=== PATIENT | female | born 1960 | race Hispanic/Latino ===

== ENCOUNTER 2017-12-19 13:52 | Inpatient (IN) | payer OTHER ==
[2017-12-19] MEDS ORDERED: NORCO 10/325 PO ONE (15:31)
[2017-12-19 16:09] LABS: Basophils # (Auto) 0.1 K/mm3 (0.0-0.1); Basophils % (Auto) 1.1 % (0.0-1.8); Eosinophils # (Auto) 0.2 K/mm3 (0.0-0.4); Eosinophils % (Auto) 2.7 % (0.0-4.3); Hemoglobin 17.6 gm/dl (10.1-14.3); Lymphocytes # (Auto) 2.2 K/mm3 (1.2-5.4); Mean Corpuscular HGB Conc 33 % (30-34); Mean Corpuscular Hemoglobin 30 pg (28-32); Mean Corpuscular Volume 91 fl (79-97); Monocytes # (Auto) 0.9 K/mm3 (0.0-0.8); Monocytes % (Auto) 11.3 % (0.0-7.3); Platelet Count 182 K/mm3 (140-440); Red Blood Count 5.92 M/mm3 (3.65-5.03); Red Cell Distribution Width 17.6 % (13.2-15.2)
[2017-12-19 16:19] LABS: INR 0.88 (0.87-1.13)
[2017-12-19 16:31] LABS: Alanine Aminotransferase 70 units/L (7-56); Albumin 3.2 g/dL (3.9-5); BUN/Creatinine Ratio 10; Blood Urea Nitrogen 5 mg/dL (7-17); Calcium 8.7 mg/dL (8.4-10.2); Hemolysis Index 9
[2017-12-19] MEDS ORDERED: MORPHINE IV ONE (23:09)
--- NOTE | 2017-12-19 23:12 | Emergency Department Report ---
HPI - General Chief Complaint: Extremity Problem,Nontraumatic Time Seen by Provider: 12/19/17 23:02 - HPI HPI: This is a 57-year-old female presents to the emergency department from the vascular physician's office where she saw a nurse practitioner and was sent in to [facility] for probable admission and angiogram tomorrow. The patient has been having pain to the toes of her left foot along with some color change that has been going on for the past few weeks. She was given a pain pill and given in by her . She is a current tobacco smoker and has a history of COPD. She did not take anything for her symptoms prior to going into the vascular physician's office. No recent travel or sick contacts at home. ED Past Medical Hx - Past Medical History Previous Medical History?: No - Surgical History Past Surgical History?: No - Social History Smoking Status: Current Every Day Smoker Substance Use Type: None ED Review of Systems ROS: Stated complaint: LEFT FOOT PAIN, GANGRENE Other details as noted in HPI Comment: All other systems reviewed and negative Constitutional: denies: chills, fever Eyes: denies: eye pain, eye discharge, vision change ENT: denies: ear pain, throat pain Respiratory: denies: cough, shortness of breath, wheezing Cardiovascular: denies: chest pain, palpitations Gastrointestinal: denies: abdominal pain, nausea, diarrhea Genitourinary: denies: urgency, dysuria, discharge Musculoskeletal: arthralgia (toes of the left foot) Skin: change in color (purplish color to the toes of the left foot). denies: pruritus Neurological: denies: headache, weakness, paresthesias Physical Exam - Physical Exam Vital Signs: Vital Signs 12/19/17 15:05 Temperature 97.8 F Pulse Rate 104 H Respiratory 16 Rate Blood Pressure 165/84 O2 Sat by Pulse 96 Oximetry Physical Exam: GENERAL: The patient is well-developed well-nourished. HENT: Normocephalic. Atraumatic. Patient has moist mucous membranes. EYES: Extraocular motions are intact. Pupils equal reactive to light bilaterally. NECK: Supple. Trachea is midline. CHEST/LUNGS: Clear to auscultation. There is no respiratory distress noted. HEART/CARDIOVASCULAR: Regular. There is no tachycardia. There is no murmur. ABDOMEN: Abdomen is soft, nontender. Patient has normal bowel sounds. There is no abdominal distention. SKIN: Skin is warm and dry. The left foot is slightly cool. There is a purplish dusky color change to the great toe and the fifth/pinky toe of the left foot as well as, to a lesser extent, the dorsum of the second and third toe of that same foot. There is no palpable dorsalis pedis pulse but it is audible yet decreased with pencil Doppler NEURO: The patient is awake, alert, and oriented. The patient is cooperative. The patient has no focal neurologic deficits. The patient has normal speech. MUSCULOSKELETAL: There is some tenderness to palpation to the toes of the left foot and the distal left foot but no obvious deformity other than the color change. Cap refill of the toes of the left foot is between 4 and 5 seconds. ED Course Vital Signs 12/19/17 15:05 Temperature 97.8 F Pulse Rate 104 H Respiratory 16 Rate Blood Pressure 165/84 O2 Sat by Pulse 96 Oximetry - Consultations Consultation #1: I spoke with the vascular surgeon electrician second, Dr. Irvin Chavarria, who will put in some orders for the patient to get evaluated tomorrow for possible arterial insufficiency and he will see the patient has a consult. He has asked for the patient to get a baby aspirin and started on a heparin drip. 12/20/17 00:17 ED Medical Decision Making - Lab Data Result diagrams: 12/19/17 15:51 12/19/17 15:51 - Medical Decision Making Patient presents from vascular physician office with purplish color change to some of the toes of the left foot. She does not have a palpable dorsalis pedis but there is an audible one yet it is decreased with pencil Doppler. She has tenderness to palpation and tenderness without palpation to the toes and distal portion of the left foot. All this is concerning for some arterial insufficiency. The patient was given some pain medication and started on heparin drip. She'll be admitted to the hospitalist service and will have a vascular consult. - Differential Diagnosis arterial insufficiency/PAD, dermatitis, venous stasis, emboli Critical Care Time: No Critical care attestation.: If time is entered above; I have spent that time in minutes in the direct care of this critically ill patient, excluding procedure time. ED Disposition Clinical Impression: Peripheral arterial disease, Arterial insufficiency of lower extremity, Tobacco use disorder Disposition: OP ADMIT IP TO THIS HOSP Is pt being admited?: Yes Condition: Stable Referrals: PRIMARY CARE, [Primary Care Provider] - 3-5 Days Time of Disposition: 00:19
[2017-12-19] MEDS ORDERED: BABY ASPIRIN PO ONE (23:19)
--- NOTE | 2017-12-19 23:21 | Event Note ---
Date: 12/19/17 57 year old female with COPD who is an active smoker who presents after being seen by a PLATE DRILLER at [facility] with recommendations to go to the ER. Patient has right cyanotic discoloration of the toes with intact motor, and sensation with some pain. This has been occuring for a few weeks. No history of melena, hematochezia, or hematemesis. No history of bleeding issues. Recommend ASA 81 mg PO qdaily - first dose now. Recommend initiation of a heparin drip. Recommend NPO after MN. Recommend arterial duplex in AM. Recommend admission by hospitalist service. Probable angiography tomorrow.
--- NOTE | 2017-12-19 23:31 | History and Physical Report ---
History of Present Illness Date of examination: 12/19/17 History of present illness: 57-year-old with a history of COPD comes to the emergency room because of the eyes 3 weeks she has noticed that her right first and middle toe turned blue, followed by the bottom of the foot. She stated that when she walks up an incline, she developed pain in her calves Review Of Systems: Constitutional: no weight loss Ears, eyes, nose, mouth and throat: no nasal congestion, no nasal discharge, no sinus pressure, blurry vision, diplopia Neck: No neck pain or rigidity. Cardiovascular: No chest pain, palpitations Respiratory: No shortness of breath, cough Gastrointestinal: No abdominal pain, hematochezia Genitourinary : no dysuria, frequency , hematuria Musculoskeletal: no muscle ache Integumentary: no rash, no pruritis Neurological: no parathesias, focal weakness Endocrine: no cold or heat intolerance, no polyuria or polydipsia Hematologic/Lymphatic: no easy bruising, no easy bleeding, no gland swelling Allergic/Immunologic: no urticaria, no angioedema. PAST MEDICAL HISTORY: COPD PAST SURGICAL HISTORY: None FAMILY HISTORY: Hypertension SOCIAL HISTORY: Smokes a pack a day, drink a few glasses of wine a day, no drugs Medications and Allergies Allergies Allergy/AdvReac Type Severity Reaction Status Date / Time lisinopril Allergy Unknown Verified 12/23/17 01:05 prochlorperazine AdvReac Unknown Verified 12/19/17 15:27 [From Compazine] Home Medications Medication Instructions Recorded Confirmed Last Taken Type No Known Home Medications [No 12/20/17 12/20/17 Unknown History Reported Home Medications] Active Meds: Active Medications Heparin Sodium/Sodium Chloride (Heparin/ 0.45% Nacl-25,000 Unit/500 Ml) 25,000 unit in 500 mls @ 15.241 mls/hr IV TITR DINESH; 15 UNITS/KG/HR PRN Reason: Protocol Exam - Physical Exam Narrative exam: Gen. appearance: Patient lying in bed in no acute distress HEENT: Normocephalic/atraumatic, pupils equal round reactive to light, extra occular movement intact, no scleral icterus, no JVD or thyromegaly or nodule, neck is supple, mucous membrane moist, no erythema or exudate Heart: S1-S2, regular rate and rhythm Lungs: Clear to auscultation bilateral breathing comfortable Abdomen: Positive bowel sounds, nontender, nondistended, no organomegaly Extremities: cyanosis of the first, third and fifth toes, bottom of foot, No edema, clubbing Neuro:: Oriented 3 , cranial nerves II-12 intact, speech, motor intact Skin: No rash, nodules, warm dry - Constitutional Vitals: Temp Pulse Resp BP Pulse Ox 97.8 F 104 H 16 165/84 96 12/19/17 15:05 12/19/17 15:05 12/19/17 15:05 12/19/17 15:05 12/19/17 15:05 Results - Labs CBC & Chem 7: 12/25/17 Unknown 12/25/17 Unknown Labs: Abnormal lab results 12/19/17 12/19/17 12/19/17 Range/Units 15:51 15:51 15:51 RBC 5.92 H (3.65-5.03) M/mm3 Hgb 17.6 H (10.1-14.3) gm/dl Hct 54.0 H (30.3-42.9) % RDW 17.6 H (13.2-15.2) % [place] % (Auto) 11.3 H (0.0-7.3) % [place] # 0.9 H (0.0-0.8) K/mm3 VBG pH 7.309 L (7.320-7.420) BUN 5 L (7-17) mg/dL Creatinine 0.5 L (0.7-1.2) mg/dL AST 113 H (5-40) units/L ALT 70 H (7-56) units/L Alkaline Phosphatase 155 H (35-129) units/L Total Protein 6.2 L (6.3-8.2) g/dL Albumin 3.2 L (3.9-5) g/dL - Imaging and Cardiology EKG: image reviewed Assessment and Plan Assessment Vascular insufficiency of the left leg COPD Plan Admit to medicine Nothing by mouth, heparin drip, Joel consulted to see the patient Continue outpatient medications Dvt prophylaxis
[2017-12-20] MEDS ORDERED: TYLENOL PO PRN (00:31)
[2017-12-20] MEDS ORDERED: DULCOLAX PR PRN (00:31)
[2017-12-20] MEDS ORDERED: MILK OF MAGNESIA PO PRN (00:31)
[2017-12-20 00:37] LABS: INR 0.97 (0.87-1.13)
[2017-12-20 00:38] LABS: Partial Thromboplastin Time 25.3 Sec. (24.2-36.6)
[2017-12-20] MEDS: HEPARIN/ 0.45% NACL-25,000 UNIT/500 ML 25,000 UNIT/500 ML BAG IV SCH (00:56)
[2017-12-20] MEDS: MORPHINE IV PRN ×4 (02:52→21:41)
--- NOTE | 2017-12-20 08:56 | Consultation ---
History of Present Illness - Reason for Consult Consult date: 12/20/17 Ischemic LLE - History of Present Illness 57-year-old with a history of smoking, and COPD comes to the emergency room because of 3 weeks of left foot discoloration. The patient reports that she has had right hip pain and left calf pain for approximately 1 year with new onset of left foot discoloration for 3 weeks. Her left first digit and fifth digit are slightly mottled and cyanotic. She has some mottling overlying her left knee. Physical exam demonstrates nonpalpable pedal pulses are nonpalpable femoral pulses. Patient is on a heparin drip. Aspirin was initiated at time of presentation. Past History Past Medical History: COPD Past Surgical History: cholecystectomy Social history: , smoking Family history: hypertension Medications and Allergies Allergies Allergy/AdvReac Type Severity Reaction Status Date / Time prochlorperazine AdvReac Unknown Verified 12/19/17 15:27 [From Compazine] Home Medications Medication Instructions Recorded Confirmed Last Taken Type No Known Home Medications [No 12/20/17 12/20/17 Unknown History Reported Home Medications] Active Meds: Active Medications Acetaminophen (Tylenol) 650 mg PO Q4H PRN PRN Reason: Pain MILD(1-3)/Fever >100.5/BARAJAS Aspirin (Baby Aspirin) 81 mg PO QDAY DINESH Bisacodyl (Dulcolax) 10 mg AL QDAY PRN PRN Reason: Constipation unrelieved by MOM Heparin Sodium/Sodium Chloride (Heparin/ 0.45% Nacl-25,000 Unit/500 Ml) 25,000 unit in 500 mls @ 15 mls/hr IV TITR DINESH; 750 UNITS/HR PRN Reason: Protocol Last Admin: 12/20/17 00:56 Dose: 750 units/hr, 15 mls/hr Magnesium Hydroxide (Milk Of Magnesia) 30 ml PO Q4H PRN PRN Reason: Constipation Morphine Sulfate (Morphine) 2 mg IV Q4H PRN PRN Reason: Pain, Moderate (4-6) Last Admin: 12/20/17 06:43 Dose: 2 mg Ondansetron HCl (Zofran) 4 mg IV Q8H PRN PRN Reason: N/V unrelieved by Reglan Review of Systems All systems: negative (see HPI) Exam - Constitutional Vitals: Temp Pulse Resp BP Pulse Ox 97.8 F 76 16 160/88 93 12/20/17 07:17 12/20/17 07:17 12/20/17 07:17 12/20/17 07:17 12/20/17 07:17 General appearance: Present: no acute distress - EENT Eyes: Present: EOM intact ENT: hearing intact - Respiratory Respiratory effort: normal - Extremities Extremity abnormal: cyanosis (left 1st and 5th digit), pulses diminished, other (some mottling overlying the left knee and left plantar surface of the foot) Peripheral Pulses: abnormal (see HPI) - Psychiatric Psychiatric: appropriate mood/affect, cooperative Results - Labs CBC & Chem 7: 12/19/17 15:51 12/19/17 15:51 Labs: Abnormal lab results 12/19/17 12/19/17 12/19/17 Range/Units 15:51 15:51 15:51 RBC 5.92 H (3.65-5.03) M/mm3 Hgb 17.6 H (10.1-14.3) gm/dl Hct 54.0 H (30.3-42.9) % RDW 17.6 H (13.2-15.2) % [place] % (Auto) 11.3 H (0.0-7.3) % [place] # 0.9 H (0.0-0.8) K/mm3 Heparin Anti-Xa Level (0.3-0.7) U.I./ml VBG pH 7.309 L (7.320-7.420) BUN 5 L (7-17) mg/dL Creatinine 0.5 L (0.7-1.2) mg/dL AST 113 H (5-40) units/L ALT 70 H (7-56) units/L Alkaline Phosphatase 155 H (35-129) units/L Total Protein 6.2 L (6.3-8.2) g/dL Albumin 3.2 L (3.9-5) g/dL 12/20/17 Range/Units 07:09 RBC (3.65-5.03) M/mm3 Hgb (10.1-14.3) gm/dl Hct (30.3-42.9) % RDW (13.2-15.2) % [place] % (Auto) (0.0-7.3) % [place] # (0.0-0.8) K/mm3 Heparin Anti-Xa Level 0.17 L (0.3-0.7) U.I./ml VBG pH (7.320-7.420) BUN (7-17) mg/dL Creatinine (0.7-1.2) mg/dL AST (5-40) units/L ALT (7-56) units/L Alkaline Phosphatase (35-129) units/L Total Protein (6.3-8.2) g/dL Albumin (3.9-5) g/dL - Imaging and Cardiology CT scan - abdomen: report reviewed, image reviewed CT scan - pelvis: report reviewed, image reviewed Venous US: image reviewed (arterial) Assessment and Plan 57-year-old female with history of smoking and COPD who presents with mottling of the left lower extremity/ischemic changes of the left lower extremity with bilateral large extremity claudication. The patient has extensive arterial disease arterial duplex of monophasic flow to the bilateral lower extremities and extensive calcific disease in the bilateral common femoral arteries. CT angiogram demonstrates dural thrombus in the infrarenal aorta with occlusion of the right common iliac artery, near occlusion/short segment occlusion of the left external iliac artery, with severe narrowing of the right common femoral artery and partial occlusion of the left common femoral artery. Given the patient's findings, she would likely benefit from operative management of bilateral femoral endarterectomies with aortobifemoral bypass. If patient is an extremely high cardiac or pulmonary risk, then left common femoral artery endarterectomy with retrograde stenting of the iliac system can be considered. Recommend cardiology and pulmonology consults for preoperative evaluation.
[2017-12-20] MEDS ORDERED: LOVENOX SUB-Q SCH (10:00)
--- NOTE | 2017-12-20 12:15 | Cat Scan Report ---
The CTA abdomen, pelvis, lower extremities: Left lower extremity ischemia; PVD. Following intravenous contrast administration images are obtained from lower chest to the feet with coronal and sagittal 2-D reformatted images. The visualized lungs are unremarkable. In the right upper quadrant there appears to be edema in the mesentery extending between the lower liver and the descending duodenum as well as in the perinephric space and around the subhepatic colon. No free fluid and no mass identified. There is a mural thrombus at the level of the thoracolumbar aorta narrowing the lumen approximately 20%. The mesenteric and renal arteries are patent as is the aorta at that level. Just below the renal arteries there is a large mural thrombus narrowing the opacified lumen approximately 50-60%. This extends to the bifurcation where the opacified lumen is approximately 30-40%. The left common iliac artery is heavily calcified but patent to the bifurcation beyond which there is a focal high-grade stenosis. There appears to be occluding thrombus extending into the right common iliac artery with reconstitution of flow at the bifurcation. The external iliac artery is patent but moderately stenotic. Right lower extremity: The common femoral artery is heavily calcified but patent. The superficial femoral artery is patent but there is a high-grade stenosis of the popliteal artery. The trifurcation is patent but flow through the distal vessels appears to be diminished with small vessels. The posterior tibial artery is patent to the foot as is the anterior tibial artery. The peroneal artery occludes in the midportion. Left lower extremity: The bifurcation is patent but also heavily calcified and compromised in lumen size. The SFA is patent as is the popliteal artery although the popliteal is moderately compromised in size. The trifurcation is also patent with anterior and posterior tibial flow to the ankle. The peroneal artery is occluded just distal to its origin. Impression: 1. Suspect possible right upper quadrant inflammation related to the colon. 2. Significantly compromised abdominal aorta lumen below the renal arteries. 3. Bilaterally compromised iliac and common femoral vessel flow as described. 4. Bilateral compromised lower extremity flow predominantly at the level of the popliteal arteries.
[2017-12-20] MEDS: BABY ASPIRIN PO SCH (12:17)
--- NOTE | 2017-12-20 16:45 | Progress Note ---
History Interval history: 57-year-old female with medical history significant for COPD, hypertension, active tobacco use is limited to the emergency department with complaints of cyanosis of the right foot Peripheral vascular disease - VASCULAR LAB.PRELIMINARY REPORT.BLE ARTERIAL DUPLEX DONE.EXTENSIVE ,SCATTERED FIBROCALCIFIED PLAQUES THROUGHOUT VESSELS VISUALIZED LICO. LT.GROIN VESSELS .MONOPHASIC WAVEFORMS OBTAINED THROUGHOUT VESSELS INTERROGATED. - Vascular surgery consulted - And is on IV heparin drip - We will do preoperative evaluation of his echo, EKG, ABG - Check lipid panel COPD - When necessary nebulizers Hypertension - We'll start on amlodipine Disposition - Continue inpatient care Hospitalist Physical - Constitutional Vitals: Temp Pulse Resp BP Pulse Ox 97.8 F 88 16 152/88 96 12/20/17 15:57 12/20/17 15:57 12/20/17 15:57 12/20/17 15:57 12/20/17 15:57 Results - Labs CBC & Chem 7: 12/19/17 15:51 12/19/17 15:51 Labs: Laboratory Last Values WBC 8.1 K/mm3 (4.5-11.0) 12/19/17 15:51 RBC 5.92 M/mm3 (3.65-5.03) H 12/19/17 15:51 Hgb 17.6 gm/dl (10.1-14.3) H 12/19/17 15:51 Hct 54.0 % (30.3-42.9) H 12/19/17 15:51 MCV 91 fl (79-97) 12/19/17 15:51 MCH 30 pg (28-32) 12/19/17 15:51 MCHC 33 % (30-34) 12/19/17 15:51 RDW 17.6 % (13.2-15.2) H 12/19/17 15:51 Plt Count 182 K/mm3 (140-440) 12/19/17 15:51 Lymph % (Auto) 27.0 % (13.4-35.0) 12/19/17 15:51 [place] % (Auto) 11.3 % (0.0-7.3) H 12/19/17 15:51 Eos % (Auto) 2.7 % (0.0-4.3) 12/19/17 15:51 Baso % (Auto) 1.1 % (0.0-1.8) 12/19/17 15:51 Lymph # 2.2 K/mm3 (1.2-5.4) 12/19/17 15:51 [place] # 0.9 K/mm3 (0.0-0.8) H 12/19/17 15:51 Eos # 0.2 K/mm3 (0.0-0.4) 12/19/17 15:51 Baso # 0.1 K/mm3 (0.0-0.1) 12/19/17 15:51 Seg Neutrophils % 57.9 % (40.0-70.0) 12/19/17 15:51 Seg Neutrophils # 4.7 K/mm3 (1.8-7.7) 12/19/17 15:51 PT 13.4 Sec. (12.2-14.9) 12/20/17 00:11 INR 0.97 (0.87-1.13) 12/20/17 00:11 APTT 25.3 Sec. (24.2-36.6) 12/20/17 00:11 Heparin Anti-Xa Level 0.17 U.I./ml (0.3-0.7) L 12/20/17 07:09 VBG pH 7.309 (7.320-7.420) L 12/19/17 15:51 Sodium 142 mmol/L (137-145) 12/19/17 15:51 Potassium 4.9 mmol/L (3.6-5.0) 12/19/17 15:51 Chloride 104.8 mmol/L (98-107) 12/19/17 15:51 Carbon Dioxide 26 mmol/L (22-30) 12/19/17 15:51 Anion Gap 16 mmol/L 12/19/17 15:51 BUN 5 mg/dL (7-17) L 12/19/17 15:51 Creatinine 0.5 mg/dL (0.7-1.2) L 12/19/17 15:51 Estimated GFR > 60 ml/min 12/19/17 15:51 BUN/Creatinine Ratio 10 % 12/19/17 15:51 Glucose 97 mg/dL (65-100) 12/19/17 15:51 Lactic Acid 1.60 mmol/L (0.7-2.0) 12/19/17 18:42 Calcium 8.7 mg/dL (8.4-10.2) 12/19/17 15:51 Total Bilirubin 0.20 mg/dL (0.1-1.2) 12/19/17 15:51 AST 113 units/L (5-40) H 12/19/17 15:51 ALT 70 units/L (7-56) H 12/19/17 15:51 Alkaline Phosphatase 155 units/L (35-129) H 12/19/17 15:51 Total Protein 6.2 g/dL (6.3-8.2) L 12/19/17 15:51 Albumin 3.2 g/dL (3.9-5) L 12/19/17 15:51 Albumin/Globulin Ratio 1.1 % 12/19/17 15:51
[2017-12-20 20:28] LABS: Chol/HDL Ratio 2.64 %
[2017-12-20] MEDS: HABITROL TD SCH (22:13)
[2017-12-20] MEDS: NORVASC PO SCH (23:30)
[2017-12-21] MEDS: MORPHINE IV PRN ×2 (01:47→09:31)
[2017-12-21 06:33] LABS: Basophils # (Auto) 0.1 K/mm3 (0.0-0.1); Eosinophils # (Auto) 0.5 K/mm3 (0.0-0.4); Eosinophils % (Auto) 4.1 % (0.0-4.3); Hematocrit 48.4 % (30.3-42.9); Hemoglobin 15.5 gm/dl (10.1-14.3); Lymphocytes # (Auto) 2.2 K/mm3 (1.2-5.4); Lymphocytes % (Auto) 19.5 % (13.4-35.0); Mean Corpuscular HGB Conc 32 % (30-34); Mean Corpuscular Hemoglobin 30 pg (28-32); Mean Corpuscular Volume 92 fl (79-97); Monocytes # (Auto) 1.3 K/mm3 (0.0-0.8); Platelet Count 145 K/mm3 (140-440); Red Blood Count 5.27 M/mm3 (3.65-5.03); Red Cell Distribution Width 16.9 % (13.2-15.2)
[2017-12-21 06:41] LABS: BUN/Creatinine Ratio 10; Blood Urea Nitrogen 5 mg/dL (7-17); Calcium 8.2 mg/dL (8.4-10.2); Hemolysis Index 23
[2017-12-21] MEDS ORDERED: PROAIR IH PRN (08:49)
[2017-12-21] MEDS ORDERED: K-DUR PO NR (09:00)
[2017-12-21] MEDS: BABY ASPIRIN PO SCH (09:32)
[2017-12-21] MEDS: NORVASC PO SCH ×2 (09:33→12:58)
--- NOTE | 2017-12-21 09:39 | Vascular Lab Report ---
LOWER EXTREMITY ARTERIAL DUPLEX: REASON FOR EXAM: Peripheral arterial disease. COMMENTS ON THE RIGHT: Monophasic waveforms are seen proximally. Monophasic waveforms are seen distally. These findings are consistent with aortoiliac inflow disease. Significant scattered plaque is seen throughout. Findings are consistent with abnormal perfusion. Findings are not consistent with the ability to heal distal wounds. COMMENTS ON THE LEFT: Monophasic waveforms are seen proximally. Monophasic waveforms are seen distally. Findings are consistent with aortoiliac inflow disease. Significant scattered plaque is seen throughout. Findings are consistent with abnormal perfusion. Findings are not consistent with the ability to heal distal wounds. IMPRESSION: RIGHT: Findings are consistent with aortoiliac inflow disease. Flow velocities in the distal lower extremity are inadequate for healing wounds. LEFT:As on the right, findings are consistent with aortoiliac inflow disease. Flow velocities noted in the distal lower extremity are inconsistent with the ability to heal wounds. Recommendation: Consider further evaluation including CT angiography if clinically appropriate.
--- NOTE | 2017-12-21 11:36 | Consultation ---
History of Present Illness Consult date: 12/21/17 Requesting physician: KAVIN IZAGUIRRE Consult reason: pre op evaluation History of present illness: The pt is a 57 YO female with a past medical history significant for HTN, COPD, tobacco use (smokes 1PPD), daily ETOH use (drinks 2 glasses wine per day). She is previously unknown to our practice. She presented with c/o BLE claudication for the past 1 year and progressively worsening LLE pain with cyanotic discoloration of the left toes for the past 3 weeks. Following admission, pt was found to have extensive PAD and extensive calcific disease in the bilateral common femoral arteries. CT angiogram demonstrates dural thrombus in the infrarenal aorta with occlusion of the right common iliac artery, near occlusion /short segment occlusion of the left external iliac artery, with severe narrowing of the right common femoral artery and partial occlusion of the left common femoral artery. Per vascular surgery, pt would likely benefit from operative management and thus cardiology has been consulted for pre-operative cardiac clearance. Pt reports no SOB above baseline, palpitations, n/v, diaphoresis, dizziness or syncope. She reports one episode of chest tightness last night which was associated with nausea secondary to IV morphine but no other episodes of chest pain. She reports undergoing treadmill stress test in our office approx 5 years ago and believes this test was normal. Past History Past Medical History: COPD Past Surgical History: cholecystectomy Social history: , smoking Family history: cancer (mother of colon CA), hypertension Medications and Allergies Allergies Allergy/AdvReac Type Severity Reaction Status Date / Time prochlorperazine AdvReac Unknown Verified 12/19/17 15:27 [From Compazine] Home Medications Medication Instructions Recorded Confirmed Last Taken Type No Known Home Medications [No 12/20/17 12/20/17 Unknown History Reported Home Medications] Active Meds: Active Medications Acetaminophen (Tylenol) 650 mg PO Q4H PRN PRN Reason: Pain MILD(1-3)/Fever >100.5/BARAJAS Albuterol (Proventil) 2.5 mg IH Q4HRT PRN PRN Reason: Shortness Of Breath Amlodipine Besylate (Norvasc) 5 mg PO QDAY [facility] Last Admin: 12/21/17 09:33 Dose: 5 mg Aspirin (Baby Aspirin) 81 mg PO QDAY [facility] Last Admin: 12/21/17 09:32 Dose: 81 mg Bisacodyl (Dulcolax) 10 mg [place] QDAY PRN PRN Reason: Constipation unrelieved by MOM Heparin Sodium/Sodium Chloride (Heparin/ 0.45% Nacl-25,000 Unit/500 Ml) 25,000 unit in 500 mls @ 15 mls/hr IV TITR DINESH; 750 UNITS/HR PRN Reason: Protocol Last Titration: 12/21/17 06:55 Dose: 850 units/hr, 17 mls/hr Magnesium Hydroxide (Milk Of Magnesia) 30 ml PO Q4H PRN PRN Reason: Constipation Nicotine (Habitrol) 14 mg TD Q24H DINESH Last Admin: 12/20/17 22:13 Dose: 14 mg Ondansetron HCl (Zofran) 4 mg IV Q8H PRN PRN Reason: N/V unrelieved by Reglan Oxycodone/Acetaminophen (Percocet 5/325) 2 tab PO Q6H PRN PRN Reason: Pain, Moderate (4-6) Review of Systems Constitutional: no weight loss, no weight gain, no fever, no chills, no sweats Ears, nose, mouth and throat: no ear pain, no nose pain, no sinus pressure, no sinus pain Cardiovascular: chest pain, shortness of breath (chronic), claudication (BLE), no orthopnea, no palpitations, no rapid/irregular heart beat, no edema, no syncope, no lightheadedness, no paroxysmal nocturnal dyspnea, no high blood pressure, no leg edema Respiratory: shortness of breath (chronic), no cough, no dyspnea on exertion, no congestion, no wheezing, no pain on inspiration Gastrointestinal: no abdominal pain, no nausea, no vomiting, no diarrhea, no constipation, no change in bowel habits Genitourinary Female: no pelvic pain, no flank pain, no dysuria, no urinary frequency, no urgency Musculoskeletal: no neck stiffness, no neck pain, no shooting arm pain, no arm numbness/tingling, no low back pain Integumentary: other (LLE toe mottling and cyanotic discoloration), no rash, no pruritis, no sores, no wounds Neurological: no head injury, no paralysis, no weakness, no seizures, no syncope Psychiatric: no anxiety Endocrine: no cold intolerance, no heat intolerance Hematologic/Lymphatic: no easy bruising, no easy bleeding, no lymphadenopathy Allergic/Immunologic: no urticaria, no wheezing, no persistent infections Physical Examination Vital Signs Temp Pulse Resp BP Pulse Ox 97.8 F 104 H 16 165/84 96 12/19/17 15:05 12/19/17 15:05 12/19/17 15:05 12/19/17 15:05 12/19/17 15:05 General appearance: no acute distress HEENT: Positive: PERRL, Normocephaly, Mucus Membranes Moist Neck: Positive: neck supple, trachea midline Cardiac: Positive: Reg Rate and Rhythm, S1/S2 Lungs: Positive: clear to auscultation Neuro: Positive: Grossly Intact, Cranial Nerve 2-12 Intact Abdomen: Positive: Soft. Negative: Tender Skin: Positive: Mottled (LLE toes) Musculoskeletal: No Fluid Collection Extremities: Present: upper extr. pulses, Other (nonpalpable pedal pulses are nonpalpable femoral pulses) Results 12/21/17 05:37 12/21/17 05:37 Lipids 12/20/17 Range/Units 19:47 Triglycerides 160 H (2-149) mg/dL Cholesterol 140 (50-199) mg/dL HDL Cholesterol 53 (40-59) mg/dL Cholesterol/HDL Ratio 2.64 % CBC 12/21/17 Range/Units 05:37 WBC 11.1 H (4.5-11.0) K/mm3 RBC 5.27 H (3.65-5.03) M/mm3 Hgb 15.5 H (10.1-14.3) gm/dl Hct 48.4 H (30.3-42.9) % Plt Count 145 (140-440) K/mm3 Lymph # 2.2 (1.2-5.4) K/mm3 [place] # 1.3 H (0.0-0.8) K/mm3 Eos # 0.5 H (0.0-0.4) K/mm3 Baso # 0.1 (0.0-0.1) K/mm3 Comprehensive Metabolic Panel 12/21/17 Range/Units 05:37 Sodium 138 (137-145) mmol/L Potassium 3.4 L D (3.6-5.0) mmol/L Chloride 101.2 (98-107) mmol/L Carbon Dioxide 26 (22-30) mmol/L BUN 5 L (7-17) mg/dL Creatinine 0.5 L (0.7-1.2) mg/dL Glucose 87 (65-100) mg/dL Calcium 8.2 L (8.4-10.2) mg/dL - Imaging and Cardiology Echo: pending EKG: report reviewed, image reviewed EKG interpretations - Telemetry EKG Rhythm: Sinus Rhythm - EKG Sinus rhythms and dysrhythmias: sinus rhythm Assessment and Plan Assessment: PVD HTN COPD Hypokalemia Tobacco use / ETOH use - cessation encouraged Plan: Optimize anti-hypertensive regimen - increase amlodipine to 10mg daily and initiate lopressor. Replete K+. Obtain echo. Plan for lexiscan MPI stress test in AM. NPO after MN. Assessment and plan reviewed with pt at bedside. The patient has been seen in conjunction with Dr. Carmona who agrees with the assessment and plan of care.
[2017-12-21] MEDS ORDERED: PROVENTIL IH PRN (12:00)
[2017-12-21] MEDS: PERCOCET 5/325 PO PRN ×2 (12:59→19:20)
--- NOTE | 2017-12-21 16:25 | Progress Note ---
Assessment and Plan 57-year-old female with history of smoking and COPD who presents with mottling of the left lower extremity/ischemic changes of the left lower extremity with bilateral large extremity claudication. The patient has extensive arterial disease arterial duplex of monophasic flow to the bilateral lower extremities and extensive calcific disease in the bilateral common femoral arteries. CT angiogram demonstrates mural thrombus in the infrarenal aorta with occlusion of the right common iliac artery, near occlusion/short segment occlusion of the left external iliac artery, with severe narrowing of the right common femoral artery and partial occlusion of the left common femoral artery. Given the patient's findings, she would likely benefit from operative management of bilateral femoral endarterectomies with aortobifemoral bypass. If patient is an extremely high cardiac or pulmonary risk, then left common femoral artery endarterectomy with retrograde stenting of the iliac system can be considered. Recommend cardiology and pulmonology consults for preoperative evaluation. There is a tentative plan for aortobifemoral bypass on Sunday however, this may change based on preoperative evaluation recommendations. Continue heparin drip. Continue aspirin. Subjective Date of service: 12/21/17 Interval history: Discussed plan with patient. Her left foot feels better. Left 1st and 5th digit of the foot still mottled. Sensory and motor function intact. Objective - Constitutional Vitals: Vital Signs - 12hr 12/21/17 12/21/17 12/21/17 05:29 07:17 08:00 Temperature 97.7 F 98.5 F Pulse Rate 98 H 111 H 76 Respiratory 18 16 Rate Respiratory Rate [Left Toe] Blood Pressure 153/101 Blood Pressure 148/90 [Left] O2 Sat by Pulse 98 96 Oximetry 12/21/17 12/21/17 12/21/17 09:31 09:33 10:00 Temperature Pulse Rate 94 H 80 Respiratory 20 20 Rate Respiratory 20 Rate [Left Toe] Blood Pressure 150/90 Blood Pressure [Left] O2 Sat by Pulse Oximetry 12/21/17 12/21/17 12/21/17 10:01 11:20 12:58 Temperature 98.2 F Pulse Rate 89 88 Respiratory 20 16 Rate Respiratory Rate [Left Toe] Blood Pressure 131/82 136/84 Blood Pressure [Left] O2 Sat by Pulse 95 Oximetry 12/21/17 12:59 Temperature Pulse Rate Respiratory 20 Rate Respiratory Rate [Left Toe] Blood Pressure Blood Pressure [Left] O2 Sat by Pulse Oximetry General appearance: Present: no acute distress - EENT Eyes: EOM intact ENT: hearing intact - Respiratory Respiratory effort: normal Extremity abnormal: pulses diminished, other (see subjective) - Psychiatric Psychiatric: appropriate mood/affect, cooperative - Labs CBC & Chem 7: 12/21/17 05:37 12/21/17 05:37 Labs: Abnormal lab results 12/20/17 12/20/17 12/20/17 Range/Units 18:00 19:47 19:47 WBC (4.5-11.0) K/mm3 RBC (3.65-5.03) M/mm3 Hgb (10.1-14.3) gm/dl Hct (30.3-42.9) % RDW (13.2-15.2) % [place] % (Auto) (0.0-7.3) % [place] # (0.0-0.8) K/mm3 Eos # (0.0-0.4) K/mm3 Heparin Anti-Xa Level 0.25 L (0.3-0.7) U.I./ml POC ABG pO2 77 L (80-105) Potassium (3.6-5.0) mmol/L BUN (7-17) mg/dL Creatinine (0.7-1.2) mg/dL Calcium (8.4-10.2) mg/dL Triglycerides 160 H (2-149) mg/dL 12/21/17 12/21/17 Range/Units 05:37 05:37 WBC 11.1 H (4.5-11.0) K/mm3 RBC 5.27 H (3.65-5.03) M/mm3 Hgb 15.5 H (10.1-14.3) gm/dl Hct 48.4 H (30.3-42.9) % RDW 16.9 H (13.2-15.2) % [place] % (Auto) 12.0 H (0.0-7.3) % [place] # 1.3 H (0.0-0.8) K/mm3 Eos # 0.5 H (0.0-0.4) K/mm3 Heparin Anti-Xa Level (0.3-0.7) U.I./ml POC ABG pO2 (80-105) Potassium 3.4 L D (3.6-5.0) mmol/L BUN 5 L (7-17) mg/dL Creatinine 0.5 L (0.7-1.2) mg/dL Calcium 8.2 L (8.4-10.2) mg/dL Triglycerides (2-149) mg/dL
--- NOTE | 2017-12-21 16:52 | Progress Note ---
Assessment and Plan Assessment and plan: 57-year-old female with medical history significant for COPD, hypertension, active tobacco use is limited to the emergency department with complaints of cyanosis of the right foot Peripheral vascular disease - VASCULAR LAB.PRELIMINARY REPORT.BLE ARTERIAL DUPLEX DONE.EXTENSIVE ,SCATTERED FIBROCALCIFIED PLAQUES THROUGHOUT VESSELS VISUALIZED LICO. LT.GROIN VESSELS .MONOPHASIC WAVEFORMS OBTAINED THROUGHOUT VESSELS INTERROGATED. - Vascular surgery consulted and will do out to femoral bypass, need clearance by cardiology and pulmonary -Cardiology consulted and recommended echo, stress test tomorrow morning - And is on IV heparin drip -Lipid panel is within normal limit COPD - When necessary nebulizers Hypertension -Controlled with amlodipine Disposition - Continue inpatient care and will have vascular surgery on Sunday or Sunday History Interval history: Indocin and divided this morning, pain and discoloration of the toe is getting better. Hospitalist Physical - Physical exam Narrative exam: Not in cardiopulmonary distress. The patient appeared well nourished and normally developed. Vital signs as documented. Head exam is unremarkable. No scleral icterus . Neck is without jugular venous distension, thyromegaly, or carotid bruits. Lungs are clear to auscultation. Cardiac exam reveals regular rate and Rhythm. First and second heart sounds normal. No murmurs, rubs or gallops. Abdominal exam reveals normal bowel sounds, no masses, no organomegaly and no aortic enlargement. Extremities discoloration of the right great toe, but getting better today. 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 No focal weakness. - Constitutional Vitals: Temp Pulse Resp BP Pulse Ox 98.2 F 88 20 136/84 95 12/21/17 11:20 12/21/17 12:58 12/21/17 12:59 12/21/17 12:58 12/21/17 11:20 General appearance: Present: no acute distress Results - Labs CBC & Chem 7: 12/21/17 05:37 12/21/17 05:37 Labs: Laboratory Last Values WBC 11.1 K/mm3 (4.5-11.0) H 12/21/17 05:37 RBC 5.27 M/mm3 (3.65-5.03) H 12/21/17 05:37 Hgb 15.5 gm/dl (10.1-14.3) H 12/21/17 05:37 Hct 48.4 % (30.3-42.9) H 12/21/17 05:37 MCV 92 fl (79-97) 12/21/17 05:37 MCH 30 pg (28-32) 12/21/17 05:37 MCHC 32 % (30-34) 12/21/17 05:37 RDW 16.9 % (13.2-15.2) H 12/21/17 05:37 Plt Count 145 K/mm3 (140-440) 12/21/17 05:37 Lymph % (Auto) 19.5 % (13.4-35.0) 12/21/17 05:37 [place] % (Auto) 12.0 % (0.0-7.3) H 12/21/17 05:37 Eos % (Auto) 4.1 % (0.0-4.3) 12/21/17 05:37 Baso % (Auto) 1.0 % (0.0-1.8) 12/21/17 05:37 Lymph # 2.2 K/mm3 (1.2-5.4) 12/21/17 05:37 [place] # 1.3 K/mm3 (0.0-0.8) H 12/21/17 05:37 Eos # 0.5 K/mm3 (0.0-0.4) H 12/21/17 05:37 Baso # 0.1 K/mm3 (0.0-0.1) 12/21/17 05:37 Seg Neutrophils % 63.4 % (40.0-70.0) 12/21/17 05:37 Seg Neutrophils # 7.0 K/mm3 (1.8-7.7) 12/21/17 05:37 PT 13.4 Sec. (12.2-14.9) 12/20/17 00:11 INR 0.97 (0.87-1.13) 12/20/17 00:11 APTT 25.3 Sec. (24.2-36.6) 12/20/17 00:11 Heparin Anti-Xa Level 0.32 U.I./ml (0.3-0.7) 12/21/17 05:37 POC ABG pH 7.389 (7.35-7.45) 12/20/17 18:00 POC ABG pCO2 36.9 (35-45) 12/20/17 18:00 POC ABG pO2 77 (80-105) L 12/20/17 18:00 POC ABG HCO3 22.3 12/20/17 18:00 POC ABG Total CO2 23 12/20/17 18:00 POC ABG O2 Sat 95 12/20/17 18:00 POC ABG Base Excess -3 12/20/17 18:00 VBG pH 7.309 (7.320-7.420) L 12/19/17 15:51 FiO2 21 % 12/20/17 18:00 Sodium 138 mmol/L (137-145) 12/21/17 05:37 Potassium 3.4 mmol/L (3.6-5.0) L D 12/21/17 05:37 Chloride 101.2 mmol/L (98-107) 12/21/17 05:37 Carbon Dioxide 26 mmol/L (22-30) 12/21/17 05:37 Anion Gap 14 mmol/L 12/21/17 05:37 BUN 5 mg/dL (7-17) L 12/21/17 05:37 Creatinine 0.5 mg/dL (0.7-1.2) L 12/21/17 05:37 Estimated GFR > 60 ml/min 12/21/17 05:37 BUN/Creatinine Ratio 10 % 12/21/17 05:37 Glucose 87 mg/dL (65-100) 12/21/17 05:37 Lactic Acid 1.60 mmol/L (0.7-2.0) 12/19/17 18:42 Calcium 8.2 mg/dL (8.4-10.2) L 12/21/17 05:37 Total Bilirubin 0.20 mg/dL (0.1-1.2) 12/19/17 15:51 AST 113 units/L (5-40) H 12/19/17 15:51 ALT 70 units/L (7-56) H 12/19/17 15:51 Alkaline Phosphatase 155 units/L (35-129) H 12/19/17 15:51 Total Protein 6.2 g/dL (6.3-8.2) L 12/19/17 15:51 Albumin 3.2 g/dL (3.9-5) L 12/19/17 15:51 Albumin/Globulin Ratio 1.1 % 12/19/17 15:51 Triglycerides 160 mg/dL (2-149) H 12/20/17 19:47 Cholesterol 140 mg/dL (50-199) 12/20/17 19:47 LDL Cholesterol Direct 55 mg/dL (50-130) 12/20/17 19:47 HDL Cholesterol 53 mg/dL (40-59) 12/20/17 19:47 Cholesterol/HDL Ratio 2.64 % 12/20/17 19:47
[2017-12-21] MEDS: HABITROL TD SCH (18:24)
[2017-12-21] MEDS: LOPRESSOR PO SCH (22:04)
[2017-12-22] MEDS: PERCOCET 5/325 PO PRN ×3 (04:03→21:44)
[2017-12-22] MEDS ORDERED: LEXISCAN IV ONE ×2 (07:57→08:16)
--- NOTE | 2017-12-22 10:17 | Progress Note ---
Assessment and Plan 57yo wf: PVD HTN COPD Hypokalemia Tobacco use / ETOH use - cessation encouraged stress mpi this am: 1. No evidence of ischemia or prior infarct 2. Nl lv fxn TTE reviewed No cardiac sxs At this point, given dearth of cardiac symptoms and tte/stress mpi results as aforementioned, pt is at low risk from a cardiac perspective for contemplated vascular procedure. Thanks. Subjective Date of service: 12/22/17 Interval history: no complaints no cp or sob Objective Vital Signs Temp Pulse Pulse Resp BP BP Pulse Ox 12/22/17 05:09 98.3 F 82 19 116/70 96 12/22/17 00:28 98.3 F 74 17 117/75 97 12/21/17 22:26 96 12/21/17 22:04 91 H 115/77 12/21/17 22:00 91 H 12/21/17 19:29 98.0 F 91 H 20 115/77 93 12/21/17 19:26 81 12/21/17 19:20 20 12/21/17 18:05 98.4 F 82 18 117/80 92 12/21/17 13:59 20 12/21/17 12:59 20 12/21/17 12:58 88 136/84 12/21/17 11:20 98.2 F 89 16 131/82 95 - Physical Examination HEENT: Positive: PERRL, Normocephaly, Mucus Membranes Moist Neck: Positive: neck supple, trachea midline Neuro: Positive: Grossly Intact, Cranial Nerve 2-12 Intact Abdomen: Positive: Soft. Negative: Tender Skin: Positive: Mottled (LLE toes) Musculoskeletal: No Fluid Collection Extremities: Present: upper extr. pulses, Other (nonpalpable pedal pulses are nonpalpable femoral pulses) - Imaging and Cardiology EKG: report reviewed, image reviewed Echo: pending - EKG Sinus rhythms and dysrhythmias: sinus rhythm
[2017-12-22] MEDS: BABY ASPIRIN PO SCH (10:31)
[2017-12-22] MEDS: LOPRESSOR PO SCH ×2 (10:33→21:45)
[2017-12-22] MEDS: ZOFRAN IV PRN (10:35)
[2017-12-22] MEDS: HEPARIN/ 0.45% NACL-25,000 UNIT/500 ML 25,000 UNIT/500 ML BAG IV SCH (10:35)
[2017-12-22] MEDS: NORVASC PO SCH (10:35)
[2017-12-22 11:46] LABS: BUN/Creatinine Ratio 12; Blood Urea Nitrogen 6 mg/dL (7-17); Calcium 8.6 mg/dL (8.4-10.2); Hemolysis Index 5
--- NOTE | 2017-12-22 14:42 | Consultation ---
History of Present Illness Consult date: 12/22/17 Requesting physician: MIGUEL GOODWIN Reason for consult: COPD History of present illness: 57 y/o female smoker for the last 40 years, 1 pack per day, admitted with PVD and claudication. Patient, as stated is currently smoking 1 packs per day. She has never been hospitalized for breathing and has never been treated. She has had "blood test" from [facility] screenings that have diagnosed her with COPD. I am not sure what these tests are. She states that she does cough, but mainly at night (Reflux) and that she wheezes occasionaly. She is not on any chronic treatment for COPD. Past History Past Medical History: COPD Past Surgical History: cholecystectomy Social history: , smoking Family history: cancer (mother of colon CA), hypertension Medications and Allergies Allergies Allergy/AdvReac Type Severity Reaction Status Date / Time prochlorperazine AdvReac Unknown Verified 12/19/17 15:27 [From Compazine] Home Medications Medication Instructions Recorded Confirmed Last Taken Type No Known Home Medications [No 12/20/17 12/20/17 Unknown History Reported Home Medications] Active Meds: Active Medications Acetaminophen (Tylenol) 650 mg PO Q4H PRN PRN Reason: Pain MILD(1-3)/Fever >100.5/BARAJAS Albuterol (Proventil) 2.5 mg IH Q4HRT PRN PRN Reason: Shortness Of Breath Amlodipine Besylate (Norvasc) 10 mg PO QDAY [facility] Last Admin: 12/22/17 10:35 Dose: 10 mg Aspirin (Baby Aspirin) 81 mg PO QDAY [facility] Last Admin: 12/22/17 10:31 Dose: 81 mg Bisacodyl (Dulcolax) 10 mg [place] QDAY PRN PRN Reason: Constipation unrelieved by MOM Heparin Sodium/Sodium Chloride (Heparin/ 0.45% Nacl-25,000 Unit/500 Ml) 25,000 unit in 500 mls @ 15 mls/hr IV TITR DINESH; 750 UNITS/HR PRN Reason: Protocol Last Titration: 12/22/17 12:35 Dose: 900 units/hr, 18 mls/hr Magnesium Hydroxide (Milk Of Magnesia) 30 ml PO Q4H PRN PRN Reason: Constipation Metoprolol Tartrate (Lopressor) 12.5 mg PO BID [facility] Last Admin: 12/22/17 10:33 Dose: 12.5 mg Nicotine (Habitrol) 14 mg TD Q24H DINESH Last Admin: 12/21/17 18:24 Dose: 14 mg Ondansetron HCl (Zofran) 4 mg IV Q8H PRN PRN Reason: N/V unrelieved by Reglan Last Admin: 12/22/17 10:35 Dose: 4 mg Oxycodone/Acetaminophen (Percocet 5/325) 2 tab PO Q6H PRN PRN Reason: Pain, Moderate (4-6) Last Admin: 12/22/17 10:31 Dose: 2 tab Review of Systems All systems: negative Physical Examination Vital signs: Vital Signs Temp Pulse Resp BP Pulse Ox 97.8 F 104 H 16 165/84 96 12/19/17 15:05 12/19/17 15:05 12/19/17 15:05 12/19/17 15:05 12/19/17 15:05 General appearance: no acute distress, alert Eyes: non-icteric ENT: oropharynx moist Neck: supple, no lymphadenopathy Effort: normal Ascultation: Bilateral: clear Percussion: Bilateral: not dull Tactile fremitus: Bilateral: normal Cardiovascular: regular rate and rhythm Gastrointestinal: soft, non-tender Extremities: no edema, cyanosis (of toes) normal mental status, non-focal exam Results - Laboratory Findings CBC and BMP: 12/21/17 05:37 12/22/17 09:04 ABG POC ABG pH 7.389 (7.35-7.45) 12/20/17 18:00 POC ABG pCO2 36.9 (35-45) 12/20/17 18:00 POC ABG pO2 77 (80-105) L 12/20/17 18:00 POC ABG HCO3 22.3 12/20/17 18:00 POC ABG Total CO2 23 12/20/17 18:00 POC ABG O2 Sat 95 12/20/17 18:00 PT/INR, D-dimer PT 13.4 Sec. (12.2-14.9) 12/20/17 00:11 INR 0.97 (0.87-1.13) 12/20/17 00:11 Abnormal lab findings: Abnormal Labs 12/19/17 12/19/17 12/19/17 15:51 15:51 15:51 WBC RBC 5.92 H Hgb 17.6 H Hct 54.0 H RDW 17.6 H [place] % (Auto) 11.3 H [place] # 0.9 H Eos # Heparin Anti-Xa Level POC ABG pO2 VBG pH 7.309 L Potassium BUN 5 L Creatinine 0.5 L Glucose Calcium AST 113 H ALT 70 H Alkaline Phosphatase 155 H Total Protein 6.2 L Albumin 3.2 L Triglycerides 12/20/17 12/20/17 12/20/17 07:09 18:00 19:47 WBC RBC Hgb Hct RDW [place] % (Auto) [place] # Eos # Heparin Anti-Xa Level 0.17 L 0.25 L POC ABG pO2 77 L VBG pH Potassium BUN Creatinine Glucose Calcium AST ALT Alkaline Phosphatase Total Protein Albumin Triglycerides 12/20/17 12/21/17 12/21/17 19:47 05:37 05:37 WBC 11.1 H RBC 5.27 H Hgb 15.5 H Hct 48.4 H RDW 16.9 H [place] % (Auto) 12.0 H [place] # 1.3 H Eos # 0.5 H Heparin Anti-Xa Level POC ABG pO2 VBG pH Potassium 3.4 L D BUN 5 L Creatinine 0.5 L Glucose Calcium 8.2 L AST ALT Alkaline Phosphatase Total Protein Albumin Triglycerides 160 H 12/22/17 12/22/17 09:04 09:04 WBC RBC Hgb Hct RDW [place] % (Auto) [place] # Eos # Heparin Anti-Xa Level 0.28 L POC ABG pO2 VBG pH Potassium 3.5 L BUN 6 L Creatinine 0.5 L Glucose 107 H Calcium AST ALT Alkaline Phosphatase Total Protein Albumin Triglycerides Assessment and Plan 57 y/o female with presumptive COPD based on smoking history, here with foot pain and PVD. 1. Will obtain 2 view CXR 2. Will see if we can obtain in house spirometry 3. Continue nicotine patch 4. Ok with PRN albuterol Currently patient is asymptomatic from a pulmonary standpoint.
--- NOTE | 2017-12-22 16:01 | Progress Note ---
Assessment and Plan Assessment and plan: 57-year-old female with medical history significant for COPD, hypertension, active tobacco use is limited to the emergency department with complaints of cyanosis of the right foot Peripheral vascular disease - VASCULAR LAB.PRELIMINARY REPORT.BLE ARTERIAL DUPLEX DONE.EXTENSIVE ,SCATTERED FIBROCALCIFIED PLAQUES THROUGHOUT VESSELS VISUALIZED LICO. LT.GROIN VESSELS .MONOPHASIC WAVEFORMS OBTAINED THROUGHOUT VESSELS INTERROGATED. - CTA was done - Vascular surgery consulted and will do out to femoral bypass, need clearance by cardiology and pulmonary - Cardiology consulted and recommended echo, stress test, stress test is negative and echo show mild diastolic dysfunction - And is on IV heparin drip - Lipid panel is within normal limit COPD - Pulmonary consulted for surgical reisk assessment Hypertension -Controlled with amlodipine Disposition - Continue inpatient care and will have vascular surgery on Sunday or Sunday History Interval history: Indocin and divided this morning, pain and discoloration of the toe is getting better. Hospitalist Physical - Physical exam Narrative exam: Not in cardiopulmonary distress. The patient appeared well nourished and normally developed. Vital signs as documented. Head exam is unremarkable. No scleral icterus . Neck is without jugular venous distension, thyromegaly, or carotid bruits. Lungs are clear to auscultation. Cardiac exam reveals regular rate and Rhythm. First and second heart sounds normal. No murmurs, rubs or gallops. Abdominal exam reveals normal bowel sounds, no masses, no organomegaly and no aortic enlargement. Extremities discoloration of the right great toe, but getting better today. 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 No focal weakness. - Constitutional Vitals: Temp Pulse Resp BP Pulse Ox 98.3 F 84 19 116/80 96 12/22/17 05:09 12/22/17 10:35 12/22/17 05:09 12/22/17 10:35 12/22/17 05:09 General appearance: Present: no acute distress Results - Labs CBC & Chem 7: 12/21/17 05:37 12/22/17 09:04 Labs: Laboratory Last Values WBC 11.1 K/mm3 (4.5-11.0) H 12/21/17 05:37 RBC 5.27 M/mm3 (3.65-5.03) H 12/21/17 05:37 Hgb 15.5 gm/dl (10.1-14.3) H 12/21/17 05:37 Hct 48.4 % (30.3-42.9) H 12/21/17 05:37 MCV 92 fl (79-97) 12/21/17 05:37 MCH 30 pg (28-32) 12/21/17 05:37 MCHC 32 % (30-34) 12/21/17 05:37 RDW 16.9 % (13.2-15.2) H 12/21/17 05:37 Plt Count 145 K/mm3 (140-440) 12/21/17 05:37 Lymph % (Auto) 19.5 % (13.4-35.0) 12/21/17 05:37 [place] % (Auto) 12.0 % (0.0-7.3) H 12/21/17 05:37 Eos % (Auto) 4.1 % (0.0-4.3) 12/21/17 05:37 Baso % (Auto) 1.0 % (0.0-1.8) 12/21/17 05:37 Lymph # 2.2 K/mm3 (1.2-5.4) 12/21/17 05:37 [place] # 1.3 K/mm3 (0.0-0.8) H 12/21/17 05:37 Eos # 0.5 K/mm3 (0.0-0.4) H 12/21/17 05:37 Baso # 0.1 K/mm3 (0.0-0.1) 12/21/17 05:37 Seg Neutrophils % 63.4 % (40.0-70.0) 12/21/17 05:37 Seg Neutrophils # 7.0 K/mm3 (1.8-7.7) 12/21/17 05:37 PT 13.4 Sec. (12.2-14.9) 12/20/17 00:11 INR 0.97 (0.87-1.13) 12/20/17 00:11 APTT 25.3 Sec. (24.2-36.6) 12/20/17 00:11 Heparin Anti-Xa Level 0.28 U.I./ml (0.3-0.7) L 12/22/17 09:04 POC ABG pH 7.389 (7.35-7.45) 12/20/17 18:00 POC ABG pCO2 36.9 (35-45) 12/20/17 18:00 POC ABG pO2 77 (80-105) L 12/20/17 18:00 POC ABG HCO3 22.3 12/20/17 18:00 POC ABG Total CO2 23 12/20/17 18:00 POC ABG O2 Sat 95 12/20/17 18:00 POC ABG Base Excess -3 12/20/17 18:00 VBG pH 7.309 (7.320-7.420) L 12/19/17 15:51 FiO2 21 % 12/20/17 18:00 Sodium 141 mmol/L (137-145) 12/22/17 09:04 Potassium 3.5 mmol/L (3.6-5.0) L 12/22/17 09:04 Chloride 100.6 mmol/L (98-107) 12/22/17 09:04 Carbon Dioxide 25 mmol/L (22-30) 12/22/17 09:04 Anion Gap 19 mmol/L 12/22/17 09:04 BUN 6 mg/dL (7-17) L 12/22/17 09:04 Creatinine 0.5 mg/dL (0.7-1.2) L 12/22/17 09:04 Estimated GFR > 60 ml/min 12/22/17 09:04 BUN/Creatinine Ratio 12 % 12/22/17 09:04 Glucose 107 mg/dL (65-100) H 12/22/17 09:04 Lactic Acid 1.60 mmol/L (0.7-2.0) 12/19/17 18:42 Calcium 8.6 mg/dL (8.4-10.2) 12/22/17 09:04 Total Bilirubin 0.20 mg/dL (0.1-1.2) 12/19/17 15:51 AST 113 units/L (5-40) H 12/19/17 15:51 ALT 70 units/L (7-56) H 12/19/17 15:51 Alkaline Phosphatase 155 units/L (35-129) H 12/19/17 15:51 Total Protein 6.2 g/dL (6.3-8.2) L 12/19/17 15:51 Albumin 3.2 g/dL (3.9-5) L 12/19/17 15:51 Albumin/Globulin Ratio 1.1 % 12/19/17 15:51 Triglycerides 160 mg/dL (2-149) H 12/20/17 19:47 Cholesterol 140 mg/dL (50-199) 12/20/17 19:47 LDL Cholesterol Direct 55 mg/dL (50-130) 12/20/17 19:47 HDL Cholesterol 53 mg/dL (40-59) 12/20/17 19:47 Cholesterol/HDL Ratio 2.64 % 12/20/17 19:47
--- NOTE | 2017-12-22 17:25 | XRay Report ---
FINAL REPORT EXAM: XR CHEST ROUTINE 2V HISTORY: Concern for COPD TECHNIQUE: PA and lateral views of the chest PRIORS: None. FINDINGS: Lines, tubes, and devices: N/A Lungs and pleura: Trachea is normal in position. Minimal linear atelectasis or scarring is seen in the lung bases. Lungs are clear of infiltrate, pleural effusion, vascular congestion, or pneumothorax. Cardiomediastinal silhouette: Cardiac and mediastinal silhouettes are unremarkable. Other: Bony structures are intact. IMPRESSION: No acute cardiopulmonary process seen. Middle linear atelectasis or scarring in each lung base.
[2017-12-22] MEDS: HABITROL TD SCH (18:52)
[2017-12-23 04:05] LABS: Hematocrit 46.1 % (30.3-42.9); Hemoglobin 15.2 gm/dl (10.1-14.3)
[2017-12-23] MEDS: PERCOCET 5/325 PO PRN ×2 (08:35→18:47)
[2017-12-23] MEDS: NORVASC PO SCH (10:20)
[2017-12-23] MEDS: BABY ASPIRIN PO SCH (10:20)
[2017-12-23] MEDS: LOPRESSOR PO SCH ×2 (10:21→21:46)
--- NOTE | 2017-12-23 11:00 | Progress Note ---
Assessment and Plan 57yo wf: PVD HTN COPD Hypokalemia Tobacco use / ETOH use - cessation encouraged stress mpi this am: 1. No evidence of ischemia or prior infarct 2. Nl lv fxn TTE reviewed No cardiac sxs At this point, given dearth of cardiac symptoms and tte/stress mpi results as aforementioned, pt is at low risk from a cardiac perspective for contemplated vascular procedure. Thanks. Subjective Interval history: no complaints no cp or sob Objective Vital Signs Temp Pulse Pulse Resp BP BP Pulse Ox 12/23/17 10:21 76 114/72 12/23/17 10:20 76 114/72 12/23/17 10:04 97.9 F 76 18 114/42 92 12/23/17 10:00 76 18 12/23/17 08:35 16 12/23/17 04:48 98.0 F 75 20 102/64 95 12/22/17 23:42 98.0 F 71 20 101/64 93 12/22/17 21:45 87 117/71 12/22/17 20:04 98.3 F 78 20 117/71 96 12/22/17 17:24 98.6 F 73 16 117/80 92 - Physical Examination HEENT: Positive: PERRL, Normocephaly, Mucus Membranes Moist Neck: Positive: neck supple, trachea midline Neuro: Positive: Grossly Intact, Cranial Nerve 2-12 Intact Abdomen: Positive: Soft. Negative: Tender Skin: Positive: Mottled (LLE toes) Musculoskeletal: No Fluid Collection Extremities: Present: upper extr. pulses, Other (nonpalpable pedal pulses are nonpalpable femoral pulses) - Labs and Meds CBC 12/23/17 Range/Units 03:40 Hgb 15.2 H (10.1-14.3) gm/dl Hct 46.1 H (30.3-42.9) % Plt Count 171 (140-440) K/mm3 Comprehensive Metabolic Panel 12/22/17 Range/Units 09:04 Sodium 141 (137-145) mmol/L Potassium 3.5 L (3.6-5.0) mmol/L Chloride 100.6 (98-107) mmol/L Carbon Dioxide 25 (22-30) mmol/L BUN 6 L (7-17) mg/dL Creatinine 0.5 L (0.7-1.2) mg/dL Glucose 107 H (65-100) mg/dL Calcium 8.6 (8.4-10.2) mg/dL - Imaging and Cardiology EKG: report reviewed, image reviewed Echo: pending - EKG Sinus rhythms and dysrhythmias: sinus rhythm
--- NOTE | 2017-12-23 13:23 | Progress Note ---
Assessment and Plan 57 y/o female with presumptive COPD based on smoking history, here with foot pain and PVD. 1. CXR is stable, consistent with hyperinflation and most likely COPD. No evidence of any acute process 2. Await bedside luis so we can interpret level of COPD Currently patient is asymptomatic from a pulmonary standpoint. Subjective Date of service: 12/23/17 Interval history: No acute events. Had CXR done yesterday. I have ordered luis for today. Objective Vital Signs - 12hr 12/23/17 12/23/17 12/23/17 04:48 08:35 10:00 Temperature 98.0 F Pulse Rate 75 75 Pulse Rate [ 76 Apical] Respiratory 20 16 18 Rate Blood Pressure 102/64 Blood Pressure [Left] O2 Sat by Pulse 95 Oximetry 12/23/17 12/23/17 12/23/17 10:04 10:20 10:21 Temperature 97.9 F Pulse Rate 76 76 76 Pulse Rate [ Apical] Respiratory 18 Rate Blood Pressure 114/72 114/72 Blood Pressure 114/42 [Left] O2 Sat by Pulse 92 Oximetry 12/23/17 12:07 Temperature 98.3 F Pulse Rate 64 Pulse Rate [ Apical] Respiratory 16 Rate Blood Pressure Blood Pressure 102/57 [Left] O2 Sat by Pulse Oximetry Constitutional: no acute distress, alert Eyes: non-icteric ENT: oropharynx moist Neck: supple, no lymphadenopathy Effort: normal Ascultation: Bilateral: clear Percussion: Bilateral: not dull Tactile fremitus: Bilateral: normal Cardiovascular: regular rate and rhythm Gastrointestinal: soft, non-tender Extremities: no edema, cyanosis (of toes) Neurologic: normal mental status, non-focal exam CBC and BMP: 12/23/17 03:40 12/22/17 09:04 ABG, PT/INR, D-dimer: ABG POC ABG pH 7.389 (7.35-7.45) 12/20/17 18:00 POC ABG pCO2 36.9 (35-45) 12/20/17 18:00 POC ABG pO2 77 (80-105) L 12/20/17 18:00 POC ABG HCO3 22.3 12/20/17 18:00 POC ABG Total CO2 23 12/20/17 18:00 POC ABG O2 Sat 95 12/20/17 18:00 PT/INR, D-dimer PT 13.4 Sec. (12.2-14.9) 12/20/17 00:11 INR 0.97 (0.87-1.13) 12/20/17 00:11 Abnormal lab findings: Abnormal Labs 12/19/17 12/19/17 12/19/17 15:51 15:51 15:51 WBC RBC 5.92 H Hgb 17.6 H Hct 54.0 H RDW 17.6 H [place] % (Auto) 11.3 H [place] # 0.9 H Eos # Heparin Anti-Xa Level POC ABG pO2 VBG pH 7.309 L Potassium BUN 5 L Creatinine 0.5 L Glucose Calcium AST 113 H ALT 70 H Alkaline Phosphatase 155 H Total Protein 6.2 L Albumin 3.2 L Triglycerides 12/20/17 12/20/17 12/20/17 07:09 18:00 19:47 WBC RBC Hgb Hct RDW [place] % (Auto) [place] # Eos # Heparin Anti-Xa Level 0.17 L 0.25 L POC ABG pO2 77 L VBG pH Potassium BUN Creatinine Glucose Calcium AST ALT Alkaline Phosphatase Total Protein Albumin Triglycerides 12/20/17 12/21/17 12/21/17 19:47 05:37 05:37 WBC 11.1 H RBC 5.27 H Hgb 15.5 H Hct 48.4 H RDW 16.9 H [place] % (Auto) 12.0 H [place] # 1.3 H Eos # 0.5 H Heparin Anti-Xa Level POC ABG pO2 VBG pH Potassium 3.4 L D BUN 5 L Creatinine 0.5 L Glucose Calcium 8.2 L AST ALT Alkaline Phosphatase Total Protein Albumin Triglycerides 160 H 12/22/17 12/22/17 12/22/17 09:04 09:04 18:21 WBC RBC Hgb Hct RDW [place] % (Auto) [place] # Eos # Heparin Anti-Xa Level 0.28 L 0.19 L POC ABG pO2 VBG pH Potassium 3.5 L BUN 6 L Creatinine 0.5 L Glucose 107 H Calcium AST ALT Alkaline Phosphatase Total Protein Albumin Triglycerides 12/23/17 12/23/17 03:40 03:40 WBC RBC Hgb 15.2 H Hct 46.1 H RDW [place] % (Auto) [place] # Eos # Heparin Anti-Xa Level 0.23 L POC ABG pO2 VBG pH Potassium BUN Creatinine Glucose Calcium AST ALT Alkaline Phosphatase Total Protein Albumin Triglycerides
[2017-12-23] MEDS: HEPARIN/ 0.45% NACL-25,000 UNIT/500 ML 25,000 UNIT/500 ML BAG IV SCH (14:40)
--- NOTE | 2017-12-23 15:05 | Progress Note ---
Assessment and Plan Assessment and plan: 57-year-old female with medical history significant for COPD, hypertension, active tobacco use is limited to the emergency department with complaints of cyanosis of the right foot Peripheral vascular disease - VASCULAR LAB.PRELIMINARY REPORT.BLE ARTERIAL DUPLEX DONE.EXTENSIVE ,SCATTERED FIBROCALCIFIED PLAQUES THROUGHOUT VESSELS VISUALIZED LICO. LT.GROIN VESSELS .MONOPHASIC WAVEFORMS OBTAINED THROUGHOUT VESSELS INTERROGATED. - CTA was done - Vascular surgery consulted and will do out to femoral bypass, need clearance by cardiology and pulmonary - Cardiology consulted and recommended echo, stress test, stress test is negative and echo show mild diastolic dysfunction - And is on IV heparin drip - Lipid panel is within normal limit COPD - Pulmonary consulted for surgical reisk assessment Hypertension -Controlled with amlodipine Disposition - Continue inpatient care and will have vascular surgery on Sunday or Sunday History Interval history: Indocin and divided this morning, pain and discoloration of the toe is getting better. Hospitalist Physical - Physical exam Narrative exam: Not in cardiopulmonary distress. The patient appeared well nourished and normally developed. Vital signs as documented. Head exam is unremarkable. No scleral icterus . Neck is without jugular venous distension, thyromegaly, or carotid bruits. Lungs are clear to auscultation. Cardiac exam reveals regular rate and Rhythm. First and second heart sounds normal. No murmurs, rubs or gallops. Abdominal exam reveals normal bowel sounds, no masses, no organomegaly and no aortic enlargement. Extremities discoloration of the right great toe, but getting better today. 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 No focal weakness. - Constitutional Vitals: Temp Pulse Resp BP Pulse Ox 98.3 F 64 16 102/57 92 12/23/17 12:07 12/23/17 12:07 12/23/17 12:12/23/17 12:12/23/17 10:04 General appearance: Present: no acute distress Results - Labs CBC & Chem 7: 12/23/17 03:40 12/22/17 09:04 Labs: Laboratory Last Values WBC 11.1 K/mm3 (4.5-11.0) H 12/21/17 05:37 RBC 5.27 M/mm3 (3.65-5.03) H 12/21/17 05:37 Hgb 15.2 gm/dl (10.1-14.3) H 12/23/17 03:40 Hct 46.1 % (30.3-42.9) H 12/23/17 03:40 MCV 92 fl (79-97) 12/21/17 05:37 MCH 30 pg (28-32) 12/21/17 05:37 MCHC 32 % (30-34) 12/21/17 05:37 RDW 16.9 % (13.2-15.2) H 12/21/17 05:37 Plt Count 171 K/mm3 (140-440) 12/23/17 03:40 Lymph % (Auto) 19.5 % (13.4-35.0) 12/21/17 05:37 [place] % (Auto) 12.0 % (0.0-7.3) H 12/21/17 05:37 Eos % (Auto) 4.1 % (0.0-4.3) 12/21/17 05:37 Baso % (Auto) 1.0 % (0.0-1.8) 12/21/17 05:37 Lymph # 2.2 K/mm3 (1.2-5.4) 12/21/17 05:37 [place] # 1.3 K/mm3 (0.0-0.8) H 12/21/17 05:37 Eos # 0.5 K/mm3 (0.0-0.4) H 12/21/17 05:37 Baso # 0.1 K/mm3 (0.0-0.1) 12/21/17 05:37 Seg Neutrophils % 63.4 % (40.0-70.0) 12/21/17 05:37 Seg Neutrophils # 7.0 K/mm3 (1.8-7.7) 12/21/17 05:37 PT 13.4 Sec. (12.2-14.9) 12/20/17 00:11 INR 0.97 (0.87-1.13) 12/20/17 00:11 APTT 25.3 Sec. (24.2-36.6) 12/20/17 00:11 Heparin Anti-Xa Level 0.30 U.I./ml (0.3-0.7) 12/23/17 13:06 POC ABG pH 7.389 (7.35-7.45) 12/20/17 18:00 POC ABG pCO2 36.9 (35-45) 12/20/17 18:00 POC ABG pO2 77 (80-105) L 12/20/17 18:00 POC ABG HCO3 22.3 12/20/17 18:00 POC ABG Total CO2 23 12/20/17 18:00 POC ABG O2 Sat 95 12/20/17 18:00 POC ABG Base Excess -3 12/20/17 18:00 VBG pH 7.309 (7.320-7.420) L 12/19/17 15:51 FiO2 21 % 12/20/17 18:00 Sodium 141 mmol/L (137-145) 12/22/17 09:04 Potassium 3.5 mmol/L (3.6-5.0) L 12/22/17 09:04 Chloride 100.6 mmol/L (98-107) 12/22/17 09:04 Carbon Dioxide 25 mmol/L (22-30) 12/22/17 09:04 Anion Gap 19 mmol/L 12/22/17 09:04 BUN 6 mg/dL (7-17) L 12/22/17 09:04 Creatinine 0.5 mg/dL (0.7-1.2) L 12/22/17 09:04 Estimated GFR > 60 ml/min 12/22/17 09:04 BUN/Creatinine Ratio 12 % 12/22/17 09:04 Glucose 107 mg/dL (65-100) H 12/22/17 09:04 Lactic Acid 1.60 mmol/L (0.7-2.0) 12/19/17 18:42 Calcium 8.6 mg/dL (8.4-10.2) 12/22/17 09:04 Total Bilirubin 0.20 mg/dL (0.1-1.2) 12/19/17 15:51 AST 113 units/L (5-40) H 12/19/17 15:51 ALT 70 units/L (7-56) H 12/19/17 15:51 Alkaline Phosphatase 155 units/L (35-129) H 12/19/17 15:51 Total Protein 6.2 g/dL (6.3-8.2) L 12/19/17 15:51 Albumin 3.2 g/dL (3.9-5) L 12/19/17 15:51 Albumin/Globulin Ratio 1.1 % 12/19/17 15:51 Triglycerides 160 mg/dL (2-149) H 12/20/17 19:47 Cholesterol 140 mg/dL (50-199) 12/20/17 19:47 LDL Cholesterol Direct 55 mg/dL (50-130) 12/20/17 19:47 HDL Cholesterol 53 mg/dL (40-59) 12/20/17 19:47 Cholesterol/HDL Ratio 2.64 % 12/20/17 19:47
[2017-12-23] MEDS ORDERED: PNEUMOVAX 23 IM ONE (17:00)
[2017-12-23] MEDS: HABITROL TD SCH (17:07)
--- NOTE | 2017-12-23 20:11 | Treadmill Report ---
NUCLEAR PERFUSION SCAN REFERRING PHYSICIAN: Dr. Emely Joiner. PROCEDURE: Nuclear perfusion stress test. PROTOCOL: The patient was brought to the stress lab in a postobsorptive state, given 10 mCi technetium 99m rest imaging. The patient underwent Lexiscan stress test per standard protocol. At the patient's peak stress, the patient was given 28 mCi of technetium 99m showed that the patient underwent stress imaging. Raw imaging reveals mild GI artifact, no significant motion artifact. SPECT images examined. Given the horizontal long axis, vertical long axis, short axis views. There is normal homogenous uptake ____ of all reported segments. No evidence of a significant fixed or reversible perfusion defects suggestive of prior infarction or ischemia. Gated wall motion reveals normal ____ calculated ejection fraction is 70%. No TID. CONCLUSIONS: 1. Normal myocardial perfusion scan without evidence of active ischemia or prior infarction. 2. Normal left ventricular systolic performance without evidence of transient ischemic dilatation or stress-induced segmental wall motion abnormalities. 3. Normal Lexiscan stress test without evidence of diagnostic ST changes, arrhythmias or chest pain during stress or recovery. JOB# [id number] SBM/NTS
[2017-12-24] MEDS: PERCOCET 5/325 PO PRN ×3 (03:19→23:37)
[2017-12-24] MEDS: NORVASC PO SCH (09:42)
[2017-12-24] MEDS: LOPRESSOR PO SCH ×2 (09:45→22:10)
[2017-12-24] MEDS: BABY ASPIRIN PO SCH (09:46)
--- NOTE | 2017-12-24 10:03 | Progress Note ---
Assessment and Plan Patient will be scheduled for an aortobifem tomorrow pending clearance from pulmonology. Subjective Date of service: 12/24/17 Principal diagnosis: peripheral vascular disease with claudication Interval history: Patient with a history of peripheral vascular disease with claudication with significant occlusive disease involving her bilateral common and external iliac arteries. Additionally, the patient has extensive thrombus involving her distal abdominal aorta. The patient is undergone evaluation with cardiac clearance for an aortobifem. Awaiting pulmonary clearance at this time. No specific complaints. Lengthy discussion was held with the patient regarding the operation and questions were appropriately asked and answered. Objective - Constitutional Vitals: Vital Signs - 12hr 12/24/17 12/24/17 12/24/17 00:27 03:19 03:50 Temperature 97.4 F L Pulse Rate 66 69 Pulse Rate [ Apical] Respiratory 18 18 Rate Blood Pressure 105/66 Blood Pressure 110/70 [Left] O2 Sat by Pulse 96 95 Oximetry 12/24/17 12/24/17 12/24/17 04:19 04:25 07:29 Temperature 98.9 F 97.8 F Pulse Rate 69 62 Pulse Rate [ Apical] Respiratory 18 20 18 Rate Blood Pressure 109/76 Blood Pressure 105/68 [Left] O2 Sat by Pulse 95 97 Oximetry 12/24/17 12/24/17 12/24/17 09:16 09:42 09:45 Temperature Pulse Rate 62 62 Pulse Rate [ 62 Apical] Respiratory 17 Rate Blood Pressure 109/76 109/76 Blood Pressure [Left] O2 Sat by Pulse Oximetry General appearance: Present: no acute distress - EENT Eyes: PERRL ENT: hearing intact - Neck Neck: supple, normal ROM - Respiratory Respiratory effort: normal Extremities: abnormal Extremity abnormal: pulses diminished - Gastrointestinal General gastrointestinal: Present: deferred Rectal Exam: deferred - Genitourinary Female genitourinary: deferred - Integumentary Integumentary: clear, warm - Psychiatric Psychiatric: appropriate mood/affect, cooperative - Labs CBC & Chem 7: 12/23/17 03:40 12/22/17 09:04
--- NOTE | 2017-12-24 10:26 | Progress Note ---
<LILIANE GERARD - Last Filed: 12/24/17 10:28> Assessment and Plan Assessment: PVD HTN COPD Hypokalemia Tobacco use / ETOH use - cessation encouraged Plan: Pt for tentative aortobifem bypass in AM per vascular team. Lexiscan MPI stress test with no evidence of significant ischemia, echo with normal LVEF and no significant valvular disease. At this point pt is at low risk from a cardiac perspective for contemplated vascular procedure. Assessment and plan reviewed with pt at bedside. The patient has been seen in conjunction with Dr. Sin who agrees with the assessment and plan of care. Subjective Date of service: 12/24/17 Principal diagnosis: peripheral vascular disease with claudication Interval history: Pt resting comfortably in bed, no current cardiac complaints. VSS. Awaiting vascular procedure in AM. Objective Last Vital Signs Temp 97.8 F 12/24/17 07:29 Pulse 61 12/24/17 10:00 Resp 17 12/24/17 09:16 BP 109/76 12/24/17 09:45 Pulse Ox 97 12/24/17 07:29 - Physical Examination HEENT: Positive: PERRL, Normocephaly, Mucus Membranes Moist Neck: Positive: neck supple, trachea midline Cardiac: Positive: Reg Rate and Rhythm, S1/S2 Lungs: Positive: clear to auscultation Neuro: Positive: Grossly Intact, Cranial Nerve 2-12 Intact Abdomen: Positive: Soft. Negative: Tender Skin: Positive: Mottled (LLE toes) Musculoskeletal: No Fluid Collection Extremities: Present: upper extr. pulses, Other (nonpalpable pedal pulses are nonpalpable femoral pulses) - Imaging and Cardiology EKG: report reviewed, image reviewed Pharmacologic stress test: report reviewed (12/22/2017: no evidence of ischemia, normal LV systolic performance) Echo: report reviewed (12/20/2017: EF 50-55%, impaired relaxation, trace MR) - Telemetry EKG Rhythm: Sinus Rhythm - EKG Sinus rhythms and dysrhythmias: sinus rhythm <ALEXIS SIN - Last Filed: 12/24/17 10:53> Assessment and Plan 57 F Severe PAD bilateral lower extremities awaiting bilateral femoral endarterectomies with aortobifemoral bypass continue heparin gtt/ASA Discuss with vascular initiating high dose statin Hypertension COPD/Tobacco abuse Etoh use Pt is low risk for cardiovascular complications for high risk procedure Objective Vital Signs Temp Pulse Pulse Pulse Resp Resp BP 12/24/17 10:00 61 12/24/17 09:45 62 109/76 12/24/17 09:42 62 109/76 12/24/17 09:16 62 17 12/24/17 07:29 97.8 F 62 18 109/76 12/24/17 04:25 98.9 F 69 20 12/24/17 04:19 18 12/24/17 03:50 69 105/66 12/24/17 03:19 18 12/24/17 00:27 97.4 F L 66 18 12/23/17 22:00 80 18 12/23/17 21:46 79 120/74 12/23/17 20:32 18 12/23/17 19:45 98.4 F 79 18 12/23/17 19:24 80 120/74 12/23/17 18:51 69 12/23/17 17:13 72 104/71 12/23/17 12:07 98.3 F 64 16 BP Pulse Ox 12/24/17 10:00 12/24/17 09:45 12/24/17 09:42 12/24/17 09:16 12/24/17 07:29 97 12/24/17 04:25 105/68 95 12/24/17 04:19 12/24/17 03:50 95 12/24/17 03:19 12/24/17 00:27 110/70 96 12/23/17 22:00 12/23/17 21:46 12/23/17 20:32 12/23/17 19:45 120/74 94 12/23/17 19:24 98 12/23/17 18:51 12/23/17 17:13 97 12/23/17 12:07 102/57 - Physical Examination Extremities: Present: Other - Imaging and Cardiology Pharmacologic stress test: report reviewed Echo: report reviewed
--- NOTE | 2017-12-24 12:45 | Progress Note ---
Assessment and Plan Peripheral vascular disease with claudication. Patient scheduled for surgery tomorrow. COPD. Appear to be clinically stable. No spirometry on record, ABG showed no evidence of hypercapnic failure CAD. See cardiology, History of tobacco abuse. Recommendations Will review spirometry if available Incentive spirometry Continue nebulizer therapy x pre op prep. Can go to surgery as scheduled Patient will likely need at least 24-hour observation ICU after surgery. We'll review,monitor at that time. Discussed with patient in detail. All questions answered. Subjective Date of service: 12/24/17 Principal diagnosis: COPD, CAD, peripheral vascular disease with claudication Interval history: Temperature reports no respiratory complaints. She denies shortness of breath, wheezing, cough or expectoration Objective Vital Signs - 12hr 12/24/17 12/24/17 12/24/17 03:19 03:50 04:19 Temperature Pulse Rate 69 Pulse Rate [ Apical] Respiratory 18 18 Rate Blood Pressure 105/66 Blood Pressure [Left] O2 Sat by Pulse 95 Oximetry 12/24/17 12/24/17 12/24/17 04:25 07:29 09:16 Temperature 98.9 F 97.8 F Pulse Rate 69 62 Pulse Rate [ 62 Apical] Respiratory 20 18 17 Rate Blood Pressure 109/76 Blood Pressure 105/68 [Left] O2 Sat by Pulse 95 97 Oximetry 12/24/17 12/24/17 12/24/17 09:42 09:45 10:00 Temperature Pulse Rate 62 62 61 Pulse Rate [ Apical] Respiratory Rate Blood Pressure 109/76 109/76 Blood Pressure [Left] O2 Sat by Pulse Oximetry Constitutional: no acute distress, alert Eyes: non-icteric ENT: oropharynx moist Neck: supple, no lymphadenopathy, no JVD Effort: normal Ascultation: Bilateral: clear Percussion: Bilateral: not dull Tactile fremitus: Bilateral: normal Cardiovascular: regular rate and rhythm Gastrointestinal: soft, non-tender Extremities: no edema, other (no edema, poor peripheral pulses) Neurologic: normal mental status, non-focal exam Psychiatric: mood appropriate, affect normal CBC and BMP: 12/23/17 03:40 12/22/17 09:04 ABG, PT/INR, D-dimer: ABG POC ABG pH 7.389 (7.35-7.45) 12/20/17 18:00 POC ABG pCO2 36.9 (35-45) 12/20/17 18:00 POC ABG pO2 77 (80-105) L 12/20/17 18:00 POC ABG HCO3 22.3 12/20/17 18:00 POC ABG Total CO2 23 12/20/17 18:00 POC ABG O2 Sat 95 12/20/17 18:00 PT/INR, D-dimer PT 13.4 Sec. (12.2-14.9) 12/20/17 00:11 INR 0.97 (0.87-1.13) 12/20/17 00:11 Abnormal lab findings: Abnormal Labs 12/19/17 12/19/17 12/19/17 15:51 15:51 15:51 WBC RBC 5.92 H Hgb 17.6 H Hct 54.0 H RDW 17.6 H [place] % (Auto) 11.3 H [place] # 0.9 H Eos # Heparin Anti-Xa Level POC ABG pO2 VBG pH 7.309 L Potassium BUN 5 L Creatinine 0.5 L Glucose Calcium AST 113 H ALT 70 H Alkaline Phosphatase 155 H Total Protein 6.2 L Albumin 3.2 L Triglycerides Crossmatch 12/20/17 12/20/17 12/20/17 07:09 18:00 19:47 WBC RBC Hgb Hct RDW [place] % (Auto) [place] # Eos # Heparin Anti-Xa Level 0.17 L 0.25 L POC ABG pO2 77 L VBG pH Potassium BUN Creatinine Glucose Calcium AST ALT Alkaline Phosphatase Total Protein Albumin Triglycerides Crossmatch 12/20/17 12/21/17 12/21/17 19:47 05:37 05:37 WBC 11.1 H RBC 5.27 H Hgb 15.5 H Hct 48.4 H RDW 16.9 H [place] % (Auto) 12.0 H [place] # 1.3 H Eos # 0.5 H Heparin Anti-Xa Level POC ABG pO2 VBG pH Potassium 3.4 L D BUN 5 L Creatinine 0.5 L Glucose Calcium 8.2 L AST ALT Alkaline Phosphatase Total Protein Albumin Triglycerides 160 H Crossmatch 12/22/17 12/22/17 12/22/17 09:04 09:04 18:21 WBC RBC Hgb Hct RDW [place] % (Auto) [place] # Eos # Heparin Anti-Xa Level 0.28 L 0.19 L POC ABG pO2 VBG pH Potassium 3.5 L BUN 6 L Creatinine 0.5 L Glucose 107 H Calcium AST ALT Alkaline Phosphatase Total Protein Albumin Triglycerides Crossmatch 12/23/17 12/23/17 12/24/17 03:40 03:40 10:40 WBC RBC Hgb 15.2 H Hct 46.1 H RDW [place] % (Auto) [place] # Eos # Heparin Anti-Xa Level 0.23 L POC ABG pO2 VBG pH Potassium BUN Creatinine Glucose Calcium AST ALT Alkaline Phosphatase Total Protein Albumin Triglycerides Crossmatch See Detail Chest x-ray: report reviewed, image reviewed
[2017-12-24] MEDS: HEPARIN/ 0.45% NACL-25,000 UNIT/500 ML 25,000 UNIT/500 ML BAG IV SCH (14:53)
[2017-12-24 15:45] LABS: Basophils # (Auto) 0.2 K/mm3 (0.0-0.1); Basophils % (Auto) 1.3 % (0.0-1.8); Eosinophils # (Auto) 1.2 K/mm3 (0.0-0.4); Eosinophils % (Auto) 10.1 % (0.0-4.3); Hematocrit 48.3 % (30.3-42.9); Hemoglobin 15.3 gm/dl (10.1-14.3); Lymphocytes # (Auto) 2.3 K/mm3 (1.2-5.4); Lymphocytes % (Auto) 19.3 % (13.4-35.0); Mean Corpuscular HGB Conc 32 % (30-34); Mean Corpuscular Hemoglobin 29 pg (28-32); Mean Corpuscular Volume 93 fl (79-97); Monocytes # (Auto) 1.3 K/mm3 (0.0-0.8); Monocytes % (Auto) 11.3 % (0.0-7.3); Platelet Count 202 K/mm3 (140-440); Red Blood Count 5.22 M/mm3 (3.65-5.03)
--- NOTE | 2017-12-24 16:41 | Progress Note ---
Assessment and Plan Assessment and plan: 57-year-old female with medical history significant for COPD, hypertension, active tobacco use is limited to the emergency department with complaints of cyanosis of the right foot Peripheral vascular disease - VASCULAR LAB.PRELIMINARY REPORT.BLE ARTERIAL DUPLEX DONE.EXTENSIVE ,SCATTERED FIBROCALCIFIED PLAQUES THROUGHOUT VESSELS VISUALIZED LICO. LT.GROIN VESSELS .MONOPHASIC WAVEFORMS OBTAINED THROUGHOUT VESSELS INTERROGATED. - CTA abdomen Significantly compromised abdominal aorta lumen below the renal arteries. Bilaterally compromised iliac and common femoral vessel flow. Bilateral compromised lower extremity flow predominantly at the level of the popliteal arteries. - Vascular surgery consulted and will do out to femoral bypass - Cardial and pulmonary consulted for risk assessment and recommendations appreciated - And is on IV heparin drip - Lipid panel is within normal limit COPD - Pulmonary consulted for surgical reisk assessment Hypertension -Controlled with amlodipine Hypokelemia - Repleted Disposition - Continue inpatient care and will have vascular surgery tomorrow History Interval history: patient was seen and evaluated this morning, pain and discoloration of the toe is getting better. Hospitalist Physical - Physical exam Narrative exam: Not in cardiopulmonary distress. The patient appeared well nourished and normally developed. Vital signs as documented. Head exam is unremarkable. No scleral icterus . Neck is without jugular venous distension, thyromegaly, or carotid bruits. Lungs are clear to auscultation. Cardiac exam reveals regular rate and Rhythm. First and second heart sounds normal. No murmurs, rubs or gallops. Abdominal exam reveals normal bowel sounds, no masses, no organomegaly and no aortic enlargement. Extremities discoloration of the right great toe, but getting better today. 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 No focal weakness. - Constitutional Vitals: Temp Pulse Resp BP Pulse Ox 98.3 F 65 18 126/67 97 12/24/17 15:26 12/24/17 15:26 12/24/17 15:26 12/24/17 15:26 12/24/17 15:26 General appearance: Present: no acute distress Results - Labs CBC & Chem 7: 12/24/17 14:42 12/22/17 09:04 Labs: Laboratory Last Values WBC 11.8 K/mm3 (4.5-11.0) H 12/24/17 14:42 RBC 5.22 M/mm3 (3.65-5.03) H 12/24/17 14:42 Hgb 15.3 gm/dl (10.1-14.3) H 12/24/17 14:42 Hct 48.3 % (30.3-42.9) H 12/24/17 14:42 MCV 93 fl (79-97) 12/24/17 14:42 MCH 29 pg (28-32) 12/24/17 14:42 MCHC 32 % (30-34) 12/24/17 14:42 RDW 17.0 % (13.2-15.2) H 12/24/17 14:42 Plt Count 202 K/mm3 (140-440) 12/24/17 14:42 Lymph % (Auto) 19.3 % (13.4-35.0) 12/24/17 14:42 [place] % (Auto) 11.3 % (0.0-7.3) H 12/24/17 14:42 Eos % (Auto) 10.1 % (0.0-4.3) H 12/24/17 14:42 Baso % (Auto) 1.3 % (0.0-1.8) 12/24/17 14:42 Lymph # 2.3 K/mm3 (1.2-5.4) 12/24/17 14:42 [place] # 1.3 K/mm3 (0.0-0.8) H 12/24/17 14:42 Eos # 1.2 K/mm3 (0.0-0.4) H 12/24/17 14:42 Baso # 0.2 K/mm3 (0.0-0.1) H 12/24/17 14:42 Seg Neutrophils % 58.0 % (40.0-70.0) 12/24/17 14:42 Seg Neutrophils # 6.8 K/mm3 (1.8-7.7) 12/24/17 14:42 PT 13.4 Sec. (12.2-14.9) 12/20/17 00:11 INR 0.97 (0.87-1.13) 12/20/17 00:11 APTT 25.3 Sec. (24.2-36.6) 12/20/17 00:11 Heparin Anti-Xa Level 0.40 U.I./ml (0.3-0.7) 12/23/17 20:37 POC ABG pH 7.389 (7.35-7.45) 12/20/17 18:00 POC ABG pCO2 36.9 (35-45) 12/20/17 18:00 POC ABG pO2 77 (80-105) L 12/20/17 18:00 POC ABG HCO3 22.3 12/20/17 18:00 POC ABG Total CO2 23 12/20/17 18:00 POC ABG O2 Sat 95 12/20/17 18:00 POC ABG Base Excess -3 12/20/17 18:00 VBG pH 7.309 (7.320-7.420) L 12/19/17 15:51 FiO2 21 % 12/20/17 18:00 Sodium 141 mmol/L (137-145) 12/22/17 09:04 Potassium 3.5 mmol/L (3.6-5.0) L 12/22/17 09:04 Chloride 100.6 mmol/L (98-107) 12/22/17 09:04 Carbon Dioxide 25 mmol/L (22-30) 12/22/17 09:04 Anion Gap 19 mmol/L 12/22/17 09:04 BUN 6 mg/dL (7-17) L 12/22/17 09:04 Creatinine 0.5 mg/dL (0.7-1.2) L 12/22/17 09:04 Estimated GFR > 60 ml/min 12/22/17 09:04 BUN/Creatinine Ratio 12 % 12/22/17 09:04 Glucose 107 mg/dL (65-100) H 12/22/17 09:04 Lactic Acid 1.60 mmol/L (0.7-2.0) 12/19/17 18:42 Calcium 8.6 mg/dL (8.4-10.2) 12/22/17 09:04 Total Bilirubin 0.20 mg/dL (0.1-1.2) 12/19/17 15:51 AST 113 units/L (5-40) H 12/19/17 15:51 ALT 70 units/L (7-56) H 12/19/17 15:51 Alkaline Phosphatase 155 units/L (35-129) H 12/19/17 15:51 Total Protein 6.2 g/dL (6.3-8.2) L 12/19/17 15:51 Albumin 3.2 g/dL (3.9-5) L 12/19/17 15:51 Albumin/Globulin Ratio 1.1 % 12/19/17 15:51 Triglycerides 160 mg/dL (2-149) H 12/20/17 19:47 Cholesterol 140 mg/dL (50-199) 12/20/17 19:47 LDL Cholesterol Direct 55 mg/dL (50-130) 12/20/17 19:47 HDL Cholesterol 53 mg/dL (40-59) 12/20/17 19:47 Cholesterol/HDL Ratio 2.64 % 12/20/17 19:47 Blood Type A POSITIVE 12/24/17 10:40 Antibody Screen Negative 12/24/17 10:40 Crossmatch See Detail 12/24/17 10:40
[2017-12-24] MEDS: HABITROL TD SCH (17:03)
--- NOTE | 2017-12-24 22:29 | Ultrasound Report ---
FINAL REPORT PROCEDURE: US ABDOMEN COMPLETE TECHNIQUE: Real-time sonography in multiple planes of the abdomen was performed with image documentation. CPT 83288 HISTORY: right upper quadrant pain and CT scan changes COMPARISON: No prior studies are available for comparison. FINDINGS: Liver: Normal size and echotexture with no evidence of cystic or solid mass lesions. Gallbladder: There are no gallstones. The gallbladder wall is borderline thickened at 3.1 millimeters. There is no pericholecystic fluid.. Intrahepatic bile ducts: Normal caliber . Extrahepatic bile ducts: Common bile duct is dilated at 8 millimeters. There is no choledocholithiasis.. Pancreas: Normal as visualized with suboptimal depiction of the pancreatic tail. Aorta: Visualized portions appear normal. IVC: Visualized portions appear normal. RIGHT kidney: There is no hydronephrosis, mass, cyst or stone.. Length: 9.2cm. Right ureter is slightly dilated at 6 millimeters. LEFT kidney: There is a 4 millimeter nonobstructing stone. There is no hydronephrosis.. Length: 9.3cm. Spleen: Normal size and echotexture. No focal lesions. Intraperitoneal fluid: None . Other: Abdominal aorta measures 2.03 centimeters in diameter.. IMPRESSION: There is no cholelithiasis. There is borderline thickening of the gallbladder wall. Common bile duct is dilated. There is a nonobstructing stone in the left kidney.
[2017-12-25 05:36] LABS: Basophils # (Auto) 0.1 K/mm3 (0.0-0.1); Basophils % (Auto) 0.9 % (0.0-1.8); Eosinophils # (Auto) 1.1 K/mm3 (0.0-0.4); Eosinophils % (Auto) 10.4 % (0.0-4.3); Hematocrit 46.7 % (30.3-42.9); Hemoglobin 15.1 gm/dl (10.1-14.3); Lymphocytes # (Auto) 2.7 K/mm3 (1.2-5.4); Lymphocytes % (Auto) 25.5 % (13.4-35.0); Mean Corpuscular HGB Conc 32 % (30-34); Mean Corpuscular Hemoglobin 30 pg (28-32); Mean Corpuscular Volume 93 fl (79-97); Monocytes # (Auto) 1.4 K/mm3 (0.0-0.8); Monocytes % (Auto) 12.7 % (0.0-7.3); Platelet Count 176 K/mm3 (140-440); Red Blood Count 5.03 M/mm3 (3.65-5.03); Red Cell Distribution Width 16.4 % (13.2-15.2)
[2017-12-25 05:59] LABS: Alanine Aminotransferase 21 units/L (7-56); Albumin 2.3 g/dL (3.9-5); Lipase 17 units/L (13-60)
[2017-12-25 06:02] LABS: Bilirubin,Direct < 0.2 mg/dL (0-0.2)
[2017-12-25] MEDS ORDERED: VERSED IV NR (08:00)
[2017-12-25] MEDS ORDERED: ANCEF/STERILE WATER 2 GM/20 ML 2 GM/20 ML SYRINGE IV NR (08:00)
[2017-12-25] MEDS ORDERED: SUBLIMAZE IV NR (08:00)
[2017-12-25] MEDS ORDERED: TRANSDERM-SCOP TD NR (08:00)
[2017-12-25] MEDS ORDERED: PEPCID PO NR (08:00)
[2017-12-25] MEDS ORDERED: ACD-A 500 ML IV ONE ×2 (09:25→14:04)
[2017-12-25] MEDS ORDERED: MARCAINE 0.25% INFILTRATI ONE (09:28)
[2017-12-25] MEDS ORDERED: DECADRON ONE ×2 (09:28→11:54)
[2017-12-25] MEDS ORDERED: CLONIDINE 1,000 MCG/10 ML VIAL EP ONE (09:29)
[2017-12-25] MEDS ORDERED: HEPARIN 10,000 UNITS/10 ML ONE ×2 (09:32→15:05)
[2017-12-25] MEDS ORDERED: THROMBIN (BOVINE) TP ONE (09:33)
[2017-12-25] MEDS ORDERED: GELFOAM TP ONE (09:33)
[2017-12-25] MEDS ORDERED: RIFADIN ONE (09:33)
[2017-12-25] MEDS: NACL 0.9% 1000 ML 1,000 ML IV SCH (09:45)
--- NOTE | 2017-12-25 09:46 | Anesthesia Day of Surgery ---
Anesthesia Day of Surgery - Day of Surgery Patient Examined: Yes Patient H&P Reviewed: Yes Patient is NPO: Yes Cardiac Clearance: Yes Pulmonary Clearance: Yes Edi's Test: Negative
--- NOTE | 2017-12-25 09:48 | Anesthesia Consultation ---
Anesthesia Consult and Med Hx Date of service: 12/25/17 - Airway Anesthetic Teeth Evaluation: Good ROM Head & Neck: Adequate Mental/Hyoid Distance: Adequate Mallampati Class: Class II Intubation Access Assessment: Probably Good - Pulmonary Exam CTA: Yes - Cardiac Exam Cardiac Exam: RRR - Pre-Operative Health Status ASA Pre-Surgery Classification: ASA3 Proposed Anesthetic Plan: General Nerve Block: TAP - Pulmonary Hx Smoking: Yes (1PPD X 40 YRS, NO CIG SINCE LAST WEEK.) Hx Asthma: No COPD: Yes (DOES NOT USE INHALERS AT HOME) Home Oxygen Therapy: No Hx Pneumonia: No - Cardiovascular System Hx Hypertension: No (HAS HAD A FEW ELEVATED PRESSURES THIS ADMISSION) Hx Heart Attack/AMI: No - Central Nervous System Hx Seizures: No CVA: No - Endocrine Hx Renal Disease: No Hx End Stage Renal Disease: No Hx Insulin Dependent Diabetes: No Hx Thyroid Disease: No - Other Systems Hx Cancer: No Hx Obesity: No
[2017-12-25] MEDS ORDERED: DILAUDID ONE ×2 (09:59→14:03)
[2017-12-25] MEDS ORDERED: XYLOCAINE MPF 2% ONE (09:59)
[2017-12-25] MEDS ORDERED: DIPRIVAN 10 MG/ML IV ONE (09:59)
[2017-12-25] MEDS ORDERED: NACL 0.9% 500 ML 500 ML IV SCH (10:00)
[2017-12-25] MEDS ORDERED: ZEMURON IV ONE ×2 (10:01→13:35)
[2017-12-25] MEDS: NORVASC PO SCH (10:41)
[2017-12-25] MEDS: LOPRESSOR PO SCH ×2 (10:41→22:00)
[2017-12-25] MEDS: BABY ASPIRIN PO SCH (10:41)
--- NOTE | 2017-12-25 11:19 | Event Note ---
Date: 12/25/17 Patient Elmer surgery. We'll reevaluate back when available.
[2017-12-25] MEDS ORDERED: ePHEDrine SULFATE ONE (11:44)
[2017-12-25] MEDS ORDERED: ZOFRAN ONE (11:54)
[2017-12-25] MEDS ORDERED: ACD-A IV ONE (12:40)
[2017-12-25] MEDS ORDERED: MARCAINE 0.5% INFILTRATI ONE (12:40)
[2017-12-25] MEDS ORDERED: NACL 0.9% IR ONE (12:40)
[2017-12-25] MEDS ORDERED: RIFADIN 600 MG in NACL 0.9% 50 ML IR ONE (12:41)
[2017-12-25] MEDS ORDERED: HEPARIN 10,000 UNITS/10 ML 4,000 UNIT in NACL 0.9% 1000 ML 1,000 ML IR ONE (12:41)
[2017-12-25 14:42] LABS: Hematocrit 39.3 % (30.3-42.9); Hemoglobin 12.7 gm/dl (10.1-14.3); Mean Corpuscular HGB Conc 32 % (30-34); Mean Corpuscular Hemoglobin 30 pg (28-32); Mean Corpuscular Volume 92 fl (79-97); Platelet Count 162 K/mm3 (140-440); Red Blood Count 4.28 M/mm3 (3.65-5.03); Red Cell Distribution Width 16.5 % (13.2-15.2)
[2017-12-25 15:02] LABS: BUN/Creatinine Ratio 20; Blood Urea Nitrogen 6 mg/dL (7-17); Calcium 6.7 mg/dL (8.4-10.2); Hemolysis Index 22
[2017-12-25] MEDS ORDERED: CALCIUM CHLORIDE IV ONE (15:16)
[2017-12-25] MEDS ORDERED: CALCIUM GLUCONATE IV ONE (15:16)
[2017-12-25] MEDS ORDERED: ANCEF ONE (15:18)
[2017-12-25] MEDS ORDERED: NEOSTIGMINE ONE (15:28)
[2017-12-25] MEDS ORDERED: ROBINUL ONE (15:28)
[2017-12-25] MEDS ORDERED: NACL 0.9% 1000 ML 2,000 ML ONE (15:29)
[2017-12-25] MEDS ORDERED: LACTATED RINGERS 2,000 ML ONE (15:29)
[2017-12-25] MEDS ORDERED: ALBURX 25% (ALBUMIN) IV ONE (15:45)
--- NOTE | 2017-12-25 15:49 | Progress Note ---
Assessment and Plan 57-year-old female with medical history significant for COPD, hypertension, active tobacco use is limited to the emergency department with complaints of cyanosis of the right foot /Peripheral vascular disease - VASCULAR LAB.PRELIMINARY REPORT.BLE ARTERIAL DUPLEX DONE.EXTENSIVE ,SCATTERED FIBROCALCIFIED PLAQUES THROUGHOUT VESSELS VISUALIZED LICO. LT.GROIN VESSELS .MONOPHASIC WAVEFORMS OBTAINED THROUGHOUT VESSELS INTERROGATED. - CTA abdomen showed Significantly compromised abdominal aorta lumen below the renal arteries. Bilaterally compromised iliac and common femoral vessel flow. Bilateral compromised lower extremity flow predominantly at the level of the popliteal arteries. - Vascular surgery consulted and plan for aortofemoral bypass today - Cardial and pulmonary consulted for risk assessment and recommendations appreciated - placed on IV heparin drip - Lipid panel is within normal limit /COPD - Pulmonary consulted for surgical reisk assessment /Hypertension -Controlled with amlodipine /Hypokelemia - Repleted /Disposition - Continue inpatient care and will have vascular surgery tomorrow Hospitalist Physical Not in cardiopulmonary distress. The patient appeared well nourished and normally developed. Vital signs as documented. Head exam is unremarkable. No scleral icterus . Neck is without jugular venous distension, thyromegaly, or carotid bruits. Lungs are clear to auscultation. Cardiac exam reveals regular rate and Rhythm. First and second heart sounds normal. No murmurs, rubs or gallops. Abdominal exam reveals normal bowel sounds, no masses, no organomegaly and no aortic enlargement. 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 No focal weakness. Subjective Date of service: 12/25/17 Principal diagnosis: COPD, CAD, peripheral vascular disease with claudication Interval history: pt seen and examined plan for vascular surgery today denies any acute issue or new complaint Objective - Constitutional Vitals: Vital Signs - 12hr 12/25/17 12/25/17 12/25/17 04:59 07:45 07:46 Temperature 98.4 F 97.7 F Pulse Rate 70 58 L 59 L Pulse Rate [ Apical] Respiratory 18 19 Rate Blood Pressure 117/70 112/63 112/63 O2 Sat by Pulse 98 99 98 Oximetry 12/25/17 12/25/17 12/25/17 07:58 08:50 09:55 Temperature 98.3 F Pulse Rate 60 71 Pulse Rate [ 70 Apical] Respiratory 15 18 Rate Blood Pressure 102/66 127/77 O2 Sat by Pulse 97 98 Oximetry 12/25/17 12/25/17 12/25/17 10:00 10:05 10:10 Temperature Pulse Rate 88 72 69 Pulse Rate [ Apical] Respiratory 19 12 10 L Rate Blood Pressure 135/75 114/70 112/72 O2 Sat by Pulse 99 98 99 Oximetry 12/25/17 12/25/17 10:15 10:40 Temperature 98.3 F Pulse Rate 71 60 Pulse Rate [ Apical] Respiratory 11 L 15 Rate Blood Pressure 116/70 102/66 O2 Sat by Pulse 99 97 Oximetry - Labs CBC & Chem 7: 12/26/17 05:00 12/26/17 05:00 Labs: Abnormal lab results 12/24/17 12/25/17 12/25/17 Range/Units 10:40 04:31 04:31 WBC (4.5-11.0) K/mm3 Hgb 15.1 H (10.1-14.3) gm/dl Hct 46.7 H (30.3-42.9) % RDW 16.4 H (13.2-15.2) % [place] % (Auto) 12.7 H (0.0-7.3) % Eos % (Auto) 10.4 H (0.0-4.3) % [place] # 1.4 H (0.0-0.8) K/mm3 Eos # 1.1 H (0.0-0.4) K/mm3 Chloride (98-107) mmol/L Carbon Dioxide (22-30) mmol/L BUN (7-17) mg/dL Creatinine (0.7-1.2) mg/dL Glucose (65-100) mg/dL Calcium (8.4-10.2) mg/dL Total Protein 5.4 L (6.3-8.2) g/dL Albumin 2.3 L (3.9-5) g/dL Crossmatch See Detail 12/25/17 12/25/17 Range/Units 14:28 14:28 WBC 11.3 H (4.5-11.0) K/mm3 Hgb (10.1-14.3) gm/dl Hct (30.3-42.9) % RDW 16.5 H (13.2-15.2) % [place] % (Auto) (0.0-7.3) % Eos % (Auto) (0.0-4.3) % [place] # (0.0-0.8) K/mm3 Eos # (0.0-0.4) K/mm3 Chloride 110.0 H (98-107) mmol/L Carbon Dioxide 18 L D (22-30) mmol/L BUN 6 L (7-17) mg/dL Creatinine 0.3 L (0.7-1.2) mg/dL Glucose 152 H (65-100) mg/dL Calcium 6.7 L D (8.4-10.2) mg/dL Total Protein (6.3-8.2) g/dL Albumin (3.9-5) g/dL Crossmatch
--- NOTE | 2017-12-25 17:14 | XRay Report ---
FINAL REPORT EXAM: XR ABDOMEN 1V AP HISTORY: INSTRUMENT COUNT DISCREPENCY TECHNIQUE: Supine abdomen PRIORS: None. FINDINGS: there is an NG tube present distal end overlying the body of the stomach. Surgical calin are seen along the midline incision. Surgical clips are seen in the mid abdomen. And evidence for radiopaque retained foreign body on the views obtained IMPRESSION: Postoperative changes with surgical clips and calin present NG tube distal end overlying the stomach. No retained radiopaque foreign body seen
--- NOTE | 2017-12-25 17:45 | Post Anesthesia Evaluation ---
- Post Anesthesia Evaluation Patient Participated: Yes Airway Patent: Yes Stable Respiratory Function: Yes Nausea/Vomiting: No Temp > 96.8F: Yes Pain Manageable: Yes Adequeate Hydration: Yes Anesthesia Complications: No Block Receding Appropriately: Not Applicable Patient on Ventilator: No
[2017-12-25 17:50] LABS: Mean Corpuscular HGB Conc 31 % (30-34); Mean Corpuscular Hemoglobin 29 pg (28-32); Mean Corpuscular Volume 93 fl (79-97); Red Blood Count 5.32 M/mm3 (3.65-5.03); Red Cell Distribution Width 16.9 % (13.2-15.2)
[2017-12-25] MEDS: MORPHINE IV PRN ×3 (17:56→22:29)
[2017-12-25 17:57] LABS: Hematocrit 49.3 % (30.3-42.9); Hemoglobin 15.2 gm/dl (10.1-14.3)
--- NOTE | 2017-12-25 17:59 | Operative Report ---
Operative Report Operative Report: Operative Report: Operative note: Date: 12/25/2017 Preoperative diagnosis: Bilateral lower extremity ischemia with blue toes and bilateral calf pain. Postoperative diagnosis: Same. Operation: Aortobifemoral bypass with 16 x 8 Dacron graft Surgeon: Karen Lauren. Asst.: Travis Vasquez Anesthesia: Gen. EBL: 700 mL Replacements: Cell Saver 225 mL, crystalloids 4500 mL Urine output: 1200 cc Findings: Thrombus in the aorta. Atherosclerosis of aorta with posterior wall plaque. Occluded bilateral common femoral arteries. occluded FAVIAN Indications: 57-year-old lady came in complaining of blue toes bilaterally with calf pain for a few weeks. On a CTA or aorta she was found to have mural thrombus, diffuse disease with right common iliac occlusion, short segment of left external iliac occlusion and bilateral common femoral occlusions. She was offered aortobifemoral bypass. The risks, benefits and alternatives of procedure were discussed with patient at length. He elected to proceed with surgical intervention, signed informed consent. Operative details: Patient was brought to the operating room and placed in supine position with arms stopped. Normal bony prominences were padded. central line was previously placed in preop area by anesthesia provider. A line was placed and patient was intubated without complications. Gomez catheter was placed under sterile technique. Nasogastric tube was inserted in the stomach and placed on the aspiration. Patient's anterior abdomen and both lower images to the knee level were prepped and draped in sterile fashion. Preoperative antibiotics were administered prior to skin incision. Timeout was performed. A vertical incision was started in the groins bilaterally. Right groin incision was created in the vertical fashion midway between the pubic tubercle and anterior superior iliac spine and extended for approximately 10 cm. Incision was deepened through subcutaneous tissues with electrocautery. The encountered lymphatics were ligated and divided. The common femoral artery was then exposed and dissected circumferentially. The dissection was extended proximally to the inguinal ligament and distally to include superficial femoral and profunda femoral arteries. The common femoral, superficial femoral and profunda femoris arteries were encircled with Silastic vessel loops. Minor branches were identified and spared. The groin wounds were then packed bilaterally with sponges. Attention then was focused on the abdominal part of the operation. A skin incision was made from the subxiphoid to the suprapubic region. The subcutaneous tissue was then divided with electrocautery. The linea alba was exposed and incised. The peritoneum was elevated and sharply opened. The abdominal wall incision was then extended the full length of the skin incision. There was minor adhesions requiring lysis. Abdominal exploration revealed no incidental findings. The transverse colon was then elevated superiorly out of the wound, wrapped in the moist towel remainder of small bowel was then reflected to the right exposing the infrarenal aorta. Sharp dissection of the ligament of Treitz and the distal fourth portion of the duodenum allowed further exposure of the aorta and retraction of small bowel to the right. The small bowel was then wrapped in a moistened towel and held in place using Bookwalter retractor. The retroperitoneum overlying the aorta was incised. The incision continued proximally to the level of left renal vein. Adrenal and gonadal venous tributaries were ligated and divided. Left renal vein was dissected and taken on silastic vessel loop. The inferior mesenteric vein was encountered and pushed superiorly. The infrarenal aorta was then dissected for a 6 cm segment and appeared adequate for clamping. Retroperitoneal was dissected distally to the level of bifurcation over right anterior lateral site. Inferior mesenteric artery was not seen as on preoperative imaging proven to be chronicly occluded. A tunnel from each common femoral artery to the aortic bifurcation was then created bluntly with index fingers staying posterior to the ureters. Using long clamp umbilical tapes were positioned in the tunnel and taken on hemostats. Patient was heparinized with 5000 units of heparin. After 3 minutes from the heparin administration, the proximal clamp was applied on the aorta just below the renal arteries and distal aorta was stapled using TA stapler above bifurcation. A transverse arteriotomy in the anterior wall of the aorta was created using 11 blade and transected with scissors. Aortic lumen was cleaned from the debris and irrigated with heparinized saline. A 16 x 8 graft was then taken, body was cut at angle for beveled end to end anastomosis. the anastomosis was created with running 3-0 Prolene sutures. At the completion of suture line sutures were tied and anastomosis was checked for hemostasis. It required some repair sutures. Hemostasis was adequate. Attention was then focused on the femoral anastomosis. The right limb of the graft was then passed and the performed tunnel posterior to the ureter, maintaining alignment in the waiting kinks the common femoral, superficial femoral and profunda femoris arteries were crossclamped. A longitudinal arteriotomy in the anterior wall of the common femoral artery extending into bifurcation was created. The right limb of the graft was then sized and cut. The anastomosis was then performed with 5- 0 Prolene running sutures. Prior to completing the anastomosis the distal clamps were released allowing for backbleeding of the profunda femoris femoral arteries. Bilateral endarterectomies were performed. Additionally thrombectomy was performed of the left external iliac arteries. The graft clamp was used for forward flushing of the graft. The anastomosis was copiously irrigated with heparinized solution. The clamps were then released allowing flow into the profunda femoral there were strong Doppler signals in the right profunda femoral arteries. Attention then focused on the left femoral anastomosis. The left limb was passed in the performed tunnel posterior to the ureter. Left common femoral, superficial femoral and profunda arteries were crossclamped. An longitudinal arteriotomy on the posterior wall of the left common femoral artery extending to bifurcation was created. The left graft limb was then sized and caught. Left femoral rest was was then constructed using 5-0 Prolene stitches. Prior to completing anastomosis the graft limb was forward flushed. The femoral bifurcation back bled and the anastomosis was copiously irrigated with heparinized saline solution. The anastomosis was then completed and blood flow resumed into the profunda femoral arteries. Left profunda had a good Doppler signal. Reinspection of the suture lines were as performed and revealed adequate hemostasis. Tisseel was sprayed around anastomosis and dissected areas. The periaortic soft tissues then were sutured over the aortic graft using 2-0 Vicryl sutures. The periaortic tissue was adequate to cover aortic graft. The bowel was then placed back into the anatomic position. Abdominal wall closure was then performed with running looped PDS. Skin was stapled. The groin wounds were then reevaluated. The soft tissues were closed over the graft limbs in 2 layers with 3-0 Vicryl. Subcuticular layer using 4-0 Monocryl was created and Dermabond was applied. At the completion,distal pulses DP and PTwere palpable. Patient tolerates procedure well and was taken to the PACU in stable condition.
[2017-12-25] MEDS ORDERED: ANCEF/NS 1 GM/50 ML 1 GM/50 ML BAG IV SCH (18:00)
[2017-12-25 18:20] LABS: Blood Urea Nitrogen TNR mg/dL (7-17)
[2017-12-25 18:20] LABS: Mean Corpuscular HGB Conc 31 % (30-34); Mean Corpuscular Hemoglobin 29 pg (28-32); Mean Corpuscular Volume 94 fl (79-97); Platelet Count 161 K/mm3 (140-440); Red Blood Count 4.58 M/mm3 (3.65-5.03); Red Cell Distribution Width 17.2 % (13.2-15.2)
[2017-12-25 18:22] LABS: Hematocrit 42.9 % (30.3-42.9); Hemoglobin 13.2 gm/dl (10.1-14.3)
[2017-12-25 18:24] LABS: BUN/Creatinine Ratio TNR; Calcium TNR mg/dL (8.4-10.2); Hemolysis Index TNR
[2017-12-25] MEDS: SUBLIMAZE IV PRN ×2 (18:24→18:32)
--- NOTE | 2017-12-25 18:39 | XRay Report ---
FINAL REPORT EXAM: XR CHEST 1V AP HISTORY: central line placement TECHNIQUE: AP chest PRIORS: None. FINDINGS: There is an NG tube present. Distal end overlying the body of the stomach. There is been placement of a right IJ central venous catheter. Catheter tip overlies is cavoatrial junction. No evidence for pneumothorax post catheter placement. No focal pulmonary infiltrate identified no pleural fluid collection seen. IMPRESSION: And right IJ catheter with tip slightly low at the cavoatrial junction consider repositioning No evidence for pneumothorax post catheter placement NG tube in satisfactory position
[2017-12-25 18:48] LABS: BUN/Creatinine Ratio 13; Blood Urea Nitrogen 5 mg/dL (7-17); Calcium 8.5 mg/dL (8.4-10.2); Hemolysis Index 8
[2017-12-25 19:20] LABS: Basophils % (Manual) 0 % (0.0-1.8); Eosinophils % (Manual) 0 % (0.0-4.3); Myelocytes # (Manual) 0.1 K/mm3; Total Cells Counted 100
[2017-12-25 19:21] LABS: Anisocytosis Few; Platelet Estimate Appears Decreased
[2017-12-25] MEDS: HABITROL TD SCH (20:20)
[2017-12-25] MEDS: PEPCID IV SCH (21:45)
[2017-12-25] MEDS: ZOFRAN IV PRN (21:45)
[2017-12-25] MEDS: ceFAZolin 1 GM in NACL 0.9% 20 ML IV SCH (23:30)
[2017-12-26] MEDS: MORPHINE IV PRN ×6 (01:05→21:16)
[2017-12-26] MEDS: ZOFRAN IV PRN ×3 (04:11→21:15)
[2017-12-26] MEDS: NACL 0.9% 1000 ML 1,000 ML IV SCH ×3 (04:13→22:12)
[2017-12-26] MEDS: ceFAZolin 1 GM in NACL 0.9% 20 ML IV SCH (06:02)
[2017-12-26 06:30] LABS: Hematocrit 36.3 % (30.3-42.9); Hemoglobin 11.4 gm/dl (10.1-14.3)
[2017-12-26 07:40] LABS: BUN/Creatinine Ratio 18; Blood Urea Nitrogen 7 mg/dL (7-17); Calcium 8.3 mg/dL (8.4-10.2); Hemolysis Index 5
[2017-12-26] MEDS ORDERED: PROTONIX IV SCH (10:00)
--- NOTE | 2017-12-26 10:13 | Progress Note ---
Assessment and Plan Peripheral vascular disease with clarification. POD # 1 COPD. Appear to be clinically stable. Chest congestion post op at this time CAD. See cardiology, History of tobacco abuse. Recommendations Incentive spirometry ABRAM nebs q 4-6 hr Monitor for fever and bleeding DVT prophylaxis Discussed with patient in detail. All questions answered. CCT time was 31 min of face to face evaluation and coordination of care Subjective Date of service: 12/26/17 Principal diagnosis: COPD, CAD, peripheral vascular disease with claudication Interval history: c/o some pain, discomfort in wounds area post surgery. No SOB or cough. Objective Vital Signs - 12hr 12/25/17 12/25/17 12/25/17 22:20 22:21 22:29 Temperature Pulse Rate 91 H Respiratory 19 9 L 11 L Rate Respiratory Rate [Left Toe] Blood Pressure 153/76 O2 Sat by Pulse 98 Oximetry 12/25/17 12/25/17 12/25/17 22:31 22:41 22:51 Temperature Pulse Rate 112 H 96 H 96 H Respiratory 16 9 L 9 L Rate Respiratory Rate [Left Toe] Blood Pressure 137/82 137/82 137/82 O2 Sat by Pulse 98 99 99 Oximetry 12/25/17 12/25/17 12/25/17 22:59 23:00 23:11 Temperature Pulse Rate 98 H 102 H Respiratory 17 9 L 9 L Rate Respiratory Rate [Left Toe] Blood Pressure 146/82 146/82 O2 Sat by Pulse 99 Oximetry 12/25/17 12/25/17 12/25/17 23:21 23:27 23:30 Temperature Pulse Rate 97 H 106 H 97 H Respiratory 9 L 10 L 10 L Rate Respiratory Rate [Left Toe] Blood Pressure 137/82 137/82 152/84 O2 Sat by Pulse 99 99 Oximetry 12/25/17 12/25/17 12/25/17 23:34 23:41 23:51 Temperature 97.8 F Pulse Rate 101 H 94 H Respiratory 10 L 12 Rate Respiratory Rate [Left Toe] Blood Pressure 152/84 152/84 O2 Sat by Pulse 99 98 Oximetry 12/26/17 12/26/17 12/26/17 00:00 00:04 00:10 Temperature Pulse Rate 103 H 102 H Respiratory 10 L 10 L Rate Respiratory 17 Rate [Left Toe] Blood Pressure 144/88 137/82 O2 Sat by Pulse 99 Oximetry 12/26/17 12/26/1718 00:21 00:30 00:41 Temperature Pulse Rate 106 H 104 H 103 H Respiratory 11 L 11 L 10 L Rate Respiratory Rate [Left Toe] Blood Pressure 144/88 150/88 150/88 O2 Sat by Pulse 99 99 Oximetry 12/26/17 12/26/17 12/26/17 00:51 01:00 01:05 Temperature Pulse Rate 112 H 97 H Respiratory 9 L 12 17 Rate Respiratory Rate [Left Toe] Blood Pressure 150/88 146/83 O2 Sat by Pulse 98 97 Oximetry 12/26/17 12/26/17 12/26/17 01:11 01:21 01:30 Temperature Pulse Rate 104 H 106 H 97 H Respiratory 11 L 17 9 L Rate Respiratory Rate [Left Toe] Blood Pressure 146/83 143/86 150/87 O2 Sat by Pulse 98 99 100 Oximetry 12/26/17 12/26/17 12/26/17 01:35 01:41 01:51 Temperature Pulse Rate 105 H 95 H Respiratory 15 10 L 10 L Rate Respiratory Rate [Left Toe] Blood Pressure 150/87 150/87 O2 Sat by Pulse 100 100 Oximetry 12/26/17 12/26/17 12/26/17 02:00 02:11 02:21 Temperature Pulse Rate 98 H 95 H 104 H Respiratory 11 L 11 L 12 Rate Respiratory 15 Rate [Left Toe] Blood Pressure 140/84 140/84 140/84 O2 Sat by Pulse 100 100 100 Oximetry 12/26/17 12/26/17 12/26/17 02:30 02:41 02:51 Temperature Pulse Rate 104 H 107 H 101 H Respiratory 13 11 L 12 Rate Respiratory Rate [Left Toe] Blood Pressure 145/91 145/91 145/91 O2 Sat by Pulse 99 100 99 Oximetry 12/26/17 12/26/17 12/26/17 03:00 03:11 03:21 Temperature Pulse Rate 99 H 101 H 99 H Respiratory 13 12 11 L Rate Respiratory Rate [Left Toe] Blood Pressure 151/88 151/88 151/88 O2 Sat by Pulse 100 100 100 Oximetry 12/26/17 12/26/17 12/26/17 03:25 03:30 03:37 Temperature 97.7 F Pulse Rate 103 H Respiratory 14 11 L Rate Respiratory Rate [Left Toe] Blood Pressure 147/87 O2 Sat by Pulse 98 99 Oximetry 12/26/17 12/26/17 12/26/17 03:41 03:51 04:00 Temperature Pulse Rate 114 H 102 H 101 H Respiratory 12 16 12 Rate Respiratory 17 Rate [Left Toe] Blood Pressure 147/87 147/87 138/82 O2 Sat by Pulse 100 99 Oximetry 12/26/17 12/26/17 12/26/17 04:11 04:21 04:30 Temperature Pulse Rate 97 H 96 H 99 H Respiratory 11 L 10 L 12 Rate Respiratory Rate [Left Toe] Blood Pressure 138/82 138/82 146/84 O2 Sat by Pulse 100 100 100 Oximetry 12/26/17 12/26/17 12/26/17 04:41 04:51 05:00 Temperature Pulse Rate 103 H 97 H 101 H Respiratory 11 L 11 L 12 Rate Respiratory Rate [Left Toe] Blood Pressure 146/84 146/84 150/85 O2 Sat by Pulse 100 100 100 Oximetry 12/26/17 12/26/17 12/26/17 05:11 05:21 05:30 Temperature Pulse Rate 94 H 104 H 102 H Respiratory 11 L 11 L 11 L Rate Respiratory Rate [Left Toe] Blood Pressure 150/85 150/85 153/89 O2 Sat by Pulse 100 100 100 Oximetry 12/26/17 12/26/17 12/26/17 05:41 05:51 06:00 Temperature Pulse Rate 103 H 102 H 105 H Respiratory 15 11 L 13 Rate Respiratory Rate [Left Toe] Blood Pressure 153/89 153/89 155/94 O2 Sat by Pulse 100 100 100 Oximetry 12/26/17 12/26/17 12/26/17 06:11 06:21 06:30 Temperature Pulse Rate 107 H 106 H 103 H Respiratory 14 14 13 Rate Respiratory Rate [Left Toe] Blood Pressure 155/94 155/94 154/90 O2 Sat by Pulse 100 100 100 Oximetry 12/26/17 12/26/17 06:41 08:00 Temperature 97.9 F Pulse Rate 106 H Respiratory 14 Rate Respiratory Rate [Left Toe] Blood Pressure 154/90 O2 Sat by Pulse 100 Oximetry Constitutional: no acute distress, alert Eyes: non-icteric ENT: other (NGT in position) Neck: supple, no lymphadenopathy, no JVD, other (RT IJ) Effort: normal Ascultation: Bilateral: clear, diminished breath sounds Percussion: Bilateral: not dull Tactile fremitus: Bilateral: normal Cardiovascular: regular rate and rhythm Gastrointestinal: soft, tender, other (midline lap,covered, no bleeding. Inguinal wounds clean) Extremities: no edema, other (no edema, poor peripheral pulses) Neurologic: normal mental status, non-focal exam Psychiatric: mood appropriate, affect normal CBC and BMP: 12/26/17 05:00 12/26/17 05:00 ABG, PT/INR, D-dimer: ABG POC ABG pH 7.389 (7.35-7.45) 12/20/17 18:00 POC ABG pCO2 36.9 (35-45) 12/20/17 18:00 POC ABG pO2 77 (80-105) L 12/20/17 18:00 POC ABG HCO3 22.3 12/20/17 18:00 POC ABG Total CO2 23 12/20/17 18:00 POC ABG O2 Sat 95 12/20/17 18:00 PT/INR, D-dimer PT 13.4 Sec. (12.2-14.9) 12/20/17 00:11 INR 0.97 (0.87-1.13) 12/20/17 00:11 Abnormal lab findings: Abnormal Labs 12/19/17 12/19/17 12/19/17 15:51 15:51 15:51 WBC RBC 5.92 H Hgb 17.6 H Hct 54.0 H RDW 17.6 H [place] % (Auto) 11.3 H Eos % (Auto) [place] # 0.9 H Eos # Baso # Seg Neuts % (Manual) Lymphocytes % (Manual) Seg Neutrophils # Man Lymphocytes # (Manual) Heparin Anti-Xa Level POC ABG pO2 VBG pH 7.309 L Potassium Chloride Carbon Dioxide BUN 5 L Creatinine 0.5 L Glucose Calcium AST 113 H ALT 70 H Alkaline Phosphatase 155 H Total Protein 6.2 L Albumin 3.2 L Triglycerides Crossmatch 12/20/17 12/20/17 12/20/17 07:09 18:00 19:47 WBC RBC Hgb Hct RDW [place] % (Auto) Eos % (Auto) [place] # Eos # Baso # Seg Neuts % (Manual) Lymphocytes % (Manual) Seg Neutrophils # Man Lymphocytes # (Manual) Heparin Anti-Xa Level 0.17 L 0.25 L POC ABG pO2 77 L VBG pH Potassium Chloride Carbon Dioxide BUN Creatinine Glucose Calcium AST ALT Alkaline Phosphatase Total Protein Albumin Triglycerides Crossmatch 12/20/17 12/21/17 12/21/17 19:47 05:37 05:37 WBC 11.1 H RBC 5.27 H Hgb 15.5 H Hct 48.4 H RDW 16.9 H [place] % (Auto) 12.0 H Eos % (Auto) [place] # 1.3 H Eos # 0.5 H Baso # Seg Neuts % (Manual) Lymphocytes % (Manual) Seg Neutrophils # Man Lymphocytes # (Manual) Heparin Anti-Xa Level POC ABG pO2 VBG pH Potassium 3.4 L D Chloride Carbon Dioxide BUN 5 L Creatinine 0.5 L Glucose Calcium 8.2 L AST ALT Alkaline Phosphatase Total Protein Albumin Triglycerides 160 H Crossmatch 12/22/17 12/22/17 12/22/17 09:04 09:04 18:21 WBC RBC Hgb Hct RDW [place] % (Auto) Eos % (Auto) [place] # Eos # Baso # Seg Neuts % (Manual) Lymphocytes % (Manual) Seg Neutrophils # Man Lymphocytes # (Manual) Heparin Anti-Xa Level 0.28 L 0.19 L POC ABG pO2 VBG pH Potassium 3.5 L Chloride Carbon Dioxide BUN 6 L Creatinine 0.5 L Glucose 107 H Calcium AST ALT Alkaline Phosphatase Total Protein Albumin Triglycerides Crossmatch 12/23/17 12/23/17 12/24/17 03:40 03:40 10:40 WBC RBC Hgb 15.2 H Hct 46.1 H RDW [place] % (Auto) Eos % (Auto) [place] # Eos # Baso # Seg Neuts % (Manual) Lymphocytes % (Manual) Seg Neutrophils # Man Lymphocytes # (Manual) Heparin Anti-Xa Level 0.23 L POC ABG pO2 VBG pH Potassium Chloride Carbon Dioxide BUN Creatinine Glucose Calcium AST ALT Alkaline Phosphatase Total Protein Albumin Triglycerides Crossmatch See Detail 12/24/17 12/25/17 12/25/17 14:42 04:31 04:31 WBC 11.8 H RBC 5.22 H Hgb 15.3 H 15.1 H Hct 48.3 H 46.7 H RDW 17.0 H 16.4 H [place] % (Auto) 11.3 H 12.7 H Eos % (Auto) 10.1 H 10.4 H [place] # 1.3 H 1.4 H Eos # 1.2 H 1.1 H Baso # 0.2 H Seg Neuts % (Manual) Lymphocytes % (Manual) Seg Neutrophils # Man Lymphocytes # (Manual) Heparin Anti-Xa Level POC ABG pO2 VBG pH Potassium Chloride Carbon Dioxide BUN Creatinine Glucose Calcium AST ALT Alkaline Phosphatase Total Protein 5.4 L Albumin 2.3 L Triglycerides Crossmatch 12/25/17 12/25/17 12/25/17 14:28 14:28 18:16 WBC 11.3 H 18.8 H RBC Hgb Hct RDW 16.5 H 17.2 H [place] % (Auto) Eos % (Auto) [place] # Eos # Baso # Seg Neuts % (Manual) Lymphocytes % (Manual) Seg Neutrophils # Man Lymphocytes # (Manual) Heparin Anti-Xa Level POC ABG pO2 VBG pH Potassium Chloride 110.0 H Carbon Dioxide 18 L D BUN 6 L Creatinine 0.3 L Glucose 152 H Calcium 6.7 L D AST ALT Alkaline Phosphatase Total Protein Albumin Triglycerides Crossmatch 12/25/17 12/25/17 12/25/17 18:16 21:05 Unknown WBC 12.4 H RBC 5.32 H Hgb 15.2 H Hct 49.3 H D RDW 16.9 H [place] % (Auto) Eos % (Auto) [place] # Eos # Baso # Seg Neuts % (Manual) 90.0 H Lymphocytes % (Manual) 7.0 L Seg Neutrophils # Man 11.2 H Lymphocytes # (Manual) 0.9 L Heparin Anti-Xa Level < 0.10 L POC ABG pO2 VBG pH Potassium Chloride Carbon Dioxide 18 L BUN 5 L Creatinine 0.4 L Glucose 169 H Calcium AST ALT Alkaline Phosphatase Total Protein Albumin Triglycerides Crossmatch 12/26/17 05:00 WBC RBC Hgb Hct RDW [place] % (Auto) Eos % (Auto) [place] # Eos # Baso # Seg Neuts % (Manual) Lymphocytes % (Manual) Seg Neutrophils # Man Lymphocytes # (Manual) Heparin Anti-Xa Level POC ABG pO2 VBG pH Potassium Chloride Carbon Dioxide 21 L BUN Creatinine 0.4 L Glucose 140 H Calcium 8.3 L AST ALT Alkaline Phosphatase Total Protein Albumin Triglycerides Crossmatch
--- NOTE | 2017-12-26 10:24 | Progress Note ---
<MOUSTAPHALILIANE ESCOBAR - Last Filed: 12/26/17 10:25> Assessment and Plan Assessment: PVD - s/p aortobifemoral bypass 12/25/2017 Mild sinus tachycardia - suspect physiologic secondary to pain HTN COPD Tobacco use / ETOH use - cessation encouraged Plan: Pt s/p vascular surgery. BLE pedal pulses palpable. Initiate lipitor. Cont ASA 81. Currently stable cardiac status. Nothing further to add from cardiac perspective at this time. Will follow on as needed basis. Recommend follow up in our office with Nadege Tabares NP, within 1-2 weeks of hospital discharge ([phone]). Assessment and plan reviewed with pt at bedside. The patient has been seen in conjunction with Dr. Sni who agrees with the assessment and plan of care. Subjective Date of service: 12/26/17 Principal diagnosis: COPD, CAD, peripheral vascular disease with claudication Interval history: Pt resting in bed, no current cardiac complaints. s/p aortobifemoral bypass yesterday. c/o abdominal pain r/t surgical incisions. in ST on tele, BPs stable. Objective Last Vital Signs Temp 97.9 F 12/26/17 08:00 Pulse 106 H 12/26/17 06:41 Resp 14 12/26/17 06:41 BP 154/90 12/26/17 06:41 Pulse Ox 100 12/26/17 06:41 - Physical Examination General: No Apparent Distress HEENT: Positive: PERRL, Normocephaly, Mucus Membranes Moist Neck: Positive: neck supple, trachea midline Cardiac: Positive: Reg Rate and Rhythm, S1/S2 Lungs: Positive: clear to auscultation Neuro: Positive: Grossly Intact, Cranial Nerve 2-12 Intact Abdomen: Positive: Soft. Negative: Tender Skin: Positive: Mottled (LLE toes) Incision: Incision Site (bilateral groin and abdominal vascular surgery incision sites) Musculoskeletal: No Fluid Collection Extremities: Present: upper extr. pulses, lower extr. pulses. Absent: edema - Labs and Meds CBC 12/25/17 12/25/17 12/25/17 Range/Units 14:28 18:16 Unknown WBC 11.3 H 18.8 H 12.4 H (4.5-11.0) K/mm3 RBC 4.28 4.58 5.32 H (3.65-5.03) M/mm3 Hgb 12.7 13.2 15.2 H (10.1-14.3) gm/dl Hct 39.3 D 42.9 D 49.3 H D (30.3-42.9) % Plt Count 162 161 (140-440) K/mm3 12/26/17 Range/Units 05:00 WBC (4.5-11.0) K/mm3 RBC (3.65-5.03) M/mm3 Hgb 11.4 (10.1-14.3) gm/dl Hct 36.3 D (30.3-42.9) % Plt Count (140-440) K/mm3 Comprehensive Metabolic Panel 12/25/17 12/25/17 12/25/17 Range/Units 14:28 18:16 Unknown Sodium 139 141 TNR (137-145) mmol/L Potassium 3.6 3.6 TNR (3.6-5.0) mmol/L Chloride 110.0 H 106.7 TNR (98-107) mmol/L Carbon Dioxide 18 L D 18 L TNR (22-30) mmol/L BUN 6 L 5 L TNR (7-17) mg/dL Creatinine 0.3 L 0.4 L TNR (0.7-1.2) mg/dL Glucose 152 H 169 H TNR (65-100) mg/dL Calcium 6.7 L D 8.5 D TNR (8.4-10.2) mg/dL 12/26/17 Range/Units 05:00 Sodium 142 (137-145) mmol/L Potassium 3.9 (3.6-5.0) mmol/L Chloride 105.2 (98-107) mmol/L Carbon Dioxide 21 L (22-30) mmol/L BUN 7 (7-17) mg/dL Creatinine 0.4 L (0.7-1.2) mg/dL Glucose 140 H (65-100) mg/dL Calcium 8.3 L (8.4-10.2) mg/dL - Imaging and Cardiology EKG: image reviewed Echo: report reviewed - Telemetry EKG Rhythm: Sinus Tachycardia - EKG Sinus rhythms and dysrhythmias: sinus tachycardia <ALEXIS SIN - Last Filed: 12/26/17 12:35> Objective Vital Signs Temp Pulse Pulse Pulse Resp Resp BP 12/26/17 11:01 116 H 16 143/90 12/26/17 10:00 99 H 15 156/83 12/26/17 09:00 98 H 14 142/82 12/26/17 08:00 97.9 F 100 H 15 156/88 12/26/17 07:45 107 H 107 H 12/26/17 07:00 104 H 15 153/89 12/26/17 06:41 106 H 14 154/90 12/26/17 06:30 103 H 13 154/90 12/26/17 06:21 106 H 14 155/94 12/26/17 06:11 107 H 14 155/94 12/26/17 06:00 105 H 13 155/94 12/26/17 05:51 102 H 11 L 153/89 12/26/17 05:41 103 H 15 153/89 12/26/17 05:30 102 H 11 L 153/89 12/26/17 05:21 104 H 11 L 150/85 12/26/17 05:11 94 H 11 L 150/85 12/26/17 05:00 101 H 12 150/85 12/26/17 04:51 97 H 11 L 146/84 12/26/17 04:41 103 H 11 L 146/84 12/26/17 04:30 99 H 12 146/84 12/26/17 04:21 96 H 10 L 138/82 12/26/17 04:11 97 H 11 L 138/82 12/26/17 04:00 101 H 12 17 138/82 12/26/17 03:51 102 H 16 147/87 12/26/17 03:41 114 H 12 147/87 12/26/17 03:37 97.7 F 12/26/17 03:30 103 H 11 L 147/87 12/26/17 03:25 14 12/26/17 03:21 99 H 11 L 151/88 07 03:11 101 H 12 151/88 12/26/17 03:00 99 H 13 151/88 12/26/17 02:51 101 H 12 145/91 12/26/17 02:41 107 H 11 L 145/91 12/26/17 02:30 104 H 13 145/91 12/26/17 02:21 104 H 12 140/84 12/26/17 02:11 95 H 11 L 140/84 12/26/17 02:00 98 H 11 L 15 140/84 12/26/17 01:51 95 H 10 L 150/87 12/26/17 01:41 105 H 10 L 150/87 12/26/17 01:35 15 12/26/17 01:30 97 H 9 L 150/87 12/26/17 01:21 106 H 17 143/86 12/26/17 01:11 104 H 11 L 146/83 12/26/17 01:05 17 12/26/17 01:00 97 H 12 146/83 12/26/17 00:51 112 H 9 L 150/88 12/26/17 00:41 103 H 10 L 150/88 12/26/17 00:30 104 H 11 L 150/88 12/26/17 00:21 106 H 11 L 144/88 12/26/17 00:10 102 H 10 L 137/82 12/26/17 00:04 17 12/26/17 00:00 103 H 10 L 144/88 12/25/17 23:51 94 H 12 152/84 12/25/17 23:41 101 H 10 L 152/84 12/25/17 23:34 97.8 F 12/25/17 23:30 97 H 10 L 152/84 12/25/17 23:27 106 H 10 L 137/82 12/25/17 23:21 97 H 9 L 137/82 12/25/17 23:11 102 H 9 L 146/82 12/25/17 23:00 98 H 9 L 146/82 12/25/17 22:59 17 12/25/17 22:51 96 H 9 L 137/82 12/25/17 22:41 96 H 9 L 137/82 12/25/17 22:31 112 H 16 137/82 12/25/17 22:29 11 L 12/25/17 22:21 91 H 9 L 153/76 12/25/17 22:20 19 12/25/17 22:11 107 H 10 L 153/76 12/25/17 22:00 96 H 8 L 153/76 12/25/17 21:51 84 9 L 143/71 12/25/17 21:50 27 H 12/25/17 21:45 19 12/25/17 21:41 90 10 L 143/71 12/25/17 21:30 92 H 10 L 143/71 12/25/17 21:21 86 12 149/81 12/25/17 21:11 101 H 10 L 141/85 12/25/17 21:00 112 H 11 L 142/92 12/25/17 20:55 97.5 F L 93 H 12 141/85 12/25/17 20:50 91 H 10 L 141/85 12/25/17 20:40 90 13 12/25/17 20:15 89 12 137/83 12/25/17 20:00 79 16 125/75 12/25/17 19:45 93 H 23 129/83 12/25/17 19:30 101 H 21 132/91 12/25/17 19:15 90 14 122/77 12/25/17 19:00 98 H 19 131/82 12/25/17 18:45 90 16 133/78 12/25/17 18:32 20 12/25/17 18:30 84 22 139/78 12/25/17 18:24 19 12/25/17 18:15 83 13 129/79 12/25/17 18:00 81 12 135/80 12/25/17 17:56 13 12/25/17 17:45 79 13 155/92 12/25/17 17:30 86 15 141/89 12/25/17 17:25 85 12 134/88 12/25/17 17:20 96.1 F L 102 H 13 150/86 Pulse Ox 12/26/17 11:01 95 12/26/17 10:00 100 12/26/17 09:00 98 12/26/17 08:00 12/26/17 07:45 12/26/17 07:00 100 12/26/17 06:41 100 12/26/17 06:30 100 12/26/17 06:21 100 12/26/17 06:11 100 12/26/17 06:00 100 12/26/17 05:51 100 12/26/17 05:41 100 12/26/17 05:30 100 12/26/17 05:21 100 12/26/17 05:11 100 12/26/17 05:00 100 12/26/17 04:51 100 12/26/17 04:41 100 12/26/17 04:30 100 12/26/17 04:21 100 12/26/17 04:11 100 12/26/17 04:00 12/26/17 03:51 99 12/26/17 03:41 100 12/26/17 03:37 12/26/17 03:30 99 12/26/17 03:25 98 12/26/17 03:21 100 12/26/17 03:11 100 12/26/17 03:00 100 12/26/17 02:51 99 12/26/17 02:41 100 12/26/17 02:30 99 12/26/17 02:21 100 12/26/17 02:11 100 12/26/17 02:00 100 12/26/17 01:51 100 12/26/17 01:41 100 12/26/17 01:35 12/26/17 01:30 100 12/26/17 01:21 99 12/26/17 01:11 98 12/26/17 01:05 12/26/17 01:00 97 12/26/17 00:51 98 12/26/17 00:41 99 12/26/17 00:30 12/26/17 00:21 99 12/26/17 00:10 99 12/26/17 00:04 12/26/17 00:00 12/25/17 23:51 98 12/25/17 23:41 99 12/25/17 23:34 12/25/17 23:30 12/25/17 23:27 99 12/25/17 23:21 99 12/25/17 23:11 99 12/25/17 23:00 12/25/17 22:59 12/25/17 22:51 99 12/25/17 22:41 99 12/25/17 22:31 98 12/25/17 22:29 12/25/17 22:21 98 12/25/17 22:20 12/25/17 22:11 97 12/25/17 22:00 98 12/25/17 21:51 99 12/25/17 21:50 12/25/17 21:45 96 12/25/17 21:41 99 12/25/17 21:30 99 12/25/17 21:21 98 12/25/17 21:11 98 12/25/17 21:00 97 12/25/17 20:55 97 12/25/17 20:50 96 12/25/17 20:40 96 12/25/17 20:15 99 12/25/17 20:00 98 12/25/17 19:45 99 12/25/17 19:30 98 12/25/17 19:15 98 12/25/17 19:00 99 12/25/17 18:45 97 12/25/17 18:32 12/25/17 18:30 98 12/25/17 18:24 12/25/17 18:15 97 12/25/17 18:00 99 12/25/17 17:56 12/25/17 17:45 98 12/25/17 17:30 98 12/25/17 17:25 96 12/25/17 17:20 98 - Labs and Meds CBC 12/25/17 12/25/17 12/25/17 Range/Units 14:28 18:16 Unknown WBC 11.3 H 18.8 H 12.4 H (4.5-11.0) K/mm3 RBC 4.28 4.58 5.32 H (3.65-5.03) M/mm3 Hgb 12.7 13.2 15.2 H (10.1-14.3) gm/dl Hct 39.3 D 42.9 D 49.3 H D (30.3-42.9) % Plt Count 162 161 (140-440) K/mm3 12/26/17 Range/Units 05:00 WBC (4.5-11.0) K/mm3 RBC (3.65-5.03) M/mm3 Hgb 11.4 (10.1-14.3) gm/dl Hct 36.3 D (30.3-42.9) % Plt Count (140-440) K/mm3 Comprehensive Metabolic Panel 12/25/17 12/25/17 12/25/17 Range/Units 14:28 18:16 Unknown Sodium 139 141 TNR (137-145) mmol/L Potassium 3.6 3.6 TNR (3.6-5.0) mmol/L Chloride 110.0 H 106.7 TNR (98-107) mmol/L Carbon Dioxide 18 L D 18 L TNR (22-30) mmol/L BUN 6 L 5 L TNR (7-17) mg/dL Creatinine 0.3 L 0.4 L TNR (0.7-1.2) mg/dL Glucose 152 H 169 H TNR (65-100) mg/dL Calcium 6.7 L D 8.5 D TNR (8.4-10.2) mg/dL 12/26/17 Range/Units 05:00 Sodium 142 (137-145) mmol/L Potassium 3.9 (3.6-5.0) mmol/L Chloride 105.2 (98-107) mmol/L Carbon Dioxide 21 L (22-30) mmol/L BUN 7 (7-17) mg/dL Creatinine 0.4 L (0.7-1.2) mg/dL Glucose 140 H (65-100) mg/dL Calcium 8.3 L (8.4-10.2) mg/dL
[2017-12-26] MEDS ORDERED: HYDROCORTISONE CR TP PRN (11:27)
[2017-12-26] MEDS: BABY ASPIRIN PO SCH (12:00)
[2017-12-26] MEDS: NORVASC PO SCH (12:00)
[2017-12-26] MEDS: LOPRESSOR PO SCH ×2 (12:00→21:16)
[2017-12-26] MEDS ORDERED: NACL 0.9% 1000 ML 1,000 ML IV ONE (12:23)
--- NOTE | 2017-12-26 12:33 | Progress Note ---
Assessment and Plan She will remain in the ICU overnight for monitoring. Likely discharge to the floor tomorrow. will consult PT as well Subjective Date of service: 12/26/17 Principal diagnosis: COPD, CAD, peripheral vascular disease with claudication Interval history: Patient postop day 1 aortobifem. She has palpable bilateral pedal pulses. No significant reperfusion edema. She does have at baseline, bluish discoloration to the first and second digits of her left foot. Her groin incisions are soft and intact. Abdominal incision will be evaluated tomorrow. Complains of abdominal pain. Continues to be nothing by mouth secondary to ileus. Has an nasogastric and Gomez in place. Her art line appears to be malfunctioning and will be removed by nursing. Objective - Constitutional Vitals: Vital Signs - 12hr 12/26/17 12/26/17 12/26/17 00:30 00:41 00:51 Temperature Pulse Rate 104 H 103 H 112 H Pulse Rate [ Apical] Pulse Rate [ Left Radial] Respiratory 11 L 10 L 9 L Rate Respiratory Rate [Left Toe] Blood Pressure 150/88 150/88 150/88 O2 Sat by Pulse 99 98 Oximetry 12/26/17 12/26/17 12/26/17 01:00 01:05 01:11 Temperature Pulse Rate 97 H 104 H Pulse Rate [ Apical] Pulse Rate [ Left Radial] Respiratory 12 17 11 L Rate Respiratory Rate [Left Toe] Blood Pressure 146/83 146/83 O2 Sat by Pulse 97 98 Oximetry 12/26/17 12/26/17 12/26/17 01:21 01:30 01:35 Temperature Pulse Rate 106 H 97 H Pulse Rate [ Apical] Pulse Rate [ Left Radial] Respiratory 17 9 L 15 Rate Respiratory Rate [Left Toe] Blood Pressure 143/86 150/87 O2 Sat by Pulse 99 100 Oximetry 12/26/17 12/26/17 12/26/17 01:41 01:51 02:00 Temperature Pulse Rate 105 H 95 H 98 H Pulse Rate [ Apical] Pulse Rate [ Left Radial] Respiratory 10 L 10 L 11 L Rate Respiratory 15 Rate [Left Toe] Blood Pressure 150/87 150/87 140/84 O2 Sat by Pulse 100 100 100 Oximetry 12/26/17 12/26/17 12/26/17 02:11 02:21 02:30 Temperature Pulse Rate 95 H 104 H 104 H Pulse Rate [ Apical] Pulse Rate [ Left Radial] Respiratory 11 L 12 13 Rate Respiratory Rate [Left Toe] Blood Pressure 140/84 140/84 145/91 O2 Sat by Pulse 100 100 99 Oximetry 12/26/17 12/26/17 12/26/17 02:41 02:51 03:00 Temperature Pulse Rate 107 H 101 H 99 H Pulse Rate [ Apical] Pulse Rate [ Left Radial] Respiratory 11 L 12 13 Rate Respiratory Rate [Left Toe] Blood Pressure 145/91 145/91 151/88 O2 Sat by Pulse 100 99 100 Oximetry 12/26/17 12/26/17 12/26/17 03:11 03:21 03:25 Temperature Pulse Rate 101 H 99 H Pulse Rate [ Apical] Pulse Rate [ Left Radial] Respiratory 12 11 L 14 Rate Respiratory Rate [Left Toe] Blood Pressure 151/88 151/88 O2 Sat by Pulse 100 100 98 Oximetry 12/26/17 12/26/17 12/26/17 03:30 03:37 03:41 Temperature 97.7 F Pulse Rate 103 H 114 H Pulse Rate [ Apical] Pulse Rate [ Left Radial] Respiratory 11 L 12 Rate Respiratory Rate [Left Toe] Blood Pressure 147/87 147/87 O2 Sat by Pulse 99 100 Oximetry 12/26/17 12/26/17 12/26/17 03:51 04:00 04:11 Temperature Pulse Rate 102 H 101 H 97 H Pulse Rate [ Apical] Pulse Rate [ Left Radial] Respiratory 16 12 11 L Rate Respiratory 17 Rate [Left Toe] Blood Pressure 147/87 138/82 138/82 O2 Sat by Pulse 99 100 Oximetry 12/26/17 12/26/17 12/26/17 04:21 04:30 04:41 Temperature Pulse Rate 96 H 99 H 103 H Pulse Rate [ Apical] Pulse Rate [ Left Radial] Respiratory 10 L 12 11 L Rate Respiratory Rate [Left Toe] Blood Pressure 138/82 146/84 146/84 O2 Sat by Pulse 100 100 100 Oximetry 12/26/17 12/26/17 12/26/17 04:51 05:00 05:11 Temperature Pulse Rate 97 H 101 H 94 H Pulse Rate [ Apical] Pulse Rate [ Left Radial] Respiratory 11 L 12 11 L Rate Respiratory Rate [Left Toe] Blood Pressure 146/84 150/85 150/85 O2 Sat by Pulse 100 100 100 Oximetry 12/26/17 12/26/17 12/26/17 05:21 05:30 05:41 Temperature Pulse Rate 104 H 102 H 103 H Pulse Rate [ Apical] Pulse Rate [ Left Radial] Respiratory 11 L 11 L 15 Rate Respiratory Rate [Left Toe] Blood Pressure 150/85 153/89 153/89 O2 Sat by Pulse 100 100 100 Oximetry 12/26/17 12/26/17 12/26/17 05:51 06:00 06:11 Temperature Pulse Rate 102 H 105 H 107 H Pulse Rate [ Apical] Pulse Rate [ Left Radial] Respiratory 11 L 13 14 Rate Respiratory Rate [Left Toe] Blood Pressure 153/89 155/94 155/94 O2 Sat by Pulse 100 100 100 Oximetry 12/26/17 12/26/17 12/26/17 06:21 06:30 06:41 Temperature Pulse Rate 106 H 103 H 106 H Pulse Rate [ Apical] Pulse Rate [ Left Radial] Respiratory 14 13 14 Rate Respiratory Rate [Left Toe] Blood Pressure 155/94 154/90 154/90 O2 Sat by Pulse 100 100 100 Oximetry 12/26/17 12/26/17 12/26/17 07:00 07:45 08:00 Temperature 97.9 F Pulse Rate 104 H 100 H Pulse Rate [ 107 H Apical] Pulse Rate [ 107 H Left Radial] Respiratory 15 15 Rate Respiratory Rate [Left Toe] Blood Pressure 153/89 156/88 O2 Sat by Pulse 100 Oximetry 12/26/17 12/26/17 12/26/17 09:00 10:00 11:01 Temperature Pulse Rate 98 H 99 H 116 H Pulse Rate [ Apical] Pulse Rate [ Left Radial] Respiratory 14 15 16 Rate Respiratory Rate [Left Toe] Blood Pressure 142/82 156/83 143/90 O2 Sat by Pulse 98 100 95 Oximetry General appearance: Present: no acute distress - EENT Eyes: PERRL, EOM intact ENT: hearing intact - Neck Neck: supple, normal ROM - Respiratory Respiratory effort: normal - Breasts Breasts: deferred Extremities: no ischemia, abnormal (per HPI) - Gastrointestinal General gastrointestinal: Present: soft Rectal Exam: deferred - Genitourinary Female genitourinary: deferred - Neurologic Neurologic: no focal deficits - Psychiatric Psychiatric: appropriate mood/affect, cooperative - Labs CBC & Chem 7: 12/26/17 05:00 12/26/17 05:00 Labs: Abnormal lab results 02/0512/25/17 12/25/17 Range/Units 10:40 14:28 14:28 WBC 11.3 H (4.5-11.0) K/mm3 RBC (3.65-5.03) M/mm3 Hgb (10.1-14.3) gm/dl Hct (30.3-42.9) % RDW 16.5 H (13.2-15.2) % Seg Neuts % (Manual) (40.0-70.0) % Lymphocytes % (Manual) (13.4-35.0) % Seg Neutrophils # Man (1.8-7.7) K/mm3 Lymphocytes # (Manual) (1.2-5.4) K/mm3 Heparin Anti-Xa Level (0.3-0.7) U.I./ml Chloride 110.0 H (98-107) mmol/L Carbon Dioxide 18 L D (22-30) mmol/L BUN 6 L (7-17) mg/dL Creatinine 0.3 L (0.7-1.2) mg/dL Glucose 152 H (65-100) mg/dL Calcium 6.7 L D (8.4-10.2) mg/dL Crossmatch See Detail 12/25/17 12/25/17 12/25/17 Range/Units 18:16 18:16 21:05 WBC 18.8 H (4.5-11.0) K/mm3 RBC (3.65-5.03) M/mm3 Hgb (10.1-14.3) gm/dl Hct (30.3-42.9) % RDW 17.2 H (13.2-15.2) % Seg Neuts % (Manual) (40.0-70.0) % Lymphocytes % (Manual) (13.4-35.0) % Seg Neutrophils # Man (1.8-7.7) K/mm3 Lymphocytes # (Manual) (1.2-5.4) K/mm3 Heparin Anti-Xa Level < 0.10 L (0.3-0.7) U.I./ml Chloride (98-107) mmol/L Carbon Dioxide 18 L (22-30) mmol/L BUN 5 L (7-17) mg/dL Creatinine 0.4 L (0.7-1.2) mg/dL Glucose 169 H (65-100) mg/dL Calcium (8.4-10.2) mg/dL Crossmatch 12/25/17 12/26/17 Range/Units Unknown 05:00 WBC 12.4 H (4.5-11.0) K/mm3 RBC 5.32 H (3.65-5.03) M/mm3 Hgb 15.2 H (10.1-14.3) gm/dl Hct 49.3 H D (30.3-42.9) % RDW 16.9 H (13.2-15.2) % Seg Neuts % (Manual) 90.0 H (40.0-70.0) % Lymphocytes % (Manual) 7.0 L (13.4-35.0) % Seg Neutrophils # Man 11.2 H (1.8-7.7) K/mm3 Lymphocytes # (Manual) 0.9 L (1.2-5.4) K/mm3 Heparin Anti-Xa Level (0.3-0.7) U.I./ml Chloride (98-107) mmol/L Carbon Dioxide 21 L (22-30) mmol/L BUN (7-17) mg/dL Creatinine 0.4 L (0.7-1.2) mg/dL Glucose 140 H (65-100) mg/dL Calcium 8.3 L (8.4-10.2) mg/dL Crossmatch
[2017-12-26] MEDS: PEPCID IV SCH ×2 (12:38→21:15)
--- NOTE | 2017-12-26 14:35 | Progress Note ---
Assessment and Plan 57-year-old female with medical history significant for COPD, hypertension, active tobacco use is limited to the emergency department with complaints of cyanosis of the right foot. /Peripheral vascular disease - BLE ARTERIAL DUPLEX DONE. EXTENSIVE, SCATTERED FIBROCALCIFIED PLAQUES THROUGHOUT VESSELS VISUALIZED LICO. LT.GROIN VESSELS. MONOPHASIC WAVEFORMS OBTAINED THROUGHOUT VESSELS INTERROGATED. - CTA abdomen showed Significantly compromised abdominal aorta lumen below the renal arteries. Bilaterally compromised iliac and common femoral vessel flow. Bilateral compromised lower extremity flow predominantly at the level of the popliteal arteries. - Vascular surgery consulted and s/p aortofemoral bypass 12/25/17 - Cardial and pulmonary consulted for risk assessment and recommendations appreciated - placed on IV heparin drip - Lipid panel is within normal limit /COPD - not on exacerbation - Pulmonary consulted for surgical reisk assessment /Hypertension -was Controlled with amlodipine and BB - Now NPO, will place on metoprolol IV /Hypokelemia - Repleted /Disposition - Continue inpatient care and will have vascular surgery tomorrow Hospitalist Physical Not in cardiopulmonary distress. The patient appeared well nourished and normally developed. Vital signs as documented. Head exam is unremarkable. No scleral icterus . Neck is without jugular venous distension, thyromegaly, or carotid bruits. Lungs are clear to auscultation. Cardiac exam reveals regular rate and Rhythm. First and second heart sounds normal. No murmurs, rubs or gallops. Abdominal exam reveals normal bowel sounds, no masses, no organomegaly and no aortic enlargement. Extremities discoloration of the great toe left more than right, patent dorsalis pedis b/l RUG WEAVER: Alert and oriented 3. No focal weakness. Subjective Date of service: 12/26/17 Principal diagnosis: COPD, CAD, peripheral vascular disease with claudication Interval history: pt seen and examined POD #1, NPO denies any acute issue or new complaint states her feet feels better Objective - Constitutional Vitals: Vital Signs - 12hr 12/26/17 12/26/17 12/26/17 02:41 02:51 03:00 Temperature Pulse Rate 107 H 101 H 99 H Pulse Rate [ Apical] Pulse Rate [ Left Radial] Respiratory 11 L 12 13 Rate Respiratory Rate [Left Toe] Blood Pressure 145/91 145/91 151/88 O2 Sat by Pulse 100 99 100 Oximetry 12/26/17 12/26/17 12/26/17 03:11 03:21 03:25 Temperature Pulse Rate 101 H 99 H Pulse Rate [ Apical] Pulse Rate [ Left Radial] Respiratory 12 11 L 14 Rate Respiratory Rate [Left Toe] Blood Pressure 151/88 151/88 O2 Sat by Pulse 100 100 98 Oximetry 12/26/17 12/26/17 12/26/17 03:30 03:37 03:41 Temperature 97.7 F Pulse Rate 103 H 114 H Pulse Rate [ Apical] Pulse Rate [ Left Radial] Respiratory 11 L 12 Rate Respiratory Rate [Left Toe] Blood Pressure 147/87 147/87 O2 Sat by Pulse 99 100 Oximetry 12/26/17 12/26/17 12/26/17 03:51 04:00 04:11 Temperature Pulse Rate 102 H 101 H 97 H Pulse Rate [ Apical] Pulse Rate [ Left Radial] Respiratory 16 12 11 L Rate Respiratory 17 Rate [Left Toe] Blood Pressure 147/87 138/82 138/82 O2 Sat by Pulse 99 100 Oximetry 12/26/17 12/26/17 12/26/17 04:21 04:30 04:41 Temperature Pulse Rate 96 H 99 H 103 H Pulse Rate [ Apical] Pulse Rate [ Left Radial] Respiratory 10 L 12 11 L Rate Respiratory Rate [Left Toe] Blood Pressure 138/82 146/84 146/84 O2 Sat by Pulse 100 100 100 Oximetry 12/26/17 12/26/17 12/26/17 04:51 05:00 05:11 Temperature Pulse Rate 97 H 101 H 94 H Pulse Rate [ Apical] Pulse Rate [ Left Radial] Respiratory 11 L 12 11 L Rate Respiratory Rate [Left Toe] Blood Pressure 146/84 150/85 150/85 O2 Sat by Pulse 100 100 100 Oximetry 12/26/17 12/26/17 12/26/17 05:21 05:30 05:41 Temperature Pulse Rate 104 H 102 H 103 H Pulse Rate [ Apical] Pulse Rate [ Left Radial] Respiratory 11 L 11 L 15 Rate Respiratory Rate [Left Toe] Blood Pressure 150/85 153/89 153/89 O2 Sat by Pulse 100 100 100 Oximetry 12/26/17 12/26/17 12/26/17 05:51 06:00 06:11 Temperature Pulse Rate 102 H 105 H 107 H Pulse Rate [ Apical] Pulse Rate [ Left Radial] Respiratory 11 L 13 14 Rate Respiratory Rate [Left Toe] Blood Pressure 153/89 155/94 155/94 O2 Sat by Pulse 100 100 100 Oximetry 12/26/17 12/26/17 12/26/17 06:21 06:30 06:41 Temperature Pulse Rate 106 H 103 H 106 H Pulse Rate [ Apical] Pulse Rate [ Left Radial] Respiratory 14 13 14 Rate Respiratory Rate [Left Toe] Blood Pressure 155/94 154/90 154/90 O2 Sat by Pulse 100 100 100 Oximetry 12/26/17 12/26/17 12/26/17 07:00 07:45 08:00 Temperature 97.9 F Pulse Rate 104 H 100 H Pulse Rate [ 107 H Apical] Pulse Rate [ 107 H Left Radial] Respiratory 15 15 Rate Respiratory Rate [Left Toe] Blood Pressure 153/89 156/88 O2 Sat by Pulse 100 Oximetry 12/26/17 12/26/17 12/26/17 09:00 10:00 11:01 Temperature Pulse Rate 98 H 99 H 116 H Pulse Rate [ Apical] Pulse Rate [ Left Radial] Respiratory 14 15 16 Rate Respiratory Rate [Left Toe] Blood Pressure 142/82 156/83 143/90 O2 Sat by Pulse 98 100 95 Oximetry 12/26/17 12:00 Temperature 98.8 F Pulse Rate Pulse Rate [ Apical] Pulse Rate [ Left Radial] Respiratory Rate Respiratory Rate [Left Toe] Blood Pressure O2 Sat by Pulse Oximetry - Labs CBC & Chem 7: 12/26/17 05:00 12/26/17 05:00 Labs: Abnormal lab results 12/25/17 12/25/17 12/25/17 Range/Units 14:28 14:28 18:16 WBC 11.3 H 18.8 H (4.5-11.0) K/mm3 RBC (3.65-5.03) M/mm3 Hgb (10.1-14.3) gm/dl Hct (30.3-42.9) % RDW 16.5 H 17.2 H (13.2-15.2) % Seg Neuts % (Manual) (40.0-70.0) % Lymphocytes % (Manual) (13.4-35.0) % Seg Neutrophils # Man (1.8-7.7) K/mm3 Lymphocytes # (Manual) (1.2-5.4) K/mm3 Heparin Anti-Xa Level (0.3-0.7) U.I./ml Chloride 110.0 H (98-107) mmol/L Carbon Dioxide 18 L D (22-30) mmol/L BUN 6 L (7-17) mg/dL Creatinine 0.3 L (0.7-1.2) mg/dL Glucose 152 H (65-100) mg/dL Calcium 6.7 L D (8.4-10.2) mg/dL 12/25/17 12/25/17 12/25/17 Range/Units 18:16 21:05 Unknown WBC 12.4 H (4.5-11.0) K/mm3 RBC 5.32 H (3.65-5.03) M/mm3 Hgb 15.2 H (10.1-14.3) gm/dl Hct 49.3 H D (30.3-42.9) % RDW 16.9 H (13.2-15.2) % Seg Neuts % (Manual) 90.0 H (40.0-70.0) % Lymphocytes % (Manual) 7.0 L (13.4-35.0) % Seg Neutrophils # Man 11.2 H (1.8-7.7) K/mm3 Lymphocytes # (Manual) 0.9 L (1.2-5.4) K/mm3 Heparin Anti-Xa Level < 0.10 L (0.3-0.7) U.I./ml Chloride (98-107) mmol/L Carbon Dioxide 18 L (22-30) mmol/L BUN 5 L (7-17) mg/dL Creatinine 0.4 L (0.7-1.2) mg/dL Glucose 169 H (65-100) mg/dL Calcium (8.4-10.2) mg/dL 12/26/17 Range/Units 05:00 WBC (4.5-11.0) K/mm3 RBC (3.65-5.03) M/mm3 Hgb (10.1-14.3) gm/dl Hct (30.3-42.9) % RDW (13.2-15.2) % Seg Neuts % (Manual) (40.0-70.0) % Lymphocytes % (Manual) (13.4-35.0) % Seg Neutrophils # Man (1.8-7.7) K/mm3 Lymphocytes # (Manual) (1.2-5.4) K/mm3 Heparin Anti-Xa Level (0.3-0.7) U.I./ml Chloride (98-107) mmol/L Carbon Dioxide 21 L (22-30) mmol/L BUN (7-17) mg/dL Creatinine 0.4 L (0.7-1.2) mg/dL Glucose 140 H (65-100) mg/dL Calcium 8.3 L (8.4-10.2) mg/dL
[2017-12-26] MEDS: LOPRESSOR IV SCH ×3 (16:09→17:17)
[2017-12-26] MEDS: HABITROL TD SCH (17:51)
[2017-12-26] MEDS: PERCOCET 5/325 PO PRN (22:09)
[2017-12-27] MEDS: LOPRESSOR IV SCH ×2 (00:51→07:19)
[2017-12-27] MEDS: PERCOCET 5/325 PO PRN ×4 (03:54→21:44)
[2017-12-27 07:53] LABS: Hematocrit 35.5 % (30.3-42.9); Hemoglobin 11.2 gm/dl (10.1-14.3)
[2017-12-27] MEDS: NACL 0.9% 1000 ML 1,000 ML IV SCH ×2 (08:12→18:06)
[2017-12-27] MEDS: PEPCID IV SCH ×2 (09:18→21:42)
[2017-12-27] MEDS: NORVASC PO SCH (09:18)
[2017-12-27] MEDS: BABY ASPIRIN PO SCH (09:19)
[2017-12-27] MEDS: LOPRESSOR PO SCH ×2 (09:19→21:42)
[2017-12-27] MEDS ORDERED: LOPRESSOR IV PRN (10:00)
--- NOTE | 2017-12-27 10:12 | Progress Note ---
Assessment and Plan Aorto-bifem due to Peripheral vascular disease POD # 2 Fever.Low grade.Chest fine COPD. Appear to be clinically stable. Chest congestion post op at this time CAD. See cardiology, History of tobacco abuse. Recommendations Incentive spirometry ABRAM nebs q 4-6 hr Monitor for fever and bleeding DVT prophylaxis Discussed with patient in detail. All questions answered. CCT time was 31 min of face to face evaluation and coordination of care Subjective Date of service: 12/27/17 Principal diagnosis: COPD, CAD, peripheral vascular disease with claudication Interval history: c/o some pain, but better today.Walking the ICU now,no SOB or chest pain. Objective Vital Signs - 12hr 12/26/17 12/26/17 12/26/17 22:21 22:30 22:41 Temperature Pulse Rate 115 H 116 H 114 H Pulse Rate [ Left Radial] Respiratory 16 16 16 Rate Respiratory Rate [Left Toe] Blood Pressure 151/112 166/76 166/76 O2 Sat by Pulse 100 100 100 Oximetry 12/26/17 12/26/17 12/26/17 22:51 23:00 23:11 Temperature Pulse Rate 113 H 105 H 102 H Pulse Rate [ Left Radial] Respiratory 16 16 13 Rate Respiratory Rate [Left Toe] Blood Pressure 166/76 151/88 151/88 O2 Sat by Pulse 100 100 100 Oximetry 12/26/17 12/26/17 12/26/17 23:21 23:30 23:41 Temperature Pulse Rate 101 H 102 H 108 H Pulse Rate [ Left Radial] Respiratory 15 14 15 Rate Respiratory Rate [Left Toe] Blood Pressure 151/88 141/87 141/87 O2 Sat by Pulse 100 100 100 Oximetry 12/26/17 12/26/17 12/27/17 23:50 23:51 00:00 Temperature 99.5 F Pulse Rate 102 H 99 H Pulse Rate [ Left Radial] Respiratory 12 13 Rate Respiratory 18 Rate [Left Toe] Blood Pressure 141/87 139/84 O2 Sat by Pulse 100 Oximetry 12/27/17 12/27/17 12/27/17 00:11 00:21 00:30 Temperature Pulse Rate 101 H 100 H 94 H Pulse Rate [ Left Radial] Respiratory 16 14 13 Rate Respiratory Rate [Left Toe] Blood Pressure 139/84 139/84 138/76 O2 Sat by Pulse 99 100 100 Oximetry 12/27/17 12/27/17 12/27/17 00:41 00:51 01:00 Temperature Pulse Rate 94 H 95 H 89 Pulse Rate [ Left Radial] Respiratory 14 12 15 Rate Respiratory Rate [Left Toe] Blood Pressure 138/76 138/76 133/80 O2 Sat by Pulse 100 100 100 Oximetry 12/27/17 12/27/17 12/27/17 01:11 01:21 01:30 Temperature Pulse Rate 88 90 92 H Pulse Rate [ Left Radial] Respiratory 13 12 12 Rate Respiratory Rate [Left Toe] Blood Pressure 133/80 133/80 132/83 O2 Sat by Pulse 100 100 100 Oximetry 12/27/17 12/27/17 12/27/17 01:41 01:51 01:55 Temperature Pulse Rate 104 H 98 H Pulse Rate [ 104 H Left Radial] Respiratory 17 12 18 Rate Respiratory Rate [Left Toe] Blood Pressure 132/83 132/83 O2 Sat by Pulse 100 100 99 Oximetry 12/27/17 12/27/17 12/27/17 02:00 02:11 02:21 Temperature Pulse Rate 101 H 91 H 89 Pulse Rate [ Left Radial] Respiratory 12 14 13 Rate Respiratory Rate [Left Toe] Blood Pressure 139/81 139/81 139/81 O2 Sat by Pulse 98 99 99 Oximetry 12/27/17 12/27/17 12/27/17 02:30 02:41 02:51 Temperature Pulse Rate 88 80 83 Pulse Rate [ Left Radial] Respiratory 15 12 13 Rate Respiratory Rate [Left Toe] Blood Pressure 135/78 135/78 135/78 O2 Sat by Pulse 98 99 99 Oximetry 12/27/17 12/27/17 12/27/17 03:00 03:11 03:21 Temperature Pulse Rate 82 80 82 Pulse Rate [ Left Radial] Respiratory 12 12 14 Rate Respiratory Rate [Left Toe] Blood Pressure 127/75 127/75 127/75 O2 Sat by Pulse 98 100 100 Oximetry 12/27/17 12/27/17 12/27/17 03:30 03:41 03:51 Temperature Pulse Rate 82 104 H 94 H Pulse Rate [ Left Radial] Respiratory 13 26 H 21 Rate Respiratory Rate [Left Toe] Blood Pressure 131/80 131/80 131/80 O2 Sat by Pulse 100 98 99 Oximetry 12/27/17 12/27/17 12/27/17 03:54 04:00 04:01 Temperature 98.5 F Pulse Rate 87 Pulse Rate [ Left Radial] Respiratory 18 15 Rate Respiratory 18 Rate [Left Toe] Blood Pressure 131/80 O2 Sat by Pulse 100 Oximetry 12/27/17 12/27/17 12/27/17 04:11 04:21 04:30 Temperature Pulse Rate 90 102 H 86 Pulse Rate [ Left Radial] Respiratory 17 22 14 Rate Respiratory Rate [Left Toe] Blood Pressure 131/80 131/80 123/73 O2 Sat by Pulse 100 99 Oximetry 12/27/17 12/27/17 12/27/17 04:40 04:50 05:00 Temperature Pulse Rate 80 80 106 H Pulse Rate [ Left Radial] Respiratory 10 L 13 16 Rate Respiratory Rate [Left Toe] Blood Pressure 123/73 123/73 121/81 O2 Sat by Pulse 99 99 96 Oximetry 12/27/17 12/27/17 12/27/17 05:11 05:21 05:30 Temperature Pulse Rate 80 81 77 Pulse Rate [ Left Radial] Respiratory 16 12 16 Rate Respiratory Rate [Left Toe] Blood Pressure 123/73 123/73 115/66 O2 Sat by Pulse 99 99 97 Oximetry 12/27/17 12/27/17 12/27/17 05:41 05:51 06:00 Temperature Pulse Rate 78 80 78 Pulse Rate [ 81 Left Radial] Respiratory 17 10 L 13 Rate Respiratory 18 Rate [Left Toe] Blood Pressure 121/81 121/81 116/70 O2 Sat by Pulse 100 99 99 Oximetry 12/27/17 12/27/17 12/27/17 06:11 06:21 06:30 Temperature Pulse Rate 73 77 67 Pulse Rate [ Left Radial] Respiratory 9 L 9 L 10 L Rate Respiratory Rate [Left Toe] Blood Pressure 115/66 115/66 105/62 O2 Sat by Pulse 99 100 99 Oximetry 12/27/17 12/27/17 12/27/17 06:41 06:50 07:00 Temperature Pulse Rate 81 84 77 Pulse Rate [ Left Radial] Respiratory 12 18 11 L Rate Respiratory Rate [Left Toe] Blood Pressure 116/70 105/62 109/70 O2 Sat by Pulse 100 100 99 Oximetry 12/27/17 12/27/17 12/27/17 07:10 07:19 07:20 Temperature Pulse Rate 73 79 77 Pulse Rate [ Left Radial] Respiratory 10 L 10 L Rate Respiratory Rate [Left Toe] Blood Pressure 105/62 110/70 105/62 O2 Sat by Pulse 100 100 Oximetry 12/27/17 12/27/17 12/27/17 07:30 07:40 07:50 Temperature Pulse Rate 66 65 66 Pulse Rate [ Left Radial] Respiratory 8 L 12 9 L Rate Respiratory Rate [Left Toe] Blood Pressure 106/66 106/66 109/70 O2 Sat by Pulse 99 100 96 Oximetry 12/27/17 12/27/17 12/27/17 08:00 08:10 08:20 Temperature Pulse Rate 72 77 73 Pulse Rate [ Left Radial] Respiratory 9 L 14 10 L Rate Respiratory Rate [Left Toe] Blood Pressure 124/66 124/66 124/66 O2 Sat by Pulse 100 99 99 Oximetry 12/27/17 12/27/17 12/27/17 08:30 08:40 08:50 Temperature Pulse Rate 69 73 97 H Pulse Rate [ Left Radial] Respiratory 10 L 10 L 12 Rate Respiratory Rate [Left Toe] Blood Pressure 114/64 114/64 114/64 O2 Sat by Pulse 99 100 99 Oximetry 12/27/17 12/27/17 12/27/17 09:00 09:10 09:18 Temperature Pulse Rate 71 77 92 H Pulse Rate [ Left Radial] Respiratory 12 10 L Rate Respiratory Rate [Left Toe] Blood Pressure 125/64 125/64 125/64 O2 Sat by Pulse 100 Oximetry 12/27/17 12/27/17 12/27/17 09:19 09:20 09:30 Temperature Pulse Rate 82 86 76 Pulse Rate [ Left Radial] Respiratory 13 10 L Rate Respiratory Rate [Left Toe] Blood Pressure 125/64 125/64 125/70 O2 Sat by Pulse 98 98 Oximetry 12/27/17 12/27/17 09:40 09:50 Temperature Pulse Rate 76 80 Pulse Rate [ Left Radial] Respiratory 10 L 14 Rate Respiratory Rate [Left Toe] Blood Pressure 125/70 125/70 O2 Sat by Pulse 99 97 Oximetry Constitutional: no acute distress, alert Eyes: non-icteric Neck: supple, no lymphadenopathy, no JVD, other (RT IJ) Effort: normal Ascultation: Bilateral: clear, diminished breath sounds Percussion: Bilateral: not dull Tactile fremitus: Bilateral: normal Cardiovascular: regular rate and rhythm Gastrointestinal: soft, tender, other (midline lap,covered, no bleeding. Inguinal wounds clean) Extremities: no edema, other (no edema, poor peripheral pulses) Neurologic: normal mental status, non-focal exam Psychiatric: mood appropriate, affect normal CBC and BMP: 12/27/17 06:00 12/26/17 05:00 ABG, PT/INR, D-dimer: ABG POC ABG pH 7.389 (7.35-7.45) 12/20/17 18:00 POC ABG pCO2 36.9 (35-45) 12/20/17 18:00 POC ABG pO2 77 (80-105) L 12/20/17 18:00 POC ABG HCO3 22.3 12/20/17 18:00 POC ABG Total CO2 23 12/20/17 18:00 POC ABG O2 Sat 95 12/20/17 18:00 PT/INR, D-dimer PT 13.4 Sec. (12.2-14.9) 12/20/17 00:11 INR 0.97 (0.87-1.13) 12/20/17 00:11 Abnormal lab findings: Abnormal Labs 12/19/17 12/19/17 12/19/17 15:51 15:51 15:51 WBC RBC 5.92 H Hgb 17.6 H Hct 54.0 H RDW 17.6 H Tift % (Auto) 11.3 H Eos % (Auto) Tift # 0.9 H Eos # Baso # Seg Neuts % (Manual) Lymphocytes % (Manual) Seg Neutrophils # Man Lymphocytes # (Manual) Heparin Anti-Xa Level POC ABG pO2 VBG pH 7.309 L Potassium Chloride Carbon Dioxide BUN 5 L Creatinine 0.5 L Glucose Calcium AST 113 H ALT 70 H Alkaline Phosphatase 155 H Total Protein 6.2 L Albumin 3.2 L Triglycerides Crossmatch 12/20/17 12/20/17 12/20/17 07:09 18:00 19:47 WBC RBC Hgb Hct RDW Tift % (Auto) Eos % (Auto) Tift # Eos # Baso # Seg Neuts % (Manual) Lymphocytes % (Manual) Seg Neutrophils # Man Lymphocytes # (Manual) Heparin Anti-Xa Level 0.17 L 0.25 L POC ABG pO2 77 L VBG pH Potassium Chloride Carbon Dioxide BUN Creatinine Glucose Calcium AST ALT Alkaline Phosphatase Total Protein Albumin Triglycerides Crossmatch 12/20/17 12/21/17 12/21/17 19:47 05:37 05:37 WBC 11.1 H RBC 5.27 H Hgb 15.5 H Hct 48.4 H RDW 16.9 H Tift % (Auto) 12.0 H Eos % (Auto) Tift # 1.3 H Eos # 0.5 H Baso # Seg Neuts % (Manual) Lymphocytes % (Manual) Seg Neutrophils # Man Lymphocytes # (Manual) Heparin Anti-Xa Level POC ABG pO2 VBG pH Potassium 3.4 L D Chloride Carbon Dioxide BUN 5 L Creatinine 0.5 L Glucose Calcium 8.2 L AST ALT Alkaline Phosphatase Total Protein Albumin Triglycerides 160 H Crossmatch 12/22/17 12/22/17 12/22/17 09:04 09:04 18:21 WBC RBC Hgb Hct RDW Tift % (Auto) Eos % (Auto) Tift # Eos # Baso # Seg Neuts % (Manual) Lymphocytes % (Manual) Seg Neutrophils # Man Lymphocytes # (Manual) Heparin Anti-Xa Level 0.28 L 0.19 L POC ABG pO2 VBG pH Potassium 3.5 L Chloride Carbon Dioxide BUN 6 L Creatinine 0.5 L Glucose 107 H Calcium AST ALT Alkaline Phosphatase Total Protein Albumin Triglycerides Crossmatch 12/23/17 12/23/17 12/24/17 03:40 03:40 10:40 WBC RBC Hgb 15.2 H Hct 46.1 H RDW Tift % (Auto) Eos % (Auto) Tift # Eos # Baso # Seg Neuts % (Manual) Lymphocytes % (Manual) Seg Neutrophils # Man Lymphocytes # (Manual) Heparin Anti-Xa Level 0.23 L POC ABG pO2 VBG pH Potassium Chloride Carbon Dioxide BUN Creatinine Glucose Calcium AST ALT Alkaline Phosphatase Total Protein Albumin Triglycerides Crossmatch See Detail 12/24/17 12/25/17 12/25/17 14:42 04:31 04:31 WBC 11.8 H RBC 5.22 H Hgb 15.3 H 15.1 H Hct 48.3 H 46.7 H RDW 17.0 H 16.4 H Tift % (Auto) 11.3 H 12.7 H Eos % (Auto) 10.1 H 10.4 H Tift # 1.3 H 1.4 H Eos # 1.2 H 1.1 H Baso # 0.2 H Seg Neuts % (Manual) Lymphocytes % (Manual) Seg Neutrophils # Man Lymphocytes # (Manual) Heparin Anti-Xa Level POC ABG pO2 VBG pH Potassium Chloride Carbon Dioxide BUN Creatinine Glucose Calcium AST ALT Alkaline Phosphatase Total Protein 5.4 L Albumin 2.3 L Triglycerides Crossmatch 12/25/17 12/25/17 12/25/17 14:28 14:28 18:16 WBC 11.3 H 18.8 H RBC Hgb Hct RDW 16.5 H 17.2 H Tift % (Auto) Eos % (Auto) Tift # Eos # Baso # Seg Neuts % (Manual) Lymphocytes % (Manual) Seg Neutrophils # Man Lymphocytes # (Manual) Heparin Anti-Xa Level POC ABG pO2 VBG pH Potassium Chloride 110.0 H Carbon Dioxide 18 L D BUN 6 L Creatinine 0.3 L Glucose 152 H Calcium 6.7 L D AST ALT Alkaline Phosphatase Total Protein Albumin Triglycerides Crossmatch 12/25/17 12/25/17 12/25/17 18:16 21:05 Unknown WBC 12.4 H RBC 5.32 H Hgb 15.2 H Hct 49.3 H D RDW 16.9 H Tift % (Auto) Eos % (Auto) Tift # Eos # Baso # Seg Neuts % (Manual) 90.0 H Lymphocytes % (Manual) 7.0 L Seg Neutrophils # Man 11.2 H Lymphocytes # (Manual) 0.9 L Heparin Anti-Xa Level < 0.10 L POC ABG pO2 VBG pH Potassium Chloride Carbon Dioxide 18 L BUN 5 L Creatinine 0.4 L Glucose 169 H Calcium AST ALT Alkaline Phosphatase Total Protein Albumin Triglycerides Crossmatch 12/26/17 05:00 WBC RBC Hgb Hct RDW Tift % (Auto) Eos % (Auto) Tift # Eos # Baso # Seg Neuts % (Manual) Lymphocytes % (Manual) Seg Neutrophils # Man Lymphocytes # (Manual) Heparin Anti-Xa Level POC ABG pO2 VBG pH Potassium Chloride Carbon Dioxide 21 L BUN Creatinine 0.4 L Glucose 140 H Calcium 8.3 L AST ALT Alkaline Phosphatase Total Protein Albumin Triglycerides Crossmatch
--- NOTE | 2017-12-27 15:24 | Progress Note ---
Assessment and Plan Pt s/p Aorta Bi-Fem bypass. Continue to increase act as tolerated. Scheduled ducolax supp to stimulate return of GI fxn. Start clear liquid diet. Remove TLC. Pt's esparza in place. [place] tinged urine in bag. ?Etiology? ?traumatic placement? Will check a BMP. Okay to transfer to the floor when okay medically. 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 C/o mild to moderate incisional discomfort. OOB ambulating with assistance without difficulty. Pt denies N/V. She reports abd sounds, but denies flatus or BM. Objective - Constitutional Vitals: Vital Signs - 12hr 12/27/17 12/27/17 12/27/17 03:21 03:30 03:41 Temperature Pulse Rate 82 82 104 H Pulse Rate [ Left Radial] Respiratory 14 13 26 H Rate Respiratory Rate [Left Toe] Blood Pressure 127/75 131/80 131/80 O2 Sat by Pulse 100 100 98 Oximetry 12/27/17 12/27/17 12/27/17 03:51 03:54 04:00 Temperature 98.5 F Pulse Rate 94 H Pulse Rate [ Left Radial] Respiratory 21 18 Rate Respiratory 18 Rate [Left Toe] Blood Pressure 131/80 O2 Sat by Pulse 99 Oximetry 12/27/17 12/27/17 12/27/17 04:01 04:11 04:21 Temperature Pulse Rate 87 90 102 H Pulse Rate [ Left Radial] Respiratory 15 17 22 Rate Respiratory Rate [Left Toe] Blood Pressure 131/80 131/80 131/80 O2 Sat by Pulse 100 100 99 Oximetry 12/27/17 12/27/17 12/27/17 04:30 04:40 04:50 Temperature Pulse Rate 86 80 80 Pulse Rate [ Left Radial] Respiratory 14 10 L 13 Rate Respiratory Rate [Left Toe] Blood Pressure 123/73 123/73 123/73 O2 Sat by Pulse 99 99 Oximetry 12/27/17 12/27/17 12/27/17 05:00 05:11 05:21 Temperature Pulse Rate 106 H 80 81 Pulse Rate [ Left Radial] Respiratory 16 16 12 Rate Respiratory Rate [Left Toe] Blood Pressure 121/81 123/73 123/73 O2 Sat by Pulse 96 99 99 Oximetry 12/27/17 12/27/17 12/27/17 05:30 05:41 05:51 Temperature Pulse Rate 77 78 80 Pulse Rate [ Left Radial] Respiratory 16 17 10 L Rate Respiratory Rate [Left Toe] Blood Pressure 115/66 121/81 121/81 O2 Sat by Pulse 97 100 99 Oximetry 12/27/17 12/27/17 12/27/17 06:00 06:11 06:21 Temperature Pulse Rate 78 73 77 Pulse Rate [ 81 Left Radial] Respiratory 13 9 L 9 L Rate Respiratory 18 Rate [Left Toe] Blood Pressure 116/70 115/66 115/66 O2 Sat by Pulse 99 99 100 Oximetry 12/27/17 12/27/17 12/27/17 06:30 06:41 06:50 Temperature Pulse Rate 67 81 84 Pulse Rate [ Left Radial] Respiratory 10 L 12 18 Rate Respiratory Rate [Left Toe] Blood Pressure 105/62 116/70 105/62 O2 Sat by Pulse 99 100 100 Oximetry 12/27/17 12/27/17 12/27/17 07:00 07:10 07:19 Temperature Pulse Rate 77 73 79 Pulse Rate [ Left Radial] Respiratory 11 L 10 L Rate Respiratory Rate [Left Toe] Blood Pressure 109/70 105/62 110/70 O2 Sat by Pulse 99 100 Oximetry 12/27/17 12/27/17 12/27/17 07:20 07:30 07:40 Temperature Pulse Rate 77 66 65 Pulse Rate [ Left Radial] Respiratory 10 L 8 L 12 Rate Respiratory Rate [Left Toe] Blood Pressure 105/62 106/66 106/66 O2 Sat by Pulse 100 99 100 Oximetry 12/27/17 12/27/17 12/27/17 07:50 08:00 08:10 Temperature Pulse Rate 66 72 77 Pulse Rate [ Left Radial] Respiratory 9 L 9 L 14 Rate Respiratory Rate [Left Toe] Blood Pressure 109/70 124/66 124/66 O2 Sat by Pulse 96 100 99 Oximetry 12/27/17 12/27/17 12/27/17 08:20 08:30 08:40 Temperature Pulse Rate 73 69 73 Pulse Rate [ Left Radial] Respiratory 10 L 10 L 10 L Rate Respiratory Rate [Left Toe] Blood Pressure 124/66 114/64 114/64 O2 Sat by Pulse 99 99 100 Oximetry 12/27/17 12/27/17 12/27/17 08:50 09:00 09:10 Temperature Pulse Rate 97 H 71 77 Pulse Rate [ Left Radial] Respiratory 12 12 10 L Rate Respiratory Rate [Left Toe] Blood Pressure 114/64 125/64 125/64 O2 Sat by Pulse 99 100 Oximetry 12/27/17 12/27/17 12/27/17 09:18 09:19 09:20 Temperature Pulse Rate 92 H 82 86 Pulse Rate [ Left Radial] Respiratory 13 Rate Respiratory Rate [Left Toe] Blood Pressure 125/64 125/64 125/64 O2 Sat by Pulse 98 Oximetry 12/27/17 12/27/17 12/27/17 09:30 09:40 09:50 Temperature Pulse Rate 76 76 80 Pulse Rate [ Left Radial] Respiratory 10 L 10 L 14 Rate Respiratory Rate [Left Toe] Blood Pressure 125/70 125/70 125/70 O2 Sat by Pulse 98 99 97 Oximetry 12/27/17 12/27/17 12/27/17 10:00 10:10 10:20 Temperature Pulse Rate 77 80 78 Pulse Rate [ Left Radial] Respiratory 9 L 12 16 Rate Respiratory Rate [Left Toe] Blood Pressure 111/66 111/66 111/66 O2 Sat by Pulse 96 97 98 Oximetry 12/27/17 12/27/17 12/27/17 10:30 10:40 10:50 Temperature Pulse Rate 78 77 69 Pulse Rate [ Left Radial] Respiratory 18 10 L Rate Respiratory Rate [Left Toe] Blood Pressure 122/75 122/75 98/56 O2 Sat by Pulse 97 95 Oximetry 12/27/17 12/27/17 12/27/17 11:00 11:10 11:20 Temperature Pulse Rate 70 70 68 Pulse Rate [ Left Radial] Respiratory 12 12 9 L Rate Respiratory Rate [Left Toe] Blood Pressure 94/62 94/62 122/75 O2 Sat by Pulse 95 93 98 Oximetry 12/27/17 12/27/17 12/27/17 11:30 11:40 11:50 Temperature Pulse Rate 70 70 71 Pulse Rate [ Left Radial] Respiratory 9 L 9 L 14 Rate Respiratory Rate [Left Toe] Blood Pressure 92/58 92/58 92/58 O2 Sat by Pulse 99 98 96 Oximetry 12/27/17 12/27/17 12/27/17 12:00 12:10 12:20 Temperature Pulse Rate 74 70 79 Pulse Rate [ Left Radial] Respiratory 13 9 L 12 Rate Respiratory Rate [Left Toe] Blood Pressure 106/58 106/58 106/58 O2 Sat by Pulse 94 100 95 Oximetry 12/27/17 12/27/17 12/27/17 12:30 12:40 12:50 Temperature Pulse Rate 73 76 77 Pulse Rate [ Left Radial] Respiratory 12 14 14 Rate Respiratory Rate [Left Toe] Blood Pressure 104/64 104/64 104/64 O2 Sat by Pulse 92 93 92 Oximetry 12/27/17 12/27/17 12/27/17 13:00 13:10 13:20 Temperature Pulse Rate 76 76 82 Pulse Rate [ Left Radial] Respiratory 13 12 13 Rate Respiratory Rate [Left Toe] Blood Pressure 108/64 108/64 108/64 O2 Sat by Pulse 94 91 91 Oximetry 12/27/17 12/27/17 12/27/17 13:30 13:40 13:50 Temperature Pulse Rate 77 71 76 Pulse Rate [ Left Radial] Respiratory 11 L 17 11 L Rate Respiratory Rate [Left Toe] Blood Pressure 104/64 104/64 104/64 O2 Sat by Pulse 92 90 99 Oximetry 12/27/17 12/27/17 12/27/17 14:00 14:10 14:20 Temperature Pulse Rate 74 74 70 Pulse Rate [ Left Radial] Respiratory 12 10 L 11 L Rate Respiratory Rate [Left Toe] Blood Pressure 107/63 107/63 107/63 O2 Sat by Pulse 99 99 99 Oximetry 12/27/17 12/27/17 14:30 14:40 Temperature Pulse Rate 72 82 Pulse Rate [ Left Radial] Respiratory 10 L 12 Rate Respiratory Rate [Left Toe] Blood Pressure 110/61 110/61 O2 Sat by Pulse 100 100 Oximetry General appearance: Present: no acute distress - EENT Eyes: EOM intact ENT: hearing intact - Neck Neck: supple - Respiratory Respiratory effort: normal (pulse ox in low to mid 90's on room air. Improves with deep breathing.) Extremities: no ischemia, pulses intact - Gastrointestinal General gastrointestinal: Present: soft, non-tender, other (Abd incision intact and calin in place. Bilat groin incisions intact. No erythema or drainage from her incisions.) - Labs CBC & Chem 7: 12/27/17 06:00 12/26/17 05:00 Labs: Abnormal lab results 12/24/17 Range/Units 10:40 Crossmatch See Detail
[2017-12-27] MEDS: DULCOLAX PR SCH (16:19)
--- NOTE | 2017-12-27 16:21 | Progress Note ---
Assessment and Plan 57-year-old female with medical history significant for COPD, hypertension, active tobacco use is limited to the emergency department with complaints of cyanosis of the right foot. /Peripheral vascular disease - BLE ARTERIAL DUPLEX DONE. EXTENSIVE, SCATTERED FIBROCALCIFIED PLAQUES THROUGHOUT VESSELS VISUALIZED LICO. LT.GROIN VESSELS. MONOPHASIC WAVEFORMS OBTAINED THROUGHOUT VESSELS INTERROGATED. - CTA abdomen showed Significantly compromised abdominal aorta lumen below the renal arteries. Bilaterally compromised iliac and common femoral vessel flow. Bilateral compromised lower extremity flow predominantly at the level of the popliteal arteries. - placed on heparin drip, Vascular surgery consulted and s/p aortofemoral bypass 12/25/17, off heparin drip now - Cardial and pulmonary consulted for risk assessment and recommendations appreciated - Lipid panel is within normal limit /COPD - not on exacerbation - Pulmonary consulted for surgical reisk assessment /Hypertension -resume amlodipine and BB when start po diet /Hypokelemia - Repleted /Disposition - transfer to tele, PT consult Hospitalist Physical Not in cardiopulmonary distress. The patient appeared well nourished and normally developed. Vital signs as documented. Head exam is unremarkable. No scleral icterus . Neck is without jugular venous distension, thyromegaly, or carotid bruits. Lungs are clear to auscultation. Cardiac exam reveals regular rate and Rhythm. First and second heart sounds normal. No murmurs, rubs or gallops. Abdominal exam reveals normal bowel sounds, no masses, no organomegaly and no aortic enlargement. 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 No focal weakness. Subjective Date of service: 12/27/17 Principal diagnosis: COPD, CAD, peripheral vascular disease with claudication Interval history: pt seen and examined denies any acute issue or new complaint states her feet feels much better transfer out to tele today, clear liquid from tonight Objective - Constitutional Vitals: Vital Signs - 12hr 12/27/17 12/27/17 12/27/17 04:21 04:30 04:40 Pulse Rate 102 H 86 80 Pulse Rate [ Left Radial] Respiratory 22 14 10 L Rate Respiratory Rate [Left Toe] Blood Pressure 131/80 123/73 123/73 O2 Sat by Pulse 99 99 Oximetry 12/27/17 12/27/17 12/27/17 04:50 05:00 05:11 Pulse Rate 80 106 H 80 Pulse Rate [ Left Radial] Respiratory 13 16 16 Rate Respiratory Rate [Left Toe] Blood Pressure 123/73 121/81 123/73 O2 Sat by Pulse 99 96 99 Oximetry 12/27/17 12/27/17 12/27/17 05:21 05:30 05:41 Pulse Rate 81 77 78 Pulse Rate [ Left Radial] Respiratory 12 16 17 Rate Respiratory Rate [Left Toe] Blood Pressure 123/73 115/66 121/81 O2 Sat by Pulse 99 97 100 Oximetry 12/27/17 12/27/17 12/27/17 05:51 06:00 06:11 Pulse Rate 80 78 73 Pulse Rate [ 81 Left Radial] Respiratory 10 L 13 9 L Rate Respiratory 18 Rate [Left Toe] Blood Pressure 121/81 116/70 115/66 O2 Sat by Pulse 99 99 99 Oximetry 12/27/17 12/27/17 12/27/17 06:21 06:30 06:41 Pulse Rate 77 67 81 Pulse Rate [ Left Radial] Respiratory 9 L 10 L 12 Rate Respiratory Rate [Left Toe] Blood Pressure 115/66 105/62 116/70 O2 Sat by Pulse 100 99 100 Oximetry 12/27/17 12/27/17 12/27/17 06:50 07:00 07:10 Pulse Rate 84 77 73 Pulse Rate [ Left Radial] Respiratory 18 11 L 10 L Rate Respiratory Rate [Left Toe] Blood Pressure 105/62 109/70 105/62 O2 Sat by Pulse 100 99 100 Oximetry 12/27/17 12/27/17 12/27/17 07:19 07:20 07:30 Pulse Rate 79 77 66 Pulse Rate [ Left Radial] Respiratory 10 L 8 L Rate Respiratory Rate [Left Toe] Blood Pressure 110/70 105/62 106/66 O2 Sat by Pulse 100 99 Oximetry 12/27/17 12/27/17 12/27/17 07:40 07:50 08:00 Pulse Rate 65 66 72 Pulse Rate [ Left Radial] Respiratory 12 9 L 9 L Rate Respiratory Rate [Left Toe] Blood Pressure 106/66 109/70 124/66 O2 Sat by Pulse 100 96 100 Oximetry 12/27/17 12/27/17 12/27/17 08:10 08:20 08:30 Pulse Rate 77 73 69 Pulse Rate [ Left Radial] Respiratory 14 10 L 10 L Rate Respiratory Rate [Left Toe] Blood Pressure 124/66 124/66 114/64 O2 Sat by Pulse 99 99 99 Oximetry 12/27/17 12/27/17 12/27/17 08:40 08:50 09:00 Pulse Rate 73 97 H 71 Pulse Rate [ Left Radial] Respiratory 10 L 12 12 Rate Respiratory Rate [Left Toe] Blood Pressure 114/64 114/64 125/64 O2 Sat by Pulse 100 99 Oximetry 12/27/17 12/27/17 12/27/17 09:10 09:18 09:19 Pulse Rate 77 92 H 82 Pulse Rate [ Left Radial] Respiratory 10 L Rate Respiratory Rate [Left Toe] Blood Pressure 125/64 125/64 125/64 O2 Sat by Pulse 100 Oximetry 12/27/17 12/27/17 12/27/17 09:20 09:30 09:40 Pulse Rate 86 76 76 Pulse Rate [ Left Radial] Respiratory 13 10 L 10 L Rate Respiratory Rate [Left Toe] Blood Pressure 125/64 125/70 125/70 O2 Sat by Pulse 98 98 99 Oximetry 12/27/17 12/27/17 12/27/17 09:50 10:00 10:10 Pulse Rate 80 77 80 Pulse Rate [ Left Radial] Respiratory 14 9 L 12 Rate Respiratory Rate [Left Toe] Blood Pressure 125/70 111/66 111/66 O2 Sat by Pulse 97 96 97 Oximetry 12/27/17 12/27/17 12/27/17 10:20 10:30 10:40 Pulse Rate 78 78 77 Pulse Rate [ Left Radial] Respiratory 16 18 Rate Respiratory Rate [Left Toe] Blood Pressure 111/66 122/75 122/75 O2 Sat by Pulse 98 97 Oximetry 12/27/17 12/27/17 12/27/17 10:50 11:00 11:10 Pulse Rate 69 70 70 Pulse Rate [ Left Radial] Respiratory 10 L 12 12 Rate Respiratory Rate [Left Toe] Blood Pressure 98/56 94/62 94/62 O2 Sat by Pulse 95 95 93 Oximetry 12/27/17 12/27/17 12/27/17 11:20 11:30 11:40 Pulse Rate 68 70 70 Pulse Rate [ Left Radial] Respiratory 9 L 9 L 9 L Rate Respiratory Rate [Left Toe] Blood Pressure 122/75 92/58 92/58 O2 Sat by Pulse 98 99 98 Oximetry 12/27/17 12/27/17 12/27/17 11:50 12:00 12:10 Pulse Rate 71 74 70 Pulse Rate [ Left Radial] Respiratory 14 13 9 L Rate Respiratory Rate [Left Toe] Blood Pressure 92/58 106/58 106/58 O2 Sat by Pulse 96 94 100 Oximetry 12/27/17 12/27/17 12/27/17 12:20 12:30 12:40 Pulse Rate 79 73 76 Pulse Rate [ Left Radial] Respiratory 12 12 14 Rate Respiratory Rate [Left Toe] Blood Pressure 106/58 104/64 104/64 O2 Sat by Pulse 95 92 93 Oximetry 12/27/17 12/27/17 12/27/17 12:50 13:00 13:10 Pulse Rate 77 76 76 Pulse Rate [ Left Radial] Respiratory 14 13 12 Rate Respiratory Rate [Left Toe] Blood Pressure 104/64 108/64 108/64 O2 Sat by Pulse 92 94 91 Oximetry 12/27/17 12/27/17 12/27/17 13:20 13:30 13:40 Pulse Rate 82 77 71 Pulse Rate [ Left Radial] Respiratory 13 11 L 17 Rate Respiratory Rate [Left Toe] Blood Pressure 108/64 104/64 104/64 O2 Sat by Pulse 91 92 90 Oximetry 12/27/17 12/27/17 12/27/17 13:50 14:00 14:10 Pulse Rate 76 74 74 Pulse Rate [ Left Radial] Respiratory 11 L 12 10 L Rate Respiratory Rate [Left Toe] Blood Pressure 104/64 107/63 107/63 O2 Sat by Pulse 99 99 99 Oximetry 12/27/17 12/27/17 12/27/17 14:20 14:30 14:40 Pulse Rate 70 72 82 Pulse Rate [ Left Radial] Respiratory 11 L 10 L 12 Rate Respiratory Rate [Left Toe] Blood Pressure 107/63 110/61 110/61 O2 Sat by Pulse 99 100 100 Oximetry - Labs CBC & Chem 7: 12/27/17 06:00 12/27/17 20:01 Labs: Abnormal lab results 12/24/17 Range/Units 10:40 Crossmatch See Detail
[2017-12-27] MEDS: HABITROL TD SCH (18:06)
[2017-12-27 20:47] LABS: BUN/Creatinine Ratio 22; Blood Urea Nitrogen 13 mg/dL (7-17); Calcium 8.2 mg/dL (8.4-10.2); Hemolysis Index 15
[2017-12-28] MEDS: PERCOCET 5/325 PO PRN ×3 (04:12→18:10)
[2017-12-28] MEDS: NACL 0.9% 1000 ML 1,000 ML IV SCH (07:54)
[2017-12-28] MEDS: NORVASC PO SCH (09:39)
[2017-12-28] MEDS: MORPHINE IV PRN ×2 (09:40→22:29)
[2017-12-28] MEDS: PEPCID IV SCH (09:40)
[2017-12-28] MEDS: LOPRESSOR PO SCH ×2 (09:40→22:16)
[2017-12-28] MEDS: BABY ASPIRIN PO SCH (09:40)
[2017-12-28] MEDS: DULCOLAX PR SCH (10:00)
--- NOTE | 2017-12-28 11:18 | Progress Note ---
Assessment and Plan - Patient Problems (1) History of aorto-femoral bypass Current Visit: Yes Status: Acute (2) Peripheral arterial disease Current Visit: Yes Status: Acute (3) Tobacco use disorder Current Visit: Yes Status: Acute Subjective Principal diagnosis: COPD, CAD, peripheral vascular disease with claudication Interval history: feels better Objective Vital Signs - 12hr 12/28/17 12/28/17 12/28/17 00:00 00:54 04:12 Temperature Pulse Rate Respiratory 20 20 Rate Respiratory 18 Rate [Abdomen] Respiratory 20 Rate [Left Toe] Blood Pressure O2 Sat by Pulse 96 Oximetry 12/28/17 12/28/17 12/28/17 05:12 07:41 08:56 Temperature 98.2 F Pulse Rate 88 Respiratory 20 19 Rate Respiratory Rate [Abdomen] Respiratory Rate [Left Toe] Blood Pressure 101/56 O2 Sat by Pulse 94 95 Oximetry Constitutional: no acute distress, alert Eyes: non-icteric ENT: other (NGT in position) Neck: supple, no lymphadenopathy, no JVD, other (RT IJ) Effort: normal Ascultation: Bilateral: clear Percussion: Bilateral: not dull Tactile fremitus: Bilateral: normal Cardiovascular: regular rate and rhythm Gastrointestinal: soft, tender, other (midline lap,covered, no bleeding. Inguinal wounds clean) Extremities: no edema, other (no edema, poor peripheral pulses) Neurologic: normal mental status, non-focal exam Psychiatric: mood appropriate, affect normal CBC and BMP: 12/27/17 06:00 12/27/17 20:01 ABG, PT/INR, D-dimer: ABG POC ABG pH 7.389 (7.35-7.45) 12/20/17 18:00 POC ABG pCO2 36.9 (35-45) 12/20/17 18:00 POC ABG pO2 77 (80-105) L 12/20/17 18:00 POC ABG HCO3 22.3 12/20/17 18:00 POC ABG Total CO2 23 12/20/17 18:00 POC ABG O2 Sat 95 12/20/17 18:00 PT/INR, D-dimer PT 13.4 Sec. (12.2-14.9) 12/20/17 00:11 INR 0.97 (0.87-1.13) 12/20/17 00:11 Abnormal lab findings: Abnormal Labs 12/19/17 12/19/17 12/19/17 15:51 15:51 15:51 WBC RBC 5.92 H Hgb 17.6 H Hct 54.0 H RDW 17.6 H [place] % (Auto) 11.3 H Eos % (Auto) [place] # 0.9 H Eos # Baso # Seg Neuts % (Manual) Lymphocytes % (Manual) Seg Neutrophils # Man Lymphocytes # (Manual) Heparin Anti-Xa Level POC ABG pO2 VBG pH 7.309 L Potassium Chloride Carbon Dioxide BUN 5 L Creatinine 0.5 L Glucose Calcium AST 113 H ALT 70 H Alkaline Phosphatase 155 H Total Protein 6.2 L Albumin 3.2 L Triglycerides Crossmatch 12/20/17 12/20/17 12/20/17 07:09 18:00 19:47 WBC RBC Hgb Hct RDW [place] % (Auto) Eos % (Auto) [place] # Eos # Baso # Seg Neuts % (Manual) Lymphocytes % (Manual) Seg Neutrophils # Man Lymphocytes # (Manual) Heparin Anti-Xa Level 0.17 L 0.25 L POC ABG pO2 77 L VBG pH Potassium Chloride Carbon Dioxide BUN Creatinine Glucose Calcium AST ALT Alkaline Phosphatase Total Protein Albumin Triglycerides Crossmatch 12/20/17 12/21/17 12/21/17 19:47 05:37 05:37 WBC 11.1 H RBC 5.27 H Hgb 15.5 H Hct 48.4 H RDW 16.9 H [place] % (Auto) 12.0 H Eos % (Auto) [place] # 1.3 H Eos # 0.5 H Baso # Seg Neuts % (Manual) Lymphocytes % (Manual) Seg Neutrophils # Man Lymphocytes # (Manual) Heparin Anti-Xa Level POC ABG pO2 VBG pH Potassium 3.4 L D Chloride Carbon Dioxide BUN 5 L Creatinine 0.5 L Glucose Calcium 8.2 L AST ALT Alkaline Phosphatase Total Protein Albumin Triglycerides 160 H Crossmatch 12/22/17 12/22/17 12/22/17 09:04 09:04 18:21 WBC RBC Hgb Hct RDW [place] % (Auto) Eos % (Auto) [place] # Eos # Baso # Seg Neuts % (Manual) Lymphocytes % (Manual) Seg Neutrophils # Man Lymphocytes # (Manual) Heparin Anti-Xa Level 0.28 L 0.19 L POC ABG pO2 VBG pH Potassium 3.5 L Chloride Carbon Dioxide BUN 6 L Creatinine 0.5 L Glucose 107 H Calcium AST ALT Alkaline Phosphatase Total Protein Albumin Triglycerides Crossmatch 12/23/17 12/23/17 12/24/17 03:40 03:40 10:40 WBC RBC Hgb 15.2 H Hct 46.1 H RDW [place] % (Auto) Eos % (Auto) [place] # Eos # Baso # Seg Neuts % (Manual) Lymphocytes % (Manual) Seg Neutrophils # Man Lymphocytes # (Manual) Heparin Anti-Xa Level 0.23 L POC ABG pO2 VBG pH Potassium Chloride Carbon Dioxide BUN Creatinine Glucose Calcium AST ALT Alkaline Phosphatase Total Protein Albumin Triglycerides Crossmatch See Detail 12/24/17 12/25/17 12/25/17 14:42 04:31 04:31 WBC 11.8 H RBC 5.22 H Hgb 15.3 H 15.1 H Hct 48.3 H 46.7 H RDW 17.0 H 16.4 H [place] % (Auto) 11.3 H 12.7 H Eos % (Auto) 10.1 H 10.4 H [place] # 1.3 H 1.4 H Eos # 1.2 H 1.1 H Baso # 0.2 H Seg Neuts % (Manual) Lymphocytes % (Manual) Seg Neutrophils # Man Lymphocytes # (Manual) Heparin Anti-Xa Level POC ABG pO2 VBG pH Potassium Chloride Carbon Dioxide BUN Creatinine Glucose Calcium AST ALT Alkaline Phosphatase Total Protein 5.4 L Albumin 2.3 L Triglycerides Crossmatch 12/25/17 12/25/17 12/25/17 14:28 14:28 18:16 WBC 11.3 H 18.8 H RBC Hgb Hct RDW 16.5 H 17.2 H [place] % (Auto) Eos % (Auto) [place] # Eos # Baso # Seg Neuts % (Manual) Lymphocytes % (Manual) Seg Neutrophils # Man Lymphocytes # (Manual) Heparin Anti-Xa Level POC ABG pO2 VBG pH Potassium Chloride 110.0 H Carbon Dioxide 18 L D BUN 6 L Creatinine 0.3 L Glucose 152 H Calcium 6.7 L D AST ALT Alkaline Phosphatase Total Protein Albumin Triglycerides Crossmatch 12/25/17 12/25/17 12/25/17 18:16 21:05 Unknown WBC 12.4 H RBC 5.32 H Hgb 15.2 H Hct 49.3 H D RDW 16.9 H [place] % (Auto) Eos % (Auto) [place] # Eos # Baso # Seg Neuts % (Manual) 90.0 H Lymphocytes % (Manual) 7.0 L Seg Neutrophils # Man 11.2 H Lymphocytes # (Manual) 0.9 L Heparin Anti-Xa Level < 0.10 L POC ABG pO2 VBG pH Potassium Chloride Carbon Dioxide 18 L BUN 5 L Creatinine 0.4 L Glucose 169 H Calcium AST ALT Alkaline Phosphatase Total Protein Albumin Triglycerides Crossmatch 12/26/17 12/27/17 05:00 20:01 WBC RBC Hgb Hct RDW [place] % (Auto) Eos % (Auto) [place] # Eos # Baso # Seg Neuts % (Manual) Lymphocytes % (Manual) Seg Neutrophils # Man Lymphocytes # (Manual) Heparin Anti-Xa Level POC ABG pO2 VBG pH Potassium Chloride 107.7 H Carbon Dioxide 21 L 21 L BUN Creatinine 0.4 L 0.6 L Glucose 140 H 152 H Calcium 8.3 L 8.2 L AST ALT Alkaline Phosphatase Total Protein Albumin Triglycerides Crossmatch
--- NOTE | 2017-12-28 14:40 | Progress Note ---
Assessment and Plan Tolerating liquids. Adv to Reg. diet. D/c IVF. Continue to increase act. as tolerated D/c esparza. Encouraged early voiding. - Patient Problems (1) Atherosclerosis of [place] arteries of extremity with rest pain Current Visit: Yes Status: Acute Subjective Date of service: 12/28/17 Principal diagnosis: COPD, CAD, peripheral vascular disease with claudication Interval history: Pt awake and alert. C/o mild-mod abd discomfort, but improved with oral analgesics. She has had bowel movement, denies n/v. Tolerating clear liquids. Objective - Constitutional Vitals: Vital Signs - 12hr 12/28/17 12/28/17 12/28/17 04:12 05:12 07:41 Temperature 98.2 F Pulse Rate 88 Respiratory 20 20 19 Rate Blood Pressure 101/56 O2 Sat by Pulse 94 Oximetry 12/28/17 08:56 Temperature Pulse Rate Respiratory Rate Blood Pressure O2 Sat by Pulse 95 Oximetry General appearance: Present: no acute distress - EENT Eyes: EOM intact ENT: hearing intact - Neck Neck: supple - Respiratory Respiratory effort: normal (unlabored at rest on RA) Extremities: no ischemia, normal temperature - Gastrointestinal General gastrointestinal: Present: soft - Neurologic Neurologic: no focal deficits - Psychiatric Psychiatric: appropriate mood/affect, intact judgment & insight, cooperative - Labs CBC & Chem 7: 12/27/17 06:00 12/27/17 20:01 Labs: Abnormal lab results 12/27/17 Range/Units 20:01 Chloride 107.7 H (98-107) mmol/L Carbon Dioxide 21 L (22-30) mmol/L Creatinine 0.6 L (0.7-1.2) mg/dL Glucose 152 H (65-100) mg/dL Calcium 8.2 L (8.4-10.2) mg/dL
--- NOTE | 2017-12-28 14:57 | Progress Note ---
Assessment and Plan 57-year-old female with medical history significant for COPD, hypertension, active tobacco use is limited to the emergency department with complaints of cyanosis of the right foot. /Peripheral vascular disease - BLE ARTERIAL DUPLEX DONE. EXTENSIVE, SCATTERED FIBROCALCIFIED PLAQUES THROUGHOUT VESSELS VISUALIZED LICO. LT.GROIN VESSELS. MONOPHASIC WAVEFORMS OBTAINED THROUGHOUT VESSELS INTERROGATED. - CTA abdomen showed Significantly compromised abdominal aorta lumen below the renal arteries. Bilaterally compromised iliac and common femoral vessel flow. Bilateral compromised lower extremity flow predominantly at the level of the popliteal arteries. - placed on heparin drip, Vascular surgery consulted and s/p aortofemoral bypass 12/25/17, off heparin drip now - Cardial and pulmonary consulted for risk assessment and recommendations appreciated - Lipid panel is within normal limit /COPD - not on exacerbation - Pulmonary was consulted for surgical reisk assessment /Hypertension -resumed amlodipine and BB /Hypokelemia - Repleted /Disposition - monitor at tele, PT eval Hospitalist Physical Not in cardiopulmonary distress. The patient appeared well nourished and normally developed. Vital signs as documented. Head exam is unremarkable. No scleral icterus . Neck is without jugular venous distension, thyromegaly, or carotid bruits. Lungs are clear to auscultation. Cardiac exam reveals regular rate and Rhythm. First and second heart sounds normal. No murmurs, rubs or gallops. Abdominal exam reveals normal bowel sounds, no masses, no organomegaly and no aortic enlargement. 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 No focal weakness. Subjective Date of service: 12/28/17 Principal diagnosis: COPD, CAD, peripheral vascular disease with claudication Interval history: pt seen and examined denies any acute issue or new complaint advanced diet today, ambulating Objective - Constitutional Vitals: Vital Signs - 12hr 12/28/17 12/28/17 12/28/17 04:12 05:12 07:41 Temperature 98.2 F Pulse Rate 88 Respiratory 20 20 19 Rate Blood Pressure 101/56 O2 Sat by Pulse 94 Oximetry 12/28/17 08:56 Temperature Pulse Rate Respiratory Rate Blood Pressure O2 Sat by Pulse 95 Oximetry - Labs CBC & Chem 7: 12/29/17 06:02 12/29/17 06:02 Labs: Abnormal lab results 12/27/17 Range/Units 20:01 Chloride 107.7 H (98-107) mmol/L Carbon Dioxide 21 L (22-30) mmol/L Creatinine 0.6 L (0.7-1.2) mg/dL Glucose 152 H (65-100) mg/dL Calcium 8.2 L (8.4-10.2) mg/dL
[2017-12-28] MEDS: HABITROL TD SCH (18:09)
[2017-12-28] MEDS: PEPCID PO SCH (22:15)
[2017-12-29] MEDS: PERCOCET 5/325 PO PRN ×3 (01:33→16:03)
[2017-12-29 06:26] LABS: Hemoglobin 11.3 gm/dl (10.1-14.3)
[2017-12-29] MEDS: MORPHINE IV PRN (06:27)
[2017-12-29 06:59] LABS: BUN/Creatinine Ratio 10; Blood Urea Nitrogen 5 mg/dL (7-17); Calcium 7.7 mg/dL (8.4-10.2); Hemolysis Index 12
[2017-12-29] MEDS: BABY ASPIRIN PO SCH (09:29)
[2017-12-29] MEDS: PEPCID PO SCH (09:29)
[2017-12-29] MEDS: NORVASC PO SCH (09:29)
[2017-12-29] MEDS: LOPRESSOR PO SCH (09:33)
--- NOTE | 2017-12-29 11:36 | Progress Note ---
Assessment and Plan Status post Aorto-bifem due to Peripheral vascular disease. COPD. controlled CAD. See cardiology, History of tobacco abuse. Recommendations Incentive spirometry ABRAM nebs q 4-6 hr. She can be discharged from either Proventil or Combivent inhalations 4 times a day as needed Already received influenza and pneumococcal vaccination Monitor for fever and bleeding DVT prophylaxis Permit discharge from pulmonary standpoint. I discussed outpatient follow-up from pulmonary standpoint regarding her COPD also, business card given for follow-up appointment Will sign off , follow-up as needed Subjective Date of service: 12/29/17 Principal diagnosis: COPD, CAD, peripheral vascular disease with claudication Interval history: No respiratory complaints. She is walking out of bed without respiratory limitations. Still some wound pain or discomfort but improving rapidly Objective Vital Signs - 12hr 12/29/17 12/29/17 12/29/17 01:33 02:33 06:27 Temperature Pulse Rate Respiratory 20 18 20 Rate Blood Pressure O2 Sat by Pulse Oximetry 12/29/17 12/29/17 12/29/17 08:10 09:29 09:33 Temperature 98.8 F Pulse Rate 94 H 94 H Respiratory 20 Rate Blood Pressure 121/73 121/73 121/73 O2 Sat by Pulse 86 Oximetry 12/29/17 09:34 Temperature Pulse Rate Respiratory 16 Rate Blood Pressure O2 Sat by Pulse Oximetry Constitutional: no acute distress, alert Eyes: non-icteric ENT: other Neck: supple, no lymphadenopathy, no JVD Effort: normal Ascultation: Bilateral: clear, diminished breath sounds Percussion: Bilateral: not dull Tactile fremitus: Bilateral: normal Cardiovascular: regular rate and rhythm Gastrointestinal: soft, tender, other (midline lap,covered, no bleeding. Inguinal wounds clean) Extremities: no edema, other (no edema, positive peripheral pulses) Neurologic: normal mental status, non-focal exam Psychiatric: mood appropriate, affect normal CBC and BMP: 12/29/17 06:02 12/29/17 06:02 ABG, PT/INR, D-dimer: ABG POC ABG pH 7.389 (7.35-7.45) 12/20/17 18:00 POC ABG pCO2 36.9 (35-45) 12/20/17 18:00 POC ABG pO2 77 (80-105) L 12/20/17 18:00 POC ABG HCO3 22.3 12/20/17 18:00 POC ABG Total CO2 23 12/20/17 18:00 POC ABG O2 Sat 95 12/20/17 18:00 PT/INR, D-dimer PT 13.4 Sec. (12.2-14.9) 12/20/17 00:11 INR 0.97 (0.87-1.13) 12/20/17 00:11 Abnormal lab findings: Abnormal Labs 12/19/17 12/19/17 12/19/17 15:51 15:51 15:51 WBC RBC 5.92 H Hgb 17.6 H Hct 54.0 H RDW 17.6 H [place] % (Auto) 11.3 H Eos % (Auto) [place] # 0.9 H Eos # Baso # Seg Neuts % (Manual) Lymphocytes % (Manual) Seg Neutrophils # Man Lymphocytes # (Manual) Heparin Anti-Xa Level POC ABG pO2 VBG pH 7.309 L Potassium Chloride Carbon Dioxide BUN 5 L Creatinine 0.5 L Glucose Calcium AST 113 H ALT 70 H Alkaline Phosphatase 155 H Total Protein 6.2 L Albumin 3.2 L Triglycerides Crossmatch 12/20/17 12/20/17 12/20/17 07:09 18:00 19:47 WBC RBC Hgb Hct RDW [place] % (Auto) Eos % (Auto) [place] # Eos # Baso # Seg Neuts % (Manual) Lymphocytes % (Manual) Seg Neutrophils # Man Lymphocytes # (Manual) Heparin Anti-Xa Level 0.17 L 0.25 L POC ABG pO2 77 L VBG pH Potassium Chloride Carbon Dioxide BUN Creatinine Glucose Calcium AST ALT Alkaline Phosphatase Total Protein Albumin Triglycerides Crossmatch 12/20/17 12/21/17 12/21/17 19:47 05:37 05:37 WBC 11.1 H RBC 5.27 H Hgb 15.5 H Hct 48.4 H RDW 16.9 H [place] % (Auto) 12.0 H Eos % (Auto) [place] # 1.3 H Eos # 0.5 H Baso # Seg Neuts % (Manual) Lymphocytes % (Manual) Seg Neutrophils # Man Lymphocytes # (Manual) Heparin Anti-Xa Level POC ABG pO2 VBG pH Potassium 3.4 L D Chloride Carbon Dioxide BUN 5 L Creatinine 0.5 L Glucose Calcium 8.2 L AST ALT Alkaline Phosphatase Total Protein Albumin Triglycerides 160 H Crossmatch 12/22/17 12/22/17 12/22/17 09:04 09:04 18:21 WBC RBC Hgb Hct RDW [place] % (Auto) Eos % (Auto) [place] # Eos # Baso # Seg Neuts % (Manual) Lymphocytes % (Manual) Seg Neutrophils # Man Lymphocytes # (Manual) Heparin Anti-Xa Level 0.28 L 0.19 L POC ABG pO2 VBG pH Potassium 3.5 L Chloride Carbon Dioxide BUN 6 L Creatinine 0.5 L Glucose 107 H Calcium AST ALT Alkaline Phosphatase Total Protein Albumin Triglycerides Crossmatch 12/23/17 12/23/17 12/24/17 03:40 03:40 10:40 WBC RBC Hgb 15.2 H Hct 46.1 H RDW [place] % (Auto) Eos % (Auto) [place] # Eos # Baso # Seg Neuts % (Manual) Lymphocytes % (Manual) Seg Neutrophils # Man Lymphocytes # (Manual) Heparin Anti-Xa Level 0.23 L POC ABG pO2 VBG pH Potassium Chloride Carbon Dioxide BUN Creatinine Glucose Calcium AST ALT Alkaline Phosphatase Total Protein Albumin Triglycerides Crossmatch See Detail 12/24/17 12/25/17 12/25/17 14:42 04:31 04:31 WBC 11.8 H RBC 5.22 H Hgb 15.3 H 15.1 H Hct 48.3 H 46.7 H RDW 17.0 H 16.4 H [place] % (Auto) 11.3 H 12.7 H Eos % (Auto) 10.1 H 10.4 H [place] # 1.3 H 1.4 H Eos # 1.2 H 1.1 H Baso # 0.2 H Seg Neuts % (Manual) Lymphocytes % (Manual) Seg Neutrophils # Man Lymphocytes # (Manual) Heparin Anti-Xa Level POC ABG pO2 VBG pH Potassium Chloride Carbon Dioxide BUN Creatinine Glucose Calcium AST ALT Alkaline Phosphatase Total Protein 5.4 L Albumin 2.3 L Triglycerides Crossmatch 12/25/17 12/25/17 12/25/17 14:28 14:28 18:16 WBC 11.3 H 18.8 H RBC Hgb Hct RDW 16.5 H 17.2 H [place] % (Auto) Eos % (Auto) [place] # Eos # Baso # Seg Neuts % (Manual) Lymphocytes % (Manual) Seg Neutrophils # Man Lymphocytes # (Manual) Heparin Anti-Xa Level POC ABG pO2 VBG pH Potassium Chloride 110.0 H Carbon Dioxide 18 L D BUN 6 L Creatinine 0.3 L Glucose 152 H Calcium 6.7 L D AST ALT Alkaline Phosphatase Total Protein Albumin Triglycerides Crossmatch 12/25/17 12/25/17 12/25/17 18:16 21:05 Unknown WBC 12.4 H RBC 5.32 H Hgb 15.2 H Hct 49.3 H D RDW 16.9 H [place] % (Auto) Eos % (Auto) [place] # Eos # Baso # Seg Neuts % (Manual) 90.0 H Lymphocytes % (Manual) 7.0 L Seg Neutrophils # Man 11.2 H Lymphocytes # (Manual) 0.9 L Heparin Anti-Xa Level < 0.10 L POC ABG pO2 VBG pH Potassium Chloride Carbon Dioxide 18 L BUN 5 L Creatinine 0.4 L Glucose 169 H Calcium AST ALT Alkaline Phosphatase Total Protein Albumin Triglycerides Crossmatch 12/26/17 12/27/17 12/29/17 05:00 20:01 06:02 WBC RBC Hgb Hct RDW [place] % (Auto) Eos % (Auto) [place] # Eos # Baso # Seg Neuts % (Manual) Lymphocytes % (Manual) Seg Neutrophils # Man Lymphocytes # (Manual) Heparin Anti-Xa Level POC ABG pO2 VBG pH Potassium Chloride 107.7 H Carbon Dioxide 21 L 21 L BUN 5 L Creatinine 0.4 L 0.6 L 0.5 L Glucose 140 H 152 H Calcium 8.3 L 8.2 L 7.7 L AST ALT Alkaline Phosphatase Total Protein Albumin Triglycerides Crossmatch
--- NOTE | 2017-12-29 14:47 | Discharge Summary ---
Providers - Providers Date of Admission: 12/19/17 23:30 Date of discharge: 12/29/17 Attending physician: KRYS MOTT 12/19/17 23:19 Consult to Physician [CONS] Routine Consulting Provider: MIGUEL GOODWIN Reason For Exam: LLE arterial insufficiency Place consult to:: Dr. Goodwin Notified:: Answering Service Phone number called:: [phone] Was contact made?: Yes If yes, spoke with:: Dr. Goodwin Time called:: 23:15 Comment:: Dr. Harvey ( dr) spoke with Dr. Goodwin 12/20/17 17:42 Consult to Physician [CONS] Routine Consulting Provider: MIRIAN BIRCH Reason For Exam: PAD, pulmonary [place] Place consult to:: Pulmonary Notified:: OFFICE Phone number called:: [phone] Was contact made?: Yes Time called:: 09:43 12/26/17 07:34 Consult to Wound/ET Nurse [CONS] Urgent Reason For Exam: wound eval itchy red rash on buttocks, scabies? 12/26/17 12:35 Physical Therapy Evaluation and Treat [CONS] Routine Comment: Reason For Exam: s/p Aorto Bifem Primary care physician: MINE CAPTAIN Hospitalization Condition: Stable Hospital course: 57-year-old female with medical history significant for COPD, hypertension, active tobacco use is limited to the emergency department with complaints of cyanosis of the right foot. Discharge diagnosis and management: /Peripheral vascular disease - BLE ARTERIAL DUPLEX DONE. EXTENSIVE, SCATTERED FIBROCALCIFIED PLAQUES THROUGHOUT VESSELS VISUALIZED LICO. LT.GROIN VESSELS. MONOPHASIC WAVEFORMS OBTAINED THROUGHOUT VESSELS INTERROGATED. - CTA abdomen showed Significantly compromised abdominal aorta lumen below the renal arteries. Bilaterally compromised iliac and common femoral vessel flow. Bilateral compromised lower extremity flow predominantly at the level of the popliteal arteries. - placed on heparin drip, Vascular surgery consulted and s/p aortofemoral bypass 12/25/17, off heparin drip now - Cardial and pulmonary consulted for risk assessment and recommendations appreciated - Lipid panel is within normal limit /COPD - not on exacerbation - Pulmonary was consulted for surgical reisk assessment /Hypertension -resumed amlodipine and BB /Hypokelemia - Repleted /Disposition - monitored at tele, s/p PT eval Hospitalist Physical Not in cardiopulmonary distress. The patient appeared well nourished and normally developed. Vital signs as documented. Head exam is unremarkable. No scleral icterus . Neck is without jugular venous distension, thyromegaly, or carotid bruits. Lungs are clear to auscultation. Cardiac exam reveals regular rate and Rhythm. First and second heart sounds normal. No murmurs, rubs or gallops. Abdominal exam reveals normal bowel sounds, no masses, no organomegaly and no aortic enlargement. Extremities discoloration of the great toe left more than right, patent dorsalis pedis b/l HISTORY DEPARTMENT CHAIR: Alert and oriented 3. No focal weakness. Disposition: [id number] [facility] Time spent for discharge: 32 minutes Core Measure Documentation - Palliative Care Palliative Care/ Comfort Measures: Not Applicable - Core Measures Any of the following diagnoses?: none Exam - Constitutional Vitals: Temp Pulse Resp BP Pulse Ox 98.8 F 94 H 16 121/73 86 12/29/17 08:10 12/29/17 09:33 12/29/17 09:34 12/29/17 09:33 12/29/17 08:10 Plan Activity: advance as tolerated Weight Bearing Status: Non-Weight Bearing Diet: low fat, low salt Follow up with: PRIMARY CARE, [Primary Care Provider] - 3-5 Days Prescriptions: AtorvaSTATin [Lipitor] 40 mg PO QHS #30 tablet amLODIPine [Norvasc] 10 mg PO QDAY #30 tablet Aspirin [Aspirin BABY CHEW TAB] 81 mg PO QDAY #30 tab.chew Docusate Sodium [Colace] 100 mg PO BID PRN #30 capsule PRN Reason: Constipation Metoprolol [Lopressor TAB] 12.5 mg PO BID #60 tablet oxyCODONE /ACETAMINOPHEN [Percocet 5/325 mg] 2 tab PO Q6H PRN #30 tablet PRN Reason: Pain, Moderate (4-6)
[2017-12-29 15:34] VITALS: BP 122/75
--- NOTE | 2017-12-29 15:56 | Progress Note ---
Assessment and Plan Status post aortobifemoral bypass with good technical result. Bilateral palpable pedal pulses. Left lower extremity pain improving. Mottling is slowly improving. Patient tolerating regular diet without issue. Bowel movements without issue. No nausea or vomiting. Doing well. Told patient to follow up in 2 weeks. Discharge instructions provided with specific instructions to avoid soaking wounds, and to not lift more than 10 pounds for 3 months. Subjective Date of service: 12/29/17 Principal diagnosis: COPD, CAD, peripheral vascular disease with claudication Interval history: Discussed plan with patient. Bilateral palpable pedal pulses. Her left foot continues to feel better. I expect the changes of the right first and fifth digit to slowly improve over the next few months, but they're still slightly mottled. Sensory and motor function intact. Objective - Constitutional Vitals: Vital Signs - 12hr 12/29/17 12/29/17 12/29/17 06:27 08:10 09:29 Temperature 98.8 F Pulse Rate 94 H Respiratory 20 20 Rate Blood Pressure 121/73 121/73 O2 Sat by Pulse 86 Oximetry 12/29/17 12/29/17 12/29/17 09:33 09:34 15:11 Temperature 97.8 F Pulse Rate 94 H 84 Respiratory 16 18 Rate Blood Pressure 121/73 122/75 O2 Sat by Pulse 94 Oximetry General appearance: Present: no acute distress - EENT Eyes: EOM intact ENT: hearing intact - Respiratory Respiratory effort: normal Extremities: pulses intact, normal temperature, normal color, abnormal ( abdominal staple line, clean, dry, and intact; both groins are clean, dry, and intact) - Psychiatric Psychiatric: appropriate mood/affect, cooperative - Labs CBC & Chem 7: 12/29/17 06:02 12/29/17 06:02 Labs: Abnormal lab results 12/29/17 Range/Units 06:02 BUN 5 L (7-17) mg/dL Creatinine 0.5 L (0.7-1.2) mg/dL Calcium 7.7 L (8.4-10.2) mg/dL
[2017-12-29] MEDS: DULCOLAX PR SCH (15:58)
== END 2017-12-29 16:30 | disposition home health service (06) | DRG 272 ==
LOC: ED 13:52 → 4A 23:30 → CC1 12-25 18:14 → 3A 12-27 18:39
PROVIDERS: ADMIT Internal Medicine; ATTEND Internal Medicine
PROC: 30233N1 Transfusion of Nonautologous Red Blood Cells into Peripheral Vein, Percutaneous Approach (ICD-10-PCS; 2017-12-20)
PROC: 4A033R1 Measurement of Arterial Saturation, Peripheral, Percutaneous Approach (ICD-10-PCS; 2017-12-20)
PROC: 3E0234Z Introduction of Serum, Toxoid and Vaccine into Muscle, Percutaneous Approach (ICD-10-PCS; 2017-12-23)
PROC: 04100JJ Bypass Abdominal Aorta to Left Femoral Artery with Synthetic Substitute, Open Approach (ICD-10-PCS; principal; 2017-12-25)
PROC: 04100JH Bypass Abdominal Aorta to Right Femoral Artery with Synthetic Substitute, Open Approach (ICD-10-PCS; 2017-12-25)
PROC: 04CL0ZZ Extirpation of Matter from Left Femoral Artery, Open Approach (ICD-10-PCS; 2017-12-25)
PROC: 04CJ0ZZ Extirpation of Matter from Left External Iliac Artery, Open Approach (ICD-10-PCS; 2017-12-25)
PROC: 04CK0ZZ Extirpation of Matter from Right Femoral Artery, Open Approach (ICD-10-PCS; 2017-12-25)
PROC: 02HV33Z Insertion of Infusion Device into Superior Vena Cava, Percutaneous Approach (ICD-10-PCS; 2017-12-25)
DX: I73.9 Peripheral vascular disease, unspecified (principal); F17.210 Nicotine dependence, cigarettes, uncomplicated; I25.10 Atherosclerotic heart disease of native coronary artery without angina pectoris; J44.9 Chronic obstructive pulmonary disease, unspecified; E87.6 Hypokalemia; Z82.49 Family history of ischemic heart disease and other diseases of the circulatory system; Z88.8 Allergy status to other drugs, medicaments and biological substances; Z79.82 Long term (current) use of aspirin; Z90.49 Acquired absence of other specified parts of digestive tract; Z79.899 Other long term (current) drug therapy; Z71.6 Tobacco abuse counseling; Z23 Encounter for immunization
CPT/HCPCS: 36415; 36600; 36620; 64450; 71045; 71046; 74018; 75635; 76700; 78452; 80048; 80053; 80061; 80074; 82140; 82150; 82803; 82805; 83690; 85007; 85014; 85018; 85025; 85027; 85049; 85520; 85610; 85730; 86850; 86900; 86901; 86920; 87040; 88304; 88311; 90732; 93005; 93010; 93017; 93306; 93925; 94760; 96374; 99406; A4649; A6250; A9270-GY; A9502; C1757; C1768; C9250; J0610; J0690; J0735; J1100; J1170; J1644; J2250; J2270; J2405; J2704; J2710; J2785; J3010; J3490; J7030; J7120; P9047; Q9967

== ENCOUNTER 2018-02-16 22:02 | Inpatient (IN) | payer OTHER ==
[2018-02-16] MEDS ORDERED: ZOFRAN IV PRN (23:41)
[2018-02-16] MEDS ORDERED: SODIUM CHLORIDE FLUSH SYRINGE 10 ML IV PRN (23:41)
[2018-02-16] MEDS ORDERED: TYLENOL PO PRN (23:41)
[2018-02-17] MEDS ORDERED: ZOFRAN IV PRN ×3 (00:04→12:47)
[2018-02-17] MEDS ORDERED: REGLAN IV PRN (00:04)
[2018-02-17] MEDS ORDERED: NARCAN 0.4 MG/1 ML IV PRN (00:04)
[2018-02-17] MEDS ORDERED: BENADRYL IV PRN (00:04)
[2018-02-17] MEDS ORDERED: HEPARIN/ 0.45% NACL-25,000 UNIT/500 ML 25,000 UNIT/500 ML BAG IV SCH (01:00)
[2018-02-17] MEDS ORDERED: DILAUDID PCA 6MG/30ML IV SCH (01:00)
[2018-02-17] MEDS: NACL 0.9% 1000 ML 1,000 ML IV SCH (03:24)
[2018-02-17 03:50] LABS: Basophils % (Auto) 0.2 % (0.0-1.8); Eosinophils # (Auto) 0.3 K/mm3 (0.0-0.4); Eosinophils % (Auto) 2.4 % (0.0-4.3); Hematocrit 44.2 % (30.3-42.9); Hemoglobin 14.1 gm/dl (10.1-14.3); Lymphocytes # (Auto) 3.3 K/mm3 (1.2-5.4); Lymphocytes % (Auto) 27.9 % (13.4-35.0); Mean Corpuscular HGB Conc 32 % (30-34); Mean Corpuscular Hemoglobin 28 pg (28-32); Mean Corpuscular Volume 89 fl (79-97); Monocytes # (Auto) 1.4 K/mm3 (0.0-0.8); Platelet Count 130 K/mm3 (140-440); Red Blood Count 4.99 M/mm3 (3.65-5.03); Red Cell Distribution Width 18.4 % (13.2-15.2)
[2018-02-17 03:57] LABS: INR 1.07 (0.87-1.13)
[2018-02-17 04:14] LABS: BUN/Creatinine Ratio 7; Blood Urea Nitrogen 4 mg/dL (7-17); Calcium 8.2 mg/dL (8.4-10.2); Hemolysis Index 16
[2018-02-17] MEDS ORDERED: NACL ONE (04:44)
--- NOTE | 2018-02-17 06:00 | Cat Scan Report ---
FINAL REPORT EXAM: CT ANGIO ABD/FEMORAL ABD AORTA HISTORY: Occluded limb of aotobifemoral bypass graft TECHNIQUE: A CT angiogram was obtained of the abdominal aorta to include the lower extremities bilaterally following the intravenous injection of iodinated contrast. Sagittal and coronal MPR reconstructions were reviewed. FINDINGS: There is an abdominal by femoral bypass graft which is patent. There is mural thrombus in both the aortic and by femoral limbs bilaterally. The tus[place]ora abdominal aorta is occluded distally. On the right side the right common femoral artery opacifies normally with normal visualization of the right superficial femoral artery extending into the adductor canal. From the adductor canal there is three-vessel runoff in the right calf extending to the ankle. On the left side there is total occlusion of the left common femoral artery just distal to the end to side anastomosis. There is no blood flow in the left superficial femoral or popliteal arteries. No definite opacification of the left calf vessels are seen. The lung bases are clear. There minimal dependent atelectasis in both lower lobes. The liver is normal size reveals diminished attenuation suggesting fatty change. The gallbladder, spleen and adrenal glands appear normal. The pancreas is slightly atrophic. Bowel loops are normal in caliber and course. There is no evidence of free fluid or adenopathy. In the pelvis the uterus and bladder appear normal. The renal arteries opacify normally. There is symmetric nephrograms both kidneys. The celiac and SMA are also widely patent. IMPRESSION: Status post aortobifemoral bypass graft with mural thrombus in both the aortic and by femoral components of the graft. Total occlusion of the left common femoral artery just beyond the and decided mass most is of the graft with the artery. Nonvisualization of the left superficial femoral, popliteal and calf arteries. Normal opacification of the right common femoral, superficial femoral, and popliteal arteries with three-vessel runoff in the right calf. Hepatic steatosis. No acute process in the abdomen and pelvis otherwise.
--- NOTE | 2018-02-17 08:22 | History and Physical Report ---
History of Present Illness Date of examination: 02/17/18 Date of admission: 02/17/18 01:43 Chief complaint: Left Leg Pain History of present illness: The patient is a 57-year-old female who underwent an aortobifemoral bypass in December 2017. She had been doing well until approximately 3 weeks ago which began having cramping in her left leg the progress to pain in the left leg yesterday morning. She presented to [facility] emergency department yesterday afternoon with those complaints. Upon evaluation they performed an ultrasound that suggested occlusion of her left limb of the aortobifemoral bypass. Per their report she had motor and sensation intact with cyanosis of the toes. She was started on a heparin drip and transferred to the ICU here at [facility]. Upon arrival the patient underwent a CTA of her abdomen and pelvis with runoff that demonstrated the aortobifemoral bypass was patent however she had occlusion of her left common femoral artery with retrograde flow in the left profunda. Other than complaints of left leg pain she has no other complaints. She denies fever, chills, or pain in the right leg. Past History Past Medical History: COPD, hypertension, hyperlipidemia, PVD Past Surgical History: Other (aortobifemoral bypass,) Social history: , smoking Medications and Allergies Allergies Allergy/AdvReac Type Severity Reaction Status Date / Time lisinopril Allergy Unknown Verified 12/23/17 01:05 prochlorperazine AdvReac Unknown Verified 12/19/17 15:27 [From Compazine] Home Medications Medication Instructions Recorded Confirmed Last Taken Type Aspirin [Aspirin BABY CHEW TAB] 81 mg PO QDAY #30 tab.chew 12/29/17 Unknown Rx AtorvaSTATin [Lipitor] 40 mg PO QHS #30 tablet 12/29/17 Unknown Rx Docusate Sodium [Colace] 100 mg PO BID PRN #30 capsule 12/29/17 Unknown Rx Metoprolol [Lopressor TAB] 12.5 mg PO BID #60 tablet 12/29/17 Unknown Rx amLODIPine [Norvasc] 10 mg PO QDAY #30 tablet 12/29/17 Unknown Rx oxyCODONE /ACETAMINOPHEN [Percocet 2 tab PO Q6H PRN #30 tablet 12/29/17 Unknown Rx 5/325 mg] Active Meds: Active Medications Acetaminophen (Tylenol) 650 mg PO Q4H PRN PRN Reason: Pain MILD(1-3)/Fever >100.5/BARAJAS Diphenhydramine HCl (Benadryl) 25 mg IV Q4H PRN PRN Reason: Itching Hydromorphone/Sodium Chloride (Dilaudid Gas Fitter 6mg/30ml) 0 mg IV DIRECT DINESH; Protocol Last Admin: 02/17/18 04:39 Dose: 0.3 mg Sodium Chloride (Nacl 0.9% 1000 Ml) 1,000 mls @ 125 mls/hr IV DIRECT DINESH Last Admin: 02/17/18 03:24 Dose: 125 mls/hr Heparin Sodium/Sodium Chloride (Heparin/ 0.45% Nacl-25,000 Unit/500 Ml) 25,000 unit in 500 mls @ 14 mls/hr IV TITR DINESH; Protocol Last Admin: 02/17/18 03:37 Dose: 700 units/hr, 14 mls/hr Metoclopramide HCl (Reglan) 10 mg IV Q6H PRN PRN Reason: N/V if NPO. Naloxone HCl (Narcan 0.4 Mg/1 Ml) 0.1 mg IV Q2MIN PRN PRN Reason: Res Rate </= 8 or 02 SAT < 92% Ondansetron HCl (Zofran) 4 mg IV Q8H PRN PRN Reason: N/V unrelieved by Reglan Sodium Chloride (Sodium Chloride Flush Syringe 10 Ml) 10 ml IV BID DINESH Sodium Chloride (Sodium Chloride Flush Syringe 10 Ml) 10 ml IV PRN PRN PRN Reason: LINE FLUSH Review of Systems All systems: negative Exam - Constitutional Vitals: Temp Pulse Resp BP Pulse Ox 98.1 F 104 H 12 152/91 93 02/17/18 03:46 02/17/18 06:20 02/17/18 07:32 02/17/18 06:20 02/17/18 06:20 General appearance: Present: no acute distress - Cardiovascular Heart rate: 115 Rhythm: regular - Extremities Extremities: pulses intact (right lower extremity) Extremity abnormal: cyanosis (left foot) - Abdominal General gastrointestinal: Present: soft, non-tender, other (bilateral groin incisions are well-healed, abdominal incision is well-healed) - Neurologic Neurologic: focal deficits (left lower extremity sensation is intact), moves all extremities (left lower extremity motor is intact) Results - Labs CBC & Chem 7: 02/16/18 03:30 02/16/18 03:30 Labs: Abnormal lab results 02/16/18 02/16/18 Range/Units 03:30 03:30 WBC 11.8 H (4.5-11.0) K/mm3 Hct 44.2 H (30.3-42.9) % RDW 18.4 H (13.2-15.2) % Plt Count 130 L (140-440) K/mm3 [place] % (Auto) 12.0 H (0.0-7.3) % [place] # 1.4 H (0.0-0.8) K/mm3 BUN 4 L (7-17) mg/dL Creatinine 0.6 L (0.7-1.2) mg/dL Calcium 8.2 L (8.4-10.2) mg/dL - Imaging and Cardiology CT scan - abdomen: image reviewed (CT A of abdomen and pelvis with runoff with reviewed) Assessment and Plan The patient is a 57-year-old female with a history of aortobifemoral bypass with acute left lower extremity ischemia. She has occlusion of her left common femoral artery and a core open thrombectomy with open thrombectomy of her left SFA and popliteal artery. She may require 4 compartment fasciotomy although she has a history of ischemia with rest pain and may tolerate this without significant reperfusion edema. I have discussed the risks, benefits, and alternatives with the patient. She has expressed understanding and agrees with the plan.
[2018-02-17] MEDS ORDERED: DIPRIVAN 10 MG/ML IV ONE (08:42)
[2018-02-17] MEDS ORDERED: DILAUDID ONE (08:42)
[2018-02-17] MEDS ORDERED: XYLOCAINE MPF 2% ONE (08:43)
[2018-02-17] MEDS ORDERED: ZEMURON IV ONE (08:43)
[2018-02-17] MEDS ORDERED: NACL 0.9% 1000 ML 1,000 ML ONE ×3 (08:49→12:49)
[2018-02-17] MEDS ORDERED: NACL 0.9% 500 ML 500 ML IV ONE (08:56)
--- NOTE | 2018-02-17 09:01 | Anesthesia Consultation ---
Anesthesia Consult and Med Hx Date of service: 02/17/18 - Airway Anesthetic Teeth Evaluation: Good ROM Head & Neck: Adequate Mental/Hyoid Distance: Adequate Mallampati Class: Class II Intubation Access Assessment: Good - Pulmonary Exam CTA: Yes - Cardiac Exam Cardiac Exam: RRR - Pre-Operative Health Status ASA Pre-Surgery Classification: ASA3 Proposed Anesthetic Plan: General - Pulmonary Hx Smoking: Yes (1PPD X 40 YRS, NO CIG SINCE LAST WEEK.) Hx Asthma: No COPD: Yes (DOES NOT USE INHALERS AT HOME) Hx Pneumonia: No - Cardiovascular System Hx Hypertension: Yes Hx Heart Attack/AMI: No - Central Nervous System Hx Seizures: No CVA: No Hx Psychiatric Problems: Yes - Endocrine Hx Renal Disease: No Hx End Stage Renal Disease: No Hx Insulin Dependent Diabetes: No Hx Thyroid Disease: No - Other Systems Hx Cancer: No Hx Obesity: No
--- NOTE | 2018-02-17 09:01 | Anesthesia Day of Surgery ---
Anesthesia Day of Surgery - Day of Surgery Patient Examined: Yes Patient H&P Reviewed: Yes Patient is NPO: Yes
[2018-02-17] MEDS ORDERED: NACL 0.9% 500 ML 500 ML ONE (09:39)
[2018-02-17] MEDS ORDERED: HEPARIN 10,000 UNITS/10 ML ONE (09:39)
[2018-02-17] MEDS ORDERED: HEPARIN 10,000 UNITS/10 ML IV ONE (10:07)
[2018-02-17] MEDS ORDERED: CATHFLO IV ONE (10:07)
[2018-02-17] MEDS ORDERED: NEO SYNEPHRINE/NS Syringe(OR USE) IV ONE (10:21)
[2018-02-17] MEDS ORDERED: NACL P/F VIAL (10 ML) 10 ML ONE (10:34)
[2018-02-17] MEDS ORDERED: ANCEF ONE ×2 (10:34)
[2018-02-17] MEDS ORDERED: CATHFLO ONE (11:11)
[2018-02-17] MEDS ORDERED: MARCAINE 0.5% 30 ML INFILTRATI ONE (11:49)
[2018-02-17] MEDS ORDERED: GELFOAM TP ONE (12:22)
[2018-02-17] MEDS ORDERED: ZOFRAN ONE (12:43)
[2018-02-17] MEDS ORDERED: NEOSTIGMINE ONE (12:43)
[2018-02-17] MEDS ORDERED: ROBINUL ONE (12:43)
--- NOTE | 2018-02-17 13:15 | Operative Report ---
Operative Report Operative Report: Date of Procedure: 02/17/2018 Pre-operative Diagnosis: Acute Left Lower Extremity Ischemia Post-operative Diagnosis: Same Procedure(s): 1. Open Left External Iliac Artery Thrombectomy with 6 Billy 2. Open Left SFA and Popliteal Artery Thrombectomy with 4 Billy 3. Open Left Tibial Thrombectomy with 2 Billy 4. Extensive Left SFA and under Endarterectomy and Revision of Left Femoral Aortobifemoral Bypass Anastomosis with Bovine Pericardial Patch Angioplasty 5. Completion left lower extremity Arteriogram 6. Radiologic Supervision with Interpretation Surgeon: Alejo Flannery M.D. Business Excellence Leader: None Anesthesia: Gen. Endotracheal Anesthesia EBL: 200 mL Counts: Correct Complications: None Condition: Stable Findings: Occlusion of the left common femoral artery with thrombus and plaque. Significant amount of thrombus within the distal external iliac artery. The left SFA and profunda origins were near totally occluded with plaque. After intervention the completion arteriogram demonstrated in-line flow into the posterior tibial artery which was patent into the foot. Specimen: Thrombus from the left external iliac, common femoral, SFA, popliteal artery, and tibial vessels. Left SFA and profunda plaque. All specimen was sent to pathology. Indication: The patient is a 57-year-old female who underwent an aortobifemoral bypass in December 2017 and has been experiencing 3 weeks of progressively worsening pain in her left lower extremity. This progressed to rest pain in her left leg yesterday so she presented to an outside emergency department with these complaints. An ultrasound there suggested that she had occlusion of her left limb of her aortobifemoral bypass as she was transferred here for definitive care. Upon transfer here she had a CT of her abdomen and pelvis with runoff that demonstrated that the limb was patent however she had occlusion of the left common femoral artery as well as the SFA and popliteal arteries on the left. She was maintained on a heparin drip and offered an open operation for thrombectomy. She was given the risks, benefits, and alternative procedures and consented to the procedure. Description of Procedure: The patient was brought to the operating room and laid in supine position. After general endotracheal anesthesia was achieved she was prepped and draped in normal sterile fashion. A longitudinal incision was created in her left groin through her previous incision and extended by approximately 3 cm distally and carried down to her aortobifemoral graft using sharp dissection. The graft was dissected circumferentially and controlled using a vessel loop. Distally I dissected out the SFA circumferentially controlled this with a vessel loop and then was able to identify the profunda and was able to dissect this circumferentially controlled this with a vessel. There is systemically heparinized the patient and clamped all vessels and made an arteriotomy, using an 11 blade and Naqvi scissors, extending from the aortobifemoral graft parks onto the proximal SFA. Upon opening the artery I encountered a significant amount of thrombus overlying the bifurcation of the SFA and profunda. There was a significant amount of dense plaque at the origin of the SFA which are removed with a Borden knife and hemostat. Once I freed the plaque at the origin of the artery the remainder of the proximal SFA was free of plaque. I then removed the plaque from the profunda and passed a 2 Billy down the profunda and there was significant amount of retrograde bleeding. I flushed the profunda with heparinized saline and reclamped the artery. There was some antegrade bleeding from the external iliac and upon evaluating there was significant thrombus within the external iliac which I removed using a 6 Billy although some of the thrombus appeared to be laminated thrombus there was a significant amount of fresh thrombus within the external iliac. Once this thrombus was removed there was actually a significant amount of antegrade bleeding which was controlled using the 6 Billy and a three-way stopcock. I then made multiple passes using the 4 Billy down the SFA and popliteal artery and was able to extract a significant amount of fresh thrombus. Despite multiple passes without retrieving additional thrombus there was no evidence of retrograde bleeding. I then passed a 2 Billy which I was able to advance without resistance and easily passed blindly into the tibial vessels and extracted what appear to be thrombus from a tibial vessel there still was no evidence of backbleeding. I then injected 20 mg of TPA into the SFA and reclamped the vessel. I used a bovine pericardial patch and 2 6-0 Prolenes in running fashion to close the arteriotomy. Prior to closing the arteriotomy I flashed all vessels and flushed the arteriotomy with heparinized saline. After closing the arteriotomy I released all clamps allow flow into the lower extremity. Hemostasis within the wound was achieved with a combination of 6-0 Prolene in interrupted fashion, quick clot, and FloSeal. Once hemostasis was achieved I accessed the aortobifemoral graft limb and performed a left lower extremity arteriogram which demonstrated that the SFA and popliteal arteries were patent without significant residual thrombus. The anterior tibial artery and peroneal artery appeared to be occluded just after their origins however the posterior tibial artery appeared to be patent throughout its course and continued into the foot with adequate perfusion of the foot. Additionally the posterior tibial artery providing collateral flow of the distal anterior tibial artery which continued as a dorsalis pedis artery into the foot. After performing arteriogram I clamped the graft with a Satinsky clamp and removed the micropuncture sheath and using 6-0 Prolene in a [id number] fashion to close the puncture site. I then anesthetized the wound using 0.5% Marcaine. The wound was then closed in 3 layers using a 3-0 Vicryl in running fashion to reapproximate the deep layers, and 3-0 Vicryl in running fashion and the deep dermal layers, and a 4-0 Monocryl running fashion and the subcuticular layer. The skin was then dressed with Dermabond. The patient tolerated the procedure well. All sponge, needle, and instrument counts were correct. The patient was taken to the recovery area in stable condition.
[2018-02-17] MEDS: NITRO-BID 2% TP SCH ×2 (13:52→18:49)
[2018-02-17] MEDS: DILAUDID IV PRN ×2 (15:42→17:19)
[2018-02-17] MEDS: ceFAZolin 1 GM in NACL 0.9% 20 ML IV SCH (18:48)
[2018-02-17] MEDS ORDERED: ANCEF/NS 1 GM/50 ML 1 GM/50 ML BAG IV SCH (19:00)
[2018-02-17] MEDS: SODIUM CHLORIDE FLUSH SYRINGE 10 ML IV SCH (23:43)
[2018-02-17] MEDS: LOPRESSOR PO SCH (23:50)
[2018-02-18] MEDS: NACL 0.9% 1000 ML 1,000 ML IV SCH (01:15)
[2018-02-18 04:45] LABS: Hemoglobin 9.2 gm/dl (10.1-14.3)
[2018-02-18 05:03] LABS: BUN/Creatinine Ratio 10; Blood Urea Nitrogen 6 mg/dL (7-17); Calcium 6.4 mg/dL (8.4-10.2); Hemolysis Index 26
[2018-02-18] MEDS: NITRO-BID 2% TP SCH (05:55)
[2018-02-18] MEDS: ceFAZolin 1 GM in NACL 0.9% 20 ML IV SCH (05:58)
[2018-02-18] MEDS ORDERED: PERCOCET 5/325 PO PRN (08:22)
--- NOTE | 2018-02-18 08:39 | Progress Note ---
Assessment and Plan Patient s/p revascularization of LLE with open thrombectomy Start Eliquis and stop the Heparin gtt Start percocet and stop the MILL TENDER WASHING Consult Dr Lakisha wesley hypercoagulable workup Ambulate, possible discharge today however unlikely given patient's discomfort with movement Subjective Date of service: 02/18/18 Interval history: Patient doing well. Some left groin discomfort but left foot feel much better. Patient eager to got home. Objective - Constitutional Vitals: Vital Signs - 12hr 02/17/18 02/17/18 02/17/18 21:00 21:30 22:00 Temperature Pulse Rate 101 H 119 H 102 H Pulse Rate [ From Monitor] Respiratory 12 13 17 Rate Respiratory Rate [Left Leg] Blood Pressure 121/72 121/72 112/73 O2 Sat by Pulse 97 97 97 Oximetry 02/17/18 02/17/18 02/17/18 22:30 23:00 23:30 Temperature Pulse Rate 99 H 102 H 98 H Pulse Rate [ From Monitor] Respiratory 9 L 8 L 10 L Rate Respiratory 12 Rate [Left Leg] Blood Pressure 103/66 106/70 108/67 O2 Sat by Pulse 95 95 Oximetry 02/17/18 02/17/18 02/18/18 23:50 23:53 00:00 Temperature 98.2 F Pulse Rate 110 H 110 H Pulse Rate [ 110 H From Monitor] Respiratory 12 Rate Respiratory Rate [Left Leg] Blood Pressure 108/67 108/67 O2 Sat by Pulse 98 Oximetry 02/18/18 02/18/18 02/18/18 00:30 01:00 01:30 Temperature Pulse Rate 101 H 103 H 98 H Pulse Rate [ From Monitor] Respiratory 12 11 L 11 L Rate Respiratory Rate [Left Leg] Blood Pressure 100/69 107/66 105/67 O2 Sat by Pulse 96 Oximetry 02/18/18 02/18/18 02/18/18 02:00 02:30 02:58 Temperature Pulse Rate 98 H 95 H 95 H Pulse Rate [ From Monitor] Respiratory 10 L 10 L 12 Rate Respiratory Rate [Left Leg] Blood Pressure 105/68 107/67 107/67 O2 Sat by Pulse 95 97 97 Oximetry 02/18/18 02/18/18 02/18/18 03:00 03:30 04:00 Temperature 98.1 F Pulse Rate 96 H 99 H 100 H Pulse Rate [ 100 H From Monitor] Respiratory 13 11 L 10 L Rate Respiratory Rate [Left Leg] Blood Pressure 114/66 107/67 103/64 O2 Sat by Pulse 96 96 Oximetry 02/18/18 02/18/18 02/18/18 05:00 05:55 06:00 Temperature Pulse Rate 103 H 99 H 95 H Pulse Rate [ From Monitor] Respiratory 14 8 L Rate Respiratory Rate [Left Leg] Blood Pressure 107/68 94/57 103/59 O2 Sat by Pulse 98 94 Oximetry 02/18/18 02/18/18 07:00 08:00 Temperature 98.6 F Pulse Rate 95 H Pulse Rate [ From Monitor] Respiratory 10 L Rate Respiratory Rate [Left Leg] Blood Pressure 103/59 O2 Sat by Pulse 94 Oximetry General appearance: Present: no acute distress - Neck Neck: supple - Respiratory Respiratory effort: normal - Breasts Breasts: deferred - Cardiovascular Heart rate: 90 Rhythm: regular Extremities: normal temperature (left foot warm and well perfused with DP/PT signals ), abnormal (left groin incision C/D/I without evidence of hematoma) - Gastrointestinal General gastrointestinal: Present: soft, non-tender, non-distended - Musculoskeletal Musculoskeletal: strength equal bilaterally - Labs CBC & Chem 7: 02/18/18 03:59 02/18/18 04:00 Labs: Abnormal lab results 02/17/18 02/17/18 02/18/18 Range/Units 03:30 15:35 03:59 Hgb 9.2 L D (10.1-14.3) gm/dl Hct 30.0 L D (30.3-42.9) % Heparin Anti-Xa Level 0.96 H (0.3-0.7) U.I./ml Carbon Dioxide (22-30) mmol/L BUN (7-17) mg/dL Creatinine (0.7-1.2) mg/dL Calcium (8.4-10.2) mg/dL Crossmatch See Detail 02/18/18 Range/Units 04:00 Hgb (10.1-14.3) gm/dl Hct (30.3-42.9) % Heparin Anti-Xa Level (0.3-0.7) U.I./ml Carbon Dioxide 21 L (22-30) mmol/L BUN 6 L (7-17) mg/dL Creatinine 0.6 L (0.7-1.2) mg/dL Calcium 6.4 L D (8.4-10.2) mg/dL Crossmatch
[2018-02-18] MEDS: SODIUM CHLORIDE FLUSH SYRINGE 10 ML IV SCH (08:41)
--- NOTE | 2018-02-18 09:21 | Consultation ---
History of Present Illness Consult date: 02/18/18 Reason for consult: other (left iliofemoral occlusion status post revascularization, COPD) History of present illness: 57-year-old female admitted to the hospital on transfer from [facility] After she presented with acute left lower extremity pain. The patient reported history of vascular procedure with revascularized fixation of the iliofemoral area last December.. She presented with acute pain and numbness, consistent with occlusion. She was transferred here in the weekend and underwent revascularization by Dr. Flannery. Currently seeing due to ICU admission. On heparin drip plus [employer] for pain. No pain reported on all she still has some numbness in the foot area but overall feels better. No bleeding reported. Past History Past Medical History: COPD, hypertension, hyperlipidemia, PVD Past Surgical History: Other (aortobifemoral bypass,) Social history: , smoking Medications and Allergies Allergies Allergy/AdvReac Type Severity Reaction Status Date / Time lisinopril Allergy Unknown Verified 12/23/17 01:05 prochlorperazine AdvReac Unknown Verified 12/19/17 15:27 [From Compazine] Home Medications Medication Instructions Recorded Confirmed Last Taken Type Aspirin [Aspirin BABY CHEW TAB] 81 mg PO QDAY #30 tab.chew 12/29/17 Unknown Rx AtorvaSTATin [Lipitor] 40 mg PO QHS #30 tablet 12/29/17 Unknown Rx Docusate Sodium [Colace] 100 mg PO BID PRN #30 capsule 12/29/17 Unknown Rx Metoprolol [Lopressor TAB] 12.5 mg PO BID #60 tablet 12/29/17 Unknown Rx amLODIPine [Norvasc] 10 mg PO QDAY #30 tablet 12/29/17 Unknown Rx oxyCODONE /ACETAMINOPHEN [Percocet 2 tab PO Q6H PRN #30 tablet 12/29/17 Unknown Rx 5/325 mg] Active Meds: Active Medications Amlodipine Besylate (Norvasc) 10 mg PO DAILY [facility] Apixaban (Eliquis) 10 mg PO Q12HR [facility]; Protocol Stop: 02/24/18 22:01 Aspirin (Baby Aspirin) 81 mg PO QDAY [facility] Atorvastatin Calcium (Lipitor) 40 mg PO QHS [facility] Last Admin: 02/17/18 23:50 Dose: 40 mg Metoprolol Tartrate (Lopressor) 12.5 mg PO BID [facility] Last Admin: 02/17/18 23:50 Dose: 12.5 mg Ondansetron HCl (Zofran) 4 mg IV Q8H PRN PRN Reason: Nausea And Vomiting Oxycodone/Acetaminophen (Percocet 5/325) 1 tab PO Q4H PRN PRN Reason: Pain, Moderate (4-6) Physical Examination Vital signs: Vital Signs Temp 98.4 F 02/17/18 01:30 General appearance: no acute distress, alert Eyes: non-icteric ENT: oropharynx moist Neck: supple Ascultation: Bilateral: clear, diminished breath sounds Cardiovascular: regular rate and rhythm Gastrointestinal: normoactive bowel sounds, non-distended Integumentary: normal, other (surgical wound looks clean, no bleeding) Extremities: no cyanosis, other (still some moist tone in the distal plantar surface, comatose. Otherwise warm fair pulses) normal mental status, non-focal exam Results - Laboratory Findings CBC and BMP: 02/18/18 03:59 02/18/18 04:00 PT/INR, D-dimer PT 14.5 Sec. (12.2-14.9) 02/17/18 03:30 INR 1.07 (0.87-1.13) 02/17/18 03:30 Abnormal lab findings: Abnormal Labs 02/16/18 02/16/18 02/17/18 03:30 03:30 03:30 WBC 11.8 H Hgb Hct 44.2 H RDW 18.4 H Plt Count 130 L Trinity % (Auto) 12.0 H Trinity # 1.4 H Heparin Anti-Xa Level Carbon Dioxide BUN 4 L Creatinine 0.6 L Calcium 8.2 L Crossmatch See Detail 02/17/18 02/18/18 02/18/18 15:35 03:59 04:00 WBC Hgb 9.2 L D Hct 30.0 L D RDW Plt Count Trinity % (Auto) Trinity # Heparin Anti-Xa Level 0.96 H Carbon Dioxide 21 L BUN 6 L Creatinine 0.6 L Calcium 6.4 L D Crossmatch Assessment and Plan Left lower extremity thrombosis status post open revascularization COPD per history Recommendations Initiate Eliquis as per vascular surgery discontinue heparin drip If no additional need for close monitoring, transfer outside the ICU after the above We'll continue monitoring well patient to the ICU and sign off once transferred.
[2018-02-18] MEDS: LOPRESSOR PO SCH (09:46)
[2018-02-18] MEDS ORDERED: ELIQUIS PO SCH (10:00)
[2018-02-18] MEDS ORDERED: BABY ASPIRIN PO SCH (10:00)
[2018-02-18] MEDS ORDERED: NORVASC PO SCH ×2 (10:00)
[2018-02-18 11:17] VITALS: BP 119/74
--- NOTE | 2018-02-18 15:41 | Discharge Summary ---
Providers - Providers Date of Admission: 02/17/18 01:43 Date of discharge: 02/18/18 Attending physician: KIRSTIE SOUZA 02/17/18 00:07 Consult to Physician [CONS] Routine Comment: Consulting Provider: BRENT SERRANO Physician Instructions: Reason For Exam: Medical management 02/17/18 12:46 Consult to Physician [CONS] Routine Comment: Consulting Provider: ANKIT HAMMOND Physician Instructions: Reason For Exam: Critical Care Management 02/18/18 08:20 Consult to Physician [CONS] Routine Comment: Consulting Provider: REGLA GUTIERREZ Physician Instructions: office notified Reason For Exam: Hypercoagulable workup Primary care physician: [employer] Hospitalization Condition: Good Hospital course: The patient presented with worsening leg pain for which she underwent open and endovascular thrombectomy and revascularization. She is doing well following her procedure with no Disposition: DC-01 TO HOME OR SELFCARE Core Measure Documentation - Palliative Care Palliative Care/ Comfort Measures: Not Applicable - Core Measures Any of the following diagnoses?: none Exam - Constitutional Vitals: Temp Pulse Resp BP Pulse Ox 98.2 F 89 14 119/74 99 02/18/18 11:56 02/18/18 13:00 02/18/18 13:00 02/18/18 13:00 02/18/18 13:00 General appearance: Present: no acute distress - EENT Eyes: Present: PERRL ENT: hearing intact - Neck Neck: Present: supple, normal ROM - Respiratory Respiratory effort: normal - Cardiovascular Rhythm: regular - Extremities Extremities: abnormal (post surgical changes) - Abdominal General gastrointestinal: Present: deferred - Rectal Rectal Exam: deferred - Integumentary Integumentary: Present: clear - Psychiatric Psychiatric: appropriate mood/affect, cooperative Plan Activity: advance as tolerated Weight Bearing Status: Weight Bear as Tolerated Diet: low cholesterol Wound: keep clean and dry, per your surgeon's advice Follow up with: PRIMARY CAREMD [Primary Care Provider] - 7 Days
--- NOTE | 2018-02-19 01:31 | Consultation ---
REFERRING PHYSICIAN: Dr. Alejo Flannery. REASON FOR CONSULTATION: Hypercoagulable state. HISTORY OF PRESENT ILLNESS: The patient is a 57-year-old female who in 12/2017, underwent a aortobifemoral bypass. She was doing well, but started having left leg pain and she presented to the hospital. She did undergo ultrasound that suggested occlusion of the left limb of the aortofemoral bypass. She was started on heparin drip, transferred to ICU, and underwent CTA of the abdomen with runoff that demonstrated aortobifemoral bypass, was patent; however, there was occlusion of her left common femoral artery with retrograde flow in the left profunda. She underwent open left external iliac artery thrombectomy, open left SFA and popliteal artery thrombectomy, open left tibial thrombectomy with extensive left SFA and endarterectomy, and revision of the left femoral-aortobifemoral bypass anastomosis, and completion of the left lower extremity angiogram. She is currently on heparin drip and anticipated to start Eliquis. Denies that she feels better. This did have the left leg pain and left groin pain. Overall, feels fair. PAST MEDICAL HISTORY: Otherwise remarkable for COPD, hypertension, peripheral vascular disease, and hyperlipidemia. SOCIAL HISTORY: Does smoke cigarettes. She says in December, she has cut down, but still smokes here and there she states. FAMILY HISTORY: Unremarkable. She does not take any hormones. PHYSICAL EXAMINATION: GENERAL: The patient is awake and oriented. HEENT: Unremarkable. CHEST: Clear. ABDOMEN: Soft. There is left lower extremity area of tenderness where the surgery was. The patient's extremity shows a left foot to be warm. The left groin incision is unremarkable. LABORATORY DATA: The patient's hemoglobin was 9.2, hematocrit 30, her platelet count 2 days ago was 130,000. Hemoglobin then was 14.1. ASSESSMENT: 1. Peripheral vascular disease. 2. Tobacco abuse. 3. Anemia seems to be secondary to recent surgery. PLAN: At this time, we will follow her CBC again tomorrow. I will order hypercoagulable workup. The patient strongly instructed to quit smoking. I agree with Agnieszkaquis and we will see her as outpatient to discuss results of the hypercoagulable workup. JOB# [id number] YUNGS/NTS
[2018-02-20 05:02] LABS: dRVVT Confirm Negative (Negative)
[2018-02-20 12:31] LABS: Protein S, Free 64 % normal (50-147); Protein S, Total 71 % (70-140)
== END 2018-02-18 16:05 | disposition home or self-care (01) | DRG 272 ==
LOC: UNDOADMIN 22:02 → CC1 22:02
PROVIDERS: ADMIT Surgery Vascular Surgery; ATTEND Surgery Vascular Surgery
PROC: 04CJ0ZZ Extirpation of Matter from Left External Iliac Artery, Open Approach (ICD-10-PCS; principal; 2018-02-17)
PROC: 04CN0ZZ Extirpation of Matter from Left Popliteal Artery, Open Approach (ICD-10-PCS; 2018-02-17)
PROC: 04CQ0ZZ Extirpation of Matter from Left Anterior Tibial Artery, Open Approach (ICD-10-PCS; 2018-02-17)
PROC: 3E05017 Introduction of Other Thrombolytic into Peripheral Artery, Open Approach (ICD-10-PCS; 2018-02-17)
PROC: 04CL0ZZ Extirpation of Matter from Left Femoral Artery, Open Approach (ICD-10-PCS; 2018-02-17)
PROC: 04UL0KZ Supplement Left Femoral Artery with Nonautologous Tissue Substitute, Open Approach (ICD-10-PCS; 2018-02-17)
DX: I99.8 Other disorder of circulatory system (principal); J44.9 Chronic obstructive pulmonary disease, unspecified; I10 Essential (primary) hypertension; E78.5 Hyperlipidemia, unspecified; Z87.891 Personal history of nicotine dependence; I73.9 Peripheral vascular disease, unspecified; Z79.82 Long term (current) use of aspirin
CPT/HCPCS: 36415; 75635; 75710; 80048; 83516; 85014; 85018; 85025; 85210; 85220; 85305; 85520; 85610; 85613; 85730; 86850; 86900; 86901; 86920; 88304; 94760; A4649; A9270-GY; C1757; C1768; J0690; J1170; J1644; J2370; J2405; J2704; J2710; J2997; J7030; J7040; Q9966; Q9967

== ENCOUNTER 2018-04-17 12:26 | Inpatient (IN) | payer OTHER ==
--- NOTE | 2018-04-17 15:40 | Event Note ---
Date: 04/17/18 The patient is found to have an acute arterial thrombosis. Dr. Vazquez of vascular surgery will consult on the patient and provide catheter directed lysis therapy. He requests medical team to admit. Nursing team has been instructed to bring the patient back to the emergency room as soon as possible for definitive management. [facility] 1960 [id number] 04/17/18 15:11 - Radiology Dept. [facility]: [id number] : 1960 Patient Age: 57 LLE ARTERIAL DUPLEX COMPLETED. VAS LAB PRELIMINARY REPORT; LT. SFA, POP ART NOTED TO BE OCCLUDED (NO-FLOW NOTED). PHYSICIANS REPORT TO FOLLOW...(RSK) Initialized on 04/17/18 15:11 - END OF NOTE
[2018-04-17] MEDS ORDERED: ZOFRAN IV ONE (15:54)
[2018-04-17] MEDS ORDERED: DILAUDID IV ONE (15:54)
--- NOTE | 2018-04-17 15:59 | Emergency Department Report ---
ED Extremity Problem HPI - General Chief complaint: Extremity Problem,Nontraumatic Stated complaint: LEFT LEG/ FOOT PAIN Time Seen by Provider: 04/17/18 15:42 Source: patient, old records reviewed Mode of arrival: Ambulatory Limitations: No Limitations - History of Present Illness Initial comments: 57-year-old female with a past medical history of PAD status post left femoral popliteal thrombectomy 02/18/2018, COPD, and hypertension presents to the hospital complaining of progressively worsening left leg pain for the last several weeks. Patient is currently on Eliquis and aspirin 81 mg daily. She ran out of aspirin 3 days ago. Patient complains of pain to her foot and distal leg. Patient had a Doppler arterial ultrasound prior to my evaluation and I confirmed the occlusion to the left SFA and popliteal artery. Dr. Espinosa has seen the patient and arranged for [facility] this evening. He requests heparin without bolus. - Related Data Previous Rx's Medication Instructions Recorded Last Taken Type Aspirin [Aspirin BABY CHEW TAB] 81 mg PO QDAY #30 tab.chew 12/29/17 Unknown Rx AtorvaSTATin [Lipitor] 40 mg PO QHS #30 tablet 12/29/17 Unknown Rx Docusate Sodium [Colace] 100 mg PO BID PRN #30 capsule 12/29/17 Unknown Rx Metoprolol [Lopressor TAB] 12.5 mg PO BID #60 tablet 12/29/17 Unknown Rx amLODIPine [Norvasc] 10 mg PO QDAY #30 tablet 12/29/17 Unknown Rx oxyCODONE /ACETAMINOPHEN [Percocet 2 tab PO Q6H PRN #30 tablet 12/29/17 Unknown Rx 5/325 mg] oxyCODONE /ACETAMINOPHEN [Percocet 1 tab PO Q4HR PRN #40 tab 02/18/18 Unknown Rx 5/325] Allergies Allergy/AdvReac Type Severity Reaction Status Date / Time lisinopril Allergy Unknown Verified 12/23/17 01:05 prochlorperazine AdvReac Unknown Verified 12/19/17 15:27 [From Compazine] ED Review of Systems ROS: Stated complaint: LEFT LEG/ FOOT PAIN Other details as noted in HPI Comment: All other systems reviewed and negative ED Past Medical Hx - Past Medical History Hx Hypertension: Yes Hx Heart Attack/AMI: No Hx Congestive Heart Failure: No Hx Diabetes: No Hx Deep Vein Thrombosis: Yes Hx Renal Disease: No Hx Seizures: No Hx Asthma: No Hx COPD: Yes (DOES NOT USE INHALERS AT HOME) - Surgical History Past Surgical History?: Yes Additional Surgical History: Thrombectomy to left femoral and popliteal arteries 03/06 - Social History Smoking Status: Current Every Day Smoker Substance Use Type: None - Medications Home Medications: Home Medications Medication Instructions Recorded Confirmed Last Taken Type Aspirin [Aspirin BABY CHEW TAB] 81 mg PO QDAY #30 tab.chew 12/29/17 Unknown Rx AtorvaSTATin [Lipitor] 40 mg PO QHS #30 tablet 12/29/17 Unknown Rx Docusate Sodium [Colace] 100 mg PO BID PRN #30 capsule 12/29/17 Unknown Rx Metoprolol [Lopressor TAB] 12.5 mg PO BID #60 tablet 12/29/17 Unknown Rx amLODIPine [Norvasc] 10 mg PO QDAY #30 tablet 12/29/17 Unknown Rx oxyCODONE /ACETAMINOPHEN [Percocet 2 tab PO Q6H PRN #30 tablet 12/29/17 Unknown Rx 5/325 mg] oxyCODONE /ACETAMINOPHEN [Percocet 1 tab PO Q4HR PRN #40 tab 02/18/18 Unknown Rx 5/325] ED Physical Exam - General Limitations: No Limitations - Other Other exam information: General: No limitations, patient is alert in no acute distress Head exam: Atraumatic, normocephalic Eyes exam: Normal appearance ENT: Moist mucous membrane, normal oropharynx Neck exam: Normal inspection, full range of motion, no meningismus nontender Respiratory exam: Clear to auscultation bilateral, no wheezes, rales, crackles Cardiovascular: Normal rate and rhythm, normal heart sounds Abdomen: Soft, nondistended, and nontender, with normal bowel sounds, no rebound, or guarding Extremity: Bluish discoloration to the left total and distal foot. Mild coolness compared to the right. Pain with light palpation to the foot and distal leg. No edema or asymmetry Back: Normal Inspection, full range of motion, no tenderness Neurologic: Alert, oriented x3, cranial nerves intact, no motor or sensory deficit Psychiatric: normal affect, normal mood Skin: Warm, dry, intact ED Course Vital Signs 04/17/18 12:49 Temperature 98 F Pulse Rate 109 H Respiratory 16 Rate Blood Pressure 105/69 O2 Sat by Pulse 99 Oximetry ED Medical Decision Making - Differential Diagnosis arterial occlusion, rhabdo Critical Care Time: No Critical care attestation.: If time is entered above; I have spent that time in minutes in the direct care of this critically ill patient, excluding procedure time. ED Disposition Clinical Impression: Arterial occlusion, lower extremity, History of aorto-femoral bypass Disposition: OP ADMIT IP TO THIS HOSP Is pt being admited?: Yes Condition: Stable Time of Disposition: 16:05 (Dr Lagos/[facility] [place])
[2018-04-17] MEDS ORDERED: HEPARIN/ 0.45% NACL-25,000 UNIT/500 ML 25,000 UNIT/500 ML BAG IV SCH (16:00)
[2018-04-17 16:17] LABS: Basophils # (Auto) 0.1 K/mm3 (0.0-0.1); Basophils % (Auto) 1.2 % (0.0-1.8); Eosinophils # (Auto) 0.1 K/mm3 (0.0-0.4); Hematocrit 45.5 % (30.3-42.9); Hemoglobin 14.4 gm/dl (10.1-14.3); Lymphocytes # (Auto) 2.3 K/mm3 (1.2-5.4); Lymphocytes % (Auto) 17.5 % (13.4-35.0); Mean Corpuscular HGB Conc 32 % (30-34); Mean Corpuscular Hemoglobin 28 pg (28-32); Mean Corpuscular Volume 88 fl (79-97); Monocytes # (Auto) 1.2 K/mm3 (0.0-0.8); Monocytes % (Auto) 9.5 % (0.0-7.3); Platelet Count 317 K/mm3 (140-440); Red Blood Count 5.17 M/mm3 (3.65-5.03); Red Cell Distribution Width 15.9 % (13.2-15.2)
--- NOTE | 2018-04-17 16:23 | History and Physical Report ---
History of Present Illness Chief complaint: My left leg hurts History of present illness: 57 YO Female with COPD, HTN, DVT, Nicotine Dependence, PAD S/P Left Popliteal Thrombectomy on therapeutic anticoagulation presents to ED for evaluation. Pt states that she has experienced left leg pain over the past 3 weeks, with worsening symptoms over the past 2 days. Pt seen and evaluated in ED and found to have LLE ischemia. Patient had a Doppler arterial ultrasound to LLE and was found to have occluded SFA and popliteal artery. Vascular service consulted. Pt to be taken urgently to labor arbitrator for intervention. Pt denies fever, chills, CP, Palpitations, NVD, syncope, BRBPR, vertigo, unintentional weight loss, or night sweats. Pt admitted to ICU and placed on Heparin drip. Past History Past Medical History: COPD, DVT, hypertension Past Surgical History: Other (thrombectomy]) Social history: , lives with family, smoking Family history: hypertension Medications and Allergies Allergies Allergy/AdvReac Type Severity Reaction Status Date / Time lisinopril Allergy Unknown Verified 12/23/17 01:05 prochlorperazine AdvReac Unknown Verified 12/19/17 15:27 [From Compazine] Home Medications Medication Instructions Recorded Confirmed Last Taken Type Metoprolol [Lopressor TAB] 12.5 mg PO BID #60 tablet 12/29/17 04/17/18 04/17/18 09:30 Rx amLODIPine [Norvasc] 10 mg PO QDAY #30 tablet 12/29/17 04/17/18 04/17/18 09:30 Rx Apixaban [Eliquis] 5 mg PO BID 04/17/18 04/17/18 04/17/18 09:30 History 5mg Aspirin EC [Aspirin Enteric Coated 81 mg PO QDAY 04/17/18 04/17/18 04/14/18 History TAB] 81mg Active Meds: Active Medications Sodium Chloride (Nacl 0.9% 1000 Ml) 1,000 mls @ 30 mls/hr IV DIRECT DINESH Sodium Chloride (Nacl 0.9% 1000 Ml) 1,000 mls @ 30 mls/hr SHEATH DIRECT DINESH Sodium Chloride (Nacl 0.9% 1000 Ml) 1,000 mls @ 35 mls/hr EKOSCLUMEN DIRECT DINESH Heparin Sodium/Sodium Chloride (Heparin/ 0.45% Nacl-25,000 Unit/500 Ml) 25,000 unit in 500 mls @ 10 mls/hr SHEATH DIRECT DINESH; Protocol Alteplase, Recombinant 20 mg/ (Sodium Chloride) 500 mls @ 25 mls/hr EKOSDLUMEN DIRECT DINESH Review of Systems Constitutional: no weight loss, no weight gain, no fever, no chills Ears, nose, mouth and throat: no ear pain, no ear discharge, no tinnitis, no decreased hearing Breasts: no change in shape, no swelling, no mass Cardiovascular: no chest pain, no orthopnea, no palpitations, no edema, no syncope Respiratory: no cough, no cough with sputum, no excessive sputum, no hemoptysis , no shortness of breath Gastrointestinal: no nausea, no vomiting, no diarrhea, no constipation Genitourinary Female: no pelvic pain, no flank pain, no menorrhagia, no dysuria , no urinary frequency, no urgency Rectal: no pain, no incontinence, no bleeding Musculoskeletal: other (left leg pain), no neck stiffness, no neck pain, no shooting arm pain, no arm numbness/tingling, no low back pain, no shooting leg pain Integumentary: no pruritis, no redness, no sores, no wounds, no jaundice Neurological: no head injury, no transient paralysis, no paralysis, no weakness , no parathesias, no numbness, no tingling, no seizures Psychiatric: no anxiety, no memory loss, no change in sleep habits, no sleep disturbances, no insomnia Endocrine: no cold intolerance, no heat intolerance, no polyphagia, no excessive thirst, no polydipsia, no polyuria Hematologic/Lymphatic: no easy bruising, no easy bleeding, no lymphadenopathy, no lymphedema Allergic/Immunologic: no urticaria, no allergic rhinitis, no wheezing, no persistent infections, no anaphylaxis Exam - Constitutional Vitals: Temp Pulse Resp BP Pulse Ox 98 F 109 H 16 105/69 99 04/17/18 12:49 04/17/18 12:49 04/17/18 12:49 04/17/18 12:49 04/17/18 12:49 General appearance: Present: mild distress - EENT Eyes: Present: PERRL ENT: hearing intact, clear oral mucosa - Neck Neck: Present: supple, normal ROM - Respiratory Respiratory effort: normal Respiratory: bilateral: diminished - Cardiovascular Heart Sounds: Present: S1 & S2. Absent: rub, click - Extremities Extremity abnormal: cyanosis, cold, tenderness Peripheral Pulses: abnormal (fiminished to LLE) - Abdominal General gastrointestinal: Present: soft, non-tender, non-distended, normal bowel sounds Female genitourinary: Present: normal - Integumentary Integumentary: Present: clear, warm, dry - Musculoskeletal Musculoskeletal: gait normal, strength equal bilaterally - Psychiatric Psychiatric: appropriate mood/affect, intact judgment & insight - Neurologic Neurologic: CNII-XII intact, moves all extremities Results - Labs CBC & Chem 7: 04/17/18 18:56 04/17/18 15:53 Labs: Abnormal lab results 04/17/18 Range/Units 15:53 WBC 12.9 H (4.5-11.0) K/mm3 RBC 5.17 H (3.65-5.03) M/mm3 Hgb 14.4 H (10.1-14.3) gm/dl Hct 45.5 H (30.3-42.9) % RDW 15.9 H (13.2-15.2) % Wagoner % (Auto) 9.5 H (0.0-7.3) % Wagoner # 1.2 H (0.0-0.8) K/mm3 Seg Neutrophils % 70.8 H (40.0-70.0) % Seg Neutrophils # 9.2 H (1.8-7.7) K/mm3 Assessment and Plan - Patient Problems (1) Arterial insufficiency of lower extremity Current Visit: No Status: Acute Plan to address problem: Vascular surgery consulted, Heparin drip initiated, Pt admitted to ICU. Pt downgraded to telemetry postoperatively, The high probability of a clinically significant, sudden or life threatening deterioration of the [vascular, renal, neuro] system(s) required my full and direct attention, intervention and personal management. The aggregate critical care time was [65] minutes. This time is in addition to time spent performing reported procedures but includes the following: [x] Data Review and interpretation [x] Patient assessment and monitoring of vital signs [x] Documentation [x] Medication orders and management (2) Nicotine dependence unspecified, with withdrawal Current Visit: Yes Status: Acute Qualifiers: Nicotine product type: cigarettes Qualified Code(s): F17.213 - Nicotine dependence, cigarettes, with withdrawal Plan to address problem: Smoking cessation counseling, Pt declines quit date at this time (3) COPD (chronic obstructive pulmonary disease) Current Visit: Yes Status: Acute Qualifiers: Chronic bronchitis type: mixed simple and mucopurulent Plan to address problem: supplemental oxygen, nebulizer therapy, NIPPV as clinically indicated. (4) HTN (hypertension) Current Visit: Yes Status: Acute Qualifiers: Hypertension type: essential hypertension Qualified Code(s): I10 - Essential (primary) hypertension Plan to address problem: monitor bp q shift. (5) DVT prophylaxis Current Visit: Yes Status: Acute Plan to address problem: scd to ble while in bed.
[2018-04-17 16:28] LABS: INR 1.58 (0.87-1.13)
[2018-04-17 16:29] LABS: Partial Thromboplastin Time 36.7 Sec. (24.2-36.6)
[2018-04-17] MEDS ORDERED: COLACE PO PRN (16:37)
[2018-04-17] MEDS ORDERED: SODIUM CHLORIDE FLUSH SYRINGE 10 ML IV PRN (16:40)
--- NOTE | 2018-04-17 16:56 | Consultation ---
History of Present Illness - Reason for Consult Consult date: 04/17/18 Ischemic left leg - History of Present Illness Patient is well-known to our services status post aortobifem recently on 2017 underwent revision of her femoral anastomosis on the left. At that time, the patient had in-line flow to her SFA and popliteal artery into the foot. Subsequently, the patient developed worsening pain which is now developed into rest pain. An ultrasound performed on the patient's ER visit demonstrates occlusion of her SFA and popliteal artery. Past History Past Medical History: PVD Past Surgical History: Other (aortobifem) Social history: no significant social history Family history: no significant family history Medications and Allergies Allergies Allergy/AdvReac Type Severity Reaction Status Date / Time lisinopril Allergy Unknown Verified 12/23/17 01:05 prochlorperazine AdvReac Unknown Verified 12/19/17 15:27 [From Compazine] Home Medications Medication Instructions Recorded Confirmed Last Taken Type Aspirin [Aspirin BABY CHEW TAB] 81 mg PO QDAY #30 tab.chew 12/29/17 Unknown Rx AtorvaSTATin [Lipitor] 40 mg PO QHS #30 tablet 12/29/17 Unknown Rx Docusate Sodium [Colace] 100 mg PO BID PRN #30 capsule 12/29/17 Unknown Rx Metoprolol [Lopressor TAB] 12.5 mg PO BID #60 tablet 12/29/17 Unknown Rx amLODIPine [Norvasc] 10 mg PO QDAY #30 tablet 12/29/17 Unknown Rx oxyCODONE /ACETAMINOPHEN [Percocet 2 tab PO Q6H PRN #30 tablet 12/29/17 Unknown Rx 5/325 mg] oxyCODONE /ACETAMINOPHEN [Percocet 1 tab PO Q4HR PRN #40 tab 02/18/18 Unknown Rx 5/325] Active Meds: Active Medications Amlodipine Besylate (Norvasc) 10 mg PO QDAY DINESH Aspirin (Baby Aspirin) 81 mg PO QDAY DINESH Atorvastatin Calcium (Lipitor) 40 mg PO QHS DINESH Docusate Sodium (Colace) 100 mg PO BID PRN PRN Reason: Constipation Sodium Chloride (Nacl 0.9% 1000 Ml) 1,000 mls @ 30 mls/hr IV DIRECT DINESH Sodium Chloride (Nacl 0.9% 1000 Ml) 1,000 mls @ 30 mls/hr SHEATH DIRECT DINESH Sodium Chloride (Nacl 0.9% 1000 Ml) 1,000 mls @ 35 mls/hr EKOSCLUMEN DIRECT DINESH Heparin Sodium/Sodium Chloride (Heparin/ 0.45% Nacl-25,000 Unit/500 Ml) 25,000 unit in 500 mls @ 10 mls/hr SHEATH DIRECT DINESH; Protocol Last Admin: 04/17/18 16:24 Dose: 500 units/hr, 10 mls/hr Alteplase, Recombinant 20 mg/ (Sodium Chloride) 500 mls @ 25 mls/hr EKOSDLUMEN DIRECT DINESH Metoprolol Tartrate (Lopressor) 12.5 mg PO BID DINESH Oxycodone/Acetaminophen (Percocet 5/325) 1 tab PO Q4HR PRN PRN Reason: Pain Sodium Chloride (Sodium Chloride Flush Syringe 10 Ml) 10 ml IV BID DINESH Sodium Chloride (Sodium Chloride Flush Syringe 10 Ml) 10 ml IV PRN PRN PRN Reason: LINE FLUSH Review of Systems All systems: negative Exam - Constitutional Vitals: Temp Pulse Resp BP Pulse Ox 97.8 F 91 H 12 121/97 97 04/17/18 16:45 04/17/18 16:45 04/17/18 16:45 04/17/18 16:45 04/17/18 16:45 General appearance: Present: no acute distress - EENT Eyes: Present: PERRL ENT: hearing intact - Neck Neck: Present: supple, normal ROM - Respiratory Respiratory effort: normal - Extremities Extremities: abnormal - Abdominal General gastrointestinal: Present: deferred Female genitourinary: Present: deferred - Rectal Rectal Exam: deferred - Musculoskeletal Musculoskeletal: strength equal bilaterally - Psychiatric Psychiatric: appropriate mood/affect, cooperative - Neurologic Neurologic: no focal deficits Results - Labs CBC & Chem 7: 04/17/18 15:53 Labs: Abnormal lab results 04/17/18 04/17/18 Range/Units 15:53 15:53 WBC 12.9 H (4.5-11.0) K/mm3 RBC 5.17 H (3.65-5.03) M/mm3 Hgb 14.4 H (10.1-14.3) gm/dl Hct 45.5 H (30.3-42.9) % RDW 15.9 H (13.2-15.2) % [place] % (Auto) 9.5 H (0.0-7.3) % [place] # 1.2 H (0.0-0.8) K/mm3 Seg Neutrophils % 70.8 H (40.0-70.0) % Seg Neutrophils # 9.2 H (1.8-7.7) K/mm3 PT 19.8 H (12.2-14.9) Sec. INR 1.58 H (0.87-1.13) APTT 36.7 H (24.2-36.6) Sec. Fibrinogen 496 H (211-480) mg/dl - Imaging and Cardiology Venous US: image reviewed Assessment and Plan The patient will be brought to the cardiac [facility] for placement of a thrombolytics catheter today followed by angiography tomorrow.
[2018-04-17] MEDS ORDERED: NACL 0.9% 1000 ML 1,000 ML SHEATH SCH (17:00)
[2018-04-17] MEDS ORDERED: HEPARIN/ 0.45% NACL-25,000 UNIT/500 ML 25,000 UNIT/500 ML BAG SHEATH SCH (17:00)
[2018-04-17] MEDS ORDERED: NACL 0.9% 1000 ML 1,000 ML EKOSCLUMEN SCH (17:00)
[2018-04-17] MEDS ORDERED: NACL 0.9% 1000 ML 1,000 ML IV SCH (17:00)
[2018-04-17] MEDS ORDERED: CATHFLO 20 MG in NACL 0.9% 500 ML 500 ML EKOSDLUMEN SCH (17:00)
[2018-04-17] MEDS ORDERED: HEPARIN/NS 5000 UNIT/500ML(CATH LAB) 500 ML IR ONE ×2 (17:47→18:17)
[2018-04-17] MEDS ORDERED: HEPARIN 10,000 UNITS/10 ML ONE (17:47)
[2018-04-17] MEDS ORDERED: NACL 0.9% 500 ML 500 ML ONE (17:48)
[2018-04-17] MEDS ORDERED: XYLOCAINE 2% INFILTRATI ONE (17:48)
[2018-04-17] MEDS: VERSED ONE ×2 (17:54→18:15)
[2018-04-17] MEDS: SUBLIMAZE ONE ×2 (17:54→18:15)
--- NOTE | 2018-04-17 19:03 | Operative Report ---
Operative Report Operative Report: EXAM: LEFT LOWER EXTREMITY ANGIOGRAM WITH ANGIOPLASTY OF THE PROFUNDA CLINICAL INDICATION: PATIENT WITH ISCHEMIC REST PAIN DATE: 04/17/2018 PROCEDURE: Following an expiration of the risks, benefits and alternatives; written informed consent was obtained. Patient was brought to the angiographic suite and placed in supine position on the examination table. Initial evaluation of her left groin demonstrated a patent left common femoral artery at the patch site. The patient's left groin was prepped and draped in usual sterile fashion. 1% lidocaine was used for anesthesia. Under ultrasound guidance, the left common femoral artery patch was accessed proximally and an antegrade fashion with a 7 cm 21-gauge needle. A 0.018 guidewire was advanced down the profunda the needle was removed and a micro- sheath placed. The 0.018 guidewire was exchanged for a 0.035 guidewire and the micro-sheath exchanged for a 6 [place] vascular sheath. Contrast was injected through the sheath which demonstrates filling of the profunda. Images obtained were distally in the leg demonstrated no named vessels other than the profunda. A variety of catheters and guidewires were utilized in an attempt to cannulate these suspected opening of the SFA without success. Ultimately, an 80% stenosis within the profunda proximally was identified. This was crossed with a 0.018 guidewire and angioplasty performed with the 4 mm balloon. Post angioplasty imaging demonstrated reduction of the stenosis to less than 10%. The catheters, guidewires and sheaths were removed and hemostasis achieved using minks arterial closure device. Compression dressing was also placed. Patient tolerated the procedure well. There were no immediate post procedure complications. Conscious sedation was performed under the guidance of radiologic nursing. Continuous cardiopulmonary monitoring was utilized. IMPRESSION: 1) Left lower extremity angiography demonstrating flush occlusion of the SFA and no named blood vessels below the profunda. 2) Profunda angioplasty as described.
[2018-04-17 19:25] LABS: Hematocrit 40.5 % (30.3-42.9); Hemoglobin 12.9 gm/dl (10.1-14.3)
[2018-04-17 19:34] LABS: INR 1.87 (0.87-1.13)
[2018-04-17 19:35] LABS: Partial Thromboplastin Time 42.4 Sec. (24.2-36.6)
[2018-04-17] MEDS ORDERED: HEPARIN/ 0.45% NACL-25,000 UNIT/500 ML 25,000 UNIT/500 ML BAG ONE (19:39)
[2018-04-17] MEDS ORDERED: PERCOCET 5/325 ONE (19:40)
[2018-04-17] MEDS: PERCOCET 5/325 PO PRN (19:44)
[2018-04-17] MEDS: HEPARIN/ 0.45% NACL-25,000 UNIT/500 ML 25,000 UNIT/500 ML BAG IV SCH (19:48)
[2018-04-17] MEDS: LOPRESSOR PO SCH (22:48)
[2018-04-17] MEDS: SODIUM CHLORIDE FLUSH SYRINGE 10 ML IV SCH (22:48)
[2018-04-18] MEDS: PERCOCET 5/325 PO PRN ×3 (00:05→20:52)
[2018-04-18] MEDS: SODIUM CHLORIDE FLUSH SYRINGE 10 ML IV SCH ×2 (10:00→21:31)
[2018-04-18 10:58] LABS: Calcium 8.2 mg/dL (8.4-10.2)
[2018-04-18] MEDS ORDERED: NACL 0.9% 1000 ML 1,000 ML IV SCH (12:00)
[2018-04-18] MEDS: LOPRESSOR PO SCH ×2 (16:07→21:30)
[2018-04-18] MEDS: NORVASC PO SCH (16:08)
[2018-04-18] MEDS: BABY ASPIRIN PO SCH (16:09)
--- NOTE | 2018-04-18 16:41 | Progress Note ---
Assessment and Plan 57-year-old female with aortobifemoral bypass with complication 2 months ago of left lower extremity ischemia status post thrombectomy, endarterectomy, and TPA injection with taoism of flow. Patient has not followed up and her care has been hindered by lack of follow-up secondary to lack of insurance. 2 months ago, since her revision, she had short distance claudication, and 3 weeks ago this converted to rest pain with numbness of the forefoot. On physical exam she has nonpalpable bilateral pedal pulses. ABIs obtained demonstrating 0.5 TONY of the right lower extremity and no TONY of the left lower extremity. Dr. Vazquez attempted revascularization yesterday, but no suitable vessel was available for recanalization, and the thrombus was not acute making recanalization difficult. I discussed with her that the best course of action would be to obtain a CT angiogram to attempt to delineate her anatomy. Her creatinine is elevated today. IV fluids will be provided. Continue IV heparin. Plan for CT angiogram tomorrow if creatinine improves. Subjective Date of service: 04/18/18 Interval history: Rest pain and left lower extremity. This is been present for 3 weeks. 3 weeks of numbness of the left toes. Full motor function. Nonpalpable pedal pulses. Discussion with family about possible options. Objective - Constitutional Vitals: Vital Signs - 12hr 04/18/18 04/18/18 04/18/18 07:14 16:07 16:08 Temperature 97.9 F Pulse Rate 76 Respiratory 18 Rate Blood Pressure 92/61 96/63 96/63 O2 Sat by Pulse 98 Oximetry General appearance: Present: no acute distress - EENT Eyes: EOM intact ENT: hearing intact - Respiratory Respiratory effort: normal Extremity abnormal: pulses diminished (nonpalpable pedal pulses), other (cool left toes, warm right lower extremity, motor function intact bilaterally, numbness of left forefoot for 3 weeks) - Gastrointestinal General gastrointestinal: Present: soft, non-tender - Psychiatric Psychiatric: appropriate mood/affect, cooperative - Labs CBC & Chem 7: 04/17/18 18:56 04/18/18 10:22 Labs: Abnormal lab results 04/17/18 04/17/18 04/17/18 Range/Units 15:53 15:53 18:56 PT 22.7 H (12.2-14.9) Sec. INR 1.87 H (0.87-1.13) APTT 42.4 H (24.2-36.6) Sec. Heparin Anti-Xa Level (0.3-0.7) U.I./ml Sodium 136 L (137-145) mmol/L Chloride 97.0 L (98-107) mmol/L Carbon Dioxide 19 L (22-30) mmol/L BUN (7-17) mg/dL Creatinine 1.3 H (0.7-1.2) mg/dL Glucose 114 H (65-100) mg/dL Lactic Acid 3.40 H* (0.7-2.0) mmol/L Calcium (8.4-10.2) mg/dL Total Creatine Kinase 190 H (30-135) units/L 04/18/18 04/18/18 04/18/18 Range/Units 00:48 07:42 10:22 PT (12.2-14.9) Sec. INR (0.87-1.13) APTT (24.2-36.6) Sec. Heparin Anti-Xa Level 2.00 H > 2.00 H (0.3-0.7) U.I./ml Sodium 134 L (137-145) mmol/L Chloride (98-107) mmol/L Carbon Dioxide 21 L (22-30) mmol/L BUN 18 H (7-17) mg/dL Creatinine (0.7-1.2) mg/dL Glucose (65-100) mg/dL Lactic Acid (0.7-2.0) mmol/L Calcium 8.2 L D (8.4-10.2) mg/dL Total Creatine Kinase (30-135) units/L
[2018-04-19] MEDS: PERCOCET 5/325 PO PRN ×4 (03:22→20:20)
[2018-04-19 05:52] LABS: Hematocrit 36.7 % (30.3-42.9); Hemoglobin 11.8 gm/dl (10.1-14.3)
--- NOTE | 2018-04-19 09:16 | Progress Note ---
Assessment and Plan /Arterial insufficiency of lower extremity Vascular surgery consulted, Heparin drip initiated, Pt admitted to ICU. Pt downgraded to telemetry postoperatively following angiogram Plan for CTA tomorrow if renal function improves / Nicotine dependence unspecified, with withdrawal Smoking cessation counseling, Pt declines quit date at this time /COPD (chronic obstructive pulmonary disease) supplemental oxygen, nebulizer therapy, NIPPV as clinically indicated. / HTN (hypertension) monitor bp q shift. /Mils PRIYA, cont iv fluid /DVT prophylaxis On heparin drip brief history: 57 YO Female with COPD, HTN, DVT, Nicotine Dependence, PAD S/P Left Popliteal Thrombectomy on therapeutic anticoagulation presents to ED for left leg pain over the past 3 weeks. Recently on 02/17/2018 underwent revision of her femoral anastomosis on the left. An ultrasound performed on the patient's ER visit demonstrates occlusion of her SFA and popliteal artery. Physical exam: General appearance: Present: no acute distress - EENT Eyes: Present: PERRL ENT: hearing intact - Neck Neck: Present: supple, normal ROM - Respiratory Respiratory effort: normal - Extremities Extremities: abnormal - Abdominal General gastrointestinal: Present: deferred Female genitourinary: Present: deferred - Rectal Rectal Exam: deferred - Musculoskeletal Musculoskeletal: strength equal bilaterally - Psychiatric Psychiatric: appropriate mood/affect, cooperative - Neurologic Neurologic: no focal deficits Subjective Date of service: 04/18/18 Interval history: O/n note reviewed c/o LLE pain and numbness Objective - Constitutional Vitals: Vital Signs - 12hr 04/18/18 04/19/18 04/19/18 22:00 00:37 04:23 Temperature 98.1 F 98.3 F Pulse Rate 80 78 Respiratory 22 18 18 Rate Blood Pressure 96/70 119/75 O2 Sat by Pulse 97 97 Oximetry - Labs CBC & Chem 7: 04/19/18 04:48 04/18/18 10:22 Labs: Abnormal lab results 04/18/18 04/18/18 04/19/18 Range/Units 10:22 17:15 04:51 Heparin Anti-Xa Level > 2.00 H 1.87 H (0.3-0.7) U.I./ml Sodium 134 L (137-145) mmol/L Carbon Dioxide 21 L (22-30) mmol/L BUN 18 H (7-17) mg/dL Calcium 8.2 L D (8.4-10.2) mg/dL
[2018-04-19] MEDS: LOPRESSOR PO SCH ×2 (10:33→23:09)
[2018-04-19] MEDS: NORVASC PO SCH (10:33)
[2018-04-19] MEDS: SODIUM CHLORIDE FLUSH SYRINGE 10 ML IV SCH ×2 (10:47→23:08)
[2018-04-19] MEDS: BABY ASPIRIN PO SCH (10:47)
[2018-04-19 15:45] LABS: BUN/Creatinine Ratio 18; Blood Urea Nitrogen 14 mg/dL (7-17); Calcium 8.6 mg/dL (8.4-10.2); Hemolysis Index 4
[2018-04-19] MEDS: HEPARIN/ 0.45% NACL-25,000 UNIT/500 ML 25,000 UNIT/500 ML BAG IV SCH (16:19)
--- NOTE | 2018-04-19 17:40 | Progress Note ---
Assessment and Plan 57-year-old female with aortobifemoral bypass with complication 2 months ago of left lower extremity ischemia status post thrombectomy, endarterectomy, and TPA injection with yarsani of flow. Patient has not followed up and her care has been hindered by lack of follow-up secondary to lack of insurance. 2 months ago, since her revision, she had short distance claudication, and 3 weeks ago this converted to rest pain with numbness of the forefoot. On physical exam she has nonpalpable bilateral pedal pulses. ABIs obtained demonstrating 0.5 TONY of the right lower extremity and no TONY of the left lower extremity. Dr. Vazquez attempted revascularization yesterday, but no suitable vessel was available for recanalization, and the thrombus was not acute making recanalization difficult. The patient's creatinine normalized and CT angiogram was performed. The left lower extremity has a target vessel consisting of the posterior tibial artery. The right lower extremity has a short segment occlusion of the proximal superficial femoral artery which can be treated on a nonemergent basis. She has some atherosclerotic disease of the rest of her vessels. Vein mapping ordered for patient. Will need cardiac clearance. Will need left lower extremity femoral-tibial bypass, hopefully with vein, and if no vein available, then with cryovein. Subjective Date of service: 04/19/18 Interval history: Rest pain in left lower extremity. This is been present for 3 weeks. 3 weeks of numbness of the left toes. Full motor function. Nonpalpable pedal pulses. Discussion with family about possible options. Objective - Constitutional Vitals: Vital Signs - 12hr 04/19/18 04/19/18 04/19/18 06:57 10:33 11:15 Temperature 98.4 F 98.4 F Pulse Rate 78 77 Respiratory 18 18 Rate Blood Pressure 98/63 98/63 102/62 O2 Sat by Pulse 96 96 Oximetry General appearance: Present: mild distress (left rest pain) - EENT Eyes: EOM intact ENT: hearing intact - Respiratory Respiratory effort: normal Extremities: normal temperature, normal color Extremity abnormal: cold (minimal coolness of the left toes), other ( nonpalpable pedal pulses) - Psychiatric Psychiatric: appropriate mood/affect, cooperative - Labs CBC & Chem 7: 04/19/18 04:48 04/19/18 14:47 Labs: Abnormal lab results 04/18/18 04/19/18 04/19/18 Range/Units 17:15 04:51 14:47 Heparin Anti-Xa Level > 2.00 H 1.87 H 1.60 H (0.3-0.7) U.I./ml Sodium (137-145) mmol/L Carbon Dioxide (22-30) mmol/L Glucose (65-100) mg/dL 04/19/18 Range/Units 14:47 Heparin Anti-Xa Level (0.3-0.7) U.I./ml Sodium 133 L (137-145) mmol/L Carbon Dioxide 20 L (22-30) mmol/L Glucose 124 H (65-100) mg/dL - Imaging and cardiology CT scan - abdomen: report reviewed, image reviewed
--- NOTE | 2018-04-19 18:42 | Progress Note ---
Assessment and Plan /Arterial insufficiency of lower extremity Vascular surgery consulted, Heparin drip initiated, Pt admitted to ICU. Pt downgraded to telemetry postoperatively following angiogram s/p CTA today plan for left lower extremity femoral-tibial bypass, hopefully with vein, and if no vein available, then with cryovein. consult cardiology for cardiac clearance / Nicotine dependence unspecified, with withdrawal Smoking cessation counseling, Pt declines quit date at this time /COPD (chronic obstructive pulmonary disease) supplemental oxygen, nebulizer therapy, NIPPV as clinically indicated. / HTN (hypertension) monitor bp q shift. /Mils PRIYA, cont iv fluid /DVT prophylaxis On heparin drip brief history: 57 YO Female with COPD, HTN, DVT, Nicotine Dependence, PAD S/P Left Popliteal Thrombectomy on therapeutic anticoagulation presents to ED for left leg pain over the past 3 weeks. Recently on 02/17/2018 underwent revision of her femoral anastomosis on the left. An ultrasound performed on the patient's ER visit demonstrates occlusion of her SFA and popliteal artery. Physical exam: General appearance: Present: no acute distress - EENT Eyes: Present: PERRL ENT: hearing intact - Neck Neck: Present: supple, normal ROM - Respiratory Respiratory effort: normal - Extremities Extremities: abnormal - Abdominal General gastrointestinal: Present: deferred Female genitourinary: Present: deferred - Rectal Rectal Exam: deferred - Musculoskeletal Musculoskeletal: strength equal bilaterally - Psychiatric Psychiatric: appropriate mood/affect, cooperative - Neurologic Neurologic: no focal deficits Subjective Date of service: 04/19/18 Interval history: O/n note reviewed c/o LLE pain and numbness Objective - Constitutional Vitals: Vital Signs - 12hr 04/19/18 04/19/18 04/19/18 06:57 10:33 11:15 Temperature 98.4 F 98.4 F Pulse Rate 78 77 Respiratory 18 18 Rate Blood Pressure 98/63 98/63 102/62 O2 Sat by Pulse 96 96 Oximetry 04/19/18 15:34 Temperature 97.5 F L Pulse Rate 74 Respiratory 18 Rate Blood Pressure 94/65 O2 Sat by Pulse 99 Oximetry - Labs CBC & Chem 7: 04/19/18 04:48 04/19/18 14:47 Labs: Abnormal lab results 04/19/18 04/19/18 04/19/18 Range/Units 04:51 14:47 14:47 Heparin Anti-Xa Level 1.87 H 1.60 H (0.3-0.7) U.I./ml Sodium 133 L (137-145) mmol/L Carbon Dioxide 20 L (22-30) mmol/L Glucose 124 H (65-100) mg/dL
[2018-04-19] MEDS: PERCOCET 5/325 PO SCH (23:08)
[2018-04-20] MEDS: PERCOCET 5/325 PO PRN ×3 (03:48→18:43)
--- NOTE | 2018-04-20 10:30 | Event Note ---
Date: 04/20/[address] Yazmin Wilkerson of [facility] who consulted on patient as recently as 12/2017 on last admission. Please refer to his service for further cardiac follow up. Thank you.
[2018-04-20] MEDS: NORVASC PO SCH (11:03)
[2018-04-20] MEDS: BABY ASPIRIN PO SCH (11:03)
[2018-04-20] MEDS: LOPRESSOR PO SCH ×2 (11:03→23:01)
[2018-04-20] MEDS: PERCOCET 5/325 PO SCH (11:04)
[2018-04-20] MEDS: SODIUM CHLORIDE FLUSH SYRINGE 10 ML IV SCH ×2 (11:04→23:02)
[2018-04-20] MEDS: HEPARIN/ 0.45% NACL-25,000 UNIT/500 ML 25,000 UNIT/500 ML BAG IV SCH ×2 (12:22→14:22)
--- NOTE | 2018-04-20 13:17 | Progress Note ---
Assessment and Plan Assessment and plan: --Arterial insufficiency of lower extremity Vascular surgery consulted, Heparin drip initiated, Pt admitted to ICU. Later transferred to telemetry s/p Left lower extremity angiogram with angioplasty of profunda Vascular planning for left lower extremity femoral-tibial bypass, cardiology consulted, continue current management --Nicotine dependence unspecified ; Smoking cessation counseling, Pt declines quit date at this time --COPD (chronic obstructive pulmonary disease) supplemental oxygen, nebulizer therapy, NIPPV as clinically indicated. --HTN (hypertension) is to monitor blood pressures adjust as needed The new current antihypertensives. --Mild PRIYA; resolved, continue supportive care --DVT prophylaxis ; patient already on heparin drip Cardiology evaluation and recommendations noted Discussed the case with vascular Dr. Chavarria I also discussed plan of care with the patient and the family member at the bedside History Interval history: Patient seen and examined medical records reviewed Feels better still complains of left lower extremity pain and redness Also complains of some itching on the back Denies any chest pain shortness of breath Vital signs reviewed Hospitalist Physical - Constitutional Vitals: Temp Pulse Resp BP Pulse Ox 98.2 F 79 18 114/75 95 04/20/18 12:27 04/20/18 12:27 04/20/18 12:27 04/20/18 12:27 04/20/18 12:27 General appearance: Present: no acute distress, well-nourished - EENT Eyes: Present: PERRL, EOM intact - Neck Neck: Present: supple, normal ROM - Respiratory Respiratory effort: normal Respiratory: bilateral: diminished, negative: rales, rhonchi, wheezing - Cardiovascular Rhythm: regular Heart Sounds: Present: S1 & S2 - Extremities Extremities: no ischemia, No edema Extremity abnormal: erythema (left leg and foot) - Abdominal General gastrointestinal: soft, non-tender, non-distended, normal bowel sounds - Integumentary Integumentary: Present: clear, warm - Psychiatric Psychiatric: appropriate mood/affect, cooperative - Neurologic Neurologic: CNII-XII intact, moves all extremities Results - Labs CBC & Chem 7: 04/19/18 04:48 04/19/18 14:47 Labs: Laboratory Last Values WBC 12.9 K/mm3 (4.5-11.0) H 04/17/18 15:53 RBC 5.17 M/mm3 (3.65-5.03) H 04/17/18 15:53 Hgb 11.8 gm/dl (10.1-14.3) 04/19/18 04:48 Hct 36.7 % (30.3-42.9) 04/19/18 04:48 MCV 88 fl (79-97) 04/17/18 15:53 MCH 28 pg (28-32) 04/17/18 15:53 MCHC 32 % (30-34) 04/17/18 15:53 RDW 15.9 % (13.2-15.2) H 04/17/18 15:53 Plt Count 261 K/mm3 (140-440) 04/19/18 04:48 Lymph % (Auto) 17.5 % (13.4-35.0) 04/17/18 15:53 [place] % (Auto) 9.5 % (0.0-7.3) H 04/17/18 15:53 Eos % (Auto) 1.0 % (0.0-4.3) 04/17/18 15:53 Baso % (Auto) 1.2 % (0.0-1.8) 04/17/18 15:53 Lymph # 2.3 K/mm3 (1.2-5.4) 04/17/18 15:53 [place] # 1.2 K/mm3 (0.0-0.8) H 04/17/18 15:53 Eos # 0.1 K/mm3 (0.0-0.4) 04/17/18 15:53 Baso # 0.1 K/mm3 (0.0-0.1) 04/17/18 15:53 Seg Neutrophils % 70.8 % (40.0-70.0) H 04/17/18 15:53 Seg Neutrophils # 9.2 K/mm3 (1.8-7.7) H 04/17/18 15:53 PT 22.7 Sec. (12.2-14.9) H 04/17/18 18:56 INR 1.87 (0.87-1.13) H 04/17/18 18:56 APTT 42.4 Sec. (24.2-36.6) H 04/17/18 18:56 Fibrinogen 496 mg/dl (211-480) H 04/17/18 15:53 Heparin Anti-Xa Level 0.95 U.I./ml (0.3-0.7) H 04/20/18 11:20 Sodium 133 mmol/L (137-145) L 04/19/18 14:47 Potassium 3.6 mmol/L (3.6-5.0) 04/19/18 14:47 Chloride 99.5 mmol/L (98-107) 04/19/18 14:47 Carbon Dioxide 20 mmol/L (22-30) L 04/19/18 14:47 Anion Gap 17 mmol/L 04/19/18 14:47 BUN 14 mg/dL (7-17) 04/19/18 14:47 Creatinine 0.8 mg/dL (0.7-1.2) 04/19/18 14:47 Estimated GFR > 60 ml/min 04/19/18 14:47 BUN/Creatinine Ratio 18 % 04/19/18 14:47 Glucose 124 mg/dL (65-100) H 04/19/18 14:47 Lactic Acid 1.90 mmol/L (0.7-2.0) 04/17/18 20:52 Calcium 8.6 mg/dL (8.4-10.2) 04/19/18 14:47 Total Creatine Kinase 190 units/L (30-135) H 04/17/18 15:53 Blood Type A POSITIVE 04/17/18 15:53 Antibody Screen Negative 04/17/18 15:53
[2018-04-20] MEDS ORDERED: BENTYL PO PRN (14:20)
--- NOTE | 2018-04-20 14:38 | Progress Note ---
Assessment and Plan 57-year-old female with aortobifemoral bypass with complication 2 months ago of left lower extremity ischemia status post thrombectomy, endarterectomy, and TPA injection with rastafari of flow. Patient has not followed up and her care has been hindered by lack of follow-up secondary to lack of insurance. The patient's creatinine normalized and CT angiogram was performed. The left lower extremity has a target vessel consisting of the posterior tibial artery. The right lower extremity has a short segment occlusion of the proximal superficial femoral artery which can be treated on a nonemergent basis. She has some atherosclerotic disease of the rest of her vessels. Will need left lower extremity femoral-tibial bypass. Vein mapping demonstrated adequate vein to the proximal calf with probable adequate vein at the mid calf. No tourniquet was applied, likely resulting in under sized veins on vein mapping. Vein should be adequate for bypass. Discussed with patient that if they are not, she might need harvesting of her right greater saphenous for splicing the vein together. Will need cardiac clearance. After cardiac clearance, can assess operating room schedule this upcoming week. Subjective Date of service: 04/20/18 Interval history: Rest pain in left lower extremity. This is been present for 3 weeks. 3 weeks of numbness of the left toes. Full motor function. Nonpalpable pedal pulses. Discussion with family about possible options. Objective - Constitutional Vitals: Vital Signs - 12hr 04/20/18 04/20/18 04/20/18 03:43 07:51 10:00 Temperature 97.9 F 98.2 F Pulse Rate 73 69 75 Respiratory 18 18 Rate Blood Pressure 114/74 109/69 Blood Pressure [Right] O2 Sat by Pulse 99 98 Oximetry 04/20/18 12:27 Temperature 98.2 F Pulse Rate 79 Respiratory 18 Rate Blood Pressure Blood Pressure 114/75 [Right] O2 Sat by Pulse 95 Oximetry General appearance: Present: no acute distress - EENT Eyes: EOM intact ENT: hearing intact - Respiratory Respiratory effort: normal Extremities: normal color Extremity abnormal: cold (cool left toes), other (full motor function, some mild neurpathy of the toes, stable) - Gastrointestinal General gastrointestinal: Present: soft - Psychiatric Psychiatric: appropriate mood/affect, cooperative - Labs CBC & Chem 7: 04/19/18 04:48 04/19/18 14:47 Labs: Abnormal lab results 04/19/18 04/19/18 04/20/18 Range/Units 14:47 14:47 01:10 Heparin Anti-Xa Level 1.60 H 1.19 H (0.3-0.7) U.I./ml Sodium 133 L (137-145) mmol/L Carbon Dioxide 20 L (22-30) mmol/L Glucose 124 H (65-100) mg/dL 04/20/18 Range/Units 11:20 Heparin Anti-Xa Level 0.95 H (0.3-0.7) U.I./ml Sodium (137-145) mmol/L Carbon Dioxide (22-30) mmol/L Glucose (65-100) mg/dL
[2018-04-20] MEDS: BENADRYL PO PRN ×2 (14:39→23:00)
[2018-04-20] MEDS: OxyCONTIN PO SCH ×2 (14:39→23:01)
[2018-04-21] MEDS: PERCOCET 5/325 PO PRN ×3 (04:25→20:04)
[2018-04-21 09:07] LABS: Hematocrit 37.3 % (30.3-42.9); Hemoglobin 12.3 gm/dl (10.1-14.3)
--- NOTE | 2018-04-21 10:18 | Consultation ---
History of Present Illness Consult date: 04/21/18 Requesting physician: HERACLIO ZUÑIGA Consult reason: post op evaluation History of present illness: This is a 57-year-old female with history of hypertension hyperlipidemia peripheral vascular disease Stefani had an aortic bifemoral bypass for claudication and was placed on anticoagulation elquis, patient presents back with left leg. Patient had intervention of her left profunda with an occluded SFA patient is being contemplated for left femoral-popliteal bypass surgery and is asking for cardiac evaluation prior to surgery. Patient is not very mobile because of claudication symptoms but had a recent stress test showed no significant ischemia and echocardiogram were normal LV function patient denies any active chest pain or shortness of breath Past History Past Medical History: COPD, DVT, hypertension Past Surgical History: Other (thrombectomy]) Social history: , lives with family, smoking Family history: hypertension Medications and Allergies Allergies Allergy/AdvReac Type Severity Reaction Status Date / Time lisinopril Allergy Unknown Verified 12/23/17 01:05 prochlorperazine AdvReac Unknown Verified 12/19/17 15:27 [From Compazine] Home Medications Medication Instructions Recorded Confirmed Last Taken Type Metoprolol [Lopressor TAB] 12.5 mg PO BID #60 tablet 12/29/17 04/17/18 04/17/18 09:30 Rx amLODIPine [Norvasc] 10 mg PO QDAY #30 tablet 12/29/17 04/17/18 04/17/18 09:30 Rx Apixaban [Eliquis] 5 mg PO BID 04/17/18 04/17/18 04/17/18 09:30 History 5mg Aspirin EC [Aspirin Enteric Coated 81 mg PO QDAY 04/17/18 04/17/18 04/14/18 History TAB] 81mg Active Meds: Active Medications Amlodipine Besylate (Norvasc) 10 mg PO QDAY [facility] Last Admin: 04/20/18 11:03 Dose: 10 mg Aspirin (Baby Aspirin) 81 mg PO QDAY [facility] Last Admin: 04/20/18 11:03 Dose: 81 mg Atorvastatin Calcium (Lipitor) 40 mg PO QHS [facility] Last Admin: 04/20/18 23:00 Dose: 40 mg Diphenhydramine HCl (Benadryl) 25 mg PO Q8H PRN PRN Reason: Itching Last Admin: 04/20/18 23:00 Dose: 25 mg Docusate Sodium (Colace) 100 mg PO BID PRN PRN Reason: Constipation Heparin Sodium/Sodium Chloride (Heparin/ 0.45% Nacl-25,000 Unit/500 Ml) 25,000 unit in 500 mls @ 14 mls/hr IV TITR [facility]; Protocol Last Titration: 04/20/18 23:00 Dose: 200 units/hr, 4 mls/hr Metoprolol Tartrate (Lopressor) 12.5 mg PO BID [facility] Last Admin: 04/20/18 23:01 Dose: 12.5 mg Oxycodone HCl (Oxycontin) 10 mg PO Q12HR [facility] Last Admin: 04/20/18 23:01 Dose: 10 mg Oxycodone/Acetaminophen (Percocet 5/325) 1 tab PO Q4HR PRN PRN Reason: Pain Last Admin: 04/21/18 04:25 Dose: 1 tab Sodium Chloride (Sodium Chloride Flush Syringe 10 Ml) 10 ml IV BID [facility] Last Admin: 04/20/18 23:02 Dose: 10 ml Sodium Chloride (Sodium Chloride Flush Syringe 10 Ml) 10 ml IV PRN PRN PRN Reason: LINE FLUSH Review of Systems All systems: negative (as per hpi) Physical Examination Vital Signs Temp Pulse Resp BP Pulse Ox 98 F 109 H 16 105/69 99 04/17/18 12:49 04/17/18 12:49 04/17/18 12:49 04/17/18 12:49 04/17/18 12:49 General appearance: no acute distress, well-nourished HEENT: Positive: PERRL, Mucus Membranes Moist Neck: Positive: neck supple, trachea midline Cardiac: Positive: Reg Rate and Rhythm, S1/S2. Negative: Audible Murmur Lungs: Positive: clear to auscultation, Normal Breath Sounds Neuro: Positive: Grossly Intact Abdomen: Positive: Soft, Active Bowel Sounds. Negative: Tender, Distended Female genitourinary: deferred Skin: Positive: Clear Incision: Cardiac Cath Site Musculoskeletal: No Pain, Normal Range of Motion Extremities: Present: Other (left leg cool decreased pulses). Absent: edema Results 04/21/18 07:58 04/19/18 14:47 CBC 04/21/18 Range/Units 07:58 Hgb 12.3 (10.1-14.3) gm/dl Hct 37.3 (30.3-42.9) % Plt Count 299 (140-440) K/mm3 - Imaging and Cardiology Stress echo: other (12/2017 normal myocardial perfusion scanof ischemia) Echo: report reviewed (12/2017 normal LV functionregurgitations) - EKG Interpretation EKG: WNL Assessment and Plan Preop for left femoral bypass surgery Peripheral vascular disease Hypertension Smoker hyperLipidemia rec: Patient is a moderate risk cardio vascular patient going for moderate risk cardio vascular procedure has no cardiac contraindications for left femoral bypass surgery patient will continue and quite until surgery continue beta gary and statin therapy
[2018-04-21] MEDS: BABY ASPIRIN PO SCH (10:32)
[2018-04-21] MEDS: NORVASC PO SCH (10:33)
[2018-04-21] MEDS: OxyCONTIN PO SCH ×2 (10:33→22:23)
[2018-04-21] MEDS: LOPRESSOR PO SCH ×2 (10:33→22:24)
[2018-04-21] MEDS: SODIUM CHLORIDE FLUSH SYRINGE 10 ML IV SCH ×2 (10:34→22:23)
--- NOTE | 2018-04-21 10:48 | Progress Note ---
Assessment and Plan Assessment and plan: --Arterial insufficiency of lower extremity Vascular surgery consulted, Heparin drip initiated, Pt admitted to ICU. stabilized and transferred to telemetry s/p Left lower extremity angiogram with angioplasty of profunda Vascular planning for left lower extremity femoral-tibial bypass, cardiology cleared for surgical procedure, --Nicotine dependence unspecified ; Smoking cessation counseling, Pt declines quit date at this time --COPD (chronic obstructive pulmonary disease) supplemental oxygen, nebulizer therapy, NIPPV as clinically indicated. --HTN (hypertension) is to monitor blood pressures adjust as needed The new current antihypertensives. --Mild PRIYA; resolved, continue supportive care --DVT prophylaxis ; patient already on heparin drip Cardiology evaluation and recommendations noted Discussed the case with vascular Dr. Chavarria I also discussed plan of care with the patient and her nurse Patient may be transferred out of telemetry to surgical floor On service and recommendations noted and appreciated History Interval history: Patient seen and examined Feels better still complains of left lower extremity pain Cardiology cleared for surgical procedure Vital signs reviewed, stable Hospitalist Physical - Constitutional Vitals: Temp Pulse Resp BP Pulse Ox 97.6 F 78 16 106/79 96 04/21/18 07:36 04/21/18 07:36 04/21/18 07:36 04/21/18 07:36 04/21/18 07:36 General appearance: Present: no acute distress, cachectic - EENT Eyes: Present: PERRL, EOM intact - Neck Neck: Present: supple, normal ROM - Respiratory Respiratory effort: normal Respiratory: bilateral: diminished, negative: rales, rhonchi, wheezing - Cardiovascular Rhythm: regular Heart Sounds: Present: S1 & S2 - Extremities Extremities: abnormal (pain and tenderness) Extremity abnormal: erythema, cold - Abdominal General gastrointestinal: soft, non-tender, non-distended, normal bowel sounds - Integumentary Integumentary: Present: clear, warm - Psychiatric Psychiatric: appropriate mood/affect, cooperative - Neurologic Neurologic: CNII-XII intact, moves all extremities Results - Labs CBC & Chem 7: 04/21/18 07:58 04/19/18 14:47 Labs: Laboratory Last Values WBC 12.9 K/mm3 (4.5-11.0) H 04/17/18 15:53 RBC 5.17 M/mm3 (3.65-5.03) H 04/17/18 15:53 Hgb 12.3 gm/dl (10.1-14.3) 04/21/18 07:58 Hct 37.3 % (30.3-42.9) 04/21/18 07:58 MCV 88 fl (79-97) 04/17/18 15:53 MCH 28 pg (28-32) 04/17/18 15:53 MCHC 32 % (30-34) 04/17/18 15:53 RDW 15.9 % (13.2-15.2) H 04/17/18 15:53 Plt Count 299 K/mm3 (140-440) 04/21/18 07:58 Lymph % (Auto) 17.5 % (13.4-35.0) 04/17/18 15:53 [place] % (Auto) 9.5 % (0.0-7.3) H 04/17/18 15:53 Eos % (Auto) 1.0 % (0.0-4.3) 04/17/18 15:53 Baso % (Auto) 1.2 % (0.0-1.8) 04/17/18 15:53 Lymph # 2.3 K/mm3 (1.2-5.4) 04/17/18 15:53 [place] # 1.2 K/mm3 (0.0-0.8) H 04/17/18 15:53 Eos # 0.1 K/mm3 (0.0-0.4) 04/17/18 15:53 Baso # 0.1 K/mm3 (0.0-0.1) 04/17/18 15:53 Seg Neutrophils % 70.8 % (40.0-70.0) H 04/17/18 15:53 Seg Neutrophils # 9.2 K/mm3 (1.8-7.7) H 04/17/18 15:53 PT 22.7 Sec. (12.2-14.9) H 04/17/18 18:56 INR 1.87 (0.87-1.13) H 04/17/18 18:56 APTT 42.4 Sec. (24.2-36.6) H 04/17/18 18:56 Fibrinogen 496 mg/dl (211-480) H 04/17/18 15:53 Heparin Anti-Xa Level 0.66 U.I./ml (0.3-0.7) 04/20/18 19:52 Sodium 133 mmol/L (137-145) L 04/19/18 14:47 Potassium 3.6 mmol/L (3.6-5.0) 04/19/18 14:47 Chloride 99.5 mmol/L (98-107) 04/19/18 14:47 Carbon Dioxide 20 mmol/L (22-30) L 04/19/18 14:47 Anion Gap 17 mmol/L 04/19/18 14:47 BUN 14 mg/dL (7-17) 04/19/18 14:47 Creatinine 0.8 mg/dL (0.7-1.2) 04/19/18 14:47 Estimated GFR > 60 ml/min 04/19/18 14:47 BUN/Creatinine Ratio 18 % 04/19/18 14:47 Glucose 124 mg/dL (65-100) H 04/19/18 14:47 Lactic Acid 1.90 mmol/L (0.7-2.0) 04/17/18 20:52 Calcium 8.6 mg/dL (8.4-10.2) 04/19/18 14:47 Total Creatine Kinase 190 units/L (30-135) H 04/17/18 15:53 Blood Type A POSITIVE 04/17/18 15:53 Antibody Screen Negative 04/17/18 15:53
[2018-04-21] MEDS: HEPARIN/ 0.45% NACL-25,000 UNIT/500 ML 25,000 UNIT/500 ML BAG IV SCH (14:22)
--- NOTE | 2018-04-21 14:50 | Progress Note ---
Assessment and Plan 57-year-old female with aortobifemoral bypass with complication 2 months ago of left lower extremity ischemia status post thrombectomy, endarterectomy, and TPA injection with mandaen of flow. Patient has not followed up and her care has been hindered by lack of follow-up secondary to lack of insurance. The patient's creatinine normalized and CT angiogram was performed. The left lower extremity has a target vessel consisting of the posterior tibial artery. The right lower extremity has a short segment occlusion of the proximal superficial femoral artery which can be treated on a nonemergent basis. She has some atherosclerotic disease of the rest of her vessels. Will need left lower extremity femoral-tibial bypass. Vein mapping demonstrated adequate vein to the proximal calf with probable adequate vein at the mid calf. No tourniquet was applied, likely resulting in under sized veins on vein mapping. Vein should be adequate for bypass. Discussed with patient that if they are not, she might need harvesting of her right greater saphenous for splicing the vein together. Cardiology cleared for surgery. Will make NPO after MN, but will most likely be performed between sunday to based on OR availability. Subjective Date of service: 04/21/18 Interval history: Rest pain in left lower extremity. This is been present for 3 weeks. 3 weeks of numbness of the left toes. Full motor function. Nonpalpable pedal pulses. Discussion with family about possible options. Objective - Constitutional Vitals: Vital Signs - 12hr 04/21/18 04/21/18 04/21/18 03:29 07:36 10:00 Temperature 97.9 F 97.6 F Pulse Rate 76 78 93 H Respiratory 18 16 Rate Blood Pressure 120/84 106/79 O2 Sat by Pulse 100 96 Oximetry General appearance: Present: mild distress (left rest pain) - EENT Eyes: EOM intact ENT: hearing intact - Respiratory Respiratory effort: normal Extremities: normal temperature Extremity abnormal: cold (cool left toes), pulses diminished, other (full motor function and chronic decreased forefoot sensory function) - Psychiatric Psychiatric: appropriate mood/affect, cooperative - Labs CBC & Chem 7: 04/21/18 07:58 04/19/18 14:47 - Imaging and cardiology Venous US: report reviewed, image reviewed
[2018-04-21] MEDS: BENADRYL PO PRN (22:24)
[2018-04-22] MEDS: PERCOCET 5/325 PO PRN ×3 (00:24→19:40)
--- NOTE | 2018-04-22 09:44 | Progress Note ---
Assessment and Plan Preop for left femoral bypass surgery Peripheral vascular disease Hypertension Smoker hyperLipidemia rec: Patient is a moderate risk cardio vascular patient going for moderate risk cardio vascular procedure has no cardiac contraindications for left femoral bypass surgery. cont present cardiac regimen. The patient has been seen in conjunction with Dr. Carmona who agrees with the assessment and plan of care. Subjective Date of service: 04/22/18 Principal diagnosis: PVD Interval history: pt resting comfortably in bed, no current cardiac complaints. c/o left foot swelling, redness and pain. for possible vascular surgery today. Objective Last Vital Signs Temp 97.5 F L 04/22/18 07:41 Pulse 78 04/22/18 07:41 Resp 18 04/22/18 07:41 BP 110/77 04/22/18 07:41 Pulse Ox 99 04/22/18 07:05 - Physical Examination General: No Apparent Distress HEENT: Positive: PERRL, Mucus Membranes Moist Neck: Positive: neck supple, trachea midline Cardiac: Positive: Reg Rate and Rhythm, S1/S2 Lungs: Positive: clear to auscultation Neuro: Positive: Grossly Intact Abdomen: Positive: Soft, Active Bowel Sounds. Negative: Tender, Distended Skin: Positive: Clear Incision: Cardiac Cath Site Musculoskeletal: No Pain, Normal Range of Motion Extremities: Present: Other (left leg cool decreased pulses). Absent: edema - Imaging and Cardiology EKG: report reviewed Stress echo: other (12/2017 normal myocardial perfusion scanof ischemia) Echo: report reviewed (12/2017 normal LV functionregurgitations) - Telemetry EKG Rhythm: Sinus Rhythm - EKG Sinus rhythms and dysrhythmias: sinus rhythm
[2018-04-22] MEDS: SODIUM CHLORIDE FLUSH SYRINGE 10 ML IV SCH ×2 (12:17→22:34)
[2018-04-22] MEDS: BABY ASPIRIN PO SCH (12:26)
[2018-04-22] MEDS: BENADRYL PO PRN (12:26)
[2018-04-22] MEDS: OxyCONTIN PO SCH ×2 (12:27→22:32)
[2018-04-22] MEDS: LOPRESSOR PO SCH ×2 (12:28→22:34)
[2018-04-22] MEDS: NORVASC PO SCH (12:30)
--- NOTE | 2018-04-22 14:24 | Cat Scan Report ---
FINAL REPORT EXAM: CT ANGIO ABD/FEMORAL ABD AORTA HISTORY: rest pain TECHNIQUE: Spiral CTA of abdomen and bilateral lower extremities after the uneventful administration of IV contrast. Multiplanar reformations. 3D image post-procesessing was performed on an independent work station. Multiplanar reformations. 100 mL Omnipaque IV. PRIORS: 17 February 2018. FINDINGS: CTA: Variable atherosclerotic change and plaque formation in proximal [place] abdominal aorta, which is patent and normally enhancing. No abnormal aneurysmal dilatation, aortic dissection or significant stenosis. Distal [place] abdominal aorta, right common and external iliac arteries occluded. Majority of [place] left common iliac artery occluded, with reconstitution distally and mild, diffuse disease in the [place] external iliac artery about the same. Aortobifemoral bypass graft again evident, widely patent and normally enhancing to the inguinal regions. Celiac axis, SMA and renal arteries demonstrate normal enhancement without significant stenosis. No apparent retroperitoneal hematoma. Right lower extremity: Right common and proximal superficial femoral arteries demonstrate complete occlusion immediately distal to anastomosis, new from comparison. Remainder of SFA markedly diminutive, with intermittent enhancement, then becoming normally patent and enhancing in the adductor canal distally. Calcific atherosclerotic change and moderate-marked focal narrowing in popliteal artery approximating 70% stenosis by NASCET criteria. Tibioperoneal trunk patent and normally enhancing, with some calcific atherosclerotic change. Trifurcation vessels patent and normally enhancing in proximal half of lower extremity, with tapering of peroneal artery in the midportion of lower extremity. 2-vessel runoff to right ankle. Left lower extremity: Left common femoral artery occluded immediately distal to anastomosis similar to comparison. Left superficial femoral and popliteal arteries also occluded similar to comparison. Left deep femoral or profunda artery patent and normally enhancing through most of thigh. Left tibioperoneal trunk show some calcific plaquing and complete occlusion similar to comparison. Reconstitution and intermittent enhancement of anterior and posterior tibial arteries, the former tapering in the distal lower extremity and the latter crossing the ankle. Abdomen: Visualized lung bases grossly unremarkable. Gallbladder mildly distended and contains some amorphous hyperdense foci within the dependent portion, nonspecific. No radiopaque gallstones or pericholecystic fluid. Stomach incompletely or nondistended, with some wall and fold thickening, but no significant perigastric fat stranding. Visualized liver shows diffusely decreased attenuation without focal abnormality. Spleen without significant abnormality. Pancreas without significant abnormality. Kidneys are without significant abnormality. Adrenal glands are without significant abnormality. Pelvis: Bowel grossly unremarkable. Appendix is not confidently identified. No significant free peritoneal fluid, discrete abscess or apparent adenopathy. IMPRESSION: 1. Status post aortobifemoral bypass graft again noted and widely patent. 2. Occlusion of right common and proximal superficial femoral arteries immediately distal to anastomosis, new in the interval. Remainder of right SFA markedly diminutive, with intermittent enhancement. 3. Marked focal stenosis in right popliteal artery as reported. 2 vessel runoff to right ankle. 4. Diffuse occlusion of left common and superficial femoral and popliteal arteries, as well as tibioperoneal trunk, similar to comparison. Diminutive left anterior and posterior tibial arteries, with intermittent enhancement and 1 vessel runoff to left ankle. 5. Findings which may represent cholestasis versus cholelithiasis. 6. Findings compatible with fatty infiltration in the liver.
--- NOTE | 2018-04-22 15:53 | Progress Note ---
Assessment and Plan This pt has PVD with pain at rest to her LLE. She currently is requiring both oral and IV analgesics to achieve relatively poor overall pain control. Attempted percutaneous arterial intervention, but unable to cross flush SFA occlusion. CTA reviewed and only realistic possible surgical option is fem-SLIP COVER MAKER bypashellie. I had a long discussion (~45min) with the pt and her at the bedside. I explained her options: (I stressed that the Patient must quit smoking completely) 1. Fem distal bypass. This is the only realistic option at limb salvage. This would likely be >4hrs, with all the risk of prolonged general anesthesia. The bypass may not work, or remain patent for very long (especially if the pt continues to smoke). It also would expose the previously placed aorta bifem bypass, and could result in graft infection. This would likely require removal of her aortic bypass graft, and would have a high risk of morbidity/mortality. 2. Pain management. Though she has significant pain, she has little to no tissue loss at this point. If her foot remains viable then a pain management consult for a possible combination of pharmacologic and neuromodulation devices to reduce pain to manageable level while the patient develops collateral circulation. 3. Above the knee amputation. I was very blunt with the pt. I explained that she is at a very high risk of limb loss over the course of her life. I further explained that she may go through the above stated surgery only to subsequently require an amputation as well. If she did not want to go through the risk of the above stated surgery considering that it may not work (or work for very long ) then we could consider proceeding with an amputation now. Given her arterial supply she is unlikely to heal a BKA, therefore would recommend and AKA. After careful consideration of her options, she would like to proceed with the bypass surgery. We will add her on to the schedule for tomorrow. - Patient Problems (1) Atherosclerosis of [place] arteries of extremity with rest pain Current Visit: No Status: Acute (2) History of aorto-femoral bypass Current Visit: No Status: Acute (3) Tobacco abuse Current Visit: Yes Status: Acute (4) HTN (hypertension) Current Visit: Yes Status: Acute Qualifiers: Hypertension type: essential hypertension Qualified Code(s): I10 - Essential (primary) hypertension (5) COPD (chronic obstructive pulmonary disease) Current Visit: Yes Status: Acute Qualifiers: Chronic bronchitis type: mixed simple and mucopurulent Subjective Date of service: 04/22/18 Principal diagnosis: PVD Interval history: Pt awake and alert. C/o intense pain with any movement and weight bearing. Using oral and IV analgesics. Objective - Constitutional Vitals: Vital Signs - 12hr 04/22/18 04/22/18 04/22/18 04:18 07:05 07:41 Temperature 98.1 F 97.5 F L Pulse Rate 89 86 78 Respiratory 18 18 Rate Blood Pressure 125/88 Blood Pressure 110/77 [Right] O2 Sat by Pulse 98 99 Oximetry 04/22/18 04/22/18 04/22/18 12:00 12:23 12:30 Temperature 97.6 F Pulse Rate 96 H Respiratory 18 Rate Blood Pressure 118/88 188/88 Blood Pressure 118/88 [Right] O2 Sat by Pulse Oximetry General appearance: Present: mild distress - EENT Eyes: EOM intact ENT: hearing intact - Neck Neck: supple - Respiratory Respiratory effort: normal Extremities: normal temperature Extremity abnormal: cyanosis (mild to distal left great toe.), pulses diminished (non palpable LLE pedal pulses) - Neurologic Neurologic: no focal deficits, moves all extremities (moves to toes and able to dorsiflex LLE) - Psychiatric Psychiatric: appropriate mood/affect, intact judgment & insight, cooperative - Labs CBC & Chem 7: 04/21/18 07:58 04/19/18 14:47
--- NOTE | 2018-04-22 18:25 | Progress Note ---
Assessment and Plan Assessment and plan: --Arterial insufficiency of lower extremity Vascular surgery consulted, Heparin drip initiated, Pt admitted to ICU. stabilized and transferred to telemetry s/p Left lower extremity angiogram with angioplasty of profunda Vascular planning for left lower extremity femoral-tibial bypass, cardiology cleared for surgical procedure, --Nicotine dependence unspecified ; Smoking cessation counseling, advised nicotine patch --COPD (chronic obstructive pulmonary disease) supplemental oxygen, nebulizer therapy, NIPPV as clinically indicated. --HTN (hypertension) is to monitor blood pressures adjust as needed The new current antihypertensives. --Mild PRIYA; resolved, continue supportive care --DVT prophylaxis ; patient already on heparin drip Cardiology evaluation and recommendations noted Discussed the case with vascular Dr. Chavarria I also discussed plan of care with the patient and her nurse Patient may be transferred out of telemetry to surgical floor On service and recommendations noted and appreciated History Interval history: Since seen and examined medical records reviewed Scheduled for femoral bypass surgery tomorrow Patient has no new complaints Vital signs reviewed Hospitalist Physical - Constitutional Vitals: Temp Pulse Resp BP Pulse Ox 98.1 F 84 18 107/71 98 04/22/18 15:53 04/22/18 15:54 04/22/18 15:53 04/22/18 15:53 04/22/18 15:54 General appearance: Present: no acute distress, well-nourished - EENT Eyes: Present: PERRL, EOM intact - Neck Neck: Present: supple, normal ROM - Respiratory Respiratory effort: normal Respiratory: bilateral: diminished, negative: rales, rhonchi, wheezing - Cardiovascular Rhythm: regular Heart Sounds: Present: S1 & S2 - Extremities Extremities: No edema, normal temperature - Abdominal General gastrointestinal: soft, non-tender, non-distended, normal bowel sounds - Integumentary Integumentary: Present: clear, warm - Psychiatric Psychiatric: appropriate mood/affect, cooperative - Neurologic Neurologic: CNII-XII intact, moves all extremities Results - Labs CBC & Chem 7: 04/21/18 07:58 04/19/18 14:47 Labs: Laboratory Last Values WBC 12.9 K/mm3 (4.5-11.0) H 04/17/18 15:53 RBC 5.17 M/mm3 (3.65-5.03) H 04/17/18 15:53 Hgb 12.3 gm/dl (10.1-14.3) 04/21/18 07:58 Hct 37.3 % (30.3-42.9) 04/21/18 07:58 MCV 88 fl (79-97) 04/17/18 15:53 MCH 28 pg (28-32) 04/17/18 15:53 MCHC 32 % (30-34) 04/17/18 15:53 RDW 15.9 % (13.2-15.2) H 04/17/18 15:53 Plt Count 299 K/mm3 (140-440) 04/21/18 07:58 Lymph % (Auto) 17.5 % (13.4-35.0) 04/17/18 15:53 [place] % (Auto) 9.5 % (0.0-7.3) H 04/17/18 15:53 Eos % (Auto) 1.0 % (0.0-4.3) 04/17/18 15:53 Baso % (Auto) 1.2 % (0.0-1.8) 04/17/18 15:53 Lymph # 2.3 K/mm3 (1.2-5.4) 04/17/18 15:53 [place] # 1.2 K/mm3 (0.0-0.8) H 04/17/18 15:53 Eos # 0.1 K/mm3 (0.0-0.4) 04/17/18 15:53 Baso # 0.1 K/mm3 (0.0-0.1) 04/17/18 15:53 Seg Neutrophils % 70.8 % (40.0-70.0) H 04/17/18 15:53 Seg Neutrophils # 9.2 K/mm3 (1.8-7.7) H 04/17/18 15:53 PT 22.7 Sec. (12.2-14.9) H 04/17/18 18:56 INR 1.87 (0.87-1.13) H 04/17/18 18:56 APTT 42.4 Sec. (24.2-36.6) H 04/17/18 18:56 Fibrinogen 496 mg/dl (211-480) H 04/17/18 15:53 Heparin Anti-Xa Level 0.33 U.I./ml (0.3-0.7) 04/21/18 19:24 Sodium 133 mmol/L (137-145) L 04/19/18 14:47 Potassium 3.6 mmol/L (3.6-5.0) 04/19/18 14:47 Chloride 99.5 mmol/L (98-107) 04/19/18 14:47 Carbon Dioxide 20 mmol/L (22-30) L 04/19/18 14:47 Anion Gap 17 mmol/L 04/19/18 14:47 BUN 14 mg/dL (7-17) 04/19/18 14:47 Creatinine 0.8 mg/dL (0.7-1.2) 04/19/18 14:47 Estimated GFR > 60 ml/min 04/19/18 14:47 BUN/Creatinine Ratio 18 % 04/19/18 14:47 Glucose 124 mg/dL (65-100) H 04/19/18 14:47 Lactic Acid 1.90 mmol/L (0.7-2.0) 04/17/18 20:52 Calcium 8.6 mg/dL (8.4-10.2) 04/19/18 14:47 Total Creatine Kinase 190 units/L (30-135) H 04/17/18 15:53 Blood Type A POSITIVE 04/17/18 15:53 Antibody Screen Negative 04/17/18 15:53
[2018-04-23 05:00] LABS: Hematocrit 35.6 % (30.3-42.9); Hemoglobin 11.5 gm/dl (10.1-14.3)
[2018-04-23] MEDS ORDERED: ANCEF/STERILE WATER 2 GM/20 ML 2 GM/20 ML SYRINGE IV NR (06:00)
[2018-04-23] MEDS ORDERED: PROTAMINE SULFATE ONE (07:31)
[2018-04-23] MEDS ORDERED: NACL 0.9% 500 ML 500 ML ONE ×2 (07:31→15:27)
[2018-04-23] MEDS ORDERED: HEPARIN 10,000 UNITS/10 ML ONE (07:31)
[2018-04-23] MEDS ORDERED: THROMBIN (BOVINE) TP ONE ×2 (07:31→20:13)
[2018-04-23] MEDS ORDERED: GELFOAM TP ONE ×2 (07:31→20:13)
[2018-04-23] MEDS ORDERED: PAPAVERINE ONE (07:31)
[2018-04-23] MEDS ORDERED: NACL 0.9% 250ML 0 ML ONE (07:31)
[2018-04-23] MEDS ORDERED: NACL P/F VIAL (10 ML) 10 ML ONE (07:32)
[2018-04-23] MEDS ORDERED: RIFADIN ONE (07:32)
--- NOTE | 2018-04-23 08:44 | Progress Note ---
Assessment and Plan Assessment and plan: --Arterial insufficiency of lower extremity; Scheduled for femoral bypass today on Heparin drip s/p Left lower extremity angiogram with angioplasty of profunda cardiology cleared for surgical procedure, --Nicotine dependence unspecified ; Smoking cessation counseling, advised nicotine patch --COPD (chronic obstructive pulmonary disease) supplemental oxygen, nebulizer therapy, NIPPV as clinically indicated. --HTN (hypertension) is to monitor blood pressures adjust as needed The new current antihypertensives. --Mild PRIYA; resolved, continue supportive care --DVT prophylaxis ; patient already on heparin drip Closely monitor the patient and adjust management Plan of care is reviewed with the patient and her nurse Inbound [employer] Logistics Specialist recommendations noted and appreciated History Interval history: Patient seen and examined this morning in her room Medical records reviewed No new events reported by the nursing Patient is scheduled for vascular procedure this morning Complains of severe pain in the left lower extremity Slightly relieved by pain medications Alert awake oriented 3 Vital signs reviewed Hospitalist Physical - Constitutional Vitals: Temp Pulse Resp BP Pulse Ox 98.3 F 92 H 18 124/91 98 04/23/18 04:56 04/23/18 04:56 04/23/18 04:56 04/23/18 04:56 04/23/18 04:56 General appearance: Present: no acute distress, well-nourished - EENT Eyes: Present: PERRL, EOM intact - Neck Neck: Present: supple, normal ROM - Respiratory Respiratory effort: normal Respiratory: negative: rales, rhonchi, wheezing - Cardiovascular Rhythm: regular Heart Sounds: Present: S1 & S2 - Extremities Extremities: abnormal (left lower extremity tender to touch, cold) - Abdominal General gastrointestinal: soft, non-tender, non-distended, normal bowel sounds - Integumentary Integumentary: Present: clear, warm - Psychiatric Psychiatric: appropriate mood/affect, cooperative - Neurologic Neurologic: CNII-XII intact, moves all extremities Results - Labs CBC & Chem 7: 04/23/18 04:33 04/19/18 14:47 Labs: Laboratory Last Values WBC 12.9 K/mm3 (4.5-11.0) H 04/17/18 15:53 RBC 5.17 M/mm3 (3.65-5.03) H 04/17/18 15:53 Hgb 11.5 gm/dl (10.1-14.3) 04/23/18 04:33 Hct 35.6 % (30.3-42.9) 04/23/18 04:33 MCV 88 fl (79-97) 04/17/18 15:53 MCH 28 pg (28-32) 04/17/18 15:53 MCHC 32 % (30-34) 04/17/18 15:53 RDW 15.9 % (13.2-15.2) H 04/17/18 15:53 Plt Count 331 K/mm3 (140-440) 04/23/18 04:33 Lymph % (Auto) 17.5 % (13.4-35.0) 04/17/18 15:53 [place] % (Auto) 9.5 % (0.0-7.3) H 04/17/18 15:53 Eos % (Auto) 1.0 % (0.0-4.3) 04/17/18 15:53 Baso % (Auto) 1.2 % (0.0-1.8) 04/17/18 15:53 Lymph # 2.3 K/mm3 (1.2-5.4) 04/17/18 15:53 [place] # 1.2 K/mm3 (0.0-0.8) H 04/17/18 15:53 Eos # 0.1 K/mm3 (0.0-0.4) 04/17/18 15:53 Baso # 0.1 K/mm3 (0.0-0.1) 04/17/18 15:53 Seg Neutrophils % 70.8 % (40.0-70.0) H 04/17/18 15:53 Seg Neutrophils # 9.2 K/mm3 (1.8-7.7) H 04/17/18 15:53 PT 22.7 Sec. (12.2-14.9) H 04/17/18 18:56 INR 1.87 (0.87-1.13) H 04/17/18 18:56 APTT 42.4 Sec. (24.2-36.6) H 04/17/18 18:56 Fibrinogen 496 mg/dl (211-480) H 04/17/18 15:53 Heparin Anti-Xa Level 0.20 U.I./ml (0.3-0.7) L 04/23/18 06:04 Sodium 133 mmol/L (137-145) L 04/19/18 14:47 Potassium 3.6 mmol/L (3.6-5.0) 04/19/18 14:47 Chloride 99.5 mmol/L (98-107) 04/19/18 14:47 Carbon Dioxide 20 mmol/L (22-30) L 04/19/18 14:47 Anion Gap 17 mmol/L 04/19/18 14:47 BUN 14 mg/dL (7-17) 04/19/18 14:47 Creatinine 0.8 mg/dL (0.7-1.2) 04/19/18 14:47 Estimated GFR > 60 ml/min 04/19/18 14:47 BUN/Creatinine Ratio 18 % 04/19/18 14:47 Glucose 124 mg/dL (65-100) H 04/19/18 14:47 Lactic Acid 1.90 mmol/L (0.7-2.0) 04/17/18 20:52 Calcium 8.6 mg/dL (8.4-10.2) 04/19/18 14:47 Total Creatine Kinase 190 units/L (30-135) H 04/17/18 15:53 Blood Type A POSITIVE 04/17/18 15:53 Antibody Screen Negative 04/17/18 15:53
[2018-04-23] MEDS: PERCOCET 5/325 PO PRN (08:59)
[2018-04-23] MEDS: BABY ASPIRIN PO SCH (10:55)
[2018-04-23] MEDS: LOPRESSOR PO SCH (10:55)
[2018-04-23] MEDS: OxyCONTIN PO SCH (10:55)
[2018-04-23] MEDS: NORVASC PO SCH (10:55)
[2018-04-23] MEDS: SODIUM CHLORIDE FLUSH SYRINGE 10 ML IV SCH (10:56)
--- NOTE | 2018-04-23 11:38 | Progress Note ---
Assessment and Plan Preop for left femoral bypass surgery Peripheral vascular disease Hypertension Smoker hyperLipidemia rec: Patient is a moderate risk cardio vascular patient going for moderate risk cardio vascular procedure has no cardiac contraindications for left femoral bypass surgery. cont present cardiac regimen. The patient has been seen in conjunction with Dr. Carmona who agrees with the assessment and plan of care. Subjective Date of service: 04/23/18 Principal diagnosis: PVD Interval history: pt resting comfortably in bed, no current cardiac complaints. c/o left foot swelling, redness and pain. for possible vascular surgery today. Objective Last Vital Signs Temp 98.6 F 04/23/18 08:00 Pulse 89 04/23/18 08:00 Resp 20 04/23/18 10:51 BP 122/84 04/23/18 07:21 Pulse Ox 99 04/23/18 07:21 - Physical Examination General: No Apparent Distress HEENT: Positive: PERRL, Mucus Membranes Moist Neck: Positive: neck supple, trachea midline Cardiac: Positive: Reg Rate and Rhythm, S1/S2 Lungs: Positive: clear to auscultation Neuro: Positive: Grossly Intact Abdomen: Positive: Soft, Active Bowel Sounds. Negative: Tender, Distended Skin: Positive: Clear Incision: Cardiac Cath Site Musculoskeletal: No Pain, Normal Range of Motion Extremities: Present: Other (left leg cool decreased pulses). Absent: edema - Labs and Meds CBC 04/23/18 Range/Units 04:33 Hgb 11.5 (10.1-14.3) gm/dl Hct 35.6 (30.3-42.9) % Plt Count 331 (140-440) K/mm3 - Imaging and Cardiology EKG: report reviewed Stress echo: other (12/2017 normal myocardial perfusion scanof ischemia) Echo: report reviewed (12/2017 normal LV functionregurgitations) - EKG Sinus rhythms and dysrhythmias: sinus rhythm
--- NOTE | 2018-04-23 12:35 | Anesthesia Day of Surgery ---
Anesthesia Day of Surgery - Day of Surgery Patient Examined: Yes Patient H&P Reviewed: Yes Patient is NPO: Yes
[2018-04-23] MEDS ORDERED: ZOFRAN IV PRN ×2 (12:36→21:17)
[2018-04-23] MEDS ORDERED: VERSED IV NR (13:00)
[2018-04-23] MEDS ORDERED: NEURONTIN PO NR (13:00)
[2018-04-23] MEDS ORDERED: TYLENOL PO NR (13:00)
[2018-04-23] MEDS ORDERED: NACL 0.9% 1000 ML 1,000 ML IV SCH (13:00)
[2018-04-23] MEDS ORDERED: DILAUDID ONE ×3 (14:29→23:11)
[2018-04-23] MEDS ORDERED: DIPRIVAN 10 MG/ML IV ONE (14:29)
[2018-04-23] MEDS ORDERED: XYLOCAINE MPF 2% ONE (14:31)
[2018-04-23] MEDS ORDERED: ZEMURON IV ONE (14:32)
[2018-04-23] MEDS ORDERED: Vasostrict ONE (14:57)
[2018-04-23] MEDS ORDERED: ePHEDrine 50 MG/5 ML-0.9% NACL IV ONE (15:45)
[2018-04-23] MEDS ORDERED: NITROGLYCERIN SYRINGE 3 ML ONE (17:10)
[2018-04-23] MEDS ORDERED: NACL 0.9% IR ONE (17:14)
[2018-04-23] MEDS ORDERED: HEPARIN 10,000 UNITS/10 ML 2,000 UNIT in NACL 0.9% 500 ML 500 ML IR ONE (17:15)
[2018-04-23] MEDS ORDERED: RIFADIN 600 MG in NACL 0.9% 50 ML IR ONE (18:00)
[2018-04-23] MEDS ORDERED: ANCEF ONE (19:08)
[2018-04-23] MEDS ORDERED: CATHFLO INTRA-ARTE ONE ×2 (19:47→20:17)
[2018-04-23] MEDS ORDERED: WATER FOR INJ (PF) IV ONE (19:48)
[2018-04-23] MEDS ORDERED: NITROGLYCERIN SYRINGE IR ONE (19:49)
[2018-04-23] MEDS ORDERED: NEO SYNEPHRINE ONE ×2 (20:39)
[2018-04-23] MEDS ORDERED: ZOFRAN ONE (20:39)
[2018-04-23] MEDS ORDERED: NACL 0.9% 100 ML ONE ×2 (20:39)
[2018-04-23] MEDS ORDERED: MARCAINE 0.25% INFILTRATI ONE (21:00)
[2018-04-23] MEDS ORDERED: NARCAN 0.4 MG/1 ML IV PRN (21:17)
--- NOTE | 2018-04-23 21:22 | Post Operative Note ---
Date of procedure: 04/23/18 Pre-op diagnosis: PVD with Left Lower Extremity Ischemia Post-op diagnosis: same Findings: Was retrograde bleeding from the posterior tibial artery upon opening. With passing of the 2 Billy the Billy was easily passed into the foot however there was no retrograde bleeding. There was a thrombus plug and some old thrombus retrieved after several passes. At the completion of the case there was an easily palpable posterior tibial pulse and the hindfoot was warm and well -perfused. The forefoot cyanotic. Procedure: 1. Left Femoral to Posterior Tibial Artery Bypass With Composite In Situ Greater Saphenous Vein Graft 2. Open Thrombectomy of Left Posterior Tibial artery with 2 Billy and 2 mg of TPA Anesthesia: BREANN Surgeon: KIRSTIE SOUZA Chlorinator: ALHAJI REYES Estimated blood loss: other (450 ml) Pathology: none Condition: stable Disposition: PACU
[2018-04-23] MEDS ORDERED: NACL 0.9% 500 ML 500 ML IV ONE ×2 (23:08→23:49)
[2018-04-23] MEDS: DILAUDID IV PRN (23:16)
[2018-04-24 00:05] LABS: Basophils # (Auto) 0.1 K/mm3 (0.0-0.1); Basophils % (Auto) 0.6 % (0.0-1.8); Eosinophils # (Auto) 0.3 K/mm3 (0.0-0.4); Lymphocytes # (Auto) 2.3 K/mm3 (1.2-5.4); Lymphocytes % (Auto) 20.8 % (13.4-35.0); Mean Corpuscular HGB Conc 33 % (30-34); Mean Corpuscular Hemoglobin 29 pg (28-32); Mean Corpuscular Volume 90 fl (79-97); Monocytes # (Auto) 1.3 K/mm3 (0.0-0.8); Monocytes % (Auto) 12.2 % (0.0-7.3); Platelet Count 202 K/mm3 (140-440); Red Blood Count 1.98 M/mm3 (3.65-5.03); Red Cell Distribution Width 15.4 % (13.2-15.2)
[2018-04-24 00:11] LABS: Hematocrit 17.8 % (30.3-42.9); Hemoglobin 5.8 gm/dl (10.1-14.3)
[2018-04-24] MEDS ORDERED: NACL 0.9% 500 ML 500 ML IV ONE (00:16)
[2018-04-24] MEDS ORDERED: ALBURX 25% (ALBUMIN) IV ONE ×2 (00:59→20:11)
[2018-04-24] MEDS ORDERED: TYLENOL PO ONE (01:41)
[2018-04-24] MEDS ORDERED: BENADRYL PO ONE ×2 (01:42→02:00)
[2018-04-24] MEDS: DILAUDID IV PRN (05:00)
[2018-04-24] MEDS: LOPRESSOR PO SCH ×3 (06:14→23:46)
[2018-04-24] MEDS ORDERED: NACL 0.9% 500 ML 500 ML ONE (06:16)
[2018-04-24] MEDS: OxyCONTIN PO SCH ×3 (06:23→23:46)
[2018-04-24] MEDS: SODIUM CHLORIDE FLUSH SYRINGE 10 ML IV SCH ×3 (06:24→23:47)
[2018-04-24] MEDS: MORPHINE IV PRN (08:16)
--- NOTE | 2018-04-24 09:07 | Progress Note ---
Assessment and Plan Assessment: Peripheral vascular disease - s/p left femoral to posterior tibial artery bypass and open thrombectomy of left posterior tibial artery TPA 04/23/2018 Acute blood loss anemia Hypertension Sinus tachycardia - physiologic secondary to post-op anemia Smoker HLP Plan: Pt s/p vascular surgery yesterday and had some post-operative bleeding. H/H 5.8/ 17.8 post-operatively and pt received PRBC and FFP overnight. Await repeat CBC and BMP. Follow vascular recs. The patient has been seen in conjunction with Dr. Carmona who agrees with the assessment and plan of care. Subjective Date of service: 04/24/18 Principal diagnosis: PVD Interval history: pt resting comfortably in bed, no current cardiac complaints. s/p vascular surgery yesterday. in ST on telemetry. BPs stable. at bedside. Objective Last Vital Signs Temp 98.8 F 04/24/18 05:56 Pulse 148 H 04/24/18 06:14 Resp 20 04/24/18 05:56 BP 108/58 04/24/18 06:14 Pulse Ox 98 04/24/18 05:56 - Physical Examination General: No Apparent Distress HEENT: Positive: PERRL, Mucus Membranes Moist Neck: Positive: neck supple, trachea midline Cardiac: Positive: Regular Rhythm, S1/S2, Tachycardia Lungs: Positive: clear to auscultation Neuro: Positive: Grossly Intact Abdomen: Positive: Soft, Active Bowel Sounds. Negative: Tender, Distended Skin: Positive: Clear Extremities: Present: Other (left leg cool, decreased pulses). Absent: edema - Labs and Meds Coagulation 04/23/18 Range/Units 23:34 APTT 54.2 H (24.2-36.6) Sec. CBC 04/23/18 Range/Units 23:34 WBC 10.8 (4.5-11.0) K/mm3 RBC 1.98 L (3.65-5.03) M/mm3 Hgb 5.8 L* D (10.1-14.3) gm/dl Hct 17.8 L* D (30.3-42.9) % Plt Count 202 (140-440) K/mm3 Lymph # 2.3 (1.2-5.4) K/mm3 [place] # 1.3 H (0.0-0.8) K/mm3 Eos # 0.3 (0.0-0.4) K/mm3 Baso # 0.1 (0.0-0.1) K/mm3 - Imaging and Cardiology EKG: report reviewed Stress echo: other (12/2017 normal myocardial perfusion scanof ischemia) Echo: report reviewed (12/2017 normal LV functionregurgitations) - Telemetry EKG Rhythm: Sinus Tachycardia - EKG Sinus rhythms and dysrhythmias: sinus rhythm
[2018-04-24 09:30] LABS: Hematocrit 35.3 % (30.3-42.9); Hemoglobin 12.2 gm/dl (10.1-14.3); Mean Corpuscular HGB Conc 35 % (30-34); Mean Corpuscular Hemoglobin 30 pg (28-32); Mean Corpuscular Volume 86 fl (79-97); Platelet Count 142 K/mm3 (140-440); Red Cell Distribution Width 14.9 % (13.2-15.2)
[2018-04-24 09:49] LABS: BUN/Creatinine Ratio 8; Blood Urea Nitrogen 4 mg/dL (7-17); Hemolysis Index 8
--- NOTE | 2018-04-24 09:49 | Event Note ---
Date: 04/24/18 Late entry. Contacted regarding bleeding and arrived to the hospital at 1130 pm. Pressure held at the sites and hemostasis achieved. OR team notified and called in, but then cancelled when noted that bleeding was more suspicious of coagulopathy. PTT and PT elevated and anemia noted. Received 2 L NS, 100 mL albumin until blood products available. 4 units pRBC and 4 unit FFP ordered. R TLC placed. L PT pulse bypass palpable. left at 230 am.
--- NOTE | 2018-04-24 09:50 | Operative Report ---
Operative Report Operative Report: EXAM: 1. Ultrasound-guided puncture of the right common femoral vein 2. Placement of a right common femoral vein nontunneled noncuffed catheter. DATE: 04/24/18 ; 1 am. INDICATION: Emergency consent. Patient in need of blood products for coagulopathy and anemia. MEDICATIONS: Local anesthetic (1% lidocaine). AIRCRAFT LAY OUT WORKER: MIGUEL GOODWIN MD DEVICES: 7F triple lumen nontunneled noncuffed catheter CONTRAST: None PROCEDURE: The risks, benefits, and alternatives were discussed and informed consent was obtained. The patient's right common femoral vein was assessed with ultrasound at bedside and determined to be patent prior to procedure. The patient was prepped and draped in a sterile fashion. The puncture site was anesthetized. Under sonographic guidance, the right common femoral vein was punctured with a 18-gauge micropuncture needle and a 0.035 inch wire was advanced through the needle. Over the 0.035 inch wire, dilatation was performed. The catheter was advanced over the wire. 2-0 silk suture was used to secure the catheter. The catheter was charged with saline. Biopatch and tegaderm were applied. FINDINGS: 1. Ultrasound documented patency of the right common femoral vein. The vessel was accessed under direct ultrasound guidance. IMPRESSION: 1. Successful ultrasound guided bedside placement of a right common femoral vein nontunneled noncuffed triple lumen catheter.
[2018-04-24 10:34] LABS: Calcium 7.1 mg/dL (8.4-10.2)
[2018-04-24 10:58] LABS: Anisocytosis 1+; Band Neutrophils # (Manual) 0.3 K/mm3; Basophils % (Manual) 0 % (0.0-1.8); Platelet Estimate Consistent w Auto; Total Cells Counted 100
--- NOTE | 2018-04-24 11:16 | Consultation ---
History of Present Illness - Reason for Consult Consult date: 04/24/18 Acute blood loss anemia Requesting physician: MIGUEL GOODWIN - History of Present Illness 57 y/o female, originally admitted with foot pain, had surgery on yesterday but had significant bleeding so required monitoring in ICU. Transfused PRBC's FFP and central line placed. This am, stable, Hemoglobin at 12 now but last night was down to high 5's. BP stable. Family at bedside. Past History Past Medical History: COPD, DVT, hypertension Past Surgical History: Other (thrombectomy]) Social history: , lives with family, smoking Family history: hypertension Medications and Allergies Allergies Allergy/AdvReac Type Severity Reaction Status Date / Time lisinopril Allergy Unknown Verified 12/23/17 01:05 prochlorperazine AdvReac Unknown Verified 12/19/17 15:27 [From Compazine] Home Medications Medication Instructions Recorded Confirmed Last Taken Type Metoprolol [Lopressor TAB] 12.5 mg PO BID #60 tablet 12/29/17 04/17/18 04/17/18 09:30 Rx amLODIPine [Norvasc] 10 mg PO QDAY #30 tablet 12/29/17 04/17/18 04/17/18 09:30 Rx Apixaban [Eliquis] 5 mg PO BID 04/17/18 04/17/18 04/17/18 09:30 History 5mg Aspirin EC [Aspirin Enteric Coated 81 mg PO QDAY 04/17/18 04/17/18 04/14/18 History TAB] 81mg Active Meds: Active Medications Amlodipine Besylate (Norvasc) 10 mg PO QDAY [facility] Last Admin: 04/23/18 10:55 Dose: Not Given Aspirin (Baby Aspirin) 81 mg PO QDAY [facility] Last Admin: 04/23/18 10:55 Dose: Not Given Atorvastatin Calcium (Lipitor) 40 mg PO QHS [facility] Last Admin: 04/24/18 06:14 Dose: Not Given Diphenhydramine HCl (Benadryl) 25 mg PO Q8H PRN PRN Reason: Itching Last Admin: 04/22/18 12:26 Dose: 25 mg Docusate Sodium (Colace) 100 mg PO BID PRN PRN Reason: Constipation Last Admin: 04/22/18 12:27 Dose: 100 mg Sodium Chloride (Nacl 0.9% 1000 Ml) 1,000 mls @ 42 mls/hr IV DIRECT [facility] Metoprolol Tartrate (Lopressor) 12.5 mg PO BID [facility] Last Admin: 04/24/18 06:14 Dose: Not Given Morphine Sulfate (Morphine) 2 mg IV Q4H PRN PRN Reason: Pain, Moderate (4-6) Last Admin: 04/24/18 08:16 Dose: 2 mg Naloxone HCl (Narcan 0.4 Mg/1 Ml) 0.1 mg IV Q2MIN PRN PRN Reason: Res Rate </= 8 or 02 SAT < 92% Nitroglycerin (Nitro-Bid 2%) 0.5 inch TP QIDNTG [facility]; Protocol Stop: 04/25/18 18:01 Ondansetron HCl (Zofran) 4 mg IV Q8H PRN PRN Reason: Nausea And Vomiting Oxycodone HCl (Oxycontin) 10 mg PO Q12HR [facility] Last Admin: 04/24/18 06:23 Dose: Not Given Oxycodone/Acetaminophen (Percocet 5/325) 1 tab PO Q4HR PRN PRN Reason: Pain Last Admin: 04/23/18 08:59 Dose: 1 tab Sodium Chloride (Sodium Chloride Flush Syringe 10 Ml) 10 ml IV BID [facility] Last Admin: 04/24/18 06:24 Dose: Not Given Sodium Chloride (Sodium Chloride Flush Syringe 10 Ml) 10 ml IV PRN PRN PRN Reason: LINE FLUSH Review of Systems All systems: negative Exam - Constitutional Vitals: Temp Pulse Resp BP Pulse Ox 98.8 F 148 H 17 108/58 100 04/24/18 05:56 04/24/18 06:14 04/24/18 10:00 04/24/18 06:14 04/24/18 10:00 General appearance: Present: no acute distress - EENT Eyes: Present: PERRL, EOM intact ENT: hearing intact, clear oral mucosa - Neck Neck: Present: supple, normal ROM - Respiratory Respiratory effort: normal Respiratory: bilateral: CTA - Cardiovascular Rhythm: regular Heart Sounds: Present: S1 & S2 Results - Labs CBC & Chem 7: 04/25/18 05:15 04/25/18 05:15 Labs: Abnormal lab results 04/23/18 04/23/18 04/23/18 Range/Units 21:36 23:30 23:34 RBC 1.98 L (3.65-5.03) M/mm3 Hgb 5.8 L* D (10.1-14.3) gm/dl Hct 17.8 L* D (30.3-42.9) % MCHC (30-34) % RDW 15.4 H (13.2-15.2) % [place] % (Auto) 12.2 H (0.0-7.3) % [place] # 1.3 H (0.0-0.8) K/mm3 Lymphocytes % (Manual) (13.4-35.0) % Monocytes % (Manual) (0.0-7.3) % Lymphocytes # (Manual) (1.2-5.4) K/mm3 Monocytes # (Manual) (0.0-0.8) K/mm3 APTT (24.2-36.6) Sec. Heparin Anti-Xa Level 0.78 H (0.3-0.7) U.I./ml Sodium (137-145) mmol/L Potassium (3.6-5.0) mmol/L Chloride (98-107) mmol/L Carbon Dioxide (22-30) mmol/L BUN (7-17) mg/dL Creatinine (0.7-1.2) mg/dL Glucose (65-100) mg/dL Calcium (8.4-10.2) mg/dL Crossmatch See Detail 04/23/18 04/24/18 04/24/18 Range/Units 23:34 09:16 09:16 RBC (3.65-5.03) M/mm3 Hgb (10.1-14.3) gm/dl Hct (30.3-42.9) % MCHC 35 H (30-34) % RDW (13.2-15.2) % [place] % (Auto) (0.0-7.3) % [place] # (0.0-0.8) K/mm3 Lymphocytes % (Manual) 11.0 L (13.4-35.0) % Monocytes % (Manual) 20.0 H (0.0-7.3) % Lymphocytes # (Manual) 1.0 L (1.2-5.4) K/mm3 Monocytes # (Manual) 1.8 H (0.0-0.8) K/mm3 APTT 54.2 H (24.2-36.6) Sec. Heparin Anti-Xa Level (0.3-0.7) U.I./ml Sodium 150 H D (137-145) mmol/L Potassium 2.7 L* D (3.6-5.0) mmol/L Chloride 114.6 H (98-107) mmol/L Carbon Dioxide 21 L (22-30) mmol/L BUN 4 L (7-17) mg/dL Creatinine 0.5 L (0.7-1.2) mg/dL Glucose 110 H (65-100) mg/dL Calcium 7.1 L D (8.4-10.2) mg/dL Crossmatch Assessment and Plan 57 y/o female with acute blood loss anemia, post-op now post-op from thrombectomy and further revision 1. Continue to monitor H/H 2. Follow up any new vascular recs 3. Needs more K and PHos, Primary correcting 4. Wean FiO2 to off 5. Continue ICU monitoring.
[2018-04-24] MEDS ORDERED: KCL 20MEQ/100ML 20 MEQ/100 ML BAG IV SCH (12:00)
[2018-04-24] MEDS: PERCOCET 5/325 PO PRN (12:03)
[2018-04-24] MEDS: NITRO-BID 2% TP SCH ×3 (12:10→13:43)
[2018-04-24] MEDS ORDERED: K-DUR PO ONE (12:19)
[2018-04-24] MEDS: KCL 10MEQ/100ML 10 MEQ/100 ML BAG IV SCH ×4 (12:46→16:05)
--- NOTE | 2018-04-24 12:54 | Progress Note ---
Assessment and Plan Assessment and plan: Patient had left femoral to posterior tibial artery bypass with composit in situ greater saphenous vein graft Open thrombectomy of left posterior tibial artery and 2 mg of TPA --Arterial insufficiency of lower extremity; s/p left femoral to posterior tibial artery bypass Vascular following --Nicotine dependence unspecified ; Smoking cessation counseling, advised nicotine patch --COPD (chronic obstructive pulmonary disease) supplemental oxygen, nebulizer therapy, NIPPV as clinically indicated. --HTN (hypertension) is to monitor blood pressures adjust as needed The new current antihypertensives. --Mild PRIYA; resolved, continue supportive care --DVT prophylaxis ; patient already on heparin drip Closely monitor the patient and adjust management Plan of care is reviewed with the patient and her nurse [employer] recommendations noted and appreciated Critical care time 31 minutes History Interval history: Patient seen and examined this morning in ICU medical records reviewed Patient had left femoral to posterior tibial artery bypass with compensated in situ greater saphenous vein graft Open thrombectomy of left posterior tibial artery and 2 mg of TPA Patient had episodes of bleeding yesterday, with significant drop in H&H, received 4 units of PRBCs with significant improvement Today patient is better no new complaints Scheduled for vascular procedure today Vital signs reviewed Hospitalist Physical - Constitutional Vitals: Temp Pulse Resp BP Pulse Ox 98.8 F 148 H 17 140/92 100 04/24/18 05:56 04/24/18 06:14 04/24/18 10:00 04/24/18 12:10 04/24/18 10:00 General appearance: Present: no acute distress, well-nourished - EENT Eyes: Present: PERRL, EOM intact - Neck Neck: Present: supple, normal ROM - Respiratory Respiratory effort: normal Respiratory: bilateral: diminished, negative: rales, rhonchi, wheezing - Cardiovascular Rhythm: regular Heart Sounds: Present: S1 & S2 - Extremities Extremities: no ischemia, No edema, abnormal (left leg in dressing) - Abdominal General gastrointestinal: soft, non-tender, non-distended, normal bowel sounds - Integumentary Integumentary: Present: clear, warm - Psychiatric Psychiatric: appropriate mood/affect, cooperative - Neurologic Neurologic: CNII-XII intact, moves all extremities Results - Labs CBC & Chem 7: 04/24/18 09:16 04/24/18 09:16 Labs: Laboratory Last Values WBC 8.8 K/mm3 (4.5-11.0) 04/24/18 09:16 RBC 4.10 M/mm3 (3.65-5.03) 04/24/18 09:16 Hgb 12.2 gm/dl (10.1-14.3) D 04/24/18 09:16 Hct 35.3 % (30.3-42.9) D 04/24/18 09:16 MCV 86 fl (79-97) 04/24/18 09:16 MCH 30 pg (28-32) 04/24/18 09:16 MCHC 35 % (30-34) H 04/24/18 09:16 RDW 14.9 % (13.2-15.2) 04/24/18 09:16 Plt Count 142 K/mm3 (140-440) 04/24/18 09:16 Lymph % (Auto) 20.8 % (13.4-35.0) 04/23/18 23:34 [place] % (Auto) Receiving Team Member 04/24/18 09:16 Eos % (Auto) 3.0 % (0.0-4.3) 04/23/18 23:34 Baso % (Auto) 0.6 % (0.0-1.8) 04/23/18 23:34 Lymph # 2.3 K/mm3 (1.2-5.4) 04/23/18 23:34 [place] # 1.3 K/mm3 (0.0-0.8) H 04/23/18 23:34 Eos # 0.3 K/mm3 (0.0-0.4) 04/23/18 23:34 Baso # 0.1 K/mm3 (0.0-0.1) 04/23/18 23:34 Add Manual Diff Complete 04/24/18 09:16 Total Counted 100 04/24/18 09:16 Seg Neutrophils % 63.4 % (40.0-70.0) 04/23/18 23:34 Seg Neuts % (Manual) 64.0 % (40.0-70.0) 04/24/18 09:16 Band Neutrophils % 3.0 % 04/24/18 09:16 Lymphocytes % (Manual) 11.0 % (13.4-35.0) L 04/24/18 09:16 Reactive Lymphs % (Man) 0 % 04/24/18 09:16 Monocytes % (Manual) 20.0 % (0.0-7.3) H 04/24/18 09:16 Eosinophils % (Manual) 2.0 % (0.0-4.3) 04/24/18 09:16 Basophils % (Manual) 0 % (0.0-1.8) 04/24/18 09:16 Metamyelocytes % 0 % 04/24/18 09:16 Myelocytes % 0 % 04/24/18 09:16 Promyelocytes % 0 % 04/24/18 09:16 Blast Cells % 0 % 04/24/18 09:16 Nucleated RBC % Not Reportable 04/24/18 09:16 Seg Neutrophils # 6.9 K/mm3 (1.8-7.7) 04/23/18 23:34 Seg Neutrophils # Man 5.6 K/mm3 (1.8-7.7) 04/24/18 09:16 Band Neutrophils # 0.3 K/mm3 04/24/18 09:16 Lymphocytes # (Manual) 1.0 K/mm3 (1.2-5.4) L 04/24/18 09:16 Abs React Lymphs (Man) 0.0 K/mm3 04/24/18 09:16 Monocytes # (Manual) 1.8 K/mm3 (0.0-0.8) H 04/24/18 09:16 Eosinophils # (Manual) 0.2 K/mm3 (0.0-0.4) 04/24/18 09:16 Basophils # (Manual) 0.0 K/mm3 (0.0-0.1) 04/24/18 09:16 Metamyelocytes # 0.0 K/mm3 04/24/18 09:16 Myelocytes # 0.0 K/mm3 04/24/18 09:16 Promyelocytes # 0.0 K/mm3 04/24/18 09:16 Blast Cells # 0.0 K/mm3 04/24/18 09:16 WBC Morphology Not Reportable 04/24/18 09:16 Hypersegmented Neuts Not Reportable 04/24/18 09:16 Hyposegmented Neuts Not Reportable 04/24/18 09:16 Hypogranular Neuts Not Reportable 04/24/18 09:16 Smudge Cells Not Reportable 04/24/18 09:16 Toxic Granulation Not Reportable 04/24/18 09:16 Toxic Vacuolation Not Reportable 04/24/18 09:16 Dohle Bodies Not Reportable 04/24/18 09:16 Pelger-Huet Anomaly Not Reportable 04/24/18 09:16 Silva Rods Not Reportable 04/24/18 09:16 Platelet Estimate Consistent w auto 04/24/18 09:16 Clumped Platelets Not Reportable 04/24/18 09:16 Plt Clumps, EDTA Not Reportable 04/24/18 09:16 Large Platelets Not Reportable 04/24/18 09:16 Giant Platelets Not Reportable 04/24/18 09:16 Platelet Satelliting Not Reportable 04/24/18 09:16 Plt Morphology Comment Not Reportable 04/24/18 09:16 RBC Morphology Not Reportable 04/24/18 09:16 Dimorphic RBCs Not Reportable 04/24/18 09:16 Polychromasia Not Reportable 04/24/18 09:16 Hypochromasia Not Reportable 04/24/18 09:16 Poikilocytosis Not Reportable 04/24/18 09:16 Anisocytosis 1+ 04/24/18 09:16 Microcytosis Not Reportable 04/24/18 09:16 Macrocytosis Not Reportable 04/24/18 09:16 Spherocytes Not Reportable 04/24/18 09:16 Pappenheimer Bodies Not Reportable 04/24/18 09:16 Sickle Cells Not Reportable 04/24/18 09:16 Target Cells Not Reportable 04/24/18 09:16 Tear Drop Cells Not Reportable 04/24/18 09:16 Ovalocytes Not Reportable 04/24/18 09:16 Helmet Cells Not Reportable 04/24/18 09:16 [place] Bodies Not Reportable 04/24/18 09:16 [place] Rings Not Reportable 04/24/18 09:16 Kyrie Cells Not Reportable 04/24/18 09:16 Bite Cells Not Reportable 04/24/18 09:16 Crenated Cell Not Reportable 04/24/18 09:16 Elliptocytes Not Reportable 04/24/18 09:16 Acanthocytes (Spur) Not Reportable 04/24/18 09:16 Rouleaux Not Reportable 04/24/18 09:16 Hemoglobin C Crystals Not Reportable 04/24/18 09:16 Schistocytes Not Reportable 04/24/18 09:16 Malaria parasites Not Reportable 04/24/18 09:16 Lázaro Bodies Not Reportable 04/24/18 09:16 Hem Pathologist Commnt No 04/24/18 09:16 PT 22.7 Sec. (12.2-14.9) H 04/17/18 18:56 INR 1.87 (0.87-1.13) H 04/17/18 18:56 APTT 54.2 Sec. (24.2-36.6) H 04/23/18 23:34 Fibrinogen 496 mg/dl (211-480) H 04/17/18 15:53 Heparin Anti-Xa Level 0.78 U.I./ml (0.3-0.7) H 04/23/18 21:36 Sodium 150 mmol/L (137-145) H D 04/24/18 09:16 Potassium 2.7 mmol/L (3.6-5.0) L* D 04/24/18 09:16 Chloride 114.6 mmol/L (98-107) H 04/24/18 09:16 Carbon Dioxide 21 mmol/L (22-30) L 04/24/18 09:16 Anion Gap 17 mmol/L 04/24/18 09:16 BUN 4 mg/dL (7-17) L 04/24/18 09:16 Creatinine 0.5 mg/dL (0.7-1.2) L 04/24/18 09:16 Estimated GFR > 60 ml/min 04/24/18 09:16 BUN/Creatinine Ratio 8 % 04/24/18 09:16 Glucose 110 mg/dL (65-100) H 04/24/18 09:16 Lactic Acid 1.90 mmol/L (0.7-2.0) 04/17/18 20:52 Calcium 7.1 mg/dL (8.4-10.2) L D 04/24/18 09:16 Total Creatine Kinase 190 units/L (30-135) H 04/17/18 15:53 Blood Type A POSITIVE 04/23/18 23:30 Antibody Screen Negative 04/23/18 23:30 Crossmatch See Detail 04/23/18 23:30
[2018-04-24] MEDS: NORVASC PO SCH (12:58)
[2018-04-24] MEDS ORDERED: D5W 1,000 ML IV SCH (13:00)
[2018-04-24] MEDS: BABY ASPIRIN PO SCH (13:41)
--- NOTE | 2018-04-24 14:34 | Vascular Lab Report ---
LOWER EXTREMITY ARTERIAL DUPLEX: REASON FOR EXAM: Ischemic pain left foot. COMMENTS ON THE RIGHT: A limited study is done of the right lower extremity. Monophasic waveforms with very low velocities are seen distally. This finding is consistent with marginal or inadequate perfusion. COMMENTS ON THE LEFT: Triphasic waveforms are seen proximally. Monophasic waveforms are seen distally. The superficial femoral artery and popliteal artery are occluded. Plaque is seen throughout. Findings are consistent with abnormal perfusion. Findings are consistent with resting ischemia. IMPRESSION: Severe arterial occlusive disease in both lower extremities. Findings on the left consistent with resting ischemia. Recommend further evaluation.
--- NOTE | 2018-04-24 14:40 | Vascular Lab Report ---
Greater saphenous vein mapping Reason for exam: Preoperative evaluation prior to bypass Comments: On the right, the greater saphenous vein is patent from groin to ankle. Throughout, the diameter is relatively small and less than 3 mm in proximal thigh. Overall this conduit does not appear to be suitable for use as an arterial bypass. On the left, there is saphenous vein is patent from groin to ankle. The vein appears to be of adequate caliber particularly in the proximal thigh although it out of the proximal calf. In the distal calf and becomes relatively small. Overall this vein appears to be suitable for use. Impression: Right greater saphenous vein is not suitable for use as an arterial conduit. The left greater saphenous vein appears to be suitable for use as a distal bypass conduit.
--- NOTE | 2018-04-24 14:45 | Vascular Lab Report ---
LOWER EXTREMITY ARTERIAL PHYSIOLOGIC STUDY: REASON FOR EXAM: Peripheral arterial disease. COMMENTS ON THE RIGHT: Ankle brachial index is 0.51. This value is consistent with severe claudication. Pulse volume recording at the level of the ankle is severely abnormal. Exercise testing was not done. COMMENTS ON THE LEFT: Ankle brachial index is zero. This value is consistent with tissue loss. Pulse volume recording at the level of the ankle is severely abnormal. Exercise testing was not done. IMPRESSION: Severe arterial disease in both lower extremities. The left is worse on the right. Findings on the left are consistent with tissue loss.
[2018-04-24] MEDS ORDERED: HEPARIN/NS 5000 UNIT/500ML(CATH LAB) 1,000 ML IR ONE (16:32)
[2018-04-24] MEDS ORDERED: XYLOCAINE 2% INFILTRATI ONE (16:33)
[2018-04-24] MEDS ORDERED: ANCEF/STERILE WATER 2 GM/20 ML 2 GM/20 ML SYRINGE IV ONE (16:33)
[2018-04-24] MEDS ORDERED: MAGNESIUM SULFATE 4GM/100ML 4 GM/100 ML BAG IV ONE (17:00)
[2018-04-24] MEDS: VERSED ONE ×5 (17:20→19:14)
[2018-04-24] MEDS: SUBLIMAZE ONE ×6 (17:20→19:24)
[2018-04-24] MEDS ORDERED: NACL 0.9% 1000 ML 1,000 ML ONE (17:20)
[2018-04-24] MEDS: HEPARIN 10,000 UNITS/10 ML ONE ×2 (18:00→18:30)
[2018-04-24] MEDS ORDERED: HEPARIN/NS 5000 UNIT/500ML(CATH LAB) 500 ML IR ONE ×2 (18:15→18:52)
[2018-04-24] MEDS ORDERED: CATHFLO ONE (18:38)
[2018-04-24] MEDS ORDERED: WATER FOR INJ (PF) 10 ML ONE ×2 (18:38→18:39)
[2018-04-24] MEDS ORDERED: NITROGLYCERIN SYRINGE 6 ML ONE (19:02)
[2018-04-24] MEDS ORDERED: GELFOAM TP ONE (19:29)
[2018-04-24] MEDS ORDERED: HEPARIN 10,000 UNITS/10 ML ONE (19:29)
[2018-04-24] MEDS ORDERED: THROMBIN (BOVINE) TP ONE (19:29)
[2018-04-24] MEDS ORDERED: NACL 0.9% 500 ML 500 ML IV NR (19:31)
[2018-04-24] MEDS ORDERED: DIPRIVAN 10 MG/ML IV ONE (19:47)
[2018-04-24] MEDS ORDERED: SUBLIMAZE ONE (19:48)
--- NOTE | 2018-04-24 20:02 | Post Operative Note ---
Date of procedure: 04/24/18 Pre-op diagnosis: Acute Thrombosis of Left Femoral Artery to Posterior Artery Bypass Post-op diagnosis: same Procedure: 1. Ultrasound Guided Access Right Femoral Artery 2. Diagnostic Left Lower Exremity Arteriogram (Patient had a Clinical Change) 3. Percutaneous Mechanical Thrombectomy of Left Femoral Artery to Posterior Tibial Artery Bypass with Angiojet Catheter 4. Angioplasty of Left Posterior Tibial Artery with 3.0 x 220 Balloon 5 Angioplasty of Left Femoral Artery to Posterior Tibial Artery Bypass with 4.0 x 220 Balloon 6. Closure of Right Femoral Arteriotomy with 6 [place] Angioseal 7. Radiologic Supervision with Interpretation Anesthesia: local, other (i.v. Sedation) Surgeon: KIRSTIE SOUZA Estimated blood loss: 50-100ml Pathology: none Condition: stable Disposition: other (Going to the operating room to repair extravasation of contrast)
[2018-04-24] MEDS ORDERED: ePHEDrine 50 MG/5 ML-0.9% NACL IV ONE (20:10)
[2018-04-24] MEDS ORDERED: Vasostrict ONE (20:11)
[2018-04-24] MEDS ORDERED: HEPARIN 10,000 UNITS/10 ML IV ONE (20:35)
[2018-04-24] MEDS ORDERED: NACL 0.45% 500 ML IV ONE (20:42)
[2018-04-24] MEDS ORDERED: NACL P/F VIAL (10 ML) 10 ML ONE (23:11)
[2018-04-24] MEDS ORDERED: HEPARIN/ 0.45% NACL-25,000 UNIT/500 ML 25,000 UNIT/500 ML BAG IV SCH (23:45)
--- NOTE | 2018-04-24 23:50 | Post Operative Note ---
Date of procedure: 04/24/18 Pre-op diagnosis: Acute Thrombosis of Left Femoral to Posterior Tibial Bypass With Extrav Post-op diagnosis: same Findings: Bleeding from multiple places on the graft. Thrombosis of the graft during the cases as well as the PT artery. Procedure: 1. Open Revision of Left Femoral Artery to Posterior Tibial Artery Bypass 2. Open Thrombectomy of Left Femoral Artery to Posterior Tibial Artery Bypass with 3 Billy 3. Open Thrombectomy of Left Posterior Tibial Artery with 3 Billy Anesthesia: BREANN Surgeon: KIRSTIE SOUZA Connection Worker: DELLA BARKLEY Estimated blood loss: other (350 ml) Pathology: none Condition: stable Disposition: ICU
[2018-04-24] MEDS ORDERED: ATIVAN PO PRN ×2 (23:52)
[2018-04-24] MEDS ORDERED: HALDOL IV PRN (23:52)
[2018-04-24] MEDS ORDERED: LIBRIUM PO PRN ×2 (23:52)
[2018-04-24] MEDS ORDERED: ATIVAN IV PRN (23:52)
[2018-04-24] MEDS ORDERED: ZOFRAN ONE (23:55)
[2018-04-25] MEDS: DILAUDID IV PRN ×2 (00:50→06:18)
[2018-04-25 01:54] LABS: Hematocrit 32.1 % (30.3-42.9); Hemoglobin 10.9 gm/dl (10.1-14.3)
[2018-04-25 02:05] LABS: INR 1.91 (0.87-1.13)
[2018-04-25 02:30] LABS: Partial Thromboplastin Time 112.7 Sec. (24.2-36.6)
[2018-04-25] MEDS ORDERED: MAGNESIUM SULFATE 4GM/100ML 4 GM/100 ML BAG IV ONE (03:00)
[2018-04-25] MEDS ORDERED: NACL 0.9% 500 ML 500 ML IV ONE (04:06)
[2018-04-25] MEDS: NACL 0.9% 1000 ML 1,000 ML IV SCH (04:37)
[2018-04-25 05:45] LABS: Basophils # (Auto) 0.1 K/mm3 (0.0-0.1); Basophils % (Auto) 0.5 % (0.0-1.8); Eosinophils # (Auto) 0.1 K/mm3 (0.0-0.4); Hematocrit 29.9 % (30.3-42.9); Hemoglobin 10.2 gm/dl (10.1-14.3); Lymphocytes # (Auto) 1.4 K/mm3 (1.2-5.4); Lymphocytes % (Auto) 12.6 % (13.4-35.0); Mean Corpuscular HGB Conc 34 % (30-34); Mean Corpuscular Hemoglobin 29 pg (28-32); Mean Corpuscular Volume 86 fl (79-97); Monocytes # (Auto) 1.3 K/mm3 (0.0-0.8); Monocytes % (Auto) 11.8 % (0.0-7.3); Red Blood Count 3.49 M/mm3 (3.65-5.03); Red Cell Distribution Width 15.1 % (13.2-15.2)
[2018-04-25 05:54] LABS: Platelet Count 54 K/mm3 (140-440)
[2018-04-25 06:04] LABS: BUN/Creatinine Ratio 13; Blood Urea Nitrogen 4 mg/dL (7-17); Hemolysis Index 2
[2018-04-25] MEDS: NITRO-BID 2% TP SCH ×5 (06:08→18:19)
[2018-04-25 06:15] LABS: Calcium 5.9 mg/dL (8.4-10.2)
[2018-04-25] MEDS ORDERED: K-DUR PO NR (08:00)
--- NOTE | 2018-04-25 08:23 | Progress Note ---
Assessment and Plan Assessment and plan: ----Arterial insufficiency of lower extremity; s/p left femoral to posterior tibial artery bypass Patient had revision of vascular surgery yesterday with 1. Open Revision of Left Femoral Artery to Posterior Tibial Artery Bypass 2. Open Thrombectomy of Left Femoral Artery to Posterior Tibial Artery Bypass with 3 Billy 3. Open Thrombectomy of Left Posterior Tibial Artery with 3 Billy Heparin discontinued, Started on Argatroban drip --Anemia; status post multiple PRBC transfusion Closely monitor H&H, additional transfusion as needed --Thrombocytopenia; closely monitor, platelet transfusion if needed Consider hematology consultation if no improvement --Severe Hypokalemia; replace oral and IV KCl, closely monitor levels --Hypophosphatemia; replacement with potassium phosphate IV --Hypomagnesemia; corrected --Hypocalcemia;Received 2 doses of calcium chloride --Nicotine dependence unspecified ; Smoking cessation counseling, advised nicotine patch --COPD (chronic obstructive pulmonary disease) supplemental oxygen, nebulizer therapy, NIPPV as clinically indicated. --HTN (hypertension) is to monitor blood pressures adjust as needed The new current antihypertensives. --Mild PRIYA; resolved, continue supportive care --DVT prophylaxis ; patient already on heparin drip Closely monitor the patient and adjust management Plan of care is reviewed with the patient and her nurse [employer] recommendations noted and appreciated Critical care time 31 minutes History Interval history: Patient underwent vascular procedure yesterday Patient seen and examined this morning medical records reviewed Patient is comfortable, sleeping easily awakens Complains of some pain in the foot Vital signs Hospitalist Physical - Constitutional Vitals: Temp Pulse Resp BP Pulse Ox 98.3 F 115 H 16 120/76 100 04/25/18 07:04 04/25/18 07:04 04/25/18 07:04 04/25/18 07:04 04/25/18 07:04 General appearance: Present: no acute distress, well-nourished - EENT Eyes: Present: PERRL, EOM intact - Neck Neck: Present: supple, normal ROM - Respiratory Respiratory effort: normal Respiratory: bilateral: diminished, negative: rales, rhonchi, wheezing - Cardiovascular Rhythm: regular Heart Sounds: Present: S1 & S2 - Extremities Extremities: No edema, normal temperature - Abdominal General gastrointestinal: soft, non-tender, non-distended, normal bowel sounds - Integumentary Integumentary: Present: clear, warm - Psychiatric Psychiatric: appropriate mood/affect, cooperative - Neurologic Neurologic: CNII-XII intact, moves all extremities Results - Labs CBC & Chem 7: 04/25/18 10:56 04/25/18 05:15 Labs: Laboratory Last Values WBC 11.3 K/mm3 (4.5-11.0) H 04/25/18 05:15 RBC 3.49 M/mm3 (3.65-5.03) L 04/25/18 05:15 Hgb 10.2 gm/dl (10.1-14.3) 04/25/18 05:15 POC Hgb 7.8 (12-17) L 04/24/18 20:36 Hct 29.9 % (30.3-42.9) L 04/25/18 05:15 POC Hct 23 (38-51) L 04/24/18 20:36 MCV 86 fl (79-97) 04/25/18 05:15 MCH 29 pg (28-32) 04/25/18 05:15 MCHC 34 % (30-34) 04/25/18 05:15 RDW 15.1 % (13.2-15.2) 04/25/18 05:15 Plt Count 54 K/mm3 (140-440) L 04/25/18 05:15 Lymph % (Auto) 12.6 % (13.4-35.0) L 04/25/18 05:15 [place] % (Auto) 11.8 % (0.0-7.3) H 04/25/18 05:15 Eos % (Auto) 1.0 % (0.0-4.3) 04/25/18 05:15 Baso % (Auto) 0.5 % (0.0-1.8) 04/25/18 05:15 Lymph # 1.4 K/mm3 (1.2-5.4) 04/25/18 05:15 [place] # 1.3 K/mm3 (0.0-0.8) H 04/25/18 05:15 Eos # 0.1 K/mm3 (0.0-0.4) 04/25/18 05:15 Baso # 0.1 K/mm3 (0.0-0.1) 04/25/18 05:15 Add Manual Diff Complete 04/24/18 09:16 Total Counted 100 04/24/18 09:16 Seg Neutrophils % 74.1 % (40.0-70.0) H 04/25/18 05:15 Seg Neuts % (Manual) 64.0 % (40.0-70.0) 04/24/18 09:16 Band Neutrophils % 3.0 % 04/24/18 09:16 Lymphocytes % (Manual) 11.0 % (13.4-35.0) L 04/24/18 09:16 Reactive Lymphs % (Man) 0 % 04/24/18 09:16 Monocytes % (Manual) 20.0 % (0.0-7.3) H 04/24/18 09:16 Eosinophils % (Manual) 2.0 % (0.0-4.3) 04/24/18 09:16 Basophils % (Manual) 0 % (0.0-1.8) 04/24/18 09:16 Metamyelocytes % 0 % 04/24/18 09:16 Myelocytes % 0 % 04/24/18 09:16 Promyelocytes % 0 % 04/24/18 09:16 Blast Cells % 0 % 04/24/18 09:16 Nucleated RBC % Not Reportable 04/24/18 09:16 Seg Neutrophils # 8.4 K/mm3 (1.8-7.7) H 04/25/18 05:15 Seg Neutrophils # Man 5.6 K/mm3 (1.8-7.7) 04/24/18 09:16 Band Neutrophils # 0.3 K/mm3 04/24/18 09:16 Lymphocytes # (Manual) 1.0 K/mm3 (1.2-5.4) L 04/24/18 09:16 Abs React Lymphs (Man) 0.0 K/mm3 04/24/18 09:16 Monocytes # (Manual) 1.8 K/mm3 (0.0-0.8) H 04/24/18 09:16 Eosinophils # (Manual) 0.2 K/mm3 (0.0-0.4) 04/24/18 09:16 Basophils # (Manual) 0.0 K/mm3 (0.0-0.1) 04/24/18 09:16 Metamyelocytes # 0.0 K/mm3 04/24/18 09:16 Myelocytes # 0.0 K/mm3 04/24/18 09:16 Promyelocytes # 0.0 K/mm3 04/24/18 09:16 Blast Cells # 0.0 K/mm3 04/24/18 09:16 WBC Morphology Not Reportable 04/24/18 09:16 Hypersegmented Neuts Not Reportable 04/24/18 09:16 Hyposegmented Neuts Not Reportable 04/24/18 09:16 Hypogranular Neuts Not Reportable 04/24/18 09:16 Smudge Cells Not Reportable 04/24/18 09:16 Toxic Granulation Not Reportable 04/24/18 09:16 Toxic Vacuolation Not Reportable 04/24/18 09:16 Dohle Bodies Not Reportable 04/24/18 09:16 Pelger-Huet Anomaly Not Reportable 04/24/18 09:16 Silva Rods Not Reportable 04/24/18 09:16 Platelet Estimate Consistent w auto 04/24/18 09:16 Clumped Platelets Not Reportable 04/24/18 09:16 Plt Clumps, EDTA Not Reportable 04/24/18 09:16 Large Platelets Not Reportable 04/24/18 09:16 Giant Platelets Not Reportable 04/24/18 09:16 Platelet Satelliting Not Reportable 04/24/18 09:16 Plt Morphology Comment Not Reportable 04/24/18 09:16 RBC Morphology Not Reportable 04/24/18 09:16 Dimorphic RBCs Not Reportable 04/24/18 09:16 Polychromasia Not Reportable 04/24/18 09:16 Hypochromasia Not Reportable 04/24/18 09:16 Poikilocytosis Not Reportable 04/24/18 09:16 Anisocytosis 1+ 04/24/18 09:16 Microcytosis Not Reportable 04/24/18 09:16 Macrocytosis Not Reportable 04/24/18 09:16 Spherocytes Not Reportable 04/24/18 09:16 Pappenheimer Bodies Not Reportable 04/24/18 09:16 Sickle Cells Not Reportable 04/24/18 09:16 Target Cells Not Reportable 04/24/18 09:16 Tear Drop Cells Not Reportable 04/24/18 09:16 Ovalocytes Not Reportable 04/24/18 09:16 Helmet Cells Not Reportable 04/24/18 09:16 Bar[place] Bodies Not Reportable 04/24/18 09:16 [place] Rings Not Reportable 04/24/18 09:16 Kyrie Cells Not Reportable 04/24/18 09:16 Bite Cells Not Reportable 04/24/18 09:16 Crenated Cell Not Reportable 04/24/18 09:16 Elliptocytes Not Reportable 04/24/18 09:16 Acanthocytes (Spur) Not Reportable 04/24/18 09:16 Rouleaux Not Reportable 04/24/18 09:16 Hemoglobin C Crystals Not Reportable 04/24/18 09:16 Schistocytes Not Reportable 04/24/18 09:16 Malaria parasites Not Reportable 04/24/18 09:16 Lázaro Bodies Not Reportable 04/24/18 09:16 Hem Pathologist Commnt No 04/24/18 09:16 PT 23.1 Sec. (12.2-14.9) H 04/24/18 01:30 INR 1.91 (0.87-1.13) H 04/24/18 01:30 APTT 112.7 Sec. (24.2-36.6) H* 04/24/18 01:30 Fibrinogen 496 mg/dl (211-480) H 04/17/18 15:53 Heparin Anti-Xa Level 0.18 U.I./ml (0.3-0.7) L 04/25/18 01:30 POC Sodium 145 mmol/L (138-146) 04/24/18 20:36 POC Potassium 3.1 (3.5-4.9) L 04/24/18 20:36 POC Chloride 110 (98-109) H 04/24/18 20:36 Sodium 145 mmol/L (137-145) 04/25/18 05:15 Potassium 2.6 mmol/L (3.6-5.0) L* 04/25/18 05:15 Chloride 112.2 mmol/L (98-107) H 04/25/18 05:15 Carbon Dioxide 20 mmol/L (22-30) L 04/25/18 05:15 Anion Gap 15 mmol/L 04/25/18 05:15 POC BUN 4 mg/dl (8-26) L 04/24/18 20:36 BUN 4 mg/dL (7-17) L 04/25/18 05:15 Creatinine 0.3 mg/dL (0.7-1.2) L 04/25/18 05:15 Estimated GFR > 60 ml/min 04/25/18 05:15 BUN/Creatinine Ratio 13 % 04/25/18 05:15 Glucose 117 mg/dL (65-100) H 04/25/18 05:15 POC Glucose 127 (70-105) H 04/24/18 20:36 Lactic Acid 1.90 mmol/L (0.7-2.0) 04/17/18 20:52 Calcium 5.9 mg/dL (8.4-10.2) L* D 04/25/18 05:15 Phosphorus 1.60 mg/dL (2.5-4.5) L 04/25/18 05:15 Magnesium 2.90 mg/dL (1.7-2.3) H 04/25/18 05:15 Total Creatine Kinase 190 units/L (30-135) H 04/17/18 15:53 Blood Type A POSITIVE 04/23/18 23:30 Antibody Screen Negative 04/23/18 23:30 Crossmatch See Detail 04/23/18 23:30
[2018-04-25] MEDS ORDERED: KPHOS 45 MMOL in NACL 0.9% 500 ML 500 ML IV ONE (09:00)
[2018-04-25] MEDS: OxyCONTIN PO SCH (10:04)
[2018-04-25] MEDS: BABY ASPIRIN PO SCH (10:04)
[2018-04-25] MEDS: NORVASC PO SCH (10:06)
[2018-04-25] MEDS: KCL 20MEQ/100ML 20 MEQ/100 ML BAG IV SCH (10:07)
[2018-04-25] MEDS: SODIUM CHLORIDE FLUSH SYRINGE 10 ML IV SCH ×2 (10:08→22:28)
[2018-04-25] MEDS: LOPRESSOR PO SCH ×2 (10:10→18:19)
[2018-04-25] MEDS ORDERED: CALCIUM GLUCONATE 2,000 MG in NACL 0.9% 100 ML IV ONE (10:12)
--- NOTE | 2018-04-25 10:15 | Progress Note ---
Assessment and Plan Assessment: Peripheral vascular disease - s/p left femoral to posterior tibial artery bypass and open thrombectomy of left posterior tibial artery TPA 04/23/2018 Acute blood loss anemia - improved s/p PRBC and FFP tx Thrombocytopenia Hypertension Sinus tachycardia - suspect physiologic secondary to anemia and pain HLP Hypokalemia Hypocalcemia Hypophosphatemia Tobacco use - cessation encouraged. Plan: Increase home lopressor for HR optimization in the post-operative period. Replete electrolytes. Pain management per primary/vascular. Follow vascular recs. The patient has been seen in conjunction with Dr. Carmona who agrees with the assessment and plan of care. Subjective Date of service: 04/25/18 Principal diagnosis: PVD Interval history: pt resting comfortably in bed, no current cardiac complaints. c/o LLE pain. in ST on telemetry. BPs stable. Objective Last Vital Signs Temp 98.3 F 04/25/18 07:04 Pulse 115 H 04/25/18 07:04 Resp 16 04/25/18 07:04 BP 120/76 04/25/18 07:04 Pulse Ox 100 04/25/18 07:04 - Physical Examination General: No Apparent Distress HEENT: Positive: PERRL, Mucus Membranes Moist Neck: Positive: neck supple, trachea midline Cardiac: Positive: Regular Rhythm, S1/S2, Tachycardia Lungs: Positive: clear to auscultation Neuro: Positive: Grossly Intact Abdomen: Positive: Soft, Active Bowel Sounds. Negative: Tender, Distended Skin: Positive: Clear Incision: Cardiac Cath Site Musculoskeletal: No Pain, Normal Range of Motion Extremities: Present: Other (LLE warm, redness and swelling noted). Absent: edema - Labs and Meds Coagulation 04/24/18 Range/Units 01:30 PT 23.1 H (12.2-14.9) Sec. INR 1.91 H (0.87-1.13) APTT 112.7 H* (24.2-36.6) Sec. CBC 04/24/18 04/24/18 04/25/18 Range/Units 01:30 09:16 05:15 WBC 8.8 11.3 H (4.5-11.0) K/mm3 RBC 4.10 3.49 L (3.65-5.03) M/mm3 Hgb 10.9 D 12.2 10.2 (10.1-14.3) gm/dl Hct 32.1 D 35.3 29.9 L (30.3-42.9) % Plt Count 100 L 142 54 L (140-440) K/mm3 Lymph # 1.4 (1.2-5.4) K/mm3 [place] # 1.3 H (0.0-0.8) K/mm3 Eos # 0.1 (0.0-0.4) K/mm3 Baso # 0.1 (0.0-0.1) K/mm3 Comprehensive Metabolic Panel 04/24/18 04/25/18 04/25/18 Range/Units 09:16 05:15 07:37 Sodium 145 (137-145) mmol/L Potassium 2.6 L* (3.6-5.0) mmol/L Chloride 112.2 H (98-107) mmol/L Carbon Dioxide 20 L (22-30) mmol/L BUN 4 L (7-17) mg/dL Creatinine 0.3 L (0.7-1.2) mg/dL Glucose 117 H (65-100) mg/dL Calcium 7.1 L D 5.9 L* D (8.4-10.2) mg/dL Albumin 2.7 L (3.9-5) g/dL - Imaging and Cardiology EKG: report reviewed Stress echo: other (12/2017 normal myocardial perfusion scanof ischemia) Echo: report reviewed (12/2017 normal LV functionregurgitations) - Telemetry EKG Rhythm: Sinus Tachycardia - EKG Sinus rhythms and dysrhythmias: sinus rhythm
--- NOTE | 2018-04-25 11:04 | Progress Note ---
Assessment and Plan 57 y/o female with acute blood loss anemia, post-op now post-op from thrombectomy and further revision 1. Continue to monitor H/H 2. Follow up any new vascular recs 3. Needs more K and PHos, Primary correcting 4. Wean FiO2 to off 5. Continue ICU monitoring. Subjective Date of service: 04/25/18 Principal diagnosis: PVD Interval history: Had to go back to OR for further revision and thrombectomy. Objective - Constitutional Vitals: Vital Signs - 12hr 04/25/18 04/25/18 04/25/18 00:00 00:15 00:20 Temperature 97.7 F Pulse Rate 121 H 116 H 118 H Respiratory 16 14 17 Rate Blood Pressure 140/92 134/91 152/89 O2 Sat by Pulse 100 100 99 Oximetry 04/25/18 04/25/18 04/25/18 00:25 00:30 00:45 Temperature Pulse Rate 122 H 123 H 120 H Respiratory 16 18 9 L Rate Blood Pressure 133/89 133/89 136/76 O2 Sat by Pulse 97 94 95 Oximetry 04/25/18 04/25/18 04/25/18 00:50 00:55 01:00 Temperature Pulse Rate 117 H 114 H Respiratory 17 12 10 L Rate Blood Pressure 119/78 117/83 O2 Sat by Pulse 96 98 Oximetry 04/25/18 04/25/18 04/25/18 01:05 01:31 02:00 Temperature Pulse Rate 109 H 107 H Respiratory 18 11 L 9 L Rate Blood Pressure 136/76 108/74 O2 Sat by Pulse 100 100 100 Oximetry 04/25/18 04/25/18 04/25/18 02:31 03:00 03:31 Temperature Pulse Rate 105 H 107 H 108 H Respiratory 12 12 10 L Rate Blood Pressure 108/74 111/76 111/76 O2 Sat by Pulse 100 99 99 Oximetry 04/25/18 04/25/18 04/25/18 03:45 04:00 04:31 Temperature 98.0 F Pulse Rate 109 H 112 H Respiratory 16 10 L Rate Blood Pressure 117/77 117/77 O2 Sat by Pulse 100 99 Oximetry 04/25/18 04/25/18 04/25/18 05:00 05:31 05:49 Temperature 98.9 F Pulse Rate 110 H 111 H 117 H Respiratory 16 17 18 Rate Blood Pressure 108/71 108/71 112/78 O2 Sat by Pulse 99 99 99 Oximetry 04/25/18 04/25/18 04/25/18 06:00 06:04 06:08 Temperature 98.3 F Pulse Rate 113 H 118 H 118 H Respiratory 16 16 Rate Blood Pressure 118/80 121/84 118/80 O2 Sat by Pulse 98 99 Oximetry 04/25/18 04/25/18 04/25/18 06:18 06:30 06:34 Temperature 98.5 F Pulse Rate 116 H 116 H Respiratory 15 17 17 Rate Blood Pressure 119/81 119/81 O2 Sat by Pulse 99 100 Oximetry 04/25/18 04/25/18 04/25/18 07:00 07:04 07:30 Temperature 98.3 F Pulse Rate 117 H 115 H 120 H Respiratory 16 16 18 Rate Blood Pressure 118/77 120/76 121/82 O2 Sat by Pulse 99 100 99 Oximetry 04/25/18 04/25/18 04/25/18 07:41 07:51 08:00 Temperature Pulse Rate 119 H 120 H 118 H Respiratory 18 19 16 Rate Blood Pressure 120/76 125/82 125/81 O2 Sat by Pulse 99 99 98 Oximetry 04/25/18 04/25/18 04/25/18 08:11 08:21 08:30 Temperature Pulse Rate 119 H 121 H 122 H Respiratory 17 18 19 Rate Blood Pressure 125/81 129/83 129/83 O2 Sat by Pulse 99 99 98 Oximetry 04/25/18 04/25/18 04/25/18 08:41 08:51 09:00 Temperature Pulse Rate 121 H 128 H 130 H Respiratory 19 14 12 Rate Blood Pressure 129/83 130/80 140/88 O2 Sat by Pulse 99 100 100 Oximetry 04/25/18 04/25/18 04/25/18 09:11 09:21 09:30 Temperature Pulse Rate 132 H 132 H 127 H Respiratory 13 17 18 Rate Blood Pressure 140/88 135/80 132/85 O2 Sat by Pulse 99 99 100 Oximetry 04/25/18 04/25/18 04/25/18 09:41 09:45 09:51 Temperature 98.8 F Pulse Rate 124 H 126 H Respiratory 18 12 Rate Blood Pressure 132/85 124/79 O2 Sat by Pulse 100 100 Oximetry 04/25/18 04/25/18 04/25/18 10:00 10:05 10:06 Temperature Pulse Rate 128 H 128 H 126 H Respiratory 20 Rate Blood Pressure 116/76 116/76 116/76 O2 Sat by Pulse 100 Oximetry 04/25/18 10:10 Temperature Pulse Rate 126 H Respiratory Rate Blood Pressure 116/76 O2 Sat by Pulse Oximetry General appearance: Present: no acute distress, well-nourished - EENT Eyes: PERRL, EOM intact ENT: hearing intact - Neck Neck: supple, normal ROM - Respiratory Respiratory effort: normal Respiratory: bilateral: CTA - Breasts Breasts: deferred - Cardiovascular Rhythm: regular Heart Sounds: Present: S1 & S2 - Labs CBC & Chem 7: 04/25/18 05:15 04/25/18 05:15 Labs: Abnormal lab results 04/23/18 04/24/18 04/24/18 Range/Units 23:30 01:30 01:30 WBC (4.5-11.0) K/mm3 RBC (3.65-5.03) M/mm3 POC Hgb (12-17) Hct (30.3-42.9) % POC Hct (38-51) MCHC (30-34) % Plt Count 100 L (140-440) K/mm3 Lymph % (Auto) (13.4-35.0) % [place] % (Auto) (0.0-7.3) % [place] # (0.0-0.8) K/mm3 Seg Neutrophils % (40.0-70.0) % Lymphocytes % (Manual) (13.4-35.0) % Monocytes % (Manual) (0.0-7.3) % Seg Neutrophils # (1.8-7.7) K/mm3 Lymphocytes # (Manual) (1.2-5.4) K/mm3 Monocytes # (Manual) (0.0-0.8) K/mm3 PT 23.1 H (12.2-14.9) Sec. INR 1.91 H (0.87-1.13) APTT 112.7 H* (24.2-36.6) Sec. Heparin Anti-Xa Level (0.3-0.7) U.I./ml POC Sodium (138-146) mmol/L POC Potassium (3.5-4.9) POC Chloride (98-109) Potassium (3.6-5.0) mmol/L Chloride (98-107) mmol/L Carbon Dioxide (22-30) mmol/L POC BUN (8-26) mg/dl BUN (7-17) mg/dL Creatinine (0.7-1.2) mg/dL Glucose (65-100) mg/dL POC Glucose (70-105) Calcium (8.4-10.2) mg/dL Phosphorus (2.5-4.5) mg/dL Magnesium (1.7-2.3) mg/dL Albumin (3.9-5) g/dL Crossmatch See Detail 04/24/18 04/24/18 04/24/18 Range/Units 09:16 09:16 20:36 WBC (4.5-11.0) K/mm3 RBC (3.65-5.03) M/mm3 POC Hgb 7.8 L (12-17) Hct (30.3-42.9) % POC Hct 23 L (38-51) MCHC 35 H (30-34) % Plt Count (140-440) K/mm3 Lymph % (Auto) (13.4-35.0) % [place] % (Auto) (0.0-7.3) % [place] # (0.0-0.8) K/mm3 Seg Neutrophils % (40.0-70.0) % Lymphocytes % (Manual) 11.0 L (13.4-35.0) % Monocytes % (Manual) 20.0 H (0.0-7.3) % Seg Neutrophils # (1.8-7.7) K/mm3 Lymphocytes # (Manual) 1.0 L (1.2-5.4) K/mm3 Monocytes # (Manual) 1.8 H (0.0-0.8) K/mm3 PT (12.2-14.9) Sec. INR (0.87-1.13) APTT (24.2-36.6) Sec. Heparin Anti-Xa Level (0.3-0.7) U.I./ml POC Sodium (138-146) mmol/L POC Potassium 3.1 L (3.5-4.9) POC Chloride 110 H (98-109) Potassium (3.6-5.0) mmol/L Chloride (98-107) mmol/L Carbon Dioxide (22-30) mmol/L POC BUN 4 L (8-26) mg/dl BUN (7-17) mg/dL Creatinine (0.7-1.2) mg/dL Glucose (65-100) mg/dL POC Glucose 127 H (70-105) Calcium (8.4-10.2) mg/dL Phosphorus (2.5-4.5) mg/dL Magnesium 1.10 L (1.7-2.3) mg/dL Albumin (3.9-5) g/dL Crossmatch 04/24/18 04/25/18 04/25/18 Range/Units 22:40 01:30 05:15 WBC 11.3 H (4.5-11.0) K/mm3 RBC 3.49 L (3.65-5.03) M/mm3 POC Hgb 10.2 L (12-17) Hct 29.9 L (30.3-42.9) % POC Hct 30 L (38-51) MCHC (30-34) % Plt Count 54 L (140-440) K/mm3 Lymph % (Auto) 12.6 L (13.4-35.0) % [place] % (Auto) 11.8 H (0.0-7.3) % [place] # 1.3 H (0.0-0.8) K/mm3 Seg Neutrophils % 74.1 H (40.0-70.0) % Lymphocytes % (Manual) (13.4-35.0) % Monocytes % (Manual) (0.0-7.3) % Seg Neutrophils # 8.4 H (1.8-7.7) K/mm3 Lymphocytes # (Manual) (1.2-5.4) K/mm3 Monocytes # (Manual) (0.0-0.8) K/mm3 PT (12.2-14.9) Sec. INR (0.87-1.13) APTT (24.2-36.6) Sec. Heparin Anti-Xa Level 0.18 L (0.3-0.7) U.I./ml POC Sodium 147 H (138-146) mmol/L POC Potassium (3.5-4.9) POC Chloride 112 H (98-109) Potassium (3.6-5.0) mmol/L Chloride (98-107) mmol/L Carbon Dioxide (22-30) mmol/L POC BUN 3 L (8-26) mg/dl BUN (7-17) mg/dL Creatinine (0.7-1.2) mg/dL Glucose (65-100) mg/dL POC Glucose 126 H (70-105) Calcium (8.4-10.2) mg/dL Phosphorus (2.5-4.5) mg/dL Magnesium (1.7-2.3) mg/dL Albumin (3.9-5) g/dL Crossmatch 04/25/18 04/25/18 Range/Units 05:15 07:37 WBC (4.5-11.0) K/mm3 RBC (3.65-5.03) M/mm3 POC Hgb (12-17) Hct (30.3-42.9) % POC Hct (38-51) MCHC (30-34) % Plt Count (140-440) K/mm3 Lymph % (Auto) (13.4-35.0) % [place] % (Auto) (0.0-7.3) % [place] # (0.0-0.8) K/mm3 Seg Neutrophils % (40.0-70.0) % Lymphocytes % (Manual) (13.4-35.0) % Monocytes % (Manual) (0.0-7.3) % Seg Neutrophils # (1.8-7.7) K/mm3 Lymphocytes # (Manual) (1.2-5.4) K/mm3 Monocytes # (Manual) (0.0-0.8) K/mm3 PT (12.2-14.9) Sec. INR (0.87-1.13) APTT (24.2-36.6) Sec. Heparin Anti-Xa Level (0.3-0.7) U.I./ml POC Sodium (138-146) mmol/L POC Potassium (3.5-4.9) POC Chloride (98-109) Potassium 2.6 L* (3.6-5.0) mmol/L Chloride 112.2 H (98-107) mmol/L Carbon Dioxide 20 L (22-30) mmol/L POC BUN (8-26) mg/dl BUN 4 L (7-17) mg/dL Creatinine 0.3 L (0.7-1.2) mg/dL Glucose 117 H (65-100) mg/dL POC Glucose (70-105) Calcium 5.9 L* D (8.4-10.2) mg/dL Phosphorus 1.60 L (2.5-4.5) mg/dL Magnesium 2.90 H (1.7-2.3) mg/dL Albumin 2.7 L (3.9-5) g/dL Crossmatch
[2018-04-25 11:15] LABS: Basophils % (Auto) 0.3 % (0.0-1.8); Eosinophils # (Auto) 0.1 K/mm3 (0.0-0.4); Hemoglobin 8.2 gm/dl (10.1-14.3); Lymphocytes # (Auto) 0.6 K/mm3 (1.2-5.4); Lymphocytes % (Auto) 6.5 % (13.4-35.0); Mean Corpuscular HGB Conc 34 % (30-34); Mean Corpuscular Hemoglobin 29 pg (28-32); Mean Corpuscular Volume 85 fl (79-97); Monocytes % (Auto) 10.8 % (0.0-7.3); Platelet Count 53 K/mm3 (140-440); Red Blood Count 2.81 M/mm3 (3.65-5.03); Red Cell Distribution Width 15.2 % (13.2-15.2)
[2018-04-25 11:29] LABS: INR 1.37 (0.87-1.13)
[2018-04-25 11:30] LABS: Partial Thromboplastin Time 37.1 Sec. (24.2-36.6)
[2018-04-25] MEDS ORDERED: NACL 0.9% IV ONE (12:00)
[2018-04-25] MEDS ORDERED: CALCIUM CHLORIDE IV ONE (12:00)
[2018-04-25] MEDS ORDERED: ANCEF/NS 1 GM/50 ML 1 GM/50 ML BAG IV SCH (14:00)
[2018-04-25] MEDS ORDERED: K-DUR PO ONE (14:00)
[2018-04-25] MEDS: PROTONIX PO SCH (15:07)
[2018-04-25] MEDS: ceFAZolin 1 GM in NACL 0.9% 20 ML IV SCH ×2 (15:08→22:34)
[2018-04-25] MEDS: PERCOCET 5/325 PO PRN (15:34)
--- NOTE | 2018-04-25 15:59 | Progress Note ---
Assessment and Plan Pt with palpable PT post-op. Continued RLE pain, but much improved. PLT ct dropped. Suspect this is related to consumption, but will convert heparin to argatroban in case of HIT. Will check for HIT assay. PT consult Heel protection boot. 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 Pain level is at ~4 out of 10, but overall much better. Objective - Constitutional Vitals: Vital Signs - 12hr 04/25/18 04/25/18 04/25/18 04:00 04:31 05:00 Temperature Pulse Rate 109 H 112 H 110 H Respiratory 16 10 L 16 Rate Blood Pressure 117/77 117/77 108/71 O2 Sat by Pulse 100 99 99 Oximetry 04/25/18 04/25/18 04/25/18 05:31 05:49 06:00 Temperature 98.9 F Pulse Rate 111 H 117 H 113 H Respiratory 17 18 16 Rate Blood Pressure 108/71 112/78 118/80 O2 Sat by Pulse 99 99 98 Oximetry 04/25/18 04/25/18 04/25/18 06:04 06:08 06:18 Temperature 98.3 F Pulse Rate 118 H 118 H Respiratory 16 15 Rate Blood Pressure 121/84 118/80 O2 Sat by Pulse 99 Oximetry 04/25/18 04/25/18 04/25/18 06:30 06:34 07:00 Temperature 98.5 F Pulse Rate 116 H 116 H 117 H Respiratory 17 17 16 Rate Blood Pressure 119/81 119/81 118/77 O2 Sat by Pulse 99 100 99 Oximetry 04/25/18 04/25/18 04/25/18 07:04 07:30 07:41 Temperature 98.3 F Pulse Rate 115 H 120 H 119 H Respiratory 16 18 18 Rate Blood Pressure 120/76 121/82 120/76 O2 Sat by Pulse 100 99 99 Oximetry 04/25/18 04/25/18 04/25/18 07:51 08:00 08:11 Temperature Pulse Rate 120 H 118 H 119 H Respiratory 19 16 17 Rate Blood Pressure 125/82 125/81 125/81 O2 Sat by Pulse 99 98 99 Oximetry 04/25/18 04/25/18 04/25/18 08:21 08:30 08:41 Temperature Pulse Rate 121 H 122 H 121 H Respiratory 18 19 19 Rate Blood Pressure 129/83 129/83 129/83 O2 Sat by Pulse 99 98 99 Oximetry 04/25/18 04/25/18 04/25/18 08:51 09:00 09:11 Temperature Pulse Rate 128 H 130 H 132 H Respiratory 14 12 13 Rate Blood Pressure 130/80 140/88 140/88 O2 Sat by Pulse 100 100 99 Oximetry 04/25/18 04/25/18 04/25/18 09:21 09:30 09:41 Temperature Pulse Rate 132 H 127 H 124 H Respiratory 17 18 18 Rate Blood Pressure 135/80 132/85 132/85 O2 Sat by Pulse 99 100 100 Oximetry 04/25/18 04/25/18 04/25/18 09:45 09:51 10:00 Temperature 98.8 F Pulse Rate 126 H 128 H Respiratory 12 20 Rate Blood Pressure 124/79 116/76 O2 Sat by Pulse 100 100 Oximetry 04/25/18 04/25/18 04/25/18 10:05 10:06 10:10 Temperature Pulse Rate 128 H 126 H 125 H Respiratory 15 Rate Blood Pressure 116/76 116/76 116/76 O2 Sat by Pulse 100 Oximetry 04/25/18 04/25/18 04/25/18 10:20 10:30 10:41 Temperature Pulse Rate 130 H 131 H 134 H Respiratory 13 21 28 H Rate Blood Pressure 112/74 110/80 110/80 O2 Sat by Pulse 99 100 100 Oximetry 04/25/18 04/25/18 04/25/18 10:51 11:00 11:11 Temperature Pulse Rate 123 H 117 H 113 H Respiratory 20 21 19 Rate Blood Pressure 110/80 112/75 112/75 O2 Sat by Pulse 100 100 Oximetry 04/25/18 04/25/18 04/25/18 11:21 11:30 11:46 Temperature 98.5 F Pulse Rate 110 H 107 H Respiratory 21 19 Rate Blood Pressure 117/76 101/69 O2 Sat by Pulse 100 Oximetry 04/25/18 04/25/18 04/25/18 12:00 12:30 13:00 Temperature Pulse Rate 105 H 111 H 123 H Respiratory 19 21 20 Rate Blood Pressure 123/80 125/81 130/88 O2 Sat by Pulse 99 100 98 Oximetry 04/25/18 04/25/18 13:30 15:02 Temperature Pulse Rate 122 H 123 H Respiratory 20 Rate Blood Pressure 128/84 133/84 O2 Sat by Pulse 99 Oximetry General appearance: Present: no acute distress - EENT Eyes: EOM intact ENT: hearing intact - Neck Neck: supple - Respiratory Respiratory effort: normal Extremities: pulses intact (palp PT), abnormal (leg is hot. Incision is intact with scant blood stains on bandages.) Extremity abnormal: cyanosis (cyanotic changes to 2-5 toes to the left foot and 5th metatarsal head.), other (no erythema appreciated) - Neurologic Neurologic: moves all extremities (able to move toes, and dorsiflex slightly) - Psychiatric Psychiatric: appropriate mood/affect, intact judgment & insight, cooperative - Labs CBC & Chem 7: 04/25/18 10:56 04/25/18 05:15 Labs: Abnormal lab results 04/23/18 04/24/18 04/24/18 Range/Units 23:30 01:30 01:30 WBC (4.5-11.0) K/mm3 RBC (3.65-5.03) M/mm3 Hgb (10.1-14.3) gm/dl POC Hgb (12-17) Hct (30.3-42.9) % POC Hct (38-51) MCHC (30-34) % Plt Count 100 L (140-440) K/mm3 Lymph % (Auto) (13.4-35.0) % [place] % (Auto) (0.0-7.3) % Lymph # (1.2-5.4) K/mm3 [place] # (0.0-0.8) K/mm3 Seg Neutrophils % (40.0-70.0) % Lymphocytes % (Manual) (13.4-35.0) % Monocytes % (Manual) (0.0-7.3) % Seg Neutrophils # (1.8-7.7) K/mm3 Lymphocytes # (Manual) (1.2-5.4) K/mm3 Monocytes # (Manual) (0.0-0.8) K/mm3 PT 23.1 H (12.2-14.9) Sec. INR 1.91 H (0.87-1.13) APTT 112.7 H* (24.2-36.6) Sec. Heparin Anti-Xa Level (0.3-0.7) U.I./ml POC Sodium (138-146) mmol/L POC Potassium (3.5-4.9) POC Chloride (98-109) Potassium (3.6-5.0) mmol/L Chloride (98-107) mmol/L Carbon Dioxide (22-30) mmol/L POC BUN (8-26) mg/dl BUN (7-17) mg/dL Creatinine (0.7-1.2) mg/dL Glucose (65-100) mg/dL POC Glucose (70-105) Calcium (8.4-10.2) mg/dL Phosphorus (2.5-4.5) mg/dL Magnesium (1.7-2.3) mg/dL Albumin (3.9-5) g/dL Crossmatch See Detail 04/24/18 04/24/18 04/24/18 Range/Units 09:16 20:36 22:40 WBC (4.5-11.0) K/mm3 RBC (3.65-5.03) M/mm3 Hgb (10.1-14.3) gm/dl POC Hgb 7.8 L 10.2 L (12-17) Hct (30.3-42.9) % POC Hct 23 L 30 L (38-51) MCHC 35 H (30-34) % Plt Count (140-440) K/mm3 Lymph % (Auto) (13.4-35.0) % [place] % (Auto) (0.0-7.3) % Lymph # (1.2-5.4) K/mm3 [place] # (0.0-0.8) K/mm3 Seg Neutrophils % (40.0-70.0) % Lymphocytes % (Manual) 11.0 L (13.4-35.0) % Monocytes % (Manual) 20.0 H (0.0-7.3) % Seg Neutrophils # (1.8-7.7) K/mm3 Lymphocytes # (Manual) 1.0 L (1.2-5.4) K/mm3 Monocytes # (Manual) 1.8 H (0.0-0.8) K/mm3 PT (12.2-14.9) Sec. INR (0.87-1.13) APTT (24.2-36.6) Sec. Heparin Anti-Xa Level (0.3-0.7) U.I./ml POC Sodium 147 H (138-146) mmol/L POC Potassium 3.1 L (3.5-4.9) POC Chloride 110 H 112 H (98-109) Potassium (3.6-5.0) mmol/L Chloride (98-107) mmol/L Carbon Dioxide (22-30) mmol/L POC BUN 4 L 3 L (8-26) mg/dl BUN (7-17) mg/dL Creatinine (0.7-1.2) mg/dL Glucose (65-100) mg/dL POC Glucose 127 H 126 H (70-105) Calcium (8.4-10.2) mg/dL Phosphorus (2.5-4.5) mg/dL Magnesium (1.7-2.3) mg/dL Albumin (3.9-5) g/dL Crossmatch 04/25/18 04/25/18 04/25/18 Range/Units 01:30 05:15 05:15 WBC 11.3 H (4.5-11.0) K/mm3 RBC 3.49 L (3.65-5.03) M/mm3 Hgb (10.1-14.3) gm/dl POC Hgb (12-17) Hct 29.9 L (30.3-42.9) % POC Hct (38-51) MCHC (30-34) % Plt Count 54 L (140-440) K/mm3 Lymph % (Auto) 12.6 L (13.4-35.0) % [place] % (Auto) 11.8 H (0.0-7.3) % Lymph # (1.2-5.4) K/mm3 [place] # 1.3 H (0.0-0.8) K/mm3 Seg Neutrophils % 74.1 H (40.0-70.0) % Lymphocytes % (Manual) (13.4-35.0) % Monocytes % (Manual) (0.0-7.3) % Seg Neutrophils # 8.4 H (1.8-7.7) K/mm3 Lymphocytes # (Manual) (1.2-5.4) K/mm3 Monocytes # (Manual) (0.0-0.8) K/mm3 PT (12.2-14.9) Sec. INR (0.87-1.13) APTT (24.2-36.6) Sec. Heparin Anti-Xa Level 0.18 L (0.3-0.7) U.I./ml POC Sodium (138-146) mmol/L POC Potassium (3.5-4.9) POC Chloride (98-109) Potassium 2.6 L* (3.6-5.0) mmol/L Chloride 112.2 H (98-107) mmol/L Carbon Dioxide 20 L (22-30) mmol/L POC BUN (8-26) mg/dl BUN 4 L (7-17) mg/dL Creatinine 0.3 L (0.7-1.2) mg/dL Glucose 117 H (65-100) mg/dL POC Glucose (70-105) Calcium 5.9 L* D (8.4-10.2) mg/dL Phosphorus 1.60 L (2.5-4.5) mg/dL Magnesium 2.90 H (1.7-2.3) mg/dL Albumin (3.9-5) g/dL Crossmatch 04/25/18 04/25/18 04/25/18 Range/Units 07:37 10:56 10:56 WBC (4.5-11.0) K/mm3 RBC 2.81 L (3.65-5.03) M/mm3 Hgb 8.2 L (10.1-14.3) gm/dl POC Hgb (12-17) Hct 24.0 L (30.3-42.9) % POC Hct (38-51) MCHC (30-34) % Plt Count 53 L (140-440) K/mm3 Lymph % (Auto) 6.5 L (13.4-35.0) % [place] % (Auto) 10.8 H (0.0-7.3) % Lymph # 0.6 L (1.2-5.4) K/mm3 [place] # 1.0 H (0.0-0.8) K/mm3 Seg Neutrophils % 81.4 H (40.0-70.0) % Lymphocytes % (Manual) (13.4-35.0) % Monocytes % (Manual) (0.0-7.3) % Seg Neutrophils # (1.8-7.7) K/mm3 Lymphocytes # (Manual) (1.2-5.4) K/mm3 Monocytes # (Manual) (0.0-0.8) K/mm3 PT 17.7 H (12.2-14.9) Sec. INR 1.37 H (0.87-1.13) APTT 37.1 H (24.2-36.6) Sec. Heparin Anti-Xa Level (0.3-0.7) U.I./ml POC Sodium (138-146) mmol/L POC Potassium (3.5-4.9) POC Chloride (98-109) Potassium (3.6-5.0) mmol/L Chloride (98-107) mmol/L Carbon Dioxide (22-30) mmol/L POC BUN (8-26) mg/dl BUN (7-17) mg/dL Creatinine (0.7-1.2) mg/dL Glucose (65-100) mg/dL POC Glucose (70-105) Calcium (8.4-10.2) mg/dL Phosphorus (2.5-4.5) mg/dL Magnesium (1.7-2.3) mg/dL Albumin 2.7 L (3.9-5) g/dL Crossmatch
[2018-04-25] MEDS ORDERED: ARGATROBAN 250 MG in NACL 0.9% 250ML 247.5 ML IV SCH (16:00)
[2018-04-25] MEDS: VITAMIN C PO SCH (22:27)
[2018-04-25] MEDS: FEOSOL PO SCH (22:27)
[2018-04-25] MEDS: COLACE PO SCH (22:27)
[2018-04-25] MEDS: BENADRYL PO PRN (22:34)
[2018-04-26 03:36] LABS: Basophils # (Auto) 0.1 K/mm3 (0.0-0.1); Basophils % (Auto) 0.5 % (0.0-1.8); Eosinophils # (Auto) 0.3 K/mm3 (0.0-0.4); Eosinophils % (Auto) 2.6 % (0.0-4.3); Hematocrit 25.4 % (30.3-42.9); Hemoglobin 8.7 gm/dl (10.1-14.3); Lymphocytes # (Auto) 1.4 K/mm3 (1.2-5.4); Lymphocytes % (Auto) 11.1 % (13.4-35.0); Mean Corpuscular HGB Conc 34 % (30-34); Mean Corpuscular Hemoglobin 29 pg (28-32); Mean Corpuscular Volume 86 fl (79-97); Monocytes # (Auto) 1.7 K/mm3 (0.0-0.8); Monocytes % (Auto) 13.1 % (0.0-7.3); Red Blood Count 2.97 M/mm3 (3.65-5.03); Red Cell Distribution Width 15.5 % (13.2-15.2)
[2018-04-26 03:37] LABS: Platelet Count 67 K/mm3 (140-440)
[2018-04-26] MEDS: MORPHINE IV PRN ×2 (05:02→13:41)
[2018-04-26] MEDS: ceFAZolin 1 GM in NACL 0.9% 20 ML IV SCH ×3 (05:02→21:18)
[2018-04-26 05:25] LABS: BUN/Creatinine Ratio 10; Blood Urea Nitrogen 5 mg/dL (7-17); Hemolysis Index 22
--- NOTE | 2018-04-26 08:48 | Hem/Onc Progress Note ---
Assessment and Plan Agree with argatroban. Heparin-induced thrombus cytopenia assay pending. Continue to monitor. Watch for bleeding. Subjective Date of service: 04/26/18 Interval history: This is a 57-year-old female with history of hypertension hyperlipidemia peripheral vascular disease Stefani had an aortic bifemoral bypass for claudication and was placed on anticoagulation elquis, patient presents back with left leg. Patient had intervention of her left profunda with an occluded SFA and had left femoral-popliteal bypass surgery .. Patient did have a drop in her hemoglobin requiring packed RBCs. There seems to be bleeding at the posterior tibial artery. Patient received FFP's also. He shouldn't had been on heparin drip and dropped her platelet count significantly to the mid 50s , normal platelet count. Heparin has been stopped. She has been placed on argatroban. she feels better Objective - Constitutional Vitals: Last Vital Signs Temp 98.6 F 04/26/18 08:00 Pulse 95 H 04/26/18 06:00 Resp 13 04/26/18 06:00 BP 97/67 04/26/18 06:00 Pulse Ox 97 04/26/18 08:37 General appearance: no acute distress - Neck Neck: supple - Respiratory Respiratory effort: Positive: normal - Cardiovascular Rhythm: regular Extremities: abnormal (right leg SCDs. Left postop changes. Warm to touch) - Gastrointestinal General gastrointestinal: Present: soft - Labs Lab Results: Laboratory Results - last 24 hr 04/23/18 04/24/18 04/25/18 23:30 22:40 07:37 WBC RBC Hgb POC Hgb 10.2 L Hct POC Hct 30 L MCV MCH MCHC RDW Plt Count Lymph % (Auto) [place] % (Auto) Eos % (Auto) Baso % (Auto) Lymph # [place] # Eos # Baso # Seg Neutrophils % Seg Neutrophils # PT INR APTT Fibrinogen POC Sodium 147 H POC Potassium 3.6 POC Chloride 112 H Chloride Carbon Dioxide Anion Gap POC BUN 3 L BUN Estimated GFR BUN/Creatinine Ratio Glucose POC Glucose 126 H Albumin 2.7 L Blood Type A POSITIVE Antibody Screen Negative Crossmatch See Detail 04/25/18 04/25/18 04/26/18 10:56 10:56 03:15 WBC 8.9 13.0 H RBC 2.81 L 2.97 L Hgb 8.2 L 8.7 L POC Hgb Hct 24.0 L 25.4 L POC Hct MCV 85 86 MCH 29 29 MCHC 34 34 RDW 15.2 15.5 H Plt Count 53 L 67 L Lymph % (Auto) 6.5 L 11.1 L [place] % (Auto) 10.8 H 13.1 H Eos % (Auto) 1.0 2.6 Baso % (Auto) 0.3 0.5 Lymph # 0.6 L 1.4 [place] # 1.0 H 1.7 H Eos # 0.1 0.3 Baso # 0.0 0.1 Seg Neutrophils % 81.4 H 72.7 H Seg Neutrophils # 7.2 9.4 H PT 17.7 H INR 1.37 H APTT 37.1 H Fibrinogen 267 POC Sodium POC Potassium POC Chloride Chloride Carbon Dioxide Anion Gap POC BUN BUN Estimated GFR BUN/Creatinine Ratio Glucose POC Glucose Albumin Blood Type Antibody Screen Crossmatch 04/26/18 04/26/18 04:00 05:30 WBC RBC Hgb POC Hgb Hct POC Hct MCV MCH MCHC RDW Plt Count Lymph % (Auto) [place] % (Auto) Eos % (Auto) Baso % (Auto) Lymph # [place] # Eos # Baso # Seg Neutrophils % Seg Neutrophils # PT INR APTT 105.9 H* Fibrinogen POC Sodium POC Potassium POC Chloride Chloride 103.7 Carbon Dioxide 20 L Anion Gap 18 POC BUN BUN 5 L Estimated GFR > 60 BUN/Creatinine Ratio 10 Glucose 87 POC Glucose Albumin Blood Type Antibody Screen Crossmatch
[2018-04-26 09:03] LABS: Calcium 7.7 mg/dL (8.4-10.2)
--- NOTE | 2018-04-26 09:05 | Progress Note ---
Assessment and Plan Assessment: Peripheral vascular disease - s/p left femoral to posterior tibial artery bypass and open thrombectomy of left posterior tibial artery TPA 04/23/2018 Acute blood loss anemia - improved s/p PRBC and FFP tx Thrombocytopenia Hypertension Sinus tachycardia - suspect physiologic secondary to anemia and pain HLP Hypokalemia Hypocalcemia Hypophosphatemia Tobacco use - cessation encouraged. Plan: Continue lopressor 25mg BID. Pain management per primary/vascular. Follow vascular recs. The patient has been seen in conjunction with Dr. Carmona who agrees with the assessment and plan of care. Subjective Date of service: 04/26/18 Principal diagnosis: PVD Interval history: The patient is resting in bed. No new complaints. Sinus rhythm on the monitor. Objective Last Vital Signs Temp 98.6 F 04/26/18 12:00 Pulse 96 H 04/26/18 13:01 Resp 19 04/26/18 13:01 BP 109/83 04/26/18 13:01 Pulse Ox 100 04/26/18 13:01 - Physical Examination General: No Apparent Distress HEENT: Positive: PERRL, Mucus Membranes Moist Neck: Positive: neck supple, trachea midline Cardiac: Positive: Reg Rate and Rhythm, S1/S2 Lungs: Positive: clear to auscultation Neuro: Positive: Grossly Intact Abdomen: Positive: Soft, Active Bowel Sounds. Negative: Tender, Distended Skin: Positive: Clear Incision: Cardiac Cath Site Musculoskeletal: No Pain, Normal Range of Motion Extremities: Present: Other (LLE warm, redness and swelling noted). Absent: edema - Labs and Meds Coagulation 04/25/18 04/26/18 Range/Units 10:56 05:30 PT 17.7 H (12.2-14.9) Sec. INR 1.37 H (0.87-1.13) APTT 37.1 H 105.9 H* (24.2-36.6) Sec. CBC 04/25/18 04/26/18 Range/Units 10:56 03:15 WBC 8.9 13.0 H (4.5-11.0) K/mm3 RBC 2.81 L 2.97 L (3.65-5.03) M/mm3 Hgb 8.2 L 8.7 L (10.1-14.3) gm/dl Hct 24.0 L 25.4 L (30.3-42.9) % Plt Count 53 L 67 L (140-440) K/mm3 Lymph # 0.6 L 1.4 (1.2-5.4) K/mm3 [place] # 1.0 H 1.7 H (0.0-0.8) K/mm3 Eos # 0.1 0.3 (0.0-0.4) K/mm3 Baso # 0.0 0.1 (0.0-0.1) K/mm3 Comprehensive Metabolic Panel 04/25/18 04/26/18 Range/Units 07:37 04:00 Sodium 141 (137-145) mmol/L Potassium 4.8 D (3.6-5.0) mmol/L Chloride 103.7 (98-107) mmol/L Carbon Dioxide 20 L (22-30) mmol/L BUN 5 L (7-17) mg/dL Creatinine < 0.2 L (0.7-1.2) mg/dL Glucose 87 (65-100) mg/dL Calcium 7.7 L D (8.4-10.2) mg/dL Albumin 2.7 L (3.9-5) g/dL - Imaging and Cardiology EKG: report reviewed Stress echo: other (12/2017 normal myocardial perfusion scanof ischemia) Echo: report reviewed (12/2017 normal LV functionregurgitations) - Telemetry EKG Rhythm: Sinus Rhythm - EKG Sinus rhythms and dysrhythmias: sinus rhythm
--- NOTE | 2018-04-26 09:23 | Progress Note ---
Assessment and Plan 57 y/o female with acute blood loss anemia, post-op now post-op from thrombectomy and further revision 1. Continue to monitor H/H 2. Follow up any new vascular recs 3. K stable, should repeat mag level 4. Wean FiO2 to off 5. Continue ICU monitoring. Subjective Date of service: 04/26/18 Principal diagnosis: PVD Interval history: No acute events. Hemoglobin is 8.7, same as yesterday. Awake and alert. Started on Argotroban out of concern for HIT. Heme consulted as well and agree with current treatment. Objective - Constitutional Vitals: Vital Signs - 12hr 04/25/18 04/25/18 04/25/18 21:30 22:00 22:31 Temperature Pulse Rate 108 H 120 H 112 H Pulse Rate [ From Monitor] Respiratory 16 32 H 12 Rate Blood Pressure 119/79 128/92 128/92 O2 Sat by Pulse 100 100 100 Oximetry 04/25/18 04/25/18 04/26/18 23:00 23:31 00:00 Temperature Pulse Rate 105 H 105 H 99 H Pulse Rate [ 107 H From Monitor] Respiratory 14 15 19 Rate Blood Pressure 117/74 117/74 111/69 O2 Sat by Pulse 100 99 98 Oximetry 04/26/18 04/26/18 04/26/18 00:31 01:00 01:31 Temperature Pulse Rate 100 H 95 H 92 H Pulse Rate [ From Monitor] Respiratory 20 14 17 Rate Blood Pressure 111/69 110/75 111/69 O2 Sat by Pulse 99 98 97 Oximetry 04/26/18 04/26/18 04/26/18 02:00 02:31 03:00 Temperature Pulse Rate 94 H 96 H 94 H Pulse Rate [ From Monitor] Respiratory 16 13 16 Rate Blood Pressure 115/79 115/79 112/70 O2 Sat by Pulse 98 96 97 Oximetry 04/26/18 04/26/18 04/26/18 03:31 04:00 04:31 Temperature Pulse Rate 99 H 98 H Pulse Rate [ 107 H From Monitor] Respiratory 20 15 15 Rate Blood Pressure 115/79 109/74 109/74 O2 Sat by Pulse 97 100 92 Oximetry 04/26/18 04/26/18 04/26/18 05:00 05:31 06:00 Temperature Pulse Rate 101 H 99 H 95 H Pulse Rate [ From Monitor] Respiratory 17 14 13 Rate Blood Pressure 105/67 105/67 97/67 O2 Sat by Pulse 97 99 98 Oximetry 04/26/18 04/26/18 04/26/18 06:31 07:00 07:31 Temperature Pulse Rate 97 H 90 Pulse Rate [ From Monitor] Respiratory 15 13 20 Rate Blood Pressure 97/67 103/68 103/68 O2 Sat by Pulse 99 98 94 Oximetry 04/26/18 04/26/18 04/26/18 08:00 08:31 08:37 Temperature 98.6 F Pulse Rate 90 Pulse Rate [ From Monitor] Respiratory 14 Rate Blood Pressure 109/70 109/70 O2 Sat by Pulse 91 97 Oximetry 04/26/18 09:00 Temperature Pulse Rate Pulse Rate [ From Monitor] Respiratory Rate Blood Pressure 119/77 O2 Sat by Pulse 99 Oximetry General appearance: Present: no acute distress, well-nourished - EENT Eyes: PERRL, EOM intact ENT: hearing intact, clear oral mucosa - Neck Neck: supple, normal ROM - Respiratory Respiratory effort: normal Respiratory: bilateral: CTA - Breasts Breasts: deferred - Cardiovascular Rhythm: regular Heart Sounds: Present: S1 & S2 - Labs CBC & Chem 7: 04/26/18 03:15 04/26/18 04:00 Labs: Abnormal lab results 04/23/18 04/25/18 04/25/18 Range/Units 23:30 07:37 10:56 WBC (4.5-11.0) K/mm3 RBC 2.81 L (3.65-5.03) M/mm3 Hgb 8.2 L (10.1-14.3) gm/dl Hct 24.0 L (30.3-42.9) % RDW (13.2-15.2) % Plt Count 53 L (140-440) K/mm3 Lymph % (Auto) 6.5 L (13.4-35.0) % [place] % (Auto) 10.8 H (0.0-7.3) % Lymph # 0.6 L (1.2-5.4) K/mm3 [place] # 1.0 H (0.0-0.8) K/mm3 Seg Neutrophils % 81.4 H (40.0-70.0) % Seg Neutrophils # (1.8-7.7) K/mm3 PT (12.2-14.9) Sec. INR (0.87-1.13) APTT (24.2-36.6) Sec. Carbon Dioxide (22-30) mmol/L BUN (7-17) mg/dL Creatinine (0.7-1.2) mg/dL Calcium (8.4-10.2) mg/dL Albumin 2.7 L (3.9-5) g/dL Crossmatch See Detail 04/25/18 04/26/18 04/26/18 Range/Units 10:56 03:15 04:00 WBC 13.0 H (4.5-11.0) K/mm3 RBC 2.97 L (3.65-5.03) M/mm3 Hgb 8.7 L (10.1-14.3) gm/dl Hct 25.4 L (30.3-42.9) % RDW 15.5 H (13.2-15.2) % Plt Count 67 L (140-440) K/mm3 Lymph % (Auto) 11.1 L (13.4-35.0) % [place] % (Auto) 13.1 H (0.0-7.3) % Lymph # (1.2-5.4) K/mm3 [place] # 1.7 H (0.0-0.8) K/mm3 Seg Neutrophils % 72.7 H (40.0-70.0) % Seg Neutrophils # 9.4 H (1.8-7.7) K/mm3 PT 17.7 H (12.2-14.9) Sec. INR 1.37 H (0.87-1.13) APTT 37.1 H (24.2-36.6) Sec. Carbon Dioxide 20 L (22-30) mmol/L BUN 5 L (7-17) mg/dL Creatinine < 0.2 L (0.7-1.2) mg/dL Calcium 7.7 L D (8.4-10.2) mg/dL Albumin (3.9-5) g/dL Crossmatch 04/26/18 Range/Units 05:30 WBC (4.5-11.0) K/mm3 RBC (3.65-5.03) M/mm3 Hgb (10.1-14.3) gm/dl Hct (30.3-42.9) % RDW (13.2-15.2) % Plt Count (140-440) K/mm3 Lymph % (Auto) (13.4-35.0) % [place] % (Auto) (0.0-7.3) % Lymph # (1.2-5.4) K/mm3 [place] # (0.0-0.8) K/mm3 Seg Neutrophils % (40.0-70.0) % Seg Neutrophils # (1.8-7.7) K/mm3 PT (12.2-14.9) Sec. INR (0.87-1.13) APTT 105.9 H* (24.2-36.6) Sec. Carbon Dioxide (22-30) mmol/L BUN (7-17) mg/dL Creatinine (0.7-1.2) mg/dL Calcium (8.4-10.2) mg/dL Albumin (3.9-5) g/dL Crossmatch
[2018-04-26] MEDS: BABY ASPIRIN PO SCH (09:49)
[2018-04-26] MEDS: COLACE PO SCH ×2 (09:49→21:11)
[2018-04-26] MEDS: PLAVIX PO SCH (09:49)
[2018-04-26] MEDS: VITAMIN C PO SCH ×2 (09:49→21:09)
[2018-04-26] MEDS: FEOSOL PO SCH ×2 (09:49→21:11)
[2018-04-26] MEDS: LOPRESSOR PO SCH ×2 (09:50→21:09)
[2018-04-26] MEDS: OxyCONTIN PO SCH ×3 (09:51→21:10)
[2018-04-26] MEDS: NORVASC PO SCH (09:51)
[2018-04-26] MEDS: PROTONIX PO SCH (09:52)
[2018-04-26] MEDS: SODIUM CHLORIDE FLUSH SYRINGE 10 ML IV SCH ×2 (09:53→21:14)
[2018-04-26] MEDS: PERCOCET 5/325 PO PRN ×2 (11:48→18:27)
[2018-04-26] MEDS ORDERED: MILK OF MAGNESIA PO PRN (13:17)
--- NOTE | 2018-04-26 13:19 | Progress Note ---
Assessment and Plan Assessment and plan: --Constipation; stool softeners as needed --Arterial insufficiency of lower extremity; s/p left femoral to posterior tibial artery bypass s/p revision of vascular surgery 04/25/18 1. Open Revision of Left Femoral Artery to Posterior Tibial Artery Bypass 2. Open Thrombectomy of Left Femoral Artery to Posterior Tibial Artery Bypass with 3 Billy 3. Open Thrombectomy of Left Posterior Tibial Artery with 3 Billy on Argatroban drip per vascular --Anemia; status post multiple PRBC transfusion, Hb today is 8.7 Closely monitor H&H, additional transfusion as needed --Thrombocytopenia; closely monitor, platelet 67K today Consider hematology consultation if no improvement --Severe Hypokalemia; corrected --Hypophosphatemia;Hypomagnesemia; corrected --Hypocalcemia; replacement as needed --Nicotine dependence unspecified ; Smoking cessation counseling, advised nicotine patch --COPD (chronic obstructive pulmonary disease) supplemental oxygen, nebulizer therapy, NIPPV as clinically indicated. --HTN (hypertension) is to monitor blood pressures adjust as needed The new current antihypertensives. 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 noted and appreciated Critical care time 31 minutes History Interval history: Patient seen and examined medical records reviewed Feels slightly better, Did not have bowel movement for 4- 5 days Alert awake oriented 3 not in acute distress Vital signs reviewed Hospitalist Physical - Constitutional Vitals: Temp Pulse Resp BP Pulse Ox 98.6 F 96 H 19 109/83 100 04/26/18 12:00 04/26/18 13:01 04/26/18 13:01 04/26/18 13:01 04/26/18 13:01 General appearance: Present: no acute distress, well-nourished - EENT Eyes: Present: PERRL, EOM intact - Neck Neck: Present: supple, normal ROM - Respiratory Respiratory effort: normal Respiratory: negative: rales, rhonchi, wheezing - Cardiovascular Rhythm: regular Heart Sounds: Present: S1 & S2 - Extremities Extremities: abnormal (dressing in place) - Abdominal General gastrointestinal: soft, non-tender, non-distended, normal bowel sounds - Integumentary Integumentary: Present: clear, warm - Psychiatric Psychiatric: appropriate mood/affect, cooperative - Neurologic Neurologic: CNII-XII intact, moves all extremities Results - Labs CBC & Chem 7: 04/26/18 03:15 04/26/18 04:00 Labs: Laboratory Last Values WBC 13.0 K/mm3 (4.5-11.0) H 04/26/18 03:15 RBC 2.97 M/mm3 (3.65-5.03) L 04/26/18 03:15 Hgb 8.7 gm/dl (10.1-14.3) L 04/26/18 03:15 POC Hgb 10.2 (12-17) L 04/24/18 22:40 Hct 25.4 % (30.3-42.9) L 04/26/18 03:15 POC Hct 30 (38-51) L 04/24/18 22:40 MCV 86 fl (79-97) 04/26/18 03:15 MCH 29 pg (28-32) 04/26/18 03:15 MCHC 34 % (30-34) 04/26/18 03:15 RDW 15.5 % (13.2-15.2) H 04/26/18 03:15 Plt Count 67 K/mm3 (140-440) L 04/26/18 03:15 Lymph % (Auto) 11.1 % (13.4-35.0) L 04/26/18 03:15 [place] % (Auto) 13.1 % (0.0-7.3) H 04/26/18 03:15 Eos % (Auto) 2.6 % (0.0-4.3) 04/26/18 03:15 Baso % (Auto) 0.5 % (0.0-1.8) 04/26/18 03:15 Lymph # 1.4 K/mm3 (1.2-5.4) 04/26/18 03:15 [place] # 1.7 K/mm3 (0.0-0.8) H 04/26/18 03:15 Eos # 0.3 K/mm3 (0.0-0.4) 04/26/18 03:15 Baso # 0.1 K/mm3 (0.0-0.1) 04/26/18 03:15 Add Manual Diff Complete 04/24/18 09:16 Total Counted 100 04/24/18 09:16 Seg Neutrophils % 72.7 % (40.0-70.0) H 04/26/18 03:15 Seg Neuts % (Manual) 64.0 % (40.0-70.0) 04/24/18 09:16 Band Neutrophils % 3.0 % 04/24/18 09:16 Lymphocytes % (Manual) 11.0 % (13.4-35.0) L 04/24/18 09:16 Reactive Lymphs % (Man) 0 % 04/24/18 09:16 Monocytes % (Manual) 20.0 % (0.0-7.3) H 04/24/18 09:16 Eosinophils % (Manual) 2.0 % (0.0-4.3) 04/24/18 09:16 Basophils % (Manual) 0 % (0.0-1.8) 04/24/18 09:16 Metamyelocytes % 0 % 04/24/18 09:16 Myelocytes % 0 % 04/24/18 09:16 Promyelocytes % 0 % 04/24/18 09:16 Blast Cells % 0 % 04/24/18 09:16 Nucleated RBC % Not Reportable 04/24/18 09:16 Seg Neutrophils # 9.4 K/mm3 (1.8-7.7) H 04/26/18 03:15 Seg Neutrophils # Man 5.6 K/mm3 (1.8-7.7) 04/24/18 09:16 Band Neutrophils # 0.3 K/mm3 04/24/18 09:16 Lymphocytes # (Manual) 1.0 K/mm3 (1.2-5.4) L 04/24/18 09:16 Abs React Lymphs (Man) 0.0 K/mm3 04/24/18 09:16 Monocytes # (Manual) 1.8 K/mm3 (0.0-0.8) H 04/24/18 09:16 Eosinophils # (Manual) 0.2 K/mm3 (0.0-0.4) 04/24/18 09:16 Basophils # (Manual) 0.0 K/mm3 (0.0-0.1) 04/24/18 09:16 Metamyelocytes # 0.0 K/mm3 04/24/18 09:16 Myelocytes # 0.0 K/mm3 04/24/18 09:16 Promyelocytes # 0.0 K/mm3 04/24/18 09:16 Blast Cells # 0.0 K/mm3 04/24/18 09:16 WBC Morphology Not Reportable 04/24/18 09:16 Hypersegmented Neuts Not Reportable 04/24/18 09:16 Hyposegmented Neuts Not Reportable 04/24/18 09:16 Hypogranular Neuts Not Reportable 04/24/18 09:16 Smudge Cells Not Reportable 04/24/18 09:16 Toxic Granulation Not Reportable 04/24/18 09:16 Toxic Vacuolation Not Reportable 04/24/18 09:16 Dohle Bodies Not Reportable 04/24/18 09:16 Pelger-Huet Anomaly Not Reportable 04/24/18 09:16 Silva Rods Not Reportable 04/24/18 09:16 Platelet Estimate Consistent w auto 04/24/18 09:16 Clumped Platelets Not Reportable 04/24/18 09:16 Plt Clumps, EDTA Not Reportable 04/24/18 09:16 Large Platelets Not Reportable 04/24/18 09:16 Giant Platelets Not Reportable 04/24/18 09:16 Platelet Satelliting Not Reportable 04/24/18 09:16 Plt Morphology Comment Not Reportable 04/24/18 09:16 RBC Morphology Not Reportable 04/24/18 09:16 Dimorphic RBCs Not Reportable 04/24/18 09:16 Polychromasia Not Reportable 04/24/18 09:16 Hypochromasia Not Reportable 04/24/18 09:16 Poikilocytosis Not Reportable 04/24/18 09:16 Anisocytosis 1+ 04/24/18 09:16 Microcytosis Not Reportable 04/24/18 09:16 Macrocytosis Not Reportable 04/24/18 09:16 Spherocytes Not Reportable 04/24/18 09:16 Pappenheimer Bodies Not Reportable 04/24/18 09:16 Sickle Cells Not Reportable 04/24/18 09:16 Target Cells Not Reportable 04/24/18 09:16 Tear Drop Cells Not Reportable 04/24/18 09:16 Ovalocytes Not Reportable 04/24/18 09:16 Helmet Cells Not Reportable 04/24/18 09:16 Barrios-Ganister Bodies Not Reportable 04/24/18 09:16 [place] Rings Not Reportable 04/24/18 09:16 Kyrie Cells Not Reportable 04/24/18 09:16 Bite Cells Not Reportable 04/24/18 09:16 Crenated Cell Not Reportable 04/24/18 09:16 Elliptocytes Not Reportable 04/24/18 09:16 Acanthocytes (Spur) Not Reportable 04/24/18 09:16 Rouleaux Not Reportable 04/24/18 09:16 Hemoglobin C Crystals Not Reportable 04/24/18 09:16 Schistocytes Not Reportable 04/24/18 09:16 Malaria parasites Not Reportable 04/24/18 09:16 Lázaro Bodies Not Reportable 04/24/18 09:16 Hem Pathologist Commnt No 04/24/18 09:16 PT 17.7 Sec. (12.2-14.9) H 04/25/18 10:56 INR 1.37 (0.87-1.13) H 04/25/18 10:56 APTT 97.3 Sec. (24.2-36.6) H* 04/26/18 09:52 Fibrinogen 267 mg/dl (211-480) 04/25/18 10:56 Heparin Anti-Xa Level 0.18 U.I./ml (0.3-0.7) L 04/25/18 01:30 POC Sodium 147 mmol/L (138-146) H 04/24/18 22:40 POC Potassium 3.6 (3.5-4.9) 04/24/18 22:40 POC Chloride 112 (98-109) H 04/24/18 22:40 Sodium 141 mmol/L (137-145) 04/26/18 04:00 Potassium 4.8 mmol/L (3.6-5.0) D 04/26/18 04:00 Chloride 103.7 mmol/L (98-107) 04/26/18 04:00 Carbon Dioxide 20 mmol/L (22-30) L 04/26/18 04:00 Anion Gap 22 mmol/L 04/26/18 04:00 POC BUN 3 mg/dl (8-26) L 04/24/18 22:40 BUN 5 mg/dL (7-17) L 04/26/18 04:00 Creatinine < 0.2 mg/dL (0.7-1.2) L 04/26/18 04:00 Estimated GFR > 60 ml/min 04/26/18 04:00 BUN/Creatinine Ratio 10 % 04/26/18 04:00 Glucose 87 mg/dL (65-100) 04/26/18 04:00 POC Glucose 126 (70-105) H 04/24/18 22:40 Lactic Acid 1.90 mmol/L (0.7-2.0) 04/17/18 20:52 Calcium 7.7 mg/dL (8.4-10.2) L D 04/26/18 04:00 Phosphorus 1.60 mg/dL (2.5-4.5) L 04/25/18 05:15 Magnesium 2.90 mg/dL (1.7-2.3) H 04/25/18 05:15 Total Creatine Kinase 190 units/L (30-135) H 04/17/18 15:53 Albumin 2.7 g/dL (3.9-5) L 04/25/18 07:37 Blood Type A POSITIVE 04/23/18 23:30 Antibody Screen Negative 04/23/18 23:30 Crossmatch See Detail 04/23/18 23:30
[2018-04-26] MEDS: BENADRYL PO PRN (13:40)
--- NOTE | 2018-04-26 17:35 | Progress Note ---
Assessment and Plan Pt continues to improve. Left foot toes are dark, but slightly improved from yesterday. Able to dorsiflex her foot. Moves toes. On O2 nc still with pulse ox in low 90's. Encouraged deep breathing. Pt OOB ambulating with PT. Encouraged pt to get OOB to chair with assistance throughout the day. Will convert from argatroban to eliquis. Continue to monitor in ICU overnight, if she tolerates oral anticoagulation then can likely move out of ICU. 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 Pain continues to improve. Objective - Constitutional Vitals: Vital Signs - 12hr 04/26/18 04/26/18 04/26/18 05:31 06:00 06:31 Temperature Pulse Rate 99 H 95 H 97 H Pulse Rate [ From Monitor] Respiratory 14 13 15 Rate Blood Pressure 105/67 97/67 97/67 O2 Sat by Pulse 99 98 99 Oximetry 04/26/18 04/26/18 04/26/18 07:00 07:31 08:00 Temperature 98.6 F Pulse Rate 90 90 Pulse Rate [ From Monitor] Respiratory 13 20 14 Rate Blood Pressure 103/68 103/68 109/70 O2 Sat by Pulse 98 94 100 Oximetry 04/26/18 04/26/18 04/26/18 08:31 08:37 09:00 Temperature Pulse Rate Pulse Rate [ From Monitor] Respiratory Rate Blood Pressure 109/70 119/77 O2 Sat by Pulse 91 97 99 Oximetry 04/26/18 04/26/18 04/26/18 09:31 09:50 09:51 Temperature Pulse Rate 98 H 101 H 101 H Pulse Rate [ From Monitor] Respiratory 14 Rate Blood Pressure 109/70 119/77 119/77 O2 Sat by Pulse 100 Oximetry 04/26/18 04/26/18 04/26/18 10:00 10:31 11:00 Temperature Pulse Rate 100 H 97 H 100 H Pulse Rate [ From Monitor] Respiratory 13 12 12 Rate Blood Pressure 118/75 118/75 124/81 O2 Sat by Pulse 96 100 97 Oximetry 04/26/18 04/26/18 04/26/18 11:31 12:00 12:01 Temperature 98.6 F Pulse Rate 94 H 93 H Pulse Rate [ 96 H From Monitor] Respiratory 9 L 17 Rate Blood Pressure 126/93 122/75 O2 Sat by Pulse 97 97 99 Oximetry 04/26/18 04/26/18 04/26/18 12:31 13:01 13:31 Temperature Pulse Rate 97 H 96 H 90 Pulse Rate [ From Monitor] Respiratory 14 19 26 H Rate Blood Pressure 122/75 109/83 109/83 O2 Sat by Pulse 95 100 97 Oximetry 04/26/18 04/26/18 04/26/18 14:00 14:31 15:01 Temperature Pulse Rate 95 H 87 93 H Pulse Rate [ From Monitor] Respiratory 11 L 12 14 Rate Blood Pressure 123/81 123/81 128/88 O2 Sat by Pulse 84 97 94 Oximetry 04/26/18 04/26/18 04/26/18 15:31 16:00 16:01 Temperature 98.6 F Pulse Rate 92 H 99 H Pulse Rate [ From Monitor] Respiratory 10 L 24 Rate Blood Pressure 128/88 116/72 O2 Sat by Pulse 94 93 Oximetry 04/26/18 04/26/18 16:31 17:00 Temperature Pulse Rate 100 H Pulse Rate [ From Monitor] Respiratory 17 24 Rate Blood Pressure 116/72 137/87 O2 Sat by Pulse 95 88 Oximetry General appearance: Present: no acute distress - EENT Eyes: EOM intact ENT: hearing intact - Respiratory Respiratory effort: normal Extremities: pulses intact (palp PT, Incision intact with scant drainage.) - Neurologic Neurologic: moves all extremities - Psychiatric Psychiatric: appropriate mood/affect, intact judgment & insight, cooperative - Labs CBC & Chem 7: 04/26/18 03:15 04/26/18 04:00 Labs: Abnormal lab results 04/23/18 04/26/18 04/26/18 Range/Units 23:30 03:15 04:00 WBC 13.0 H (4.5-11.0) K/mm3 RBC 2.97 L (3.65-5.03) M/mm3 Hgb 8.7 L (10.1-14.3) gm/dl Hct 25.4 L (30.3-42.9) % RDW 15.5 H (13.2-15.2) % Plt Count 67 L (140-440) K/mm3 Lymph % (Auto) 11.1 L (13.4-35.0) % [place] % (Auto) 13.1 H (0.0-7.3) % [place] # 1.7 H (0.0-0.8) K/mm3 Seg Neutrophils % 72.7 H (40.0-70.0) % Seg Neutrophils # 9.4 H (1.8-7.7) K/mm3 APTT (24.2-36.6) Sec. Carbon Dioxide 20 L (22-30) mmol/L BUN 5 L (7-17) mg/dL Creatinine < 0.2 L (0.7-1.2) mg/dL Calcium 7.7 L D (8.4-10.2) mg/dL Crossmatch See Detail 04/26/18 04/26/18 Range/Units 05:30 09:52 WBC (4.5-11.0) K/mm3 RBC (3.65-5.03) M/mm3 Hgb (10.1-14.3) gm/dl Hct (30.3-42.9) % RDW (13.2-15.2) % Plt Count (140-440) K/mm3 Lymph % (Auto) (13.4-35.0) % [place] % (Auto) (0.0-7.3) % [place] # (0.0-0.8) K/mm3 Seg Neutrophils % (40.0-70.0) % Seg Neutrophils # (1.8-7.7) K/mm3 APTT 105.9 H* 97.3 H* (24.2-36.6) Sec. Carbon Dioxide (22-30) mmol/L BUN (7-17) mg/dL Creatinine (0.7-1.2) mg/dL Calcium (8.4-10.2) mg/dL Crossmatch
[2018-04-26] MEDS: ELIQUIS PO SCH (18:23)
[2018-04-27] MEDS: MORPHINE IV PRN (01:49)
[2018-04-27] MEDS: ceFAZolin 1 GM in NACL 0.9% 20 ML IV SCH ×2 (06:01→22:23)
[2018-04-27 07:05] LABS: Basophils # (Auto) 0.1 K/mm3 (0.0-0.1); Eosinophils # (Auto) 0.4 K/mm3 (0.0-0.4); Hematocrit 26.5 % (30.3-42.9); Hemoglobin 9.1 gm/dl (10.1-14.3); Lymphocytes % (Auto) 6.9 % (13.4-35.0); Mean Corpuscular HGB Conc 34 % (30-34); Mean Corpuscular Hemoglobin 30 pg (28-32); Mean Corpuscular Volume 87 fl (79-97); Monocytes # (Auto) 1.3 K/mm3 (0.0-0.8); Monocytes % (Auto) 9.3 % (0.0-7.3); Platelet Count 102 K/mm3 (140-440); Red Blood Count 3.06 M/mm3 (3.65-5.03); Red Cell Distribution Width 15.8 % (13.2-15.2)
[2018-04-27] MEDS ORDERED: DULCOLAX PR PRN (10:52)
[2018-04-27] MEDS: OxyCONTIN PO SCH ×2 (11:00→22:24)
[2018-04-27] MEDS: ELIQUIS PO SCH ×2 (11:00→22:24)
[2018-04-27] MEDS: PROTONIX PO SCH (11:00)
[2018-04-27] MEDS: PLAVIX PO SCH (11:00)
[2018-04-27] MEDS: NORVASC PO SCH (11:00)
[2018-04-27] MEDS: COLACE PO SCH ×2 (11:00→23:24)
[2018-04-27] MEDS: LOPRESSOR PO SCH ×2 (11:00→22:29)
[2018-04-27] MEDS: FEOSOL PO SCH ×2 (11:00→22:23)
[2018-04-27] MEDS: VITAMIN C PO SCH ×2 (11:00→22:24)
--- NOTE | 2018-04-27 11:55 | Progress Note ---
Assessment and Plan Assessment and plan: Gene --Constipation; stool softeners as needed Milk of magnesia/Dulcolax suppository, if no improvement consider enema --Arterial insufficiency of lower extremity; s/p left femoral to posterior tibial artery bypass s/p revision of vascular surgery 04/25/18 1. Open Revision of Left Femoral Artery to Posterior Tibial Artery Bypass 2. Open Thrombectomy of Left Femoral Artery to Posterior Tibial Artery Bypass with 3 Billy 3. Open Thrombectomy of Left Posterior Tibial Artery with 3 Billy Blisters and Cyanotic discoloration of left foot toes, management per vascular Received Heparin- Argatroban---now on Eliquis, closely monitor --Anemia; status post multiple PRBC transfusion total [ 7 units], Hb today is 9.1 Closely monitor H&H, additional transfusion as needed --Thrombocytopenia; closely monitor, platelet 67K today Consider hematology consultation if no improvement -- Hypokalemia/ Hypophosphatemia/Hypomagnesemia; corrected --Hypocalcemia; replacement as needed --Nicotine dependence unspecified ; Smoking cessation counseling, advised nicotine patch --COPD (chronic obstructive pulmonary disease) supplemental oxygen, nebulizer therapy, NIPPV as clinically indicated. --HTN (hypertension) monitor blood pressures adjust as needed Continue current antihypertensives. --Mild PRIYA; resolved, --DVT prophylaxis ; on anticoagulation Physical therapy occupational therapy as tolerated --DC planning.per case management/PT recommend acute manager of organizational development recommendations noted and appreciated Critical care time 31 minutes History Interval history: Patient seen and examined in ICU this morning medical records reviewed Patient feels better no new complaints Vital signs reviewed, stable Complains of of mild nausea, did not have any bowel movement Started physical therapy Vital signs reviewed Hospitalist Physical - Constitutional Vitals: Temp Pulse Resp BP Pulse Ox 98.9 F 89 15 106/73 100 04/27/18 08:00 04/27/18 09:31 04/27/18 09:31 04/27/18 09:31 04/27/18 10:00 General appearance: Present: no acute distress, well-nourished - EENT Eyes: Present: PERRL, EOM intact - Neck Neck: Present: supple, normal ROM - Respiratory Respiratory effort: normal Respiratory: negative: rales, rhonchi, wheezing - Cardiovascular Rhythm: regular Heart Sounds: Present: S1 & S2 - Extremities Extremities: No edema, abnormal (erythema blisters on the foot/cyanotic discoloration of toes) Extremity abnormal: edema, erythema - Abdominal General gastrointestinal: soft, non-tender, non-distended, normal bowel sounds - Integumentary Integumentary: Present: clear, warm - Psychiatric Psychiatric: appropriate mood/affect, cooperative - Neurologic Neurologic: CNII-XII intact, moves all extremities Results - Labs CBC & Chem 7: 04/27/18 06:36 04/26/18 04:00 Labs: Laboratory Last Values WBC 14.0 K/mm3 (4.5-11.0) H 04/27/18 06:36 RBC 3.06 M/mm3 (3.65-5.03) L 04/27/18 06:36 Hgb 9.1 gm/dl (10.1-14.3) L 04/27/18 06:36 POC Hgb 10.2 (12-17) L 04/24/18 22:40 Hct 26.5 % (30.3-42.9) L 04/27/18 06:36 POC Hct 30 (38-51) L 04/24/18 22:40 MCV 87 fl (79-97) 04/27/18 06:36 MCH 30 pg (28-32) 04/27/18 06:36 MCHC 34 % (30-34) 04/27/18 06:36 RDW 15.8 % (13.2-15.2) H 04/27/18 06:36 Plt Count 102 K/mm3 (140-440) L 04/27/18 06:36 Lymph % (Auto) 6.9 % (13.4-35.0) L 04/27/18 06:36 [place] % (Auto) 9.3 % (0.0-7.3) H 04/27/18 06:36 Eos % (Auto) 3.0 % (0.0-4.3) 04/27/18 06:36 Baso % (Auto) 1.0 % (0.0-1.8) 04/27/18 06:36 Lymph # 1.0 K/mm3 (1.2-5.4) L 04/27/18 06:36 [place] # 1.3 K/mm3 (0.0-0.8) H 04/27/18 06:36 Eos # 0.4 K/mm3 (0.0-0.4) 04/27/18 06:36 Baso # 0.1 K/mm3 (0.0-0.1) 04/27/18 06:36 Add Manual Diff Complete 04/24/18 09:16 Total Counted 100 04/24/18 09:16 Seg Neutrophils % 79.8 % (40.0-70.0) H 04/27/18 06:36 Seg Neuts % (Manual) 64.0 % (40.0-70.0) 04/24/18 09:16 Band Neutrophils % 3.0 % 04/24/18 09:16 Lymphocytes % (Manual) 11.0 % (13.4-35.0) L 04/24/18 09:16 Reactive Lymphs % (Man) 0 % 04/24/18 09:16 Monocytes % (Manual) 20.0 % (0.0-7.3) H 04/24/18 09:16 Eosinophils % (Manual) 2.0 % (0.0-4.3) 04/24/18 09:16 Basophils % (Manual) 0 % (0.0-1.8) 04/24/18 09:16 Metamyelocytes % 0 % 04/24/18 09:16 Myelocytes % 0 % 04/24/18 09:16 Promyelocytes % 0 % 04/24/18 09:16 Blast Cells % 0 % 04/24/18 09:16 Nucleated RBC % Not Reportable 04/24/18 09:16 Seg Neutrophils # 11.2 K/mm3 (1.8-7.7) H 04/27/18 06:36 Seg Neutrophils # Man 5.6 K/mm3 (1.8-7.7) 04/24/18 09:16 Band Neutrophils # 0.3 K/mm3 04/24/18 09:16 Lymphocytes # (Manual) 1.0 K/mm3 (1.2-5.4) L 04/24/18 09:16 Abs React Lymphs (Man) 0.0 K/mm3 04/24/18 09:16 Monocytes # (Manual) 1.8 K/mm3 (0.0-0.8) H 04/24/18 09:16 Eosinophils # (Manual) 0.2 K/mm3 (0.0-0.4) 04/24/18 09:16 Basophils # (Manual) 0.0 K/mm3 (0.0-0.1) 04/24/18 09:16 Metamyelocytes # 0.0 K/mm3 04/24/18 09:16 Myelocytes # 0.0 K/mm3 04/24/18 09:16 Promyelocytes # 0.0 K/mm3 04/24/18 09:16 Blast Cells # 0.0 K/mm3 04/24/18 09:16 WBC Morphology Not Reportable 04/24/18 09:16 Hypersegmented Neuts Not Reportable 04/24/18 09:16 Hyposegmented Neuts Not Reportable 04/24/18 09:16 Hypogranular Neuts Not Reportable 04/24/18 09:16 Smudge Cells Not Reportable 04/24/18 09:16 Toxic Granulation Not Reportable 04/24/18 09:16 Toxic Vacuolation Not Reportable 04/24/18 09:16 Dohle Bodies Not Reportable 04/24/18 09:16 Pelger-Huet Anomaly Not Reportable 04/24/18 09:16 Silva Rods Not Reportable 04/24/18 09:16 Platelet Estimate Consistent w auto 04/24/18 09:16 Clumped Platelets Not Reportable 04/24/18 09:16 Plt Clumps, EDTA Not Reportable 04/24/18 09:16 Large Platelets Not Reportable 04/24/18 09:16 Giant Platelets Not Reportable 04/24/18 09:16 Platelet Satelliting Not Reportable 04/24/18 09:16 Plt Morphology Comment Not Reportable 04/24/18 09:16 RBC Morphology Not Reportable 04/24/18 09:16 Dimorphic RBCs Not Reportable 04/24/18 09:16 Polychromasia Not Reportable 04/24/18 09:16 Hypochromasia Not Reportable 04/24/18 09:16 Poikilocytosis Not Reportable 04/24/18 09:16 Anisocytosis 1+ 04/24/18 09:16 Microcytosis Not Reportable 04/24/18 09:16 Macrocytosis Not Reportable 04/24/18 09:16 Spherocytes Not Reportable 04/24/18 09:16 Pappenheimer Bodies Not Reportable 04/24/18 09:16 Sickle Cells Not Reportable 04/24/18 09:16 Target Cells Not Reportable 04/24/18 09:16 Tear Drop Cells Not Reportable 04/24/18 09:16 Ovalocytes Not Reportable 04/24/18 09:16 Helmet Cells Not Reportable 04/24/18 09:16 [place] Bodies Not Reportable 04/24/18 09:16 [place] Rings Not Reportable 04/24/18 09:16 [place]rie Cells Not Reportable 04/24/18 09:16 Bite Cells Not Reportable 04/24/18 09:16 Crenated Cell Not Reportable 04/24/18 09:16 Elliptocytes Not Reportable 04/24/18 09:16 Acanthocytes (Spur) Not Reportable 04/24/18 09:16 Rouleaux Not Reportable 04/24/18 09:16 Hemoglobin C Crystals Not Reportable 04/24/18 09:16 Schistocytes Not Reportable 04/24/18 09:16 Malaria parasites Not Reportable 04/24/18 09:16 Lázaro Bodies Not Reportable 04/24/18 09:16 Hem Pathologist Commnt No 04/24/18 09:16 PT 17.7 Sec. (12.2-14.9) H 04/25/18 10:56 INR 1.37 (0.87-1.13) H 04/25/18 10:56 APTT 97.3 Sec. (24.2-36.6) H* 04/26/18 09:52 Fibrinogen 267 mg/dl (211-480) 04/25/18 10:56 Heparin Anti-Xa Level 0.18 U.I./ml (0.3-0.7) L 04/25/18 01:30 POC Sodium 147 mmol/L (138-146) H 04/24/18 22:40 POC Potassium 3.6 (3.5-4.9) 04/24/18 22:40 POC Chloride 112 (98-109) H 04/24/18 22:40 Sodium 141 mmol/L (137-145) 04/26/18 04:00 Potassium 4.8 mmol/L (3.6-5.0) D 04/26/18 04:00 Chloride 103.7 mmol/L (98-107) 04/26/18 04:00 Carbon Dioxide 20 mmol/L (22-30) L 04/26/18 04:00 Anion Gap 22 mmol/L 04/26/18 04:00 POC BUN 3 mg/dl (8-26) L 04/24/18 22:40 BUN 5 mg/dL (7-17) L 04/26/18 04:00 Creatinine < 0.2 mg/dL (0.7-1.2) L 04/26/18 04:00 Estimated GFR > 60 ml/min 04/26/18 04:00 BUN/Creatinine Ratio 10 % 04/26/18 04:00 Glucose 87 mg/dL (65-100) 04/26/18 04:00 POC Glucose 126 (70-105) H 04/24/18 22:40 Lactic Acid 1.90 mmol/L (0.7-2.0) 04/17/18 20:52 Calcium 7.7 mg/dL (8.4-10.2) L D 04/26/18 04:00 Phosphorus 1.60 mg/dL (2.5-4.5) L 04/25/18 05:15 Magnesium 2.90 mg/dL (1.7-2.3) H 04/25/18 05:15 Total Creatine Kinase 190 units/L (30-135) H 04/17/18 15:53 Albumin 2.7 g/dL (3.9-5) L 04/25/18 07:37 Blood Type A POSITIVE 04/23/18 23:30 Antibody Screen Negative 04/23/18 23:30 Crossmatch See Detail 04/23/18 23:30
--- NOTE | 2018-04-27 12:36 | Progress Note ---
Assessment and Plan 57 y/o female with acute blood loss anemia, post-op now post-op from thrombectomy and further revision 1. Continue to monitor H/H 2. Follow up any new vascular recs 3. K stable, should repeat mag level 4. Wean FiO2 to off 5. await vascular eval but, should be stable for transfer out of the unit. Subjective Date of service: 04/27/18 Principal diagnosis: PVD Interval history: H/H remains stable. Appears that Argatroban has been stopped and now patient is on eliquis. Objective - Constitutional Vitals: Vital Signs - 12hr 04/27/18 04/27/18 04/27/18 01:00 01:31 02:00 Temperature Pulse Rate 92 H 94 H 93 H Pulse Rate [ 90 From Monitor] Respiratory 13 11 L 13 Rate Blood Pressure 113/73 102/69 110/70 O2 Sat by Pulse 99 99 98 Oximetry 04/27/18 04/27/18 04/27/18 02:31 03:00 03:31 Temperature Pulse Rate 92 H 92 H 91 H Pulse Rate [ From Monitor] Respiratory 12 13 11 L Rate Blood Pressure 102/69 114/75 114/75 O2 Sat by Pulse 99 98 99 Oximetry 04/27/18 04/27/18 04/27/18 04:00 04:31 05:00 Temperature 97.7 F Pulse Rate 90 90 94 H Pulse Rate [ From Monitor] Respiratory 11 L 12 14 Rate Blood Pressure 109/75 114/75 114/78 O2 Sat by Pulse 100 98 Oximetry 04/27/18 04/27/18 04/27/18 05:31 06:00 06:31 Temperature Pulse Rate 98 H 102 H 100 H Pulse Rate [ 98 H From Monitor] Respiratory 15 13 15 Rate Blood Pressure 114/78 120/79 120/79 O2 Sat by Pulse 99 92 99 Oximetry 04/27/18 04/27/18 04/27/18 07:00 07:31 08:00 Temperature 98.9 F Pulse Rate 93 H 95 H 94 H Pulse Rate [ From Monitor] Respiratory 14 14 18 Rate Blood Pressure 115/74 120/79 106/73 O2 Sat by Pulse 100 99 Oximetry 04/27/18 04/27/18 04/27/18 08:31 09:00 09:31 Temperature Pulse Rate 92 H 94 H 89 Pulse Rate [ From Monitor] Respiratory 15 15 15 Rate Blood Pressure 106/73 117/75 106/73 O2 Sat by Pulse 100 95 Oximetry 04/27/18 10:00 Temperature Pulse Rate Pulse Rate [ From Monitor] Respiratory Rate Blood Pressure O2 Sat by Pulse 100 Oximetry General appearance: Present: no acute distress - EENT Eyes: PERRL ENT: hearing intact, clear oral mucosa - Neck Neck: supple, normal ROM - Respiratory Respiratory effort: normal Respiratory: bilateral: CTA - Labs CBC & Chem 7: 04/27/18 06:36 04/26/18 04:00 Labs: Abnormal lab results 04/27/18 Range/Units 06:36 WBC 14.0 H (4.5-11.0) K/mm3 RBC 3.06 L (3.65-5.03) M/mm3 Hgb 9.1 L (10.1-14.3) gm/dl Hct 26.5 L (30.3-42.9) % RDW 15.8 H (13.2-15.2) % Plt Count 102 L (140-440) K/mm3 Lymph % (Auto) 6.9 L (13.4-35.0) % [place] % (Auto) 9.3 H (0.0-7.3) % Lymph # 1.0 L (1.2-5.4) K/mm3 [place] # 1.3 H (0.0-0.8) K/mm3 Seg Neutrophils % 79.8 H (40.0-70.0) % Seg Neutrophils # 11.2 H (1.8-7.7) K/mm3
--- NOTE | 2018-04-27 16:11 | Progress Note ---
Assessment and Plan The patient is status post left lower extremity revascularization femoral artery to posterior tibial artery bypass requiring revision. He is hemodynamically stable without any evidence of bleeding and has been converted to oral anticoagulation. She has cyanotic changes to her second through fifth toes on the left. I will start Procardia 10 mg by mouth 3 times a day in hopes that this may help dilate some of her distal vessels. Given her hemodynamic stability she is able to transfer to telemetry. Hopefully she can be discharged later this week. We will talk to the wound care center in hopes of getting her into the hyperbaric chamber to improve her chances of salvaging her toes. Subjective Date of service: 04/27/18 Principal diagnosis: PVD Interval history: The patient had 1 episode of vomiting overnight. She has no complaints of pain. She was able to tolerate standing and sitting in a chair yesterday. Objective - Constitutional Vitals: Vital Signs - 12hr 04/27/18 04/27/18 04/27/18 04:31 05:00 05:31 Temperature Pulse Rate 90 94 H 98 H Pulse Rate [ From Monitor] Respiratory 12 14 15 Rate Blood Pressure 114/75 114/78 114/78 O2 Sat by Pulse 100 98 99 Oximetry 04/27/18 04/27/18 04/27/18 06:00 06:31 07:00 Temperature Pulse Rate 102 H 100 H 93 H Pulse Rate [ 98 H From Monitor] Respiratory 13 15 14 Rate Blood Pressure 120/79 120/79 115/74 O2 Sat by Pulse 92 99 Oximetry 04/27/18 04/27/18 04/27/18 07:31 08:00 08:31 Temperature 98.9 F Pulse Rate 95 H 94 H 92 H Pulse Rate [ From Monitor] Respiratory 14 18 15 Rate Blood Pressure 120/79 106/73 106/73 O2 Sat by Pulse 100 99 100 Oximetry 04/27/18 04/27/18 04/27/18 09:00 09:31 10:00 Temperature Pulse Rate 94 H 89 Pulse Rate [ From Monitor] Respiratory 15 15 Rate Blood Pressure 117/75 106/73 O2 Sat by Pulse 95 100 Oximetry 04/27/18 12:00 Temperature 98.8 F Pulse Rate Pulse Rate [ From Monitor] Respiratory Rate Blood Pressure O2 Sat by Pulse Oximetry General appearance: Present: no acute distress - Neck Neck: supple - Respiratory Respiratory effort: normal - Breasts Breasts: deferred - Cardiovascular Heart rate: 95 Rhythm: regular Extremities: normal temperature Extremity abnormal: edema (postsurgical edema of the entire leg. Incision is clean dry and intact with minimal ecchymosis. Cyanotic changes to the left second through fifth toes. The first toe cyanosis has resolved. Minimal cyanotic changes to the plantar surface of the left foot. There is a palpable posterior tibial pulse.) - Gastrointestinal General gastrointestinal: Present: soft, non-tender, non-distended - Labs CBC & Chem 7: 04/27/18 06:36 04/26/18 04:00 Labs: Abnormal lab results 04/27/18 Range/Units 06:36 WBC 14.0 H (4.5-11.0) K/mm3 RBC 3.06 L (3.65-5.03) M/mm3 Hgb 9.1 L (10.1-14.3) gm/dl Hct 26.5 L (30.3-42.9) % RDW 15.8 H (13.2-15.2) % Plt Count 102 L (140-440) K/mm3 Lymph % (Auto) 6.9 L (13.4-35.0) % [place] % (Auto) 9.3 H (0.0-7.3) % Lymph # 1.0 L (1.2-5.4) K/mm3 [place] # 1.3 H (0.0-0.8) K/mm3 Seg Neutrophils % 79.8 H (40.0-70.0) % Seg Neutrophils # 11.2 H (1.8-7.7) K/mm3
--- NOTE | 2018-04-27 17:18 | Hem/Onc Progress Note ---
Assessment and Plan - Patient Problems (1) History of aorto-femoral bypass Current Visit: No Status: Acute Plan to address problem: Counts are better. Await HIT panel Subjective Date of service: 04/27/18 Interval history: Much better overall, no bleeding Objective - Constitutional Vitals: Last Vital Signs Temp 98.3 F 04/27/18 16:00 Pulse 89 04/27/18 09:31 Resp 15 04/27/18 09:31 BP 106/73 04/27/18 09:31 Pulse Ox 100 04/27/18 10:00 General appearance: no acute distress - EENT Eyes: PERRL ENT: hearing intact Lymph node exam: negative cervical - Labs Lab Results: Laboratory Results - last 24 hr 04/27/18 06:36 WBC 14.0 H RBC 3.06 L Hgb 9.1 L Hct 26.5 L MCV 87 MCH 30 MCHC 34 RDW 15.8 H Plt Count 102 L Lymph % (Auto) 6.9 L [place] % (Auto) 9.3 H Eos % (Auto) 3.0 Baso % (Auto) 1.0 Lymph # 1.0 L [place] # 1.3 H Eos # 0.4 Baso # 0.1 Seg Neutrophils % 79.8 H Seg Neutrophils # 11.2 H
[2018-04-27] MEDS: PERCOCET 5/325 PO PRN (18:49)
[2018-04-27] MEDS: NACL 0.9% 1000 ML 1,000 ML IV SCH (22:27)
[2018-04-27] MEDS: SODIUM CHLORIDE FLUSH SYRINGE 10 ML IV SCH (23:25)
[2018-04-28] MEDS: MORPHINE IV PRN ×2 (01:43→14:47)
[2018-04-28] MEDS: ceFAZolin 1 GM in NACL 0.9% 20 ML IV SCH ×2 (06:32→18:41)
[2018-04-28 06:35] LABS: Basophils # (Auto) 0.1 K/mm3 (0.0-0.1); Basophils % (Auto) 0.4 % (0.0-1.8); Eosinophils # (Auto) 0.3 K/mm3 (0.0-0.4); Eosinophils % (Auto) 1.9 % (0.0-4.3); Hematocrit 24.5 % (30.3-42.9); Lymphocytes # (Auto) 1.3 K/mm3 (1.2-5.4); Lymphocytes % (Auto) 9.1 % (13.4-35.0); Mean Corpuscular HGB Conc 33 % (30-34); Mean Corpuscular Hemoglobin 29 pg (28-32); Mean Corpuscular Volume 88 fl (79-97); Monocytes # (Auto) 1.5 K/mm3 (0.0-0.8); Monocytes % (Auto) 10.6 % (0.0-7.3); Platelet Count 159 K/mm3 (140-440); Red Blood Count 2.79 M/mm3 (3.65-5.03); Red Cell Distribution Width 15.1 % (13.2-15.2)
[2018-04-28] MEDS: FEOSOL PO SCH ×2 (09:33→21:59)
[2018-04-28] MEDS: PLAVIX PO SCH (09:33)
[2018-04-28] MEDS: OxyCONTIN PO SCH ×2 (09:34→22:00)
[2018-04-28] MEDS: VITAMIN C PO SCH ×2 (09:35→22:00)
[2018-04-28] MEDS: COLACE PO SCH ×2 (09:35→22:00)
[2018-04-28] MEDS: NORVASC PO SCH (09:36)
[2018-04-28] MEDS: LOPRESSOR PO SCH ×2 (09:37→22:01)
[2018-04-28] MEDS: ELIQUIS PO SCH ×2 (09:38→21:59)
--- NOTE | 2018-04-28 09:56 | Progress Note ---
Assessment and Plan 57 y/o female with acute blood loss anemia, post-op now post-op from thrombectomy and further revision 1. From a critical care standpoint, stable. Will sign off. Call if questions. Subjective Date of service: 04/28/18 Principal diagnosis: PVD Interval history: No acute events. Transferred to floor. no acute issues. Objective - Constitutional Vitals: Vital Signs - 12hr 04/27/18 04/27/18 04/28/18 22:24 22:29 00:30 Temperature 98.7 F Pulse Rate 99 H 98 H Respiratory 20 18 Rate Blood Pressure 94/59 Blood Pressure 83/47 [Right] O2 Sat by Pulse 98 Oximetry 04/28/18 04/28/18 04/28/18 01:43 05:09 08:39 Temperature 98.9 F Pulse Rate 103 H Respiratory 20 18 Rate Blood Pressure Blood Pressure 102/59 [Right] O2 Sat by Pulse 99 97 Oximetry 04/28/18 04/28/18 09:36 09:37 Temperature Pulse Rate 103 H Respiratory Rate Blood Pressure 102/59 102/59 Blood Pressure [Right] O2 Sat by Pulse Oximetry - Labs CBC & Chem 7: 04/28/18 05:16 04/26/18 04:00 Labs: Abnormal lab results 04/28/18 Range/Units 05:16 WBC 14.1 H (4.5-11.0) K/mm3 RBC 2.79 L (3.65-5.03) M/mm3 Hgb 8.0 L (10.1-14.3) gm/dl Hct 24.5 L (30.3-42.9) % Lymph % (Auto) 9.1 L (13.4-35.0) % [place] % (Auto) 10.6 H (0.0-7.3) % [place] # 1.5 H (0.0-0.8) K/mm3 Seg Neutrophils % 78.0 H (40.0-70.0) % Seg Neutrophils # 11.0 H (1.8-7.7) K/mm3
--- NOTE | 2018-04-28 10:02 | Progress Note ---
Assessment and Plan Assessment/Pain: Peripheral vascular disease s/p left femoral to posterior tibial artery bypass/open thrombectomy of left posterior tibial artery TPA 04/23/2018 Continue Eliquis/Plavix Continue Lipitor Acute blood loss anemia stable s/p PRBC and FFP tx Thrombocytopenia improved awaiting HIT panel Hypertension Sinus tachycardia likely physiologic secondary to anemia and pain Continue lopressor 25mg BID Hyperlipidemia Tobacco use cessation encouraged. Subjective Date of service: 04/28/18 Principal diagnosis: PVD Interval history: Patient lying in bed with no significant complaints. Objective Vital Signs Temp Pulse Resp BP BP Pulse Ox 04/28/18 09:37 103 H 102/59 04/28/18 09:36 102/59 04/28/18 08:39 97 04/28/18 05:09 98.9 F 103 H 18 102/59 99 04/28/18 01:43 20 04/28/18 00:30 98.7 F 98 H 18 83/47 98 04/27/18 22:29 99 H 94/59 04/27/18 22:24 20 04/27/18 20:06 99.8 F H 99 H 20 94/59 100 04/27/18 18:31 114 H 23 117/74 93 04/27/18 18:00 97 H 12 112/70 98 04/27/18 17:31 96 H 14 117/74 100 04/27/18 17:00 92 H 12 117/74 99 04/27/18 16:31 167 H 24 118/75 98 04/27/18 16:00 98.3 F 94 H 13 118/75 100 04/27/18 15:31 91 H 13 126/75 99 04/27/18 15:00 97 H 16 126/75 93 04/27/18 14:30 91 H 16 115/75 98 04/27/18 14:00 99 H 14 115/75 97 04/27/18 13:31 101 H 16 116/84 99 04/27/18 13:00 113 H 14 116/84 100 04/27/18 12:31 106 H 21 126/76 99 04/27/18 12:00 98.8 F 108 H 19 126/76 99 04/27/18 11:31 107 H 18 121/76 97 04/27/18 11:00 89 10 L 108/70 100 04/27/18 10:31 93 H 13 121/76 100 04/27/18 10:00 104 H 13 121/76 98 - Physical Examination General: No Apparent Distress HEENT: Positive: PERRL, Mucus Membranes Moist Neck: Positive: neck supple, trachea midline Cardiac: Positive: Reg Rate and Rhythm Lungs: Positive: Normal Exam Neuro: Positive: Grossly Intact Abdomen: Positive: Soft, Active Bowel Sounds. Negative: Tender, Distended Skin: Positive: Clear Incision: Cardiac Cath Site Musculoskeletal: No Pain, Normal Range of Motion Extremities: Present: Other (LLE warm, redness and swelling noted). Absent: edema - Labs and Meds CBC 04/28/18 Range/Units 05:16 WBC 14.1 H (4.5-11.0) K/mm3 RBC 2.79 L (3.65-5.03) M/mm3 Hgb 8.0 L (10.1-14.3) gm/dl Hct 24.5 L (30.3-42.9) % Plt Count 159 (140-440) K/mm3 Lymph # 1.3 (1.2-5.4) K/mm3 [place] # 1.5 H (0.0-0.8) K/mm3 Eos # 0.3 (0.0-0.4) K/mm3 Baso # 0.1 (0.0-0.1) K/mm3 - Imaging and Cardiology EKG: report reviewed Stress echo: other (12/2017 normal myocardial perfusion scanof ischemia) Echo: report reviewed (12/2017 normal LV functionregurgitations) - EKG Sinus rhythms and dysrhythmias: sinus rhythm
--- NOTE | 2018-04-28 11:14 | Operative Report ---
Operative Report Operative Report: Date of Procedure: 04/23/2018 Pre-operative Diagnosis: Left Lower Extremity Ischemia Post-operative Diagnosis: Same Procedure(s): 1. Left Femoral to Posterior Tibial Artery Bypass With Composite In Situ Greater Saphenous Vein Graft 2. Open Thrombectomy of Left Posterior Tibial artery with 2 Billy and 10 mg of TPA & 1200 mcg of Nitroglycerin Surgeon: Alejo Flannery M.D. Ocean Lifeguard: None Anesthesia: Gen. Endotracheal Anesthesia EBL: 450 mL Counts: Correct Complications: None Condition: Stable Findings: There was no retrograde bleeding from the posterior tibial artery upon opening. With passing of the 2 Billy the Billy was easily passed into the foot however there was no retrograde bleeding. There was a thrombus plug and some old thrombus retrieved after several passes. At the completion of the case there was an easily palpable posterior tibial pulse and the hindfoot was warm and well-perfused. The forefoot cyanotic. Specimen: None Indication: The patient is a 57-year-old female with a history of peripheral vessel disease and a history of an aortobifemoral bypass. She previously thrombosed her common femoral artery including her profunda and SFA on the left requiring open thrombectomy. She presents with left lower extremity ischemia with a CTA demonstrated occlusion of the SFA and popliteal arteries and reconstitution of the posterior tibial artery in the midcalf. The vein mapping demonstrates adequate vein for bypass. She has been offered a femoral artery to posterior tibial artery bypass using her left greater saphenous vein. She was given the risk, benefits, and alternative procedures and has consented to the procedure. Description of Procedure: The patient was brought to the operating room and laid in supine position. After general endotracheal anesthesia was achieved and was prepped and draped in normal sterile fashion. A longitudinal incision was created in her left groin through her previous incision and carried distally curving the incision slightly medial towards the course of the greater saphenous vein. There was significant amount of scar in the groin making it difficult to dissect out the bifurcation of the SFA and profunda however I was able to dissect out the aortobifemoral bifemoral graft at the anastomosis and isolate enough to clamp this with a Satinsky clamp for the anastomosis. I then began dissection of the saphenous vein through the same incision. I dissected out the saphenous vein at the saphenofemoral junction and identified the branches and suture ligated them and divide them. I began to dissect out branches along the course of the proximal portion of the vein suture ligated them and divide them as well. I then made a longitudinal incision on the medial aspect of the midcalf and dissected down to the posterior tibial artery, ensuring that I did not damage the greater saphenous vein. I dissected out the circumferentially both proximally and distally and controlled with vessel loops. I then identify what I thought was the saphenous vein and this appeared to be quite small. I ligated multiple side branches and mobilized the larger of the 2 branches. I dilated this branch with heparinized saline and although small felt this was her only chance to salvage the leg. At this point I heparinized the patient systemically with IV heparin. I then put a Satinsky clamp on the saphenofemoral junction and using 11 blade to transect the saphenous vein from the saphenofemoral junction. I then oversewed the venotomy using a 4-0 Prolene in an horizontal mattress fashion and then running fashion. I clamped the aortobifemoral bypass graft with a Satinsky clamp at the femoral anastomosis and made an arteriotomy in the parks of the graft however there was not enough length in the saphenous vein to reach. I extended my incision into the mid thigh and ligated multiple branches and mobilized more of the vein to try to get more length without success. At this point I decided to take a small portion of 6 mm bovine graft to bridge the gap. I used approximately 3 cm of bovine graft and used 2 5-0 Prolene in running fashion to create an end to side anastomosis between the aortobifemoral bypass graft and the bovine graft. Once this created I then used 2 6-0 Prolenes in running fashion to create an end and anastomosis between the bovine graft and the saphenous vein. After completing that anastomosis I released all clamps allowing flow to the graft to check for hemostasis. I then used ultrasound to try to identify an anterior branch of the graft for possible creation of a spliced graft in case the small branch was not adequate for the distal outflow of the bypass. While doing this I actually identified the true outflow branch of the saphenous vein. At this point I extended my incision to extend from the groin all the way down to the calf selected take down all branches of the saphenous vein to increase to flow through the graft once I had lysed the valves and to mobilize the vein at the knee to lessen the angle of the course of the vein. I suture ligated and divided the side branches and mobilized the distal vein and then used the LeMaitre valvulotome and passed this to the proximal portion of the vein and made multiple passes to lyse the valves. Upon doing this there was excellent pulsatile bleeding through the distal graft. I used bulldog clamps to clamp the distal portion of the graft. I then made an arteriotomy in the posterior tibial artery and upon doing so there was no evidence of backbleeding in the artery. I passed a 2 Billy easily into the foot and initially upon inflating the balloon and pulling it back there was no thrombus or backbleeding. I made an additional pass and pulled back a thrombus plug and retrieved a minimal amount of thrombus. I then injected 10 mg of TPA. I created an end-to-side anastomosis between the vein graft and the artery using 2 6-0 Prolene's in running fashion. Prior to completing the anastomosis I injected 1200 g of nitroglycerin into the distal artery and then completed the anastomosis. Upon completion of the anastomosis I released the clamps. Hemostasis within the wound was achieved with a combination of direct pressure and quick clot. Hemostasis on the anastomosis was achieved with 6-0 Prolene in interrupted fashion. There was an easily palpable pulse at the distal posterior tibial artery. Visualization of the foot did demonstrate that the foot did start to appear perfused. Once hemostasis was achieved the wounds were anesthetized with 0.5% Marcaine. The groin incision was closed in 3 layers using a 3-0 Vicryl in running fashion in the deep layer and a 3-0 Vicryl and running fashion the deep dermal layer and the skin was closed with 3-0 Ethilon in interrupted vertical mattress fashion. The remainder of the incision was closed in 2 layers using 3-0 Vicryl in running fashion the deep dermal layer and calin to close the skin. The wounds were then dressed with Island dressings. The patient tolerated the procedure well. All sponge, needle, and instrument counts were correct. The patient was taken to the recovery area in stable condition.
--- NOTE | 2018-04-28 11:53 | Operative Report ---
Operative Report Operative Report: Date of Procedure: 04/24/2018 Pre-operative Diagnosis: Occlusion of Left Femoral Artery to Posterior Tibial Artery Bypass With Left Lower Extremity Ischemia Post-operative Diagnosis: Same Procedure(s): 1. Ultrasound Guided Access Right Femoral Artery 2. Diagnostic Left Lower Exremity Arteriogram (Patient had a Clinical Change) 3. Percutaneous Mechanical Thrombectomy of Left Femoral Artery to Posterior Tibial Artery Bypass Graft with Angiojet Catheter 4. Angioplasty of Left Posterior Tibial Artery with 3.0 x 220 Balloon 5 Angioplasty of Left Femoral Artery to Posterior Tibial Artery Bypass with 4.0 x 220 Balloon 6. Closure of Right Femoral Arteriotomy with 6 St Helenian Angioseal 7. Radiologic Supervision with Interpretation Surgeon: Alejo Flannery M.D. Retail Sales Associate Seasonal: None Anesthesia: Local and IV sedation EBL: 100 mL Counts: Correct Complications: None Condition: Stable Specimen: None Indication: The patient is a 57-year-old female who presented with left lower extremity ischemia after aortobifemoral bypass and underwent left femoral artery to posterior tibial artery bypass with in situ greater saphenous vein graft. On postoperative day #1 she developed acute ischemia likely secondary to graft occlusion and requires intervention. She was given the risk, benefits, and alternative procedures and has consented to the procedure. Angiographic Findings: The left common femoral artery was widely patent. The proximal portion of the greater saphenous graft was widely patent. There was partially occlusive thrombus in the midportion of the graft was approximately 50% stenosis. The posterior tibial artery had approximately 50% stenosis at the anastomosis and there were multiple segments of dissection within the artery as well as thrombus within the artery. After intervention the graft and posterior tibial artery were patent without significant residual thrombus however it was obvious that multiple ties had been dislodged from side branches and there was extravasation from at least 2 areas on the bypass graft that will require operative intervention. Description of Procedure: The patient was brought to the laboratory animal caretaker and laid in supine position. After she was adequately sedated her right groin was prepped and draped in normal sterile fashion. Ultrasound was used to identify the right common femoral artery and confirmed patency.He was confirmed the overlying skin and soft tissue was anesthetized with lidocaine. A small stab incision was made and then a hemostat was used ultrasound guidance to bluntly dissect down to the anterior surface of the artery. Micropuncture needle was used ultrasound guidance to enter the anterior surface of the artery and a 0.018 wire was advanced. The micropuncture sheath was advanced by Seldinger technique and the inner dilator and wire were removed. A 0.035 Bentson wire was advanced into the aorta under fluoroscopy and a 5 [place] Helenian sheath was advanced by Seldinger technique. An Omni Flush catheter was advanced into the aorta under fluoroscopy and a aortogram was performed. The Bentson wire in Omni Flush catheter were advanced over the bifurcation. I then performed a left lower extremity arteriogram with the previously described findings. Because the patient had an aortobifemoral bypass with a end-to-side anastomosis required a combination of various wires and catheters to eventually advance an advantage wire down into the distal bypass graft and advanced a 6 St Helenian 65 cm destination sheath into the left common femoral artery. Once this was done I systemically heparinized the patient with 3000 units of heparin IV. I then advanced a 0.014 Choice PT wire into the pedal arch and perform angioplasty of the posterior tibial artery with a 3 x 220 balloon. The result was a widely patent artery with minimal residual stenosis. I advanced the catheter down into the artery and injected 8 mg of TPA into the foot to hopefully dissolve any residual thrombus. I used a 4 x 220 balloon to perform angioplasty of the stenosis within the graft with minimal residual stenosis however there was thrombus remaining within the graft so I advanced a AngioJet catheter into the graft and was able to aspirate the residual thrombus however the follow-up angiogram did demonstrate extravasation of contrast and multiple areas of the graft. I readvanced the 4 mm balloon and inflated this for 10 minutes in hopes of stopping the bleeding without success. At this point it was determined that the patient will require transfer to the operating room for open surgical revision to oversew the areas of bleeding. She was hemodynamically stable. The sheath was pulled back into the right limb of the aortobifemoral bypass graft and a Bentson wire was advanced to the aorta. A 6 [place] Helenian Angio-Seal was then used to close the arteriotomy. The patient tolerated the procedure well. All sponge, needle, and instrument counts correct. The patient was transferred to the operating room for revision of the bypass graft.
--- NOTE | 2018-04-28 12:07 | Operative Report ---
Operative Report Operative Report: Date of Procedure: 04/24/2018 Pre-operative Diagnosis: Hemorrhage from Left Femoral Artery to Posterior Tibial Artery Bypass Graft Post-operative Diagnosis: Same Procedure(s): 1. Open Revision of Left Femoral Artery to Posterior Tibial Artery Bypass 2. Open Thrombectomy of Left Femoral Artery to Posterior Tibial Artery Bypass with 3 Billy 3. Open Thrombectomy of Left Posterior Tibial Artery with 3 Billy Surgeon: Alejo Flannery M.D. Engineering Leader: Elijah Roy M.D. Anesthesia: Gen. Endotracheal Anesthesia EBL: 350 mL Counts: Correct Complications: None Condition: Stable Findings: Bleeding from multiple side branches of the graft. Specimen: None Indication: The patient is a 57-year-old female who was undergoing endovascular intervention for thrombosis of her left femoral artery to posterior tibial artery bypass graft. Graft successfully opened and the President And Cmo however there were multiple sites of hemorrhage likely secondary to side branch bleeding that could not be controlled in the President And Cmo. She is in need of open revision and control of the side branches in the operating room. She and her were given the risks, benefits, and alternative procedures and consented to the procedure. Description of Procedure: The patient was brought urgently to the operating room and laid in supine position. After general endotracheal anesthesia was achieved for left leg was prepped and draped in normal sterile fashion. The calin from the lower half of her incision were removed and direct pressure was held on the graft to achieve hemostasis. Upon relieving pressure there were 2 obvious areas of bleeding from the graft which were able to be controlled with 6-0 Prolene in interrupted fashion. Upon examining the graft there were several additional areas that were examined and found to have bleeding that were managed with 6-0 Prolene in interrupted fashion. Additionally there were areas in the soft tissue that were treated with direct pressure and cautery. Additional calin were taken out and there were additional areas on the graft found in the mid thigh that were treated with 6-0 Prolene oversewing of side branches. We then used a quick clot and Tisseel to achieve hemostasis within the wound. We then began to close the lower wound in 2 layers using 3-0 Vicryl in a running fashion and the deep dermal layer and calin for the skin. While closing the noted that there was significantly run down from the upper portion of the wound. This prompted us to remove the calin from the upper wound and open it. Upon opening the upper wound we noted multiple areas of bleeding from the graft which were treated with suture ligation of side branches with 6-0 Prolene in interrupted fashion. While managing those we noted that the patient lost his pulse and the graft which prompted clamping of the graft and creation of a venotomy and the proximal graft. A 3 Billy was passed proximally into the proximal anastomosis any significant amount of thrombus was withdrawn resulting in pulsatile flow. The Billy was then passed distally however there was only passed to the mid graft and again there was some flow however this did not result in a pulse at the posterior tibial artery. The venotomy was closed using 6-0 Prolene in interrupted fashion. We reopened the distal incision and made a venotomy on the distal graft and then passed a 3 Billy distally into the posterior tibial artery and recovered a significant amount of thrombus. I made several passes into the passes were clear of thrombus and then injected heparinized saline. I then made several passes proximally until they were clear and then injected with heparinized saline. I then closed the venotomy using 6-0 Prolene in interrupted fashion. At this point upon releasing the clamps the patient had regained a palpable pulse in the posterior tibial artery with a well-perfused foot. We again inspected the graft for additional bleeding. We used direct pressure and quick clot to achieve hemostasis within the wound. Once adequate hemostasis was achieved with closed the wounds in the groin in 3 layers using 3-0 Vicryl in running fashion the deep layer, 3-0 Vicryl running fashion the deep dermal layer, and 3-0 Ethilon in interrupted vertical mattress fashion to reapproximate the skin. The lower wounds were closed in 2 layers using a 3-0 Vicryl and running fashion and the deep dermal layer and calin for the skin. The patient tolerated the procedure well. All sponge, needle, and instrument counts were correct. The patient was taken directly to the ICU in stable condition.
[2018-04-28] MEDS: NACL 0.9% 1000 ML 1,000 ML IV SCH (12:35)
--- NOTE | 2018-04-28 13:46 | Progress Note ---
Assessment and Plan Status post left femoral to posterior tibial artery bypass. Continue physical therapy. We'll monitor her toes. Hopefully can get her into the hyperbaric chamber upon discharge. Will order Betadine to incision daily. Subjective Date of service: 04/28/18 Principal diagnosis: PVD Interval history: Patient had bleeding from her nose overnight secondary to nasal cannula oxygen dry and not her nares. There were no further episodes after holding pressure and removing the oxygen. She has no other complaints at this time. Objective - Constitutional Vitals: Vital Signs - 12hr 04/28/18 04/28/18 04/28/18 01:43 05:09 07:42 Temperature 98.9 F Pulse Rate 103 H 107 H Respiratory 20 18 Rate Blood Pressure Blood Pressure 102/59 [Right] O2 Sat by Pulse 99 95 Oximetry 04/28/18 04/28/18 04/28/18 08:00 08:39 09:36 Temperature 98.2 F Pulse Rate Respiratory 18 Rate Blood Pressure 102/59 Blood Pressure 121/77 [Right] O2 Sat by Pulse 97 Oximetry 04/28/18 04/28/18 04/28/18 09:37 12:00 12:01 Temperature 99.2 F Pulse Rate 103 H 112 H 114 H Respiratory 18 Rate Blood Pressure 102/59 97/60 Blood Pressure 97/60 [Right] O2 Sat by Pulse 95 95 Oximetry General appearance: Present: no acute distress - Neck Neck: supple - Respiratory Respiratory effort: normal - Breasts Breasts: deferred - Cardiovascular Rhythm: regular Extremities: pulses intact (palpable posterior tibial pulse on the left), normal temperature, abnormal (serous drainage from the distal portion of the left groin incision) Extremity abnormal: edema (left lower extremity), cyanosis (on plantar surface of left foot, second through fifth toes of the left foot as well as minimal on the tip of the first toe) - Gastrointestinal General gastrointestinal: Present: soft, non-tender, non-distended - Labs CBC & Chem 7: 04/28/18 05:16 04/26/18 04:00 Labs: Abnormal lab results 04/28/18 Range/Units 05:16 WBC 14.1 H (4.5-11.0) K/mm3 RBC 2.79 L (3.65-5.03) M/mm3 Hgb 8.0 L (10.1-14.3) gm/dl Hct 24.5 L (30.3-42.9) % Lymph % (Auto) 9.1 L (13.4-35.0) % [place] % (Auto) 10.6 H (0.0-7.3) % [place] # 1.5 H (0.0-0.8) K/mm3 Seg Neutrophils % 78.0 H (40.0-70.0) % Seg Neutrophils # 11.0 H (1.8-7.7) K/mm3
--- NOTE | 2018-04-28 14:07 | Progress Note ---
Assessment and Plan Assessment and plan: --Peripheral vascular disease ; Arterial insufficiency of lower extremity; s/p left femoral to posterior tibial artery bypass s/p revision of vascular surgery 04/25/18 1. Open Revision of Left Femoral Artery to Posterior Tibial Artery Bypass 2. Open Thrombectomy of Left Femoral Artery to Posterior Tibial Artery Bypass with 3 Billy 3. Open Thrombectomy of Left Posterior Tibial Artery with 3 Billy Continue Plavix and Eliquis a lipase Cyanotic discoloration of left 2-5 tips of toes, management per vascular Possible hyperbaric treatment --Anemia; status post multiple PRBC transfusion total [ 7 units], Hb today is 8.0 Closely monitor H&H, additional transfusion as needed --Thrombocytopenia; significantly improved 67K - 150 K today Hematology following -- Hypokalemia/ Hypophosphatemia/Hypomagnesemia; corrected --Hypocalcemia; replacement as needed --Nicotine dependence unspecified ; Smoking cessation counseling, advised nicotine patch --COPD (chronic obstructive pulmonary disease) supplemental oxygen, nebulizer therapy, NIPPV as clinically indicated. --HTN (hypertension) monitor blood pressures adjust medications as needed --Mild PRIYA; resolved, --DVT prophylaxis ; on anticoagulation Physical therapy occupational therapy as tolerated --DC planning.per case management home with home health versus subacute [employer] Field Consultant recommendations noted and appreciated Critical care time 31 minutes History Interval history: Patient seen and examined medical records reviewed Mild epistaxis, resolved For complaints of leg and foot pain, relieved by pain medications Alert awake oriented 3 Vital signs reviewed Hospitalist Physical - Constitutional Vitals: Temp Pulse Resp BP Pulse Ox 99.2 F 114 H 113 H 97/60 95 04/28/18 12:00 04/28/18 12:01 04/28/18 12:00 04/28/18 12:04/28/18 12:01 General appearance: Present: no acute distress, cachectic, disheveled - EENT Eyes: Present: PERRL, EOM intact - Neck Neck: Present: supple, normal ROM - Respiratory Respiratory effort: normal Respiratory: bilateral: diminished, negative: rales, rhonchi, wheezing - Cardiovascular Rhythm: regular - Extremities Extremities: abnormal (mild edema, redness, cyanotic changes of the tips of left second third fourth and fifth toes) Extremity abnormal: edema - Abdominal General gastrointestinal: soft, non-tender, non-distended, normal bowel sounds - Integumentary Integumentary: Present: clear, warm - Psychiatric Psychiatric: appropriate mood/affect, cooperative - Neurologic Neurologic: CNII-XII intact, moves all extremities Results - Labs CBC & Chem 7: 04/28/18 05:16 04/26/18 04:00 Labs: Laboratory Last Values WBC 14.1 K/mm3 (4.5-11.0) H 04/28/18 05:16 RBC 2.79 M/mm3 (3.65-5.03) L 04/28/18 05:16 Hgb 8.0 gm/dl (10.1-14.3) L 04/28/18 05:16 POC Hgb 10.2 (12-17) L 04/24/18 22:40 Hct 24.5 % (30.3-42.9) L 04/28/18 05:16 POC Hct 30 (38-51) L 04/24/18 22:40 MCV 88 fl (79-97) 04/28/18 05:16 MCH 29 pg (28-32) 04/28/18 05:16 MCHC 33 % (30-34) 04/28/18 05:16 RDW 15.1 % (13.2-15.2) 04/28/18 05:16 Plt Count 159 K/mm3 (140-440) 04/28/18 05:16 Lymph % (Auto) 9.1 % (13.4-35.0) L 04/28/18 05:16 [place] % (Auto) 10.6 % (0.0-7.3) H 04/28/18 05:16 Eos % (Auto) 1.9 % (0.0-4.3) 04/28/18 05:16 Baso % (Auto) 0.4 % (0.0-1.8) 04/28/18 05:16 Lymph # 1.3 K/mm3 (1.2-5.4) 04/28/18 05:16 [place] # 1.5 K/mm3 (0.0-0.8) H 04/28/18 05:16 Eos # 0.3 K/mm3 (0.0-0.4) 04/28/18 05:16 Baso # 0.1 K/mm3 (0.0-0.1) 04/28/18 05:16 Add Manual Diff Complete 04/24/18 09:16 Total Counted 100 04/24/18 09:16 Seg Neutrophils % 78.0 % (40.0-70.0) H 04/28/18 05:16 Seg Neuts % (Manual) 64.0 % (40.0-70.0) 04/24/18 09:16 Band Neutrophils % 3.0 % 04/24/18 09:16 Lymphocytes % (Manual) 11.0 % (13.4-35.0) L 04/24/18 09:16 Reactive Lymphs % (Man) 0 % 04/24/18 09:16 Monocytes % (Manual) 20.0 % (0.0-7.3) H 04/24/18 09:16 Eosinophils % (Manual) 2.0 % (0.0-4.3) 04/24/18 09:16 Basophils % (Manual) 0 % (0.0-1.8) 04/24/18 09:16 Metamyelocytes % 0 % 04/24/18 09:16 Myelocytes % 0 % 04/24/18 09:16 Promyelocytes % 0 % 04/24/18 09:16 Blast Cells % 0 % 04/24/18 09:16 Nucleated RBC % Not Reportable 04/24/18 09:16 Seg Neutrophils # 11.0 K/mm3 (1.8-7.7) H 04/28/18 05:16 Seg Neutrophils # Man 5.6 K/mm3 (1.8-7.7) 04/24/18 09:16 Band Neutrophils # 0.3 K/mm3 04/24/18 09:16 Lymphocytes # (Manual) 1.0 K/mm3 (1.2-5.4) L 04/24/18 09:16 Abs React Lymphs (Man) 0.0 K/mm3 04/24/18 09:16 Monocytes # (Manual) 1.8 K/mm3 (0.0-0.8) H 04/24/18 09:16 Eosinophils # (Manual) 0.2 K/mm3 (0.0-0.4) 04/24/18 09:16 Basophils # (Manual) 0.0 K/mm3 (0.0-0.1) 04/24/18 09:16 Metamyelocytes # 0.0 K/mm3 04/24/18 09:16 Myelocytes # 0.0 K/mm3 04/24/18 09:16 Promyelocytes # 0.0 K/mm3 04/24/18 09:16 Blast Cells # 0.0 K/mm3 04/24/18 09:16 WBC Morphology Not Reportable 04/24/18 09:16 Hypersegmented Neuts Not Reportable 04/24/18 09:16 Hyposegmented Neuts Not Reportable 04/24/18 09:16 Hypogranular Neuts Not Reportable 04/24/18 09:16 Smudge Cells Not Reportable 04/24/18 09:16 Toxic Granulation Not Reportable 04/24/18 09:16 Toxic Vacuolation Not Reportable 04/24/18 09:16 Dohle Bodies Not Reportable 04/24/18 09:16 Pelger-Huet Anomaly Not Reportable 04/24/18 09:16 Silva Rods Not Reportable 04/24/18 09:16 Platelet Estimate Consistent w auto 04/24/18 09:16 Clumped Platelets Not Reportable 04/24/18 09:16 Plt Clumps, EDTA Not Reportable 04/24/18 09:16 Large Platelets Not Reportable 04/24/18 09:16 Giant Platelets Not Reportable 04/24/18 09:16 Platelet Satelliting Not Reportable 04/24/18 09:16 Plt Morphology Comment Not Reportable 04/24/18 09:16 RBC Morphology Not Reportable 04/24/18 09:16 Dimorphic RBCs Not Reportable 04/24/18 09:16 Polychromasia Not Reportable 04/24/18 09:16 Hypochromasia Not Reportable 04/24/18 09:16 Poikilocytosis Not Reportable 04/24/18 09:16 Anisocytosis 1+ 04/24/18 09:16 Microcytosis Not Reportable 04/24/18 09:16 Macrocytosis Not Reportable 04/24/18 09:16 Spherocytes Not Reportable 04/24/18 09:16 Pappenheimer Bodies Not Reportable 04/24/18 09:16 Sickle Cells Not Reportable 04/24/18 09:16 Target Cells Not Reportable 04/24/18 09:16 Tear Drop Cells Not Reportable 04/24/18 09:16 Ovalocytes Not Reportable 04/24/18 09:16 Helmet Cells Not Reportable 04/24/18 09:16 Barrios-[place] Bodies Not Reportable 04/24/18 09:16 [place] Rings Not Reportable 04/24/18 09:16 [place] Cells Not Reportable 04/24/18 09:16 Bite Cells Not Reportable 04/24/18 09:16 Crenated Cell Not Reportable 04/24/18 09:16 Elliptocytes Not Reportable 04/24/18 09:16 Acanthocytes (Spur) Not Reportable 04/24/18 09:16 Rouleaux Not Reportable 04/24/18 09:16 Hemoglobin C Crystals Not Reportable 04/24/18 09:16 Schistocytes Not Reportable 04/24/18 09:16 Malaria parasites Not Reportable 04/24/18 09:16 Lázaro Bodies Not Reportable 04/24/18 09:16 Hem Pathologist Commnt No 04/24/18 09:16 PT 17.7 Sec. (12.2-14.9) H 04/25/18 10:56 INR 1.37 (0.87-1.13) H 04/25/18 10:56 APTT 97.3 Sec. (24.2-36.6) H* 04/26/18 09:52 Fibrinogen 267 mg/dl (211-480) 04/25/18 10:56 Heparin Anti-Xa Level 0.18 U.I./ml (0.3-0.7) L 04/25/18 01:30 POC Sodium 147 mmol/L (138-146) H 04/24/18 22:40 POC Potassium 3.6 (3.5-4.9) 04/24/18 22:40 POC Chloride 112 (98-109) H 04/24/18 22:40 Sodium 141 mmol/L (137-145) 04/26/18 04:00 Potassium 4.8 mmol/L (3.6-5.0) D 04/26/18 04:00 Chloride 103.7 mmol/L (98-107) 04/26/18 04:00 Carbon Dioxide 20 mmol/L (22-30) L 04/26/18 04:00 Anion Gap 22 mmol/L 04/26/18 04:00 POC BUN 3 mg/dl (8-26) L 04/24/18 22:40 BUN 5 mg/dL (7-17) L 04/26/18 04:00 Creatinine < 0.2 mg/dL (0.7-1.2) L 04/26/18 04:00 Estimated GFR > 60 ml/min 04/26/18 04:00 BUN/Creatinine Ratio 10 % 04/26/18 04:00 Glucose 87 mg/dL (65-100) 04/26/18 04:00 POC Glucose 126 (70-105) H 04/24/18 22:40 Lactic Acid 1.90 mmol/L (0.7-2.0) 04/17/18 20:52 Calcium 7.7 mg/dL (8.4-10.2) L D 04/26/18 04:00 Phosphorus 1.60 mg/dL (2.5-4.5) L 04/25/18 05:15 Magnesium 2.90 mg/dL (1.7-2.3) H 04/25/18 05:15 Total Creatine Kinase 190 units/L (30-135) H 04/17/18 15:53 Albumin 2.7 g/dL (3.9-5) L 04/25/18 07:37 Blood Type A POSITIVE 04/23/18 23:30 Antibody Screen Negative 04/23/18 23:30 Crossmatch See Detail 04/23/18 23:30
[2018-04-28] MEDS: PROTONIX PO SCH (20:01)
[2018-04-28] MEDS: BABY ASPIRIN PO SCH (20:16)
[2018-04-28] MEDS: SODIUM CHLORIDE FLUSH SYRINGE 10 ML IV SCH (20:16)
[2018-04-29] MEDS: MORPHINE IV PRN ×2 (03:31→14:25)
[2018-04-29 08:32] LABS: Basophils # (Auto) 0.1 K/mm3 (0.0-0.1); Basophils % (Auto) 0.7 % (0.0-1.8); Eosinophils # (Auto) 0.4 K/mm3 (0.0-0.4); Eosinophils % (Auto) 3.5 % (0.0-4.3); Hemoglobin 7.7 gm/dl (10.1-14.3); Lymphocytes # (Auto) 1.8 K/mm3 (1.2-5.4); Lymphocytes % (Auto) 14.3 % (13.4-35.0); Mean Corpuscular HGB Conc 33 % (30-34); Mean Corpuscular Hemoglobin 29 pg (28-32); Mean Corpuscular Volume 87 fl (79-97); Monocytes # (Auto) 1.3 K/mm3 (0.0-0.8); Platelet Count 221 K/mm3 (140-440); Red Blood Count 2.64 M/mm3 (3.65-5.03); Red Cell Distribution Width 15.1 % (13.2-15.2)
--- NOTE | 2018-04-29 10:35 | Progress Note ---
Assessment and Plan Assessment/Plan: Peripheral vascular disease s/p left femoral to posterior tibial artery bypass/open thrombectomy of left posterior tibial artery TPA 04/23/2018 Continue Eliquis/Plavix Continue Lipitor Acute blood loss anemia stable s/p PRBC and FFP tx Thrombocytopenia improved awaiting HIT panel Hypertension Sinus tachycardia likely physiologic secondary to anemia and pain Continue lopressor 25mg BID Hyperlipidemia Tobacco use cessation encouraged The patient has been seen in conjunction with Dr. Blount who agrees with the assessment and plan of care. Subjective Date of service: 04/29/18 Principal diagnosis: PVD Interval history: The patient is sitting up in a chair. She just ambulated in the hallway with PT. C/o left leg pain. Denies chest pain or shortness of breath. Sinus rhythm on the monitor with HR 90s. Objective Last Vital Signs Temp 98.2 F 04/29/18 07:30 Pulse 87 04/29/18 07:30 Resp 16 04/29/18 07:30 BP 114/77 04/29/18 07:30 Pulse Ox 95 04/29/18 07:30 - Physical Examination General: No Apparent Distress HEENT: Positive: PERRL, Mucus Membranes Moist Neck: Positive: neck supple, trachea midline Cardiac: Positive: Reg Rate and Rhythm, S1/S2 Lungs: Positive: clear to auscultation Neuro: Positive: Grossly Intact Abdomen: Positive: Soft, Active Bowel Sounds. Negative: Tender, Distended Skin: Positive: Clear Incision: Cardiac Cath Site Musculoskeletal: No Pain, Normal Range of Motion Extremities: Present: Other (LLE warm, redness and swelling noted). Absent: edema - Labs and Meds CBC 04/29/18 Range/Units 07:27 WBC 12.7 H (4.5-11.0) K/mm3 RBC 2.64 L (3.65-5.03) M/mm3 Hgb 7.7 L (10.1-14.3) gm/dl Hct 23.0 L (30.3-42.9) % Plt Count 221 (140-440) K/mm3 Lymph # 1.8 (1.2-5.4) K/mm3 [place] # 1.3 H (0.0-0.8) K/mm3 Eos # 0.4 (0.0-0.4) K/mm3 Baso # 0.1 (0.0-0.1) K/mm3 - Imaging and Cardiology EKG: report reviewed Stress echo: other (12/2017 normal myocardial perfusion scanof ischemia) Echo: report reviewed (12/2017 normal LV functionregurgitations) - Telemetry EKG Rhythm: Sinus Rhythm - EKG Sinus rhythms and dysrhythmias: sinus rhythm
[2018-04-29] MEDS: COLACE PO SCH ×2 (11:15→21:47)
[2018-04-29] MEDS: NORVASC PO SCH (11:16)
[2018-04-29] MEDS: FEOSOL PO SCH ×2 (11:16→21:46)
[2018-04-29] MEDS: PLAVIX PO SCH (11:16)
[2018-04-29] MEDS: VITAMIN C PO SCH ×2 (11:16→21:46)
[2018-04-29] MEDS: LOPRESSOR PO SCH ×2 (11:17→21:43)
[2018-04-29] MEDS: OxyCONTIN PO SCH ×2 (11:17→21:47)
[2018-04-29] MEDS: PROTONIX PO SCH (11:17)
[2018-04-29] MEDS: ELIQUIS PO SCH ×2 (14:16→21:46)
--- NOTE | 2018-04-29 14:22 | Progress Note ---
Assessment and Plan Pt doing well from surgical stand point. Distal tips of the left foot toes 2-5 with early necrosis. Discussed with case management, pt s/p multiple hospitalizations and multiple surgeries in attempt to salvage her left leg. Strongly recommend post hospital HBO to facilitate limb salvage. Eval for possible indigent slot HBO if possible. - Patient Problems (1) Atherosclerosis of [place] arteries of extremity with rest pain Current Visit: No Status: Acute (2) History of aorto-femoral bypass Current Visit: No Status: Acute (3) Tobacco abuse Current Visit: Yes Status: Acute (4) HTN (hypertension) Current Visit: Yes Status: Acute Qualifiers: Hypertension type: essential hypertension Qualified Code(s): I10 - Essential (primary) hypertension (5) COPD (chronic obstructive pulmonary disease) Current Visit: Yes Status: Acute Qualifiers: Chronic bronchitis type: mixed simple and mucopurulent Subjective Date of service: 04/29/18 Principal diagnosis: PVD Interval history: Pt is awake and alert, without complaint at present. Objective - Constitutional Vitals: Vital Signs - 12hr 04/29/18 04/29/18 04/29/18 04:00 04:25 07:30 Temperature 98.9 F 98.2 F Pulse Rate 89 86 87 Pulse Rate [ From Monitor] Respiratory 20 20 16 Rate Blood Pressure 107/68 114/77 Blood Pressure 107/68 [Right] O2 Sat by Pulse 95 93 95 Oximetry 04/29/18 04/29/18 04/29/18 10:00 11:16 11:17 Temperature Pulse Rate 103 H 103 H Pulse Rate [ 103 H From Monitor] Respiratory Rate Blood Pressure Blood Pressure [Right] O2 Sat by Pulse Oximetry 04/29/18 11:27 Temperature 98.2 F Pulse Rate 94 H Pulse Rate [ From Monitor] Respiratory 16 Rate Blood Pressure 110/67 Blood Pressure [Right] O2 Sat by Pulse 98 Oximetry General appearance: Present: no acute distress - EENT Eyes: EOM intact ENT: hearing intact - Neck Neck: supple - Respiratory Respiratory effort: normal Extremities: normal temperature, abnormal (incision intact, groin bandaged, calin intact without erythema or drainage at present.) Extremity abnormal: black (digital necrosis to the distal tips of toes 2-5) - Neurologic Neurologic: no focal deficits (moves toes) - Psychiatric Psychiatric: appropriate mood/affect, intact judgment & insight, cooperative - Labs CBC & Chem 7: 04/29/18 07:27 04/26/18 04:00 Labs: Abnormal lab results 04/29/18 Range/Units 07:27 WBC 12.7 H (4.5-11.0) K/mm3 RBC 2.64 L (3.65-5.03) M/mm3 Hgb 7.7 L (10.1-14.3) gm/dl Hct 23.0 L (30.3-42.9) % [place] % (Auto) 10.0 H (0.0-7.3) % [place] # 1.3 H (0.0-0.8) K/mm3 Seg Neutrophils % 71.5 H (40.0-70.0) % Seg Neutrophils # 9.1 H (1.8-7.7) K/mm3
--- NOTE | 2018-04-29 19:46 | Progress Note ---
Assessment and Plan Assessment and plan: --Peripheral vascular disease ; Arterial insufficiency of lower extremity; s/p left femoral to posterior tibial artery bypass, and thrombectomy s/p revision of vascular surgery 04/25/18 1. Open Revision of Left Femoral Artery to Posterior Tibial Artery Bypass 2. Open Thrombectomy of Left Femoral Artery to Posterior Tibial Artery Bypass with 3 Billy 3. Open Thrombectomy of Left Posterior Tibial Artery with 3 Billy Continue Plavix and Eliquis Cyanotic discoloration of left 2-5 tips of toes, management per vascular Possible hyperbaric treatment, per case management --Anemia; status post multiple PRBC transfusion total [ 7 units], Hb today is 8.0-1.7 Closely monitor H&H, additional transfusion as needed --Thrombocytopenia; significantly improved 67K - 150 -221 K today -- Hypokalemia/ Hypophosphatemia/Hypomagnesemia; corrected --Hypocalcemia; replacement as needed --Nicotine dependence unspecified ; Smoking cessation counseling, advised nicotine patch --COPD (chronic obstructive pulmonary disease) supplemental oxygen, nebulizer therapy, NIPPV as clinically indicated. --HTN (hypertension) monitor blood pressures adjust medications as needed --Mild PRIYA; resolved, --DVT prophylaxis ; on anticoagulation Physical therapy occupational therapy as tolerated --DC planning.per case management home with home health versus subacute Flight Service Agent recommendations noted and appreciated Critical care time 31 minutes History Interval history: 57-year-old female patient with significant history of COPD hypertension DVT ongoing tobacco use peripheral arterial disease status post left popliteal thrombectomy was admitted through emergency room with left lower extremity ischemia. Evaluated by vascular, underwent vascular procedures, with bypass grafting, thrombectomy. Patient currently on Plavix, Eliquis. Receiving physical therapy occupational therapy, vascular following. The patient is feeling likely better, continues to have a limp pain relieved by pain medications, Alert awake oriented 3 Vital signs reviewed, Left leg erythema, edema, tips of second third fourth and fifth toes, cyanotic Hospitalist Physical - Constitutional Vitals: Temp Pulse Resp BP Pulse Ox 98.3 F 89 16 100/67 97 04/29/18 16:08 04/29/18 16:08 04/29/18 16:08 04/29/18 16:08 04/29/18 16:08 General appearance: Present: no acute distress, cachectic, disheveled - EENT Eyes: Present: PERRL, EOM intact - Neck Neck: Present: supple, normal ROM - Respiratory Respiratory effort: normal Respiratory: negative: rales, rhonchi, wheezing - Cardiovascular Rhythm: regular Heart Sounds: Present: S1 & S2 - Extremities Extremities: abnormal (left lower extremity, edema, erythema) Extremity abnormal: other (cyanosis, necrotic changes, tips of 2-5 toes) - Abdominal General gastrointestinal: non-tender, non-distended, normal bowel sounds - Integumentary Integumentary: Present: clear, warm - Psychiatric Psychiatric: appropriate mood/affect, cooperative - Neurologic Neurologic: CNII-XII intact, moves all extremities Results - Labs CBC & Chem 7: 04/29/18 07:27 04/26/18 04:00 Labs: Laboratory Last Values WBC 12.7 K/mm3 (4.5-11.0) H 04/29/18 07:27 RBC 2.64 M/mm3 (3.65-5.03) L 04/29/18 07:27 Hgb 7.7 gm/dl (10.1-14.3) L 04/29/18 07:27 POC Hgb 10.2 (12-17) L 04/24/18 22:40 Hct 23.0 % (30.3-42.9) L 04/29/18 07:27 POC Hct 30 (38-51) L 04/24/18 22:40 MCV 87 fl (79-97) 04/29/18 07:27 MCH 29 pg (28-32) 04/29/18 07: MCHC 33 % (30-34) 04/29/18 07: RDW 15.1 % (13.2-15.2) 04/29/18 07:27 Plt Count 221 K/mm3 (140-440) 04/29/18 07:27 Lymph % (Auto) 14.3 % (13.4-35.0) 04/29/18 07:27 [place] % (Auto) 10.0 % (0.0-7.3) H 04/29/18 07:27 Eos % (Auto) 3.5 % (0.0-4.3) 04/29/18 07:27 Baso % (Auto) 0.7 % (0.0-1.8) 04/29/18 07:27 Lymph # 1.8 K/mm3 (1.2-5.4) 04/29/18 07:27 [place] # 1.3 K/mm3 (0.0-0.8) H 04/29/18 07:27 Eos # 0.4 K/mm3 (0.0-0.4) 04/29/18 07:27 Baso # 0.1 K/mm3 (0.0-0.1) 04/29/18 07:27 Add Manual Diff Complete 04/24/18 09:16 Total Counted 100 04/24/18 09:16 Seg Neutrophils % 71.5 % (40.0-70.0) H 04/29/18 07:27 Seg Neuts % (Manual) 64.0 % (40.0-70.0) 04/24/18 09:16 Band Neutrophils % 3.0 % 04/24/18 09:16 Lymphocytes % (Manual) 11.0 % (13.4-35.0) L 04/24/18 09:16 Reactive Lymphs % (Man) 0 % 04/24/18 09:16 Monocytes % (Manual) 20.0 % (0.0-7.3) H 04/24/18 09:16 Eosinophils % (Manual) 2.0 % (0.0-4.3) 04/24/18 09:16 Basophils % (Manual) 0 % (0.0-1.8) 04/24/18 09:16 Metamyelocytes % 0 % 04/24/18 09:16 Myelocytes % 0 % 04/24/18 09:16 Promyelocytes % 0 % 04/24/18 09:16 Blast Cells % 0 % 04/24/18 09:16 Nucleated RBC % Not Reportable 04/24/18 09:16 Seg Neutrophils # 9.1 K/mm3 (1.8-7.7) H 04/29/18 07:27 Seg Neutrophils # Man 5.6 K/mm3 (1.8-7.7) 04/24/18 09:16 Band Neutrophils # 0.3 K/mm3 04/24/18 09:16 Lymphocytes # (Manual) 1.0 K/mm3 (1.2-5.4) L 04/24/18 09:16 Abs React Lymphs (Man) 0.0 K/mm3 04/24/18 09:16 Monocytes # (Manual) 1.8 K/mm3 (0.0-0.8) H 04/24/18 09:16 Eosinophils # (Manual) 0.2 K/mm3 (0.0-0.4) 04/24/18 09:16 Basophils # (Manual) 0.0 K/mm3 (0.0-0.1) 04/24/18 09:16 Metamyelocytes # 0.0 K/mm3 04/24/18 09:16 Myelocytes # 0.0 K/mm3 04/24/18 09:16 Promyelocytes # 0.0 K/mm3 04/24/18 09:16 Blast Cells # 0.0 K/mm3 04/24/18 09:16 WBC Morphology Not Reportable 04/24/18 09:16 Hypersegmented Neuts Not Reportable 04/24/18 09:16 Hyposegmented Neuts Not Reportable 04/24/18 09:16 Hypogranular Neuts Not Reportable 04/24/18 09:16 Smudge Cells Not Reportable 04/24/18 09:16 Toxic Granulation Not Reportable 04/24/18 09:16 Toxic Vacuolation Not Reportable 04/24/18 09:16 Dohle Bodies Not Reportable 04/24/18 09:16 Pelger-Huet Anomaly Not Reportable 04/24/18 09:16 Silva Rods Not Reportable 04/24/18 09:16 Platelet Estimate Consistent w auto 04/24/18 09:16 Clumped Platelets Not Reportable 04/24/18 09:16 Plt Clumps, EDTA Not Reportable 04/24/18 09:16 Large Platelets Not Reportable 04/24/18 09:16 Giant Platelets Not Reportable 04/24/18 09:16 Platelet Satelliting Not Reportable 04/24/18 09:16 Plt Morphology Comment Not Reportable 04/24/18 09:16 RBC Morphology Not Reportable 04/24/18 09:16 Dimorphic RBCs Not Reportable 04/24/18 09:16 Polychromasia Not Reportable 04/24/18 09:16 Hypochromasia Not Reportable 04/24/18 09:16 Poikilocytosis Not Reportable 04/24/18 09:16 Anisocytosis 1+ 04/24/18 09:16 Microcytosis Not Reportable 04/24/18 09:16 Macrocytosis Not Reportable 04/24/18 09:16 Spherocytes Not Reportable 04/24/18 09:16 Pappenheimer Bodies Not Reportable 04/24/18 09:16 Sickle Cells Not Reportable 04/24/18 09:16 Target Cells Not Reportable 04/24/18 09:16 Tear Drop Cells Not Reportable 04/24/18 09:16 Ovalocytes Not Reportable 04/24/18 09:16 Helmet Cells Not Reportable 04/24/18 09:16 Barrios-[place] Bodies Not Reportable 04/24/18 09:16 [place] Rings Not Reportable 04/24/18 09:16 [place] Cells Not Reportable 04/24/18 09:16 Bite Cells Not Reportable 04/24/18 09:16 Crenated Cell Not Reportable 04/24/18 09:16 Elliptocytes Not Reportable 04/24/18 09:16 Acanthocytes (Spur) Not Reportable 04/24/18 09:16 Rouleaux Not Reportable 04/24/18 09:16 Hemoglobin C Crystals Not Reportable 04/24/18 09:16 Schistocytes Not Reportable 04/24/18 09:16 Malaria parasites Not Reportable 04/24/18 09:16 Lázaro Bodies Not Reportable 04/24/18 09:16 Hem Pathologist Commnt No 04/24/18 09:16 PT 17.7 Sec. (12.2-14.9) H 04/25/18 10:56 INR 1.37 (0.87-1.13) H 04/25/18 10:56 APTT 97.3 Sec. (24.2-36.6) H* 04/26/18 09:52 Fibrinogen 267 mg/dl (211-480) 04/25/18 10:56 Heparin Anti-Xa Level 0.18 U.I./ml (0.3-0.7) L 04/25/18 01:30 POC Sodium 147 mmol/L (138-146) H 04/24/18 22:40 POC Potassium 3.6 (3.5-4.9) 04/24/18 22:40 POC Chloride 112 (98-109) H 04/24/18 22:40 Sodium 141 mmol/L (137-145) 04/26/18 04:00 Potassium 4.8 mmol/L (3.6-5.0) D 04/26/18 04:00 Chloride 103.7 mmol/L (98-107) 04/26/18 04:00 Carbon Dioxide 20 mmol/L (22-30) L 04/26/18 04:00 Anion Gap 22 mmol/L 04/26/18 04:00 POC BUN 3 mg/dl (8-26) L 04/24/18 22:40 BUN 5 mg/dL (7-17) L 04/26/18 04:00 Creatinine < 0.2 mg/dL (0.7-1.2) L 04/26/18 04:00 Estimated GFR > 60 ml/min 04/26/18 04:00 BUN/Creatinine Ratio 10 % 04/26/18 04:00 Glucose 87 mg/dL (65-100) 04/26/18 04:00 POC Glucose 126 (70-105) H 04/24/18 22:40 Lactic Acid 1.90 mmol/L (0.7-2.0) 04/17/18 20:52 Calcium 7.7 mg/dL (8.4-10.2) L D 04/26/18 04:00 Phosphorus 1.60 mg/dL (2.5-4.5) L 04/25/18 05:15 Magnesium 2.90 mg/dL (1.7-2.3) H 04/25/18 05:15 Total Creatine Kinase 190 units/L (30-135) H 04/17/18 15:53 Albumin 2.7 g/dL (3.9-5) L 04/25/18 07:37 Blood Type A POSITIVE 04/23/18 23:30 Antibody Screen Negative 04/23/18 23:30 Crossmatch See Detail 04/23/18 23:30
[2018-04-30] MEDS: MORPHINE IV PRN ×2 (00:07→22:46)
[2018-04-30 06:30] LABS: Heparin-Induced Platelet Antib Negative (Negative); Unfractionated Heparin Negative (Negative)
[2018-04-30 08:41] LABS: Basophils # (Auto) 0.1 K/mm3 (0.0-0.1); Eosinophils # (Auto) 0.5 K/mm3 (0.0-0.4); Eosinophils % (Auto) 5.8 % (0.0-4.3); Hematocrit 22.4 % (30.3-42.9); Hemoglobin 7.5 gm/dl (10.1-14.3); Lymphocytes # (Auto) 1.7 K/mm3 (1.2-5.4); Lymphocytes % (Auto) 19.4 % (13.4-35.0); Mean Corpuscular HGB Conc 34 % (30-34); Mean Corpuscular Hemoglobin 30 pg (28-32); Mean Corpuscular Volume 88 fl (79-97); Platelet Count 260 K/mm3 (140-440); Red Blood Count 2.55 M/mm3 (3.65-5.03); Red Cell Distribution Width 14.9 % (13.2-15.2)
[2018-04-30 08:59] LABS: Alanine Aminotransferase 12 units/L (7-56); Albumin 2.5 g/dL (3.9-5); BUN/Creatinine Ratio 10; Blood Urea Nitrogen 4 mg/dL (7-17); Calcium 7.8 mg/dL (8.4-10.2); Hemolysis Index 4
[2018-04-30] MEDS: FEOSOL PO SCH ×2 (10:56→21:42)
[2018-04-30] MEDS: LOPRESSOR PO SCH ×2 (10:56→21:44)
[2018-04-30] MEDS: NORVASC PO SCH (10:56)
[2018-04-30] MEDS: OxyCONTIN PO SCH ×2 (10:56→21:42)
[2018-04-30] MEDS: PROTONIX PO SCH (10:56)
[2018-04-30] MEDS: ELIQUIS PO SCH ×2 (10:57→21:43)
[2018-04-30] MEDS: COLACE PO SCH ×2 (10:57→21:45)
[2018-04-30] MEDS: VITAMIN C PO SCH ×2 (10:57→21:43)
[2018-04-30] MEDS: PLAVIX PO SCH (11:04)
--- NOTE | 2018-04-30 11:34 | Progress Note ---
Assessment and Plan Assessment: Peripheral vascular disease - s/p left femoral to posterior tibial artery bypass and open thrombectomy of left posterior tibial artery TPA 04/23/2018; cont Eliquis/ Plavix per vascular Acute blood loss anemia - improved s/p PRBC and FFP tx Thrombocytopenia Hypertension Sinus tachycardia - suspect physiologic secondary to anemia and pain HLP Hypokalemia Hypocalcemia Hypophosphatemia Tobacco use - cessation encouraged. Plan: Cont present cardiac regimen. Replete electrolytes. The patient has been seen in conjunction with Dr. Blount who agrees with the assessment and plan of care. Subjective Date of service: 04/30/18 Principal diagnosis: PVD Interval history: pt resting comfortably in bed, no current cardiac complaints. in SR on telemetry. Objective Last Vital Signs Temp 98.4 F 04/30/18 07:29 Pulse 100 H 04/30/18 07:29 Resp 14 04/30/18 07:29 BP 100/59 04/30/18 07:29 Pulse Ox 97 04/30/18 07:29 - Physical Examination General: No Apparent Distress HEENT: Positive: PERRL, Mucus Membranes Moist Neck: Positive: neck supple, trachea midline Cardiac: Positive: Reg Rate and Rhythm, S1/S2 Lungs: Positive: clear to auscultation Neuro: Positive: Grossly Intact Abdomen: Positive: Soft, Active Bowel Sounds. Negative: Tender, Distended Skin: Positive: Clear Incision: Cardiac Cath Site Musculoskeletal: No Pain, Normal Range of Motion Extremities: Present: Other (LLE warm, redness and swelling noted). Absent: edema - Labs and Meds Cardiac Enzymes 04/30/18 Range/Units 07:56 AST 40 (5-40) units/L CBC 04/30/18 Range/Units 07:56 WBC 9.0 (4.5-11.0) K/mm3 RBC 2.55 L (3.65-5.03) M/mm3 Hgb 7.5 L (10.1-14.3) gm/dl Hct 22.4 L (30.3-42.9) % Plt Count 260 (140-440) K/mm3 Lymph # 1.7 (1.2-5.4) K/mm3 [place] # 1.0 H (0.0-0.8) K/mm3 Eos # 0.5 H (0.0-0.4) K/mm3 Baso # 0.1 (0.0-0.1) K/mm3 Comprehensive Metabolic Panel 04/30/18 Range/Units 07:56 Sodium 140 (137-145) mmol/L Potassium 2.7 L* D (3.6-5.0) mmol/L Chloride 104.8 (98-107) mmol/L Carbon Dioxide 23 (22-30) mmol/L BUN 4 L (7-17) mg/dL Creatinine 0.4 L D (0.7-1.2) mg/dL Glucose 91 (65-100) mg/dL Calcium 7.8 L (8.4-10.2) mg/dL AST 40 (5-40) units/L ALT 12 (7-56) units/L Alkaline Phosphatase 95 (35-129) units/L Total Protein 5.0 L (6.3-8.2) g/dL Albumin 2.5 L (3.9-5) g/dL - Imaging and Cardiology EKG: report reviewed Stress echo: other (12/2017 normal myocardial perfusion scanof ischemia) Echo: report reviewed (12/2017 [address] LV functionregurgitations) - Telemetry EKG Rhythm: Sinus Rhythm - EKG Sinus rhythms and dysrhythmias: sinus rhythm
--- NOTE | 2018-04-30 11:41 | Progress Note ---
Assessment and Plan Assessment and plan: --Peripheral vascular disease ; Arterial insufficiency of lower extremity; s/p left femoral to posterior tibial artery bypass, and thrombectomy s/p revision of vascular surgery 04/25/18 1. Open Revision of Left Femoral Artery to Posterior Tibial Artery Bypass 2. Open Thrombectomy of Left Femoral Artery to Posterior Tibial Artery Bypass with 3 Iblly 3. Open Thrombectomy of Left Posterior Tibial Artery with 3 Billy Continue Plavix and Eliquis Cyanotic discoloration of left 2-5 tips of toes, management per vascular Possible hyperbaric treatment, per case management --Anemia; status post multiple PRBC transfusion total [ 7 units], Closely monitor H&H, additional transfusion as needed --Thrombocytopenia; significantly improved --Hypokalemia. Replete potassium. --Hypophosphatemia/Hypomagnesemia; corrected --Hypocalcemia; replacement as needed --Nicotine dependence unspecified ; Smoking cessation counseling, advised nicotine patch --COPD (chronic obstructive pulmonary disease) supplemental oxygen, nebulizer therapy, NIPPV as clinically indicated. --HTN (hypertension) monitor blood pressures adjust medications as needed --Mild PRIYA; resolved, follow BMP --DVT prophylaxis ; on anticoagulation Physical therapy occupational therapy as tolerated --DC planning.per case management home with home health versus subacute History Interval history: No new issues overnight. Hospitalist Physical - Constitutional Vitals: Temp Pulse Resp BP Pulse Ox 98.4 F 100 H 14 100/59 97 04/30/18 07:29 04/30/18 07:29 04/30/18 07:29 04/30/18 07:29 04/30/18 07:29 General appearance: Present: no acute distress, cachectic, disheveled - EENT Eyes: Present: PERRL, EOM intact ENT: hearing intact, clear oral mucosa, dentition normal - Neck Neck: Present: supple, normal ROM - Respiratory Respiratory effort: normal Respiratory: bilateral: CTA - Cardiovascular Rhythm: regular Heart Sounds: Present: S1 & S2. Absent: gallop, rub - Extremities Extremities: no ischemia, No edema, Full ROM - Abdominal General gastrointestinal: soft, non-tender, non-distended, normal bowel sounds - Integumentary Integumentary: Present: clear, warm, dry - Neurologic Neurologic: CNII-XII intact, moves all extremities Results - Labs CBC & Chem 7: 04/30/18 07:56 04/30/18 07:56 Labs: Laboratory Last Values WBC 9.0 K/mm3 (4.5-11.0) 04/30/18 07:56 RBC 2.55 M/mm3 (3.65-5.03) L 04/30/18 07:56 Hgb 7.5 gm/dl (10.1-14.3) L 04/30/18 07:56 POC Hgb 10.2 (12-17) L 04/24/18 22:40 Hct 22.4 % (30.3-42.9) L 04/30/18 07:56 POC Hct 30 (38-51) L 04/24/18 22:40 MCV 88 fl (79-97) 04/30/18 07:56 MCH 30 pg (28-32) 04/30/18 07:56 MCHC 34 % (30-34) 04/30/18 07:56 RDW 14.9 % (13.2-15.2) 04/30/18 07:56 Plt Count 260 K/mm3 (140-440) 04/30/18 07:56 Lymph % (Auto) 19.4 % (13.4-35.0) 04/30/18 07:56 [place] % (Auto) 11.0 % (0.0-7.3) H 04/30/18 07:56 Eos % (Auto) 5.8 % (0.0-4.3) H 04/30/18 07:56 Baso % (Auto) 1.0 % (0.0-1.8) 04/30/18 07:56 Lymph # 1.7 K/mm3 (1.2-5.4) 04/30/18 07:56 [place] # 1.0 K/mm3 (0.0-0.8) H 04/30/18 07:56 Eos # 0.5 K/mm3 (0.0-0.4) H 04/30/18 07:56 Baso # 0.1 K/mm3 (0.0-0.1) 04/30/18 07:56 Add Manual Diff Complete 04/24/18 09:16 Total Counted 100 04/24/18 09:16 Seg Neutrophils % 62.8 % (40.0-70.0) 04/30/18 07:56 Seg Neuts % (Manual) 64.0 % (40.0-70.0) 04/24/18 09:16 Band Neutrophils % 3.0 % 04/24/18 09:16 Lymphocytes % (Manual) 11.0 % (13.4-35.0) L 04/24/18 09:16 Reactive Lymphs % (Man) 0 % 04/24/18 09:16 Monocytes % (Manual) 20.0 % (0.0-7.3) H 04/24/18 09:16 Eosinophils % (Manual) 2.0 % (0.0-4.3) 04/24/18 09:16 Basophils % (Manual) 0 % (0.0-1.8) 04/24/18 09:16 Metamyelocytes % 0 % 04/24/18 09:16 Myelocytes % 0 % 04/24/18 09:16 Promyelocytes % 0 % 04/24/18 09:16 Blast Cells % 0 % 04/24/18 09:16 Nucleated RBC % Not Reportable 04/24/18 09:16 Seg Neutrophils # 5.6 K/mm3 (1.8-7.7) 04/30/18 07:56 Seg Neutrophils # Man 5.6 K/mm3 (1.8-7.7) 04/24/18 09:16 Band Neutrophils # 0.3 K/mm3 04/24/18 09:16 Lymphocytes # (Manual) 1.0 K/mm3 (1.2-5.4) L 04/24/18 09:16 Abs React Lymphs (Man) 0.0 K/mm3 04/24/18 09:16 Monocytes # (Manual) 1.8 K/mm3 (0.0-0.8) H 04/24/18 09:16 Eosinophils # (Manual) 0.2 K/mm3 (0.0-0.4) 04/24/18 09:16 Basophils # (Manual) 0.0 K/mm3 (0.0-0.1) 04/24/18 09:16 Metamyelocytes # 0.0 K/mm3 04/24/18 09:16 Myelocytes # 0.0 K/mm3 04/24/18 09:16 Promyelocytes # 0.0 K/mm3 04/24/18 09:16 Blast Cells # 0.0 K/mm3 04/24/18 09:16 WBC Morphology Not Reportable 04/24/18 09:16 Hypersegmented Neuts Not Reportable 04/24/18 09:16 Hyposegmented Neuts Not Reportable 04/24/18 09:16 Hypogranular Neuts Not Reportable 04/24/18 09:16 Smudge Cells Not Reportable 04/24/18 09:16 Toxic Granulation Not Reportable 04/24/18 09:16 Toxic Vacuolation Not Reportable 04/24/18 09:16 Dohle Bodies Not Reportable 04/24/18 09:16 Pelger-Huet Anomaly Not Reportable 04/24/18 09:16 Silva Rods Not Reportable 04/24/18 09:16 Platelet Estimate Consistent w auto 04/24/18 09:16 Clumped Platelets Not Reportable 04/24/18 09:16 Plt Clumps, EDTA Not Reportable 04/24/18 09:16 Large Platelets Not Reportable 04/24/18 09:16 Giant Platelets Not Reportable 04/24/18 09:16 Platelet Satelliting Not Reportable 04/24/18 09:16 Plt Morphology Comment Not Reportable 04/24/18 09:16 RBC Morphology Not Reportable 04/24/18 09:16 Dimorphic RBCs Not Reportable 04/24/18 09:16 Polychromasia Not Reportable 04/24/18 09:16 Hypochromasia Not Reportable 04/24/18 09:16 Poikilocytosis Not Reportable 04/24/18 09:16 Anisocytosis 1+ 04/24/18 09:16 Microcytosis Not Reportable 04/24/18 09:16 Macrocytosis Not Reportable 04/24/18 09:16 Spherocytes Not Reportable 04/24/18 09:16 Pappenheimer Bodies Not Reportable 04/24/18 09:16 Sickle Cells Not Reportable 04/24/18 09:16 Target Cells Not Reportable 04/24/18 09:16 Tear Drop Cells Not Reportable 04/24/18 09:16 Ovalocytes Not Reportable 04/24/18 09:16 Helmet Cells Not Reportable 04/24/18 09:16 Barrios-Sorrel Bodies Not Reportable 04/24/18 09:16 [place] Rings Not Reportable 04/24/18 09:16 [place] Cells Not Reportable 04/24/18 09:16 Bite Cells Not Reportable 04/24/18 09:16 Crenated Cell Not Reportable 04/24/18 09:16 Elliptocytes Not Reportable 04/24/18 09:16 Acanthocytes (Spur) Not Reportable 04/24/18 09:16 Rouleaux Not Reportable 04/24/18 09:16 Hemoglobin C Crystals Not Reportable 04/24/18 09:16 Schistocytes Not Reportable 04/24/18 09:16 Malaria parasites Not Reportable 04/24/18 09:16 Lázaro Bodies Not Reportable 04/24/18 09:16 Hem Pathologist Commnt No 04/24/18 09:16 PT 17.7 Sec. (12.2-14.9) H 04/25/18 10:56 INR 1.37 (0.87-1.13) H 04/25/18 10:56 APTT 97.3 Sec. (24.2-36.6) H* 04/26/18 09:52 Fibrinogen 267 mg/dl (211-480) 04/25/18 10:56 Heparin Anti-Xa Level 0.18 U.I./ml (0.3-0.7) L 04/25/18 01:30 Heparin Anti-Xa, Unfract Negative (Negative) 04/25/18 14:55 POC Sodium 147 mmol/L (138-146) H 04/24/18 22:40 POC Potassium 3.6 (3.5-4.9) 04/24/18 22:40 POC Chloride 112 (98-109) H 04/24/18 22:40 Sodium 140 mmol/L (137-145) 04/30/18 07:56 Potassium 2.7 mmol/L (3.6-5.0) L* D 04/30/18 07:56 Chloride 104.8 mmol/L (98-107) 04/30/18 07:56 Carbon Dioxide 23 mmol/L (22-30) 04/30/18 07:56 Anion Gap 15 mmol/L 04/30/18 07:56 POC BUN 3 mg/dl (8-26) L 04/24/18 22:40 BUN 4 mg/dL (7-17) L 04/30/18 07:56 Creatinine 0.4 mg/dL (0.7-1.2) L D 04/30/18 07:56 Estimated GFR > 60 ml/min 04/30/18 07:56 BUN/Creatinine Ratio 10 % 04/30/18 07:56 Glucose 91 mg/dL (65-100) 04/30/18 07:56 POC Glucose 126 (70-105) H 04/24/18 22:40 Lactic Acid 1.90 mmol/L (0.7-2.0) 04/17/18 20:52 Calcium 7.8 mg/dL (8.4-10.2) L 04/30/18 07:56 Phosphorus 2.30 mg/dL (2.5-4.5) L 04/30/18 07:56 Magnesium 1.60 mg/dL (1.7-2.3) L 04/30/18 07:56 Total Bilirubin 0.80 mg/dL (0.1-1.2) 04/30/18 07:56 AST 40 units/L (5-40) 04/30/18 07:56 ALT 12 units/L (7-56) 04/30/18 07:56 Alkaline Phosphatase 95 units/L (35-129) 04/30/18 07:56 Total Creatine Kinase 190 units/L (30-135) H 04/17/18 15:53 Total Protein 5.0 g/dL (6.3-8.2) L 04/30/18 07:56 Albumin 2.5 g/dL (3.9-5) L 04/30/18 07:56 Albumin/Globulin Ratio 1.0 % 04/30/18 07:56 Heparin-induced Plt Ab Negative (Negative) 04/25/18 14:55 UF Heparin High Dose 0 % Release 04/25/18 14:55 ADY UFH Low Dose 0.1 0 % Release 04/25/18 14:55 ADY UFH Low Dose 0.5 0 % Release 04/25/18 14:55 Blood Type A POSITIVE 04/23/18 23:30 Antibody Screen Negative 04/23/18 23:30 Crossmatch See Detail 04/23/18 23:30
[2018-04-30] MEDS ORDERED: K-DUR PO ONE ×2 (12:30→16:00)
[2018-04-30] MEDS ORDERED: MAGNESIUM SULFATE 2GM/50ML 2 GM/50 ML BAG IV ONE (12:32)
[2018-04-30] MEDS ORDERED: NACL 0.9% 500 ML 500 ML IV SCH (12:33)
--- NOTE | 2018-04-30 19:53 | Progress Note ---
Assessment and Plan Patient with anemia without obvious sources of blood loss. Likely post surgical and anemia of chronic disease. Given her tachycardia will transfuse. Hypokalemia is being replaced. Anticipate discharge this week with outpatient follow up in wound care for hyperbaric oxygen. Subjective Date of service: 04/30/18 Principal diagnosis: PVD Interval history: Patient with some complaints of left leg pain. She denies bright red blood per rectum or dark tarry stools. She denies any other obvious sources of bleeding. Objective - Constitutional Vitals: Vital Signs - 12hr 04/30/18 04/30/18 11:45 16:28 Temperature 98.4 F 98.4 F Pulse Rate 103 H 85 Respiratory 14 16 Rate Blood Pressure 110/75 Blood Pressure 104/69 [Right] O2 Sat by Pulse 99 97 Oximetry General appearance: Present: no acute distress - Neck Neck: supple - Respiratory Respiratory effort: normal - Cardiovascular Heart rate: 105 Rhythm: other (tachy) Extremities: pulses intact (palpable left PT), normal temperature Extremity abnormal: edema (left leg), cyanosis (2nd - 5th left toes), other ( left leg incisions C/D/I) - Gastrointestinal General gastrointestinal: Present: soft, non-tender, non-distended - Labs CBC & Chem 7: 04/30/18 07:56 04/30/18 07:56 Labs: Abnormal lab results 04/30/18 04/30/18 04/30/18 Range/Units 07:56 07:56 12:52 RBC 2.55 L (3.65-5.03) M/mm3 Hgb 7.5 L (10.1-14.3) gm/dl Hct 22.4 L (30.3-42.9) % [place] % (Auto) 11.0 H (0.0-7.3) % Eos % (Auto) 5.8 H (0.0-4.3) % [place] # 1.0 H (0.0-0.8) K/mm3 Eos # 0.5 H (0.0-0.4) K/mm3 Potassium 2.7 L* D (3.6-5.0) mmol/L BUN 4 L (7-17) mg/dL Creatinine 0.4 L D (0.7-1.2) mg/dL Calcium 7.8 L (8.4-10.2) mg/dL Phosphorus 2.30 L (2.5-4.5) mg/dL Magnesium 1.60 L (1.7-2.3) mg/dL Total Protein 5.0 L (6.3-8.2) g/dL Albumin 2.5 L (3.9-5) g/dL Crossmatch See Detail
[2018-04-30] MEDS: PHOS-NAK PO SCH (21:45)
--- NOTE | 2018-04-30 23:02 | Hem/Onc Progress Note ---
Assessment and Plan - Patient Problems (1) History of aorto-femoral bypass Current Visit: No Status: Acute Plan to address problem: Counts better. PRBC today. Subjective Date of service: 04/30/18 Interval history: She feels much better overall.Plan for dc in am. Objective - Constitutional Vitals: Last Vital Signs Temp 98.7 F 04/30/18 20:03 Pulse 95 H 04/30/18 22:00 Resp 18 04/30/18 22:24 BP 100/65 04/30/18 22:24 Pulse Ox 98 04/30/18 22:00 Pain Intensity (0-10): denies any pain - EENT Eyes: PERRL ENT: hearing intact Lymph node exam: negative cervical - Respiratory Respiratory: bilateral: CTA - Labs Lab Results: Laboratory Results - last 24 hr 04/25/18 04/30/18 04/30/18 14:55 07:56 07:56 WBC 9.0 RBC 2.55 L Hgb 7.5 L Hct 22.4 L MCV 88 MCH 30 MCHC 34 RDW 14.9 Plt Count 260 Lymph % (Auto) 19.4 [place] % (Auto) 11.0 H Eos % (Auto) 5.8 H Baso % (Auto) 1.0 Lymph # 1.7 [place] # 1.0 H Eos # 0.5 H Baso # 0.1 Seg Neutrophils % 62.8 Seg Neutrophils # 5.6 Heparin Anti-Xa, Unfract Negative Sodium 140 Potassium 2.7 L* D Chloride 104.8 Carbon Dioxide 23 Anion Gap 15 BUN 4 L Creatinine 0.4 L D Estimated GFR > 60 BUN/Creatinine Ratio 10 Glucose 91 Calcium 7.8 L Phosphorus 2.30 L Magnesium 1.60 L Total Bilirubin 0.80 AST 40 ALT 12 Alkaline Phosphatase 95 Total Protein 5.0 L Albumin 2.5 L Albumin/Globulin Ratio 1.0 Heparin-induced Plt Ab Negative UF Heparin High Dose 0 ADY UFH Low Dose 0.1 0 ADY UFH Low Dose 0.5 0 Blood Type Antibody Screen Crossmatch 04/30/18 12:52 WBC RBC Hgb Hct MCV MCH MCHC RDW Plt Count Lymph % (Auto) [place] % (Auto) Eos % (Auto) Baso % (Auto) Lymph # [place] # Eos # Baso # Seg Neutrophils % Seg Neutrophils # Heparin Anti-Xa, Unfract Sodium Potassium Chloride Carbon Dioxide Anion Gap BUN Creatinine Estimated GFR BUN/Creatinine Ratio Glucose Calcium Phosphorus Magnesium Total Bilirubin AST ALT Alkaline Phosphatase Total Protein Albumin Albumin/Globulin Ratio Heparin-induced Plt Ab UF Heparin High Dose ADY UFH Low Dose 0.1 ADY UFH Low Dose 0.5 Blood Type A POSITIVE Antibody Screen Negative Crossmatch See Detail
--- NOTE | 2018-05-01 08:59 | Progress Note ---
Assessment and Plan Awaiting patient approval for outpatient hyperbaric oxygen which will give her the best chance to heal her distal wounds. The patient subjectively feels better following transfusion of 2 units of blood. Subjective Date of service: 05/01/18 Principal diagnosis: PVD Interval history: Patient with a history of peripheral vascular disease status post extensive surgical revascularization of her left lower extremity. No complaint of pain. Her toes are demarcating. Objective - Constitutional Vitals: Vital Signs - 12hr 04/30/18 04/30/18 04/30/18 21:44 21:59 22:00 Temperature Pulse Rate 103 H 97 H 95 H Respiratory Rate Blood Pressure 102/58 Blood Pressure [Right] O2 Sat by Pulse 98 98 Oximetry 04/30/18 04/30/18 04/30/18 22:24 22:25 22:28 Temperature Pulse Rate 90 92 H Respiratory 18 Rate Blood Pressure 100/65 Blood Pressure [Right] O2 Sat by Pulse 97 97 Oximetry 04/30/18 04/30/18 04/30/18 23:05 23:15 23:20 Temperature 99.2 F 99.2 F Pulse Rate 86 86 Respiratory 18 18 Rate Blood Pressure 103/65 103/65 Blood Pressure [Right] O2 Sat by Pulse 94 94 Oximetry 04/30/18 04/30/18 04/30/18 23:48 23:50 23:57 Temperature 98.5 F 98.9 F Pulse Rate 85 85 Respiratory 18 18 Rate Blood Pressure 107/65 104/68 Blood Pressure [Right] O2 Sat by Pulse 97 95 Oximetry 05/01/18 05/01/18 05/01/18 00:20 00:35 00:52 Temperature 98.6 F 98.5 F 97.9 F Pulse Rate 87 85 85 Respiratory 18 18 18 Rate Blood Pressure 114/72 104/68 114/72 Blood Pressure 107/67 [Right] O2 Sat by Pulse 97 95 98 Oximetry 05/01/18 05/01/18 05/01/18 01:00 01:44 01:54 Temperature 98.6 F 98.6 F 98.9 F Pulse Rate 85 90 Respiratory 18 18 18 Rate Blood Pressure 104/68 104/68 98/63 Blood Pressure [Right] O2 Sat by Pulse 98 96 Oximetry 05/01/18 05/01/18 05/01/18 02:00 02:01 02:09 Temperature 98.9 F 98.9 F Pulse Rate 90 86 Respiratory 18 18 Rate Blood Pressure 98/63 117/76 Blood Pressure [Right] O2 Sat by Pulse 96 96 Oximetry 05/01/18 05/01/18 05/01/18 02:39 02:40 03:09 Temperature 98.9 F 98.2 F Pulse Rate 83 86 100 H Respiratory 18 18 20 Rate Blood Pressure 110/81 117/76 124/79 Blood Pressure [Right] O2 Sat by Pulse 95 96 96 Oximetry 05/01/18 05/01/18 05/01/18 03:10 03:36 03:39 Temperature 98.2 F 98.8 F Pulse Rate 83 100 H 87 Respiratory 18 20 18 Rate Blood Pressure 110/81 124/79 108/71 Blood Pressure [Right] O2 Sat by Pulse 95 96 96 Oximetry 05/01/18 05/01/18 05/01/18 04:07 04:19 07:35 Temperature 98.8 F 98.9 F 98.2 F Pulse Rate 87 86 83 Respiratory 18 20 18 Rate Blood Pressure 108/71 109/67 Blood Pressure 108/68 [Right] O2 Sat by Pulse 96 95 97 Oximetry General appearance: Present: no acute distress - EENT Eyes: PERRL ENT: hearing intact - Neck Neck: supple, normal ROM - Respiratory Respiratory effort: normal Extremities: abnormal - Gastrointestinal General gastrointestinal: Present: deferred Rectal Exam: deferred - Genitourinary Female genitourinary: deferred - Neurologic Neurologic: no focal deficits - Psychiatric Psychiatric: appropriate mood/affect, cooperative - Labs CBC & Chem 7: 04/30/18 07:56 04/30/18 07:56 Labs: Abnormal lab results 04/30/18 04/30/18 Range/Units 07:56 12:52 Potassium 2.7 L* D (3.6-5.0) mmol/L BUN 4 L (7-17) mg/dL Creatinine 0.4 L D (0.7-1.2) mg/dL Calcium 7.8 L (8.4-10.2) mg/dL Phosphorus 2.30 L (2.5-4.5) mg/dL Magnesium 1.60 L (1.7-2.3) mg/dL Total Protein 5.0 L (6.3-8.2) g/dL Albumin 2.5 L (3.9-5) g/dL Crossmatch See Detail
[2018-05-01 10:55] LABS: BUN/Creatinine Ratio 13; Blood Urea Nitrogen 5 mg/dL (7-17); Calcium 8.3 mg/dL (8.4-10.2); Hemolysis Index 26
--- NOTE | 2018-05-01 11:13 | Progress Note ---
Assessment and Plan Assessment: Peripheral vascular disease - s/p left femoral to posterior tibial artery bypass and open thrombectomy of left posterior tibial artery TPA 04/23/2018; cont Eliquis/ Plavix per vascular Acute blood loss anemia - improved s/p PRBC and FFP tx Thrombocytopenia Hypertension - stable Sinus tachycardia - suspect physiologic secondary to anemia and pain HLP Hypokalemia - improved Hypocalcemia - improving Hypophosphatemia Tobacco use - cessation encouraged. Plan: Currently stable cardiac status. Cont present cardiac regimen. Pt may discharge home from cardiology standpoint. Follow up in our [place] office with Dr. Barr on 05/07/2018 @ 11:15AM. The patient has been seen in conjunction with Dr. Blount who agrees with the assessment and plan of care. Subjective Date of service: 05/01/18 Principal diagnosis: PVD Interval history: pt resting comfortably in bed, no current cardiac complaints. at bedside. Objective Last Vital Signs Temp 98.2 F 05/01/18 07:35 Pulse 83 05/01/18 07:35 Resp 18 05/01/18 07:35 BP 109/67 05/01/18 07:35 Pulse Ox 97 05/01/18 07:35 - Physical Examination General: No Apparent Distress HEENT: Positive: PERRL, Mucus Membranes Moist Neck: Positive: neck supple, trachea midline Cardiac: Positive: Reg Rate and Rhythm, S1/S2 Lungs: Positive: clear to auscultation Neuro: Positive: Grossly Intact Abdomen: Positive: Soft, Active Bowel Sounds. Negative: Tender, Distended Skin: Positive: Clear Incision: Cardiac Cath Site Musculoskeletal: No Pain, Normal Range of Motion Extremities: Present: Other (LLE warm, redness and swelling noted). Absent: edema - Labs and Meds Comprehensive Metabolic Panel 05/01/18 Range/Units 10:14 Sodium 137 (137-145) mmol/L Potassium 4.1 D (3.6-5.0) mmol/L Chloride 102.1 (98-107) mmol/L Carbon Dioxide 21 L (22-30) mmol/L BUN 5 L (7-17) mg/dL Creatinine 0.4 L (0.7-1.2) mg/dL Glucose 117 H (65-100) mg/dL Calcium 8.3 L (8.4-10.2) mg/dL - Imaging and Cardiology EKG: report reviewed Stress echo: other (12/2017 normal myocardial perfusion scanof ischemia) Echo: report reviewed (12/2017 [address] LV functionregurgitations) - EKG Sinus rhythms and dysrhythmias: sinus rhythm
[2018-05-01] MEDS: ELIQUIS PO SCH ×2 (11:14→22:10)
[2018-05-01] MEDS: COLACE PO SCH ×2 (11:14→22:09)
[2018-05-01] MEDS: LOPRESSOR PO SCH ×2 (11:15→22:11)
[2018-05-01] MEDS: OxyCONTIN PO SCH ×2 (11:15→22:11)
[2018-05-01] MEDS: NORVASC PO SCH (11:15)
[2018-05-01] MEDS: FEOSOL PO SCH ×2 (11:15→22:10)
[2018-05-01] MEDS: PHOS-NAK PO SCH ×2 (11:16→22:10)
[2018-05-01] MEDS: PROTONIX PO SCH (11:16)
[2018-05-01] MEDS: VITAMIN C PO SCH ×2 (11:16→22:10)
[2018-05-01] MEDS: PLAVIX PO SCH (11:16)
--- NOTE | 2018-05-01 12:26 | Progress Note ---
Assessment and Plan Assessment and plan: --Peripheral vascular disease ; Arterial insufficiency of lower extremity; s/p left femoral to posterior tibial artery bypass, and thrombectomy s/p revision of vascular surgery 04/25/18 1. Open Revision of Left Femoral Artery to Posterior Tibial Artery Bypass 2. Open Thrombectomy of Left Femoral Artery to Posterior Tibial Artery Bypass with 3 Billy 3. Open Thrombectomy of Left Posterior Tibial Artery with 3 Billy Continue Plavix and Eliquis Cyanotic discoloration of left 2-5 tips of toes, management per vascular Possible hyperbaric treatment, per case management --Anemia; status post multiple PRBC transfusion total [ 7 units], Closely monitor H&H, additional transfusion as needed --Thrombocytopenia; significantly improved --Hypokalemia. Replete potassium. --Hypophosphatemia/Hypomagnesemia; corrected --Hypocalcemia; replacement as needed --Nicotine dependence unspecified ; Smoking cessation counseling, advised nicotine patch --COPD (chronic obstructive pulmonary disease) supplemental oxygen, nebulizer therapy, NIPPV as clinically indicated. --HTN (hypertension) monitor blood pressures adjust medications as needed --Mild PRIYA; resolved, follow BMP --DVT prophylaxis ; on anticoagulation Physical therapy occupational therapy as tolerated --DC planning.per case management home with home health versus subacute History Interval history: No new issues overnight. Hospitalist Physical - Constitutional Vitals: Temp Pulse Resp BP Pulse Ox 98.2 F 83 18 109/67 97 05/01/18 07:35 05/01/18 07:35 05/01/18 07:35 05/01/18 07:35 05/01/18 07:35 General appearance: Present: no acute distress - EENT Eyes: Present: PERRL, EOM intact ENT: hearing intact, clear oral mucosa, dentition normal - Neck Neck: Present: supple, normal ROM - Respiratory Respiratory effort: normal Respiratory: bilateral: CTA - Cardiovascular Rhythm: regular Heart Sounds: Present: S1 & S2. Absent: gallop, rub - Extremities Extremities: no ischemia, No edema, Full ROM - Abdominal General gastrointestinal: soft, non-tender, non-distended, normal bowel sounds - Integumentary Integumentary: Present: clear, warm, dry - Neurologic Neurologic: CNII-XII intact, moves all extremities Results - Labs CBC & Chem 7: 04/30/18 07:56 05/01/18 10:14 Labs: Laboratory Last Values WBC 9.0 K/mm3 (4.5-11.0) 04/30/18 07:56 RBC 2.55 M/mm3 (3.65-5.03) L 04/30/18 07:56 Hgb 7.5 gm/dl (10.1-14.3) L 04/30/18 07:56 POC Hgb 10.2 (12-17) L 04/24/18 22:40 Hct 22.4 % (30.3-42.9) L 04/30/18 07:56 POC Hct 30 (38-51) L 04/24/18 22:40 MCV 88 fl (79-97) 04/30/18 07:56 MCH 30 pg (28-32) 04/30/18 07:56 MCHC 34 % (30-34) 04/30/18 07:56 RDW 14.9 % (13.2-15.2) 04/30/18 07:56 Plt Count 260 K/mm3 (140-440) 04/30/18 07:56 Lymph % (Auto) 19.4 % (13.4-35.0) 04/30/18 07:56 [place] % (Auto) 11.0 % (0.0-7.3) H 04/30/18 07:56 Eos % (Auto) 5.8 % (0.0-4.3) H 04/30/18 07:56 Baso % (Auto) 1.0 % (0.0-1.8) 04/30/18 07:56 Lymph # 1.7 K/mm3 (1.2-5.4) 04/30/18 07:56 [place] # 1.0 K/mm3 (0.0-0.8) H 04/30/18 07:56 Eos # 0.5 K/mm3 (0.0-0.4) H 04/30/18 07:56 Baso # 0.1 K/mm3 (0.0-0.1) 04/30/18 07:56 Add Manual Diff Complete 04/24/18 09:16 Total Counted 100 04/24/18 09:16 Seg Neutrophils % 62.8 % (40.0-70.0) 04/30/18 07:56 Seg Neuts % (Manual) 64.0 % (40.0-70.0) 04/24/18 09:16 Band Neutrophils % 3.0 % 04/24/18 09:16 Lymphocytes % (Manual) 11.0 % (13.4-35.0) L 04/24/18 09:16 Reactive Lymphs % (Man) 0 % 04/24/18 09:16 Monocytes % (Manual) 20.0 % (0.0-7.3) H 04/24/18 09:16 Eosinophils % (Manual) 2.0 % (0.0-4.3) 04/24/18 09:16 Basophils % (Manual) 0 % (0.0-1.8) 04/24/18 09:16 Metamyelocytes % 0 % 04/24/18 09:16 Myelocytes % 0 % 04/24/18 09:16 Promyelocytes % 0 % 04/24/18 09:16 Blast Cells % 0 % 04/24/18 09:16 Nucleated RBC % Not Reportable 04/24/18 09:16 Seg Neutrophils # 5.6 K/mm3 (1.8-7.7) 04/30/18 07:56 Seg Neutrophils # Man 5.6 K/mm3 (1.8-7.7) 04/24/18 09:16 Band Neutrophils # 0.3 K/mm3 04/24/18 09:16 Lymphocytes # (Manual) 1.0 K/mm3 (1.2-5.4) L 04/24/18 09:16 Abs React Lymphs (Man) 0.0 K/mm3 04/24/18 09:16 Monocytes # (Manual) 1.8 K/mm3 (0.0-0.8) H 04/24/18 09:16 Eosinophils # (Manual) 0.2 K/mm3 (0.0-0.4) 04/24/18 09:16 Basophils # (Manual) 0.0 K/mm3 (0.0-0.1) 04/24/18 09:16 Metamyelocytes # 0.0 K/mm3 04/24/18 09:16 Myelocytes # 0.0 K/mm3 04/24/18 09:16 Promyelocytes # 0.0 K/mm3 04/24/18 09:16 Blast Cells # 0.0 K/mm3 04/24/18 09:16 WBC Morphology Not Reportable 04/24/18 09:16 Hypersegmented Neuts Not Reportable 04/24/18 09:16 Hyposegmented Neuts Not Reportable 04/24/18 09:16 Hypogranular Neuts Not Reportable 04/24/18 09:16 Smudge Cells Not Reportable 04/24/18 09:16 Toxic Granulation Not Reportable 04/24/18 09:16 Toxic Vacuolation Not Reportable 04/24/18 09:16 Dohle Bodies Not Reportable 04/24/18 09:16 Pelger-Huet Anomaly Not Reportable 04/24/18 09:16 Silva Rods Not Reportable 04/24/18 09:16 Platelet Estimate Consistent w auto 04/24/18 09:16 Clumped Platelets Not Reportable 04/24/18 09:16 Plt Clumps, EDTA Not Reportable 04/24/18 09:16 Large Platelets Not Reportable 04/24/18 09:16 Giant Platelets Not Reportable 04/24/18 09:16 Platelet Satelliting Not Reportable 04/24/18 09:16 Plt Morphology Comment Not Reportable 04/24/18 09:16 RBC Morphology Not Reportable 04/24/18 09:16 Dimorphic RBCs Not Reportable 04/24/18 09:16 Polychromasia Not Reportable 04/24/18 09:16 Hypochromasia Not Reportable 04/24/18 09:16 Poikilocytosis Not Reportable 04/24/18 09:16 Anisocytosis 1+ 04/24/18 09:16 Microcytosis Not Reportable 04/24/18 09:16 Macrocytosis Not Reportable 04/24/18 09:16 Spherocytes Not Reportable 04/24/18 09:16 Pappenheimer Bodies Not Reportable 04/24/18 09:16 Sickle Cells Not Reportable 04/24/18 09:16 Target Cells Not Reportable 04/24/18 09:16 Tear Drop Cells Not Reportable 04/24/18 09:16 Ovalocytes Not Reportable 04/24/18 09:16 Helmet Cells Not Reportable 04/24/18 09:16 [place] Bodies Not Reportable 04/24/18 09:16 [place] Rings Not Reportable 04/24/18 09:16 [place]rie Cells Not Reportable 04/24/18 09:16 Bite Cells Not Reportable 04/24/18 09:16 Crenated Cell Not Reportable 04/24/18 09:16 Elliptocytes Not Reportable 04/24/18 09:16 Acanthocytes (Spur) Not Reportable 04/24/18 09:16 Rouleaux Not Reportable 04/24/18 09:16 Hemoglobin C Crystals Not Reportable 04/24/18 09:16 Schistocytes Not Reportable 04/24/18 09:16 Malaria parasites Not Reportable 04/24/18 09:16 Lázaro Bodies Not Reportable 04/24/18 09:16 Hem Pathologist Commnt No 04/24/18 09:16 PT 17.7 Sec. (12.2-14.9) H 04/25/18 10:56 INR 1.37 (0.87-1.13) H 04/25/18 10:56 APTT 97.3 Sec. (24.2-36.6) H* 04/26/18 09:52 Fibrinogen 267 mg/dl (211-480) 04/25/18 10:56 Heparin Anti-Xa Level 0.18 U.I./ml (0.3-0.7) L 04/25/18 01:30 Heparin Anti-Xa, Unfract Negative (Negative) 04/25/18 14:55 POC Sodium 147 mmol/L (138-146) H 04/24/18 22:40 POC Potassium 3.6 (3.5-4.9) 04/24/18 22:40 POC Chloride 112 (98-109) H 04/24/18 22:40 Sodium 137 mmol/L (137-145) 05/01/18 10:14 Potassium 4.1 mmol/L (3.6-5.0) D 05/01/18 10:14 Chloride 102.1 mmol/L (98-107) 05/01/18 10:14 Carbon Dioxide 21 mmol/L (22-30) L 05/01/18 10:14 Anion Gap 18 mmol/L 05/01/18 10:14 POC BUN 3 mg/dl (8-26) L 04/24/18 22:40 BUN 5 mg/dL (7-17) L 05/01/18 10:14 Creatinine 0.4 mg/dL (0.7-1.2) L 05/01/18 10:14 Estimated GFR > 60 ml/min 05/01/18 10:14 BUN/Creatinine Ratio 13 % 05/01/18 10:14 Glucose 117 mg/dL (65-100) H 05/01/18 10:14 POC Glucose 126 (70-105) H 04/24/18 22:40 Lactic Acid 1.90 mmol/L (0.7-2.0) 04/17/18 20:52 Calcium 8.3 mg/dL (8.4-10.2) L 05/01/18 10:14 Phosphorus 2.30 mg/dL (2.5-4.5) L 04/30/18 07:56 Magnesium 1.70 mg/dL (1.7-2.3) 05/01/18 10:14 Total Bilirubin 0.80 mg/dL (0.1-1.2) 04/30/18 07:56 AST 40 units/L (5-40) 04/30/18 07:56 ALT 12 units/L (7-56) 04/30/18 07:56 Alkaline Phosphatase 95 units/L (35-129) 04/30/18 07:56 Total Creatine Kinase 190 units/L (30-135) H 04/17/18 15:53 Total Protein 5.0 g/dL (6.3-8.2) L 04/30/18 07:56 Albumin 2.5 g/dL (3.9-5) L 04/30/18 07:56 Albumin/Globulin Ratio 1.0 % 04/30/18 07:56 Heparin-induced Plt Ab Negative (Negative) 04/25/18 14:55 UF Heparin High Dose 0 % Release 04/25/18 14:55 ADY UFH Low Dose 0.1 0 % Release 04/25/18 14:55 ADY UFH Low Dose 0.5 0 % Release 04/25/18 14:55 Blood Type A POSITIVE 04/30/18 12:52 Antibody Screen Negative 04/30/18 12:52 Crossmatch See Detail 04/30/18 12:52
[2018-05-01] MEDS: MORPHINE IV PRN ×2 (13:08→17:21)
[2018-05-02] MEDS: MORPHINE IV PRN ×2 (01:38→05:36)
--- NOTE | 2018-05-02 08:23 | Discharge Summary ---
<CEE REYES - Last Filed: 05/02/18 12:02> Providers - Providers Date of Admission: 04/17/18 18:10 Attending physician: BRIAN MAIER 04/17/18 15:41 Consult to Physician [CONS] Urgent Comment: Consulting Provider: MIGUEL LEI Physician Instructions: Reason For Exam: arterial insufficiency 04/20/18 11:10 Consult to Physician [CONS] Routine Comment: Consulting Provider: ANTONIETA ARMENDARIZ Physician Instructions: Reason For Exam: cardial clearance 04/25/18 14:39 Consult to Physician [CONS] Routine Comment: Consulting Provider: REGLA GUTIERREZ Physician Instructions: Reason For Exam: Possible HIT or Hypercoagulabe State 04/25/18 16:12 Physical Therapy Evaluation and Treat [CONS] Routine Comment: avoid fore foot pressure Reason For Exam: gait training Weight bearing status?: Partial wt bearing 04/28/18 05:42 Consult to Wound/ET Nurse [CONS] Routine Reason For Exam: wound eval Primary care physician: JOINTER SUBMARINE CABLE Hospitalization Condition: Stable Hospital course: 57 YO Female presented to ED for left leg pain over the prior 3 weeks to admission. Recently on 02/17/2018 underwent revision of her femoral anastomosis on the left. An ultrasound performed on the patient's ER visit demonstrates occlusion of her SFA and popliteal artery. Patient was initiated on heparin drip and vascular surgeon was consulted. Patient was taken to the ear mold laboratory technician and underwent left lower extremity angiography which demonstrated flush occlusion of the SFA. Profunda angioplasty was also completed.ABIs obtained demonstrating 0.5 TOYN of the right lower extremity and no TONY of the left lower extremity.Vein mapping demonstrated adequate vein to the proximal calf with probable adequate vein at the mid calf. Patient subsequently underwent Left Femoral to Posterior Tibial Artery Bypass With Composite In Situ Greater Saphenous Vein Graft and Open Thrombectomy of Left Posterior Tibial artery with 2 Billy and 2 mg of TPA on . Patient had acute blood loss likely due to coagulopathy and was transfused with total 9 units PRBC and 5 units of FFP. Patient then underwent ultrasound guided bedside placement of a right common femoral vein nontunneled noncuffed triple lumen catheter on 04/24/18. Patient taken back to the OR on 04/24 for open revision of the left femoral artery to posterior tibial artery bypass , open thrombectomy of left femoral artery bypass with 3 Billy, open thrombectomy of left posterior tibial artery with 3 Billy. Patient was found to have an acute kidney injury and was initiated on IV fluids after which her kidney function improved. She was had depletion of calcium, potassium, magnesium and phosphate which were supplemented and corrected. Patient was clinically and hemodynamically stable for discharge with recommendations for hyperbaric chamber upon discharge. Patient will also follow -up with primary care provider within 5 days of discharge and sharepoint consultant 2017. Discharge diagnoses Peripheral vascular disease Anemia Thrombocytopenia Hypokalemia Hypophosphatemia Hypocalcemia Hypomagnesemia Nicotine dependence COPD Hypertension Mild AK I Disposition: DC- TO HOME OR SELFCARE Core Measure Documentation - Palliative Care Palliative Care/ Comfort Measures: Not Applicable - Core Measures Any of the following diagnoses?: none Exam - Physical Exam Narrative exam: - EENT Eyes: Present: PERRL, EOM intact ENT: hearing intact, clear oral mucosa - Neck Present: supple, normal ROM - Respiratory Respiratory effort: normal Respiratory: bilateral: CTA - Cardiovascular Rhythm: regular Heart Sounds: Present: S1 & S2. Absent: Rub, click - Extremities Extremities: abnormal - Abdominal General gastrointestinal: soft, non-tender, non-distended, normal bowel sounds - Integumentary Integumentary: Present: clear, warm, dry - Psychiatric Psychiatric: appropriate mood/affect, intact judgment & insight, cooperative - Neurologic Neurologic: CNII-XII intact, moves all extremities - Constitutional Vitals: Temp Pulse Resp BP Pulse Ox 98.2 F 92 H 18 123/80 98 05/02/18 08:00 05/02/18 11:00 05/02/18 07:41 05/02/18 11:00 05/02/18 07:41 Plan Follow up with: EDWIN PERRY MD [Staff Physician] - 7 Days PRIMARY CARE, [Primary Care Provider] - 7 Days JOYCE BARR MD [Staff Physician] - 05/07/18 11:15 am (Follow up in our [place] office with Dr. Barr on 05/07/2018 @ 11:15AM. ) Prescriptions: amLODIPine [Norvasc] 10 mg PO QDAY #30 tablet Apixaban [Eliquis] 5 mg PO Q12HR #60 tablet Ascorbic Acid [Vitamin C] 500 mg PO BID #60 tablet AtorvaSTATin [Lipitor] 40 mg PO QHS #30 tablet Clopidogrel [Plavix] 75 mg PO QDAY #30 tablet Ferrous Sulfate [Feosol 325 MG tab] 325 mg PO BID #60 tablet Metoprolol [Lopressor TAB] 25 mg PO BID #60 tablet oxyCODONE ER [OxyCONTIN ER TAB] 10 mg PO Q12HR #25 tablet Pantoprazole [Protonix TAB] 40 mg PO QDAY #30 tablet Pot Phosphate/Na Phosphate [Phos-Nak] 1 each PO Q12HR #5 powd.pack <BRIAN MAIER R - Last Filed: 05/03/18 07:49> Providers - Providers Date of Admission: 04/17/18 18:10 Date of discharge: 05/02/18 Attending physician: BRIAN MAIER 04/17/18 15:41 Consult to Physician [CONS] Urgent Comment: Consulting Provider: MIGUEL LEI Physician Instructions: Reason For Exam: arterial insufficiency 04/20/18 11:10 Consult to Physician [CONS] Routine Comment: Consulting Provider: ANTONIETA ARMENDARIZ Physician Instructions: Reason For Exam: cardial clearance 04/25/18 14:39 Consult to Physician [CONS] Routine Comment: Consulting Provider: REGLA GUTIERREZ Physician Instructions: Reason For Exam: Possible HIT or Hypercoagulabe State 04/25/18 16:12 Physical Therapy Evaluation and Treat [CONS] Routine Comment: avoid fore foot pressure Reason For Exam: gait training Weight bearing status?: Partial wt bearing 04/28/18 05:42 Consult to Wound/ET Nurse [CONS] Routine Reason For Exam: wound eval Primary care physician: JOINTER SUBMARINE CABLE Hospitalization Hospital course: I saw and evaluated the patient. I agree with the findings and the plan of care as documented in the Nurse Practitioner's~note, with the following corrections and additions. Exam - Constitutional Vitals: Temp Pulse Resp BP Pulse Ox 98.1 F 87 20 108/69 97 05/01/18 15:16 05/01/18 23:11 05/02/18 02:45 05/01/18 23:11 05/01/18 23:11 Plan Activity: advance as tolerated Weight Bearing Status: Weight Bear as Tolerated
[2018-05-02 09:20] LABS: Basophils # (Auto) 0.1 K/mm3 (0.0-0.1); Basophils % (Auto) 1.5 % (0.0-1.8); Eosinophils # (Auto) 0.5 K/mm3 (0.0-0.4); Eosinophils % (Auto) 5.8 % (0.0-4.3); Hemoglobin 12.6 gm/dl (10.1-14.3); Lymphocytes # (Auto) 1.8 K/mm3 (1.2-5.4); Lymphocytes % (Auto) 21.1 % (13.4-35.0); Mean Corpuscular HGB Conc 32 % (30-34); Mean Corpuscular Hemoglobin 28 pg (28-32); Mean Corpuscular Volume 87 fl (79-97); Monocytes # (Auto) 1.2 K/mm3 (0.0-0.8); Monocytes % (Auto) 14.2 % (0.0-7.3); Platelet Count 446 K/mm3 (140-440); Red Blood Count 4.49 M/mm3 (3.65-5.03); Red Cell Distribution Width 15.8 % (13.2-15.2)
[2018-05-02 09:37] LABS: BUN/Creatinine Ratio 15; Blood Urea Nitrogen 6 mg/dL (7-17); Hemolysis Index 11
[2018-05-02] MEDS: FEOSOL PO SCH (10:59)
[2018-05-02] MEDS: PLAVIX PO SCH (10:59)
[2018-05-02] MEDS: COLACE PO SCH (10:59)
[2018-05-02] MEDS: NORVASC PO SCH (10:59)
[2018-05-02] MEDS: PROTONIX PO SCH (10:59)
[2018-05-02] MEDS: VITAMIN C PO SCH (11:00)
[2018-05-02] MEDS: LOPRESSOR PO SCH (11:00)
[2018-05-02] MEDS: OxyCONTIN PO SCH (11:00)
[2018-05-02] MEDS: PHOS-NAK PO SCH (11:00)
[2018-05-02] MEDS: ELIQUIS PO SCH (11:01)
[2018-05-02 12:23] VITALS: BP 111/78
[2018-05-02] MEDS ORDERED: PERCOCET 5/325 PO ONE (15:15)
--- NOTE | 2018-05-02 18:44 | Event Note ---
Date: 05/02/18 Pt d/c'd earlier this afternoon. Pt's rest pain improved, but continued discomfort with wt bearing. D/c plans for outpt HBO eval completed. Discussed with Case Management. Pt will be contacted to arrange outpt f/u in the wound care clinic. Pt encouraged to stop smoking! Failure to do so will likely result in limb loss. She will f/u in our office in 2 weeks, and call for appt.
== END 2018-05-02 16:47 | disposition home or self-care (01) | DRG 271 ==
LOC: ED 12:26 → CATH 16:56 → CC1 18:10 → 4A 20:26 → 3B-SURG 04-21 22:08 → CC1 04-23 20:53 → 4A 04-27 19:32
PROVIDERS: ADMIT Internal Medicine; ATTEND Hospitalist
PROC: B41G1ZZ Fluoroscopy of Left Lower Extremity Arteries using Low Osmolar Contrast (ICD-10-PCS; principal; 2018-04-17)
PROC: 047L3ZZ Dilation of Left Femoral Artery, Percutaneous Approach (ICD-10-PCS; 2018-04-17)
PROC: 06HM33Z Insertion of Infusion Device into Right Femoral Vein, Percutaneous Approach (ICD-10-PCS; 2018-04-17)
PROC: B54BZZA Ultrasonography of Right Lower Extremity Veins, Guidance (ICD-10-PCS; 2018-04-17)
PROC: 06BQ0ZZ Excision of Left Saphenous Vein, Open Approach (ICD-10-PCS; 2018-04-23)
PROC: 04CS0ZZ Extirpation of Matter from Left Posterior Tibial Artery, Open Approach (ICD-10-PCS; 2018-04-23)
PROC: 3E05017 Introduction of Other Thrombolytic into Peripheral Artery, Open Approach (ICD-10-PCS; 2018-04-23)
PROC: 041L09N Bypass Left Femoral Artery to Posterior Tibial Artery with Autologous Venous Tissue, Open Approach (ICD-10-PCS; 2018-04-24)
PROC: 30233L1 Transfusion of Nonautologous Fresh Plasma into Peripheral Vein, Percutaneous Approach (ICD-10-PCS; 2018-04-24)
PROC: 30233N1 Transfusion of Nonautologous Red Blood Cells into Peripheral Vein, Percutaneous Approach (ICD-10-PCS; 2018-04-24)
PROC: 30233K1 Transfusion of Nonautologous Frozen Plasma into Peripheral Vein, Percutaneous Approach (ICD-10-PCS; 2018-04-24)
PROC: 04CL3ZZ Extirpation of Matter from Left Femoral Artery, Percutaneous Approach (ICD-10-PCS; 2018-04-24)
PROC: 04CS3ZZ Extirpation of Matter from Left Posterior Tibial Artery, Percutaneous Approach (ICD-10-PCS; 2018-04-24)
PROC: 047L3ZZ Dilation of Left Femoral Artery, Percutaneous Approach (ICD-10-PCS; 2018-04-24)
PROC: 047S3ZZ Dilation of Left Posterior Tibial Artery, Percutaneous Approach (ICD-10-PCS; 2018-04-24)
PROC: 04CL0ZZ Extirpation of Matter from Left Femoral Artery, Open Approach (ICD-10-PCS; 2018-04-24)
PROC: 04CS0ZZ Extirpation of Matter from Left Posterior Tibial Artery, Open Approach (ICD-10-PCS; 2018-04-24)
PROC: B41G1ZZ Fluoroscopy of Left Lower Extremity Arteries using Low Osmolar Contrast (ICD-10-PCS; 2018-04-24)
DX: I73.9 Peripheral vascular disease, unspecified (principal); T82.838A Hemorrhage due to vascular prosthetic devices, implants and grafts, initial encounter; D62 Acute posthemorrhagic anemia; D68.9 Coagulation defect, unspecified; N17.9 Acute kidney failure, unspecified; T82.392A Other mechanical complication of femoral arterial graft (bypass), initial encounter; D69.6 Thrombocytopenia, unspecified; E87.6 Hypokalemia; E83.39 Other disorders of phosphorus metabolism; E83.51 Hypocalcemia; E83.42 Hypomagnesemia; F17.200 Nicotine dependence, unspecified, uncomplicated; I10 Essential (primary) hypertension; J44.9 Chronic obstructive pulmonary disease, unspecified; Z86.718 Personal history of other venous thrombosis and embolism; Z82.49 Family history of ischemic heart disease and other diseases of the circulatory system; Z88.8 Allergy status to other drugs, medicaments and biological substances; Z79.82 Long term (current) use of aspirin; E78.5 Hyperlipidemia, unspecified; Z71.6 Tobacco abuse counseling; I70.229 Atherosclerosis of native arteries of extremities with rest pain, unspecified extremity; Y83.2 Surgical operation with anastomosis, bypass or graft as the cause of abnormal reaction of the patient, or of later complication, without mention of misadventure at the time of the procedure; Y92.89 Other specified places as the place of occurrence of the external cause
CPT/HCPCS: 36415; 37184; 37224; 37228; 75635; 75710; 76937; 80048; 80053; 82040; 82140; 82550; 82803; 83735; 84100; 85007; 85014; 85018; 85025; 85027; 85049; 85384; 85520; 85610; 85730; 86022; 86850; 86900; 86901; 86920; 93005; 93010; 93922; 94760; 96365; A4649; A9270-GY; C1725; C1751; C1757; C1760; C1768; C1769; C1887; C9250; J0610; J0690; J0883; J1170; J1644; J2250; J2270; J2370; J2405; J2440; J2704; J2720; J2997; J3010; J3475; J3480; J3490; J7030; J7040; J7050; J7070; P9016; P9017; P9047; Q9967

== ENCOUNTER 2018-05-06 10:21 | Outpatient (CLI) | payer OTHER ==
[2018-05-06] MEDS ORDERED: XYLOCAINE TOPICAL 4% TP ONE (11:30)
== END 2018-05-06 10:22 | disposition home or self-care (01) ==
LOC: WOUND 10:21
PROVIDERS: ATTEND Surgery
DX: T81.89XA Other complications of procedures, not elsewhere classified, initial encounter (principal); I70.245 Atherosclerosis of native arteries of left leg with ulceration of other part of foot; L97.521 Non-pressure chronic ulcer of other part of left foot limited to breakdown of skin; I10 Essential (primary) hypertension; J44.9 Chronic obstructive pulmonary disease, unspecified; F17.200 Nicotine dependence, unspecified, uncomplicated; Z86.718 Personal history of other venous thrombosis and embolism; Y83.8 Other surgical procedures as the cause of abnormal reaction of the patient, or of later complication, without mention of misadventure at the time of the procedure
CPT/HCPCS: 11042; G0463; 99215

== ENCOUNTER 2018-05-06 13:00 | Outpatient (CLI) | payer OTHER ==
--- NOTE | 2018-05-07 08:13 | XRay Report ---
ROUTINE CHEST, TWO VIEWS: HISTORY: Left lower extremity wound, hyperbaric oxygen therapy workup. Compared to 01/04/18. Lines and tubes have been removed since the previous exam. The lungs are severely hyperinflated consistent with advanced emphysema. No evidence for mass, pneumonia or pleural fluid. Heart and mediastinal structures are unremarkable. The bony structures are intact. IMPRESSION: Emphysema. No acute process.
== END 2018-05-06 13:01 | disposition home or self-care (01) ==
LOC: XRAY 13:00
PROVIDERS: ATTEND Surgery
DX: J43.1 Panlobular emphysema (principal); S81.802A Unspecified open wound, left lower leg, initial encounter; X58.XXXA Exposure to other specified factors, initial encounter; Y93.89 Activity, other specified; Y92.89 Other specified places as the place of occurrence of the external cause; Y99.8 Other external cause status
CPT/HCPCS: 71046

== ENCOUNTER 2018-05-07 12:58 | Outpatient (CLI) | payer OTHER ==
[2018-05-07] MEDS ORDERED: SILVER NITRATE TP ONE ×2 (14:03→15:39)
== END 2018-05-07 12:59 | disposition home or self-care (01) ==
LOC: WOUND 12:58
PROVIDERS: ATTEND Surgery
DX: I70.245 Atherosclerosis of native arteries of left leg with ulceration of other part of foot (principal); L97.521 Non-pressure chronic ulcer of other part of left foot limited to breakdown of skin; I10 Essential (primary) hypertension; J44.9 Chronic obstructive pulmonary disease, unspecified; I73.9 Peripheral vascular disease, unspecified; F17.200 Nicotine dependence, unspecified, uncomplicated; Z86.718 Personal history of other venous thrombosis and embolism
CPT/HCPCS: 17250

== ENCOUNTER 2018-05-13 10:45 | Outpatient (CLI) | payer OTHER ==
[~2018-05-13 10:45] MED LIST: SILVER NITRATE TP ONE; XYLOCAINE TOPICAL 4% TP ONE
[2018-05-13] MEDS ORDERED: XYLOCAINE 1%/ EPI 1:100,000 INFILTRATI ONE (10:57)
== END 2018-05-13 10:46 | disposition home or self-care (01) ==
LOC: WOUND 10:45
PROVIDERS: ATTEND Surgery
DX: T81.89XD Other complications of procedures, not elsewhere classified, subsequent encounter (principal); I70.245 Atherosclerosis of native arteries of left leg with ulceration of other part of foot; L97.521 Non-pressure chronic ulcer of other part of left foot limited to breakdown of skin; I10 Essential (primary) hypertension; I73.9 Peripheral vascular disease, unspecified; J44.9 Chronic obstructive pulmonary disease, unspecified; F17.200 Nicotine dependence, unspecified, uncomplicated; Z86.718 Personal history of other venous thrombosis and embolism; Y83.8 Other surgical procedures as the cause of abnormal reaction of the patient, or of later complication, without mention of misadventure at the time of the procedure

== ENCOUNTER 2018-05-20 09:41 | Outpatient (CLI) | payer OTHER ==
[2018-05-20] MEDS ORDERED: SILVER NITRATE TP ONE ×2 (10:46→14:10)
[2018-05-20] MEDS ORDERED: XYLOCAINE TOPICAL 4% TP ONE (11:00)
== END 2018-05-20 09:42 | disposition home or self-care (01) ==
LOC: WOUND 09:41
PROVIDERS: ATTEND Surgery
DX: T81.89XD Other complications of procedures, not elsewhere classified, subsequent encounter (principal); I70.244 Atherosclerosis of native arteries of left leg with ulceration of heel and midfoot; L97.521 Non-pressure chronic ulcer of other part of left foot limited to breakdown of skin; I10 Essential (primary) hypertension; I73.9 Peripheral vascular disease, unspecified; J44.9 Chronic obstructive pulmonary disease, unspecified; M27.8 Other specified diseases of jaws; F17.200 Nicotine dependence, unspecified, uncomplicated; Z86.718 Personal history of other venous thrombosis and embolism; Y83.8 Other surgical procedures as the cause of abnormal reaction of the patient, or of later complication, without mention of misadventure at the time of the procedure
CPT/HCPCS: 11042; 11045; G0277; 99183

== ENCOUNTER 2018-05-21 10:07 | Outpatient (CLI) | payer OTHER | END 2018-05-21 10:08 | disposition home or self-care (01) | LOC: WOUND 10:07 | PROVIDERS: ATTEND Surgery | DX: T81.89XD Other complications of procedures, not elsewhere classified, subsequent encounter (principal); I70.244 Atherosclerosis of native arteries of left leg with ulceration of heel and midfoot; L97.521 Non-pressure chronic ulcer of other part of left foot limited to breakdown of skin; I10 Essential (primary) hypertension; I73.9 Peripheral vascular disease, unspecified; J44.9 Chronic obstructive pulmonary disease, unspecified; M27.8 Other specified diseases of jaws; F17.200 Nicotine dependence, unspecified, uncomplicated; Z86.718 Personal history of other venous thrombosis and embolism; Y83.8 Other surgical procedures as the cause of abnormal reaction of the patient, or of later complication, without mention of misadventure at the time of the procedure | CPT/HCPCS: G0277 ×2; 99183 ==

== ENCOUNTER 2018-05-23 09:36 | Outpatient (CLI) | payer OTHER | END 2018-05-23 09:37 | disposition home or self-care (01) | LOC: WOUND 09:36 | PROVIDERS: ATTEND Surgery | DX: T81.89XD Other complications of procedures, not elsewhere classified, subsequent encounter (principal); I70.244 Atherosclerosis of native arteries of left leg with ulceration of heel and midfoot; L97.421 Non-pressure chronic ulcer of left heel and midfoot limited to breakdown of skin; M27.8 Other specified diseases of jaws; I10 Essential (primary) hypertension; I73.9 Peripheral vascular disease, unspecified; J44.9 Chronic obstructive pulmonary disease, unspecified; F17.200 Nicotine dependence, unspecified, uncomplicated; Z86.718 Personal history of other venous thrombosis and embolism; Y83.8 Other surgical procedures as the cause of abnormal reaction of the patient, or of later complication, without mention of misadventure at the time of the procedure | CPT/HCPCS: G0277 ×2; 99183 ==

== ENCOUNTER 2018-05-24 09:33 | Outpatient (CLI) | payer OTHER | END 2018-05-24 09:34 | disposition home or self-care (01) | LOC: WOUND 09:33 | PROVIDERS: ATTEND Surgery | DX: T81.89XD Other complications of procedures, not elsewhere classified, subsequent encounter (principal); I70.244 Atherosclerosis of native arteries of left leg with ulceration of heel and midfoot; L97.421 Non-pressure chronic ulcer of left heel and midfoot limited to breakdown of skin; M27.8 Other specified diseases of jaws; I10 Essential (primary) hypertension; I73.9 Peripheral vascular disease, unspecified; J44.9 Chronic obstructive pulmonary disease, unspecified; F17.200 Nicotine dependence, unspecified, uncomplicated; Z86.718 Personal history of other venous thrombosis and embolism; Y83.8 Other surgical procedures as the cause of abnormal reaction of the patient, or of later complication, without mention of misadventure at the time of the procedure | CPT/HCPCS: G0277 ×2; 99183 ==

== ENCOUNTER 2018-05-27 10:04 | Outpatient (CLI) | payer OTHER ==
[2018-05-27] MEDS ORDERED: XYLOCAINE TOPICAL 4% TP ONE ×2 (12:58→13:20)
== END 2018-05-27 10:05 | disposition home or self-care (01) ==
LOC: WOUND 10:04
PROVIDERS: ATTEND Surgery
DX: T81.89XD Other complications of procedures, not elsewhere classified, subsequent encounter (principal); I70.244 Atherosclerosis of native arteries of left leg with ulceration of heel and midfoot; L97.421 Non-pressure chronic ulcer of left heel and midfoot limited to breakdown of skin; M27.8 Other specified diseases of jaws; I10 Essential (primary) hypertension; I73.9 Peripheral vascular disease, unspecified; J44.9 Chronic obstructive pulmonary disease, unspecified; F17.200 Nicotine dependence, unspecified, uncomplicated; Z86.718 Personal history of other venous thrombosis and embolism; Y83.8 Other surgical procedures as the cause of abnormal reaction of the patient, or of later complication, without mention of misadventure at the time of the procedure
CPT/HCPCS: 11042; 11045; G0277; 99183

== ENCOUNTER 2018-05-28 09:38 | Outpatient (CLI) | payer OTHER | END 2018-05-28 09:39 | disposition home or self-care (01) | LOC: WOUND 09:38 | PROVIDERS: ATTEND Surgery | DX: T81.89XD Other complications of procedures, not elsewhere classified, subsequent encounter (principal); I70.244 Atherosclerosis of native arteries of left leg with ulceration of heel and midfoot; L97.421 Non-pressure chronic ulcer of left heel and midfoot limited to breakdown of skin; M27.8 Other specified diseases of jaws; I10 Essential (primary) hypertension; I73.9 Peripheral vascular disease, unspecified; J44.9 Chronic obstructive pulmonary disease, unspecified; F17.200 Nicotine dependence, unspecified, uncomplicated; Z86.718 Personal history of other venous thrombosis and embolism; Y83.8 Other surgical procedures as the cause of abnormal reaction of the patient, or of later complication, without mention of misadventure at the time of the procedure | CPT/HCPCS: G0277 ×2; 99183 ==

== ENCOUNTER 2018-05-29 09:35 | Outpatient (CLI) | payer OTHER | END 2018-05-29 09:36 | disposition home or self-care (01) | LOC: WOUND 09:35 | PROVIDERS: ATTEND Surgery | DX: T81.89XD Other complications of procedures, not elsewhere classified, subsequent encounter (principal); I70.244 Atherosclerosis of native arteries of left leg with ulceration of heel and midfoot; L97.421 Non-pressure chronic ulcer of left heel and midfoot limited to breakdown of skin; M27.8 Other specified diseases of jaws; I10 Essential (primary) hypertension; I73.9 Peripheral vascular disease, unspecified; J44.9 Chronic obstructive pulmonary disease, unspecified; F17.200 Nicotine dependence, unspecified, uncomplicated; Z86.718 Personal history of other venous thrombosis and embolism; Y83.8 Other surgical procedures as the cause of abnormal reaction of the patient, or of later complication, without mention of misadventure at the time of the procedure | CPT/HCPCS: G0277 ×2; 99183 ==

== ENCOUNTER 2018-05-30 09:41 | Outpatient (CLI) | payer OTHER | END 2018-05-30 09:42 | disposition home or self-care (01) | LOC: WOUND 09:41 | PROVIDERS: ATTEND Surgery | DX: T81.89XD Other complications of procedures, not elsewhere classified, subsequent encounter (principal); I70.244 Atherosclerosis of native arteries of left leg with ulceration of heel and midfoot; L97.421 Non-pressure chronic ulcer of left heel and midfoot limited to breakdown of skin; M27.8 Other specified diseases of jaws; I10 Essential (primary) hypertension; I73.9 Peripheral vascular disease, unspecified; J44.9 Chronic obstructive pulmonary disease, unspecified; F17.200 Nicotine dependence, unspecified, uncomplicated; Z86.718 Personal history of other venous thrombosis and embolism; Y83.8 Other surgical procedures as the cause of abnormal reaction of the patient, or of later complication, without mention of misadventure at the time of the procedure | CPT/HCPCS: G0277 ×2; 99183 ==

== ENCOUNTER 2018-05-31 09:47 | Outpatient (CLI) | payer OTHER | END 2018-05-31 09:48 | disposition home or self-care (01) | LOC: WOUND 09:47 | PROVIDERS: ATTEND Surgery | DX: T81.89XD Other complications of procedures, not elsewhere classified, subsequent encounter (principal); I70.244 Atherosclerosis of native arteries of left leg with ulceration of heel and midfoot; L97.421 Non-pressure chronic ulcer of left heel and midfoot limited to breakdown of skin; I70.242 Atherosclerosis of native arteries of left leg with ulceration of calf; L97.221 Non-pressure chronic ulcer of left calf limited to breakdown of skin; M27.8 Other specified diseases of jaws; I10 Essential (primary) hypertension; J44.9 Chronic obstructive pulmonary disease, unspecified; F17.200 Nicotine dependence, unspecified, uncomplicated; Z86.718 Personal history of other venous thrombosis and embolism; Y83.8 Other surgical procedures as the cause of abnormal reaction of the patient, or of later complication, without mention of misadventure at the time of the procedure | CPT/HCPCS: G0277 ×2; 99183 ==

== ENCOUNTER 2018-06-03 08:56 | Outpatient (CLI) | payer OTHER ==
[2018-06-03] MEDS ORDERED: XYLOCAINE TOPICAL 4% TP ONE (09:27)
[2018-06-03] MEDS ORDERED: SILVER NITRATE TP ONE (10:04)
== END 2018-06-03 08:57 | disposition home or self-care (01) ==
LOC: WOUND 08:56
PROVIDERS: ATTEND Surgery
DX: T81.89XD Other complications of procedures, not elsewhere classified, subsequent encounter (principal); I70.244 Atherosclerosis of native arteries of left leg with ulceration of heel and midfoot; L97.421 Non-pressure chronic ulcer of left heel and midfoot limited to breakdown of skin; L97.521 Non-pressure chronic ulcer of other part of left foot limited to breakdown of skin; I70.242 Atherosclerosis of native arteries of left leg with ulceration of calf; L97.221 Non-pressure chronic ulcer of left calf limited to breakdown of skin; M27.8 Other specified diseases of jaws; I10 Essential (primary) hypertension; J44.9 Chronic obstructive pulmonary disease, unspecified; F17.200 Nicotine dependence, unspecified, uncomplicated; Z86.718 Personal history of other venous thrombosis and embolism; Y83.8 Other surgical procedures as the cause of abnormal reaction of the patient, or of later complication, without mention of misadventure at the time of the procedure
CPT/HCPCS: 11042; 11045; G0277; 99183

== ENCOUNTER 2018-06-04 09:44 | Outpatient (CLI) | payer OTHER | END 2018-06-04 09:45 | disposition home or self-care (01) | LOC: WOUND 09:44 | PROVIDERS: ATTEND Surgery | DX: T81.89XD Other complications of procedures, not elsewhere classified, subsequent encounter (principal); I70.244 Atherosclerosis of native arteries of left leg with ulceration of heel and midfoot; L97.421 Non-pressure chronic ulcer of left heel and midfoot limited to breakdown of skin; I70.242 Atherosclerosis of native arteries of left leg with ulceration of calf; L97.221 Non-pressure chronic ulcer of left calf limited to breakdown of skin; M27.8 Other specified diseases of jaws; I10 Essential (primary) hypertension; J44.9 Chronic obstructive pulmonary disease, unspecified; F17.200 Nicotine dependence, unspecified, uncomplicated; Z86.718 Personal history of other venous thrombosis and embolism; Y83.8 Other surgical procedures as the cause of abnormal reaction of the patient, or of later complication, without mention of misadventure at the time of the procedure | CPT/HCPCS: G0277 ×2; 99183 ==

== ENCOUNTER 2018-06-05 09:46 | Outpatient (CLI) | payer OTHER | END 2018-06-05 09:47 | disposition home or self-care (01) | LOC: WOUND 09:46 | PROVIDERS: ATTEND Surgery | DX: T81.89XD Other complications of procedures, not elsewhere classified, subsequent encounter (principal); I70.244 Atherosclerosis of native arteries of left leg with ulceration of heel and midfoot; L97.421 Non-pressure chronic ulcer of left heel and midfoot limited to breakdown of skin; I70.242 Atherosclerosis of native arteries of left leg with ulceration of calf; L97.221 Non-pressure chronic ulcer of left calf limited to breakdown of skin; M27.8 Other specified diseases of jaws; I10 Essential (primary) hypertension; J44.9 Chronic obstructive pulmonary disease, unspecified; F17.200 Nicotine dependence, unspecified, uncomplicated; Z86.718 Personal history of other venous thrombosis and embolism; Y83.8 Other surgical procedures as the cause of abnormal reaction of the patient, or of later complication, without mention of misadventure at the time of the procedure | CPT/HCPCS: G0277 ×2; 99183 ==

== ENCOUNTER 2018-06-06 09:28 | Outpatient (CLI) | payer OTHER | END 2018-06-06 09:29 | disposition home or self-care (01) | LOC: WOUND 09:28 | PROVIDERS: ATTEND Surgery | DX: T81.89XD Other complications of procedures, not elsewhere classified, subsequent encounter (principal); I70.244 Atherosclerosis of native arteries of left leg with ulceration of heel and midfoot; L97.421 Non-pressure chronic ulcer of left heel and midfoot limited to breakdown of skin; I70.242 Atherosclerosis of native arteries of left leg with ulceration of calf; L97.221 Non-pressure chronic ulcer of left calf limited to breakdown of skin; M27.8 Other specified diseases of jaws; I10 Essential (primary) hypertension; J44.9 Chronic obstructive pulmonary disease, unspecified; F17.200 Nicotine dependence, unspecified, uncomplicated; Z86.718 Personal history of other venous thrombosis and embolism; Y83.8 Other surgical procedures as the cause of abnormal reaction of the patient, or of later complication, without mention of misadventure at the time of the procedure | CPT/HCPCS: G0277 ×2; 99183 ==

== ENCOUNTER 2018-06-07 09:54 | Outpatient (CLI) | payer OTHER | END 2018-06-07 09:55 | disposition home or self-care (01) | LOC: WOUND 09:54 | PROVIDERS: ATTEND Surgery | DX: T81.89XD Other complications of procedures, not elsewhere classified, subsequent encounter (principal); I70.244 Atherosclerosis of native arteries of left leg with ulceration of heel and midfoot; L97.421 Non-pressure chronic ulcer of left heel and midfoot limited to breakdown of skin; I70.242 Atherosclerosis of native arteries of left leg with ulceration of calf; L97.221 Non-pressure chronic ulcer of left calf limited to breakdown of skin; M27.8 Other specified diseases of jaws; I10 Essential (primary) hypertension; J44.9 Chronic obstructive pulmonary disease, unspecified; F17.200 Nicotine dependence, unspecified, uncomplicated; Z86.718 Personal history of other venous thrombosis and embolism; Y83.8 Other surgical procedures as the cause of abnormal reaction of the patient, or of later complication, without mention of misadventure at the time of the procedure | CPT/HCPCS: G0277 ×2; 99183 ==

== ENCOUNTER 2018-06-10 09:53 | Outpatient (CLI) | payer OTHER ==
[2018-06-10] MEDS ORDERED: XYLOCAINE TOPICAL 4% TP ONE ×2 (13:10→15:31)
== END 2018-06-10 09:54 | disposition home or self-care (01) ==
LOC: WOUND 09:53
PROVIDERS: ATTEND Surgery
DX: T81.89XD Other complications of procedures, not elsewhere classified, subsequent encounter (principal); I70.244 Atherosclerosis of native arteries of left leg with ulceration of heel and midfoot; L97.421 Non-pressure chronic ulcer of left heel and midfoot limited to breakdown of skin; I70.242 Atherosclerosis of native arteries of left leg with ulceration of calf; L97.221 Non-pressure chronic ulcer of left calf limited to breakdown of skin; M27.8 Other specified diseases of jaws; I10 Essential (primary) hypertension; J44.9 Chronic obstructive pulmonary disease, unspecified; F17.200 Nicotine dependence, unspecified, uncomplicated; Z86.718 Personal history of other venous thrombosis and embolism; Y83.8 Other surgical procedures as the cause of abnormal reaction of the patient, or of later complication, without mention of misadventure at the time of the procedure
CPT/HCPCS: 11042; 11045; G0277; 99183

== ENCOUNTER 2018-06-11 09:42 | Outpatient (CLI) | payer OTHER | END 2018-06-11 09:43 | disposition home or self-care (01) | LOC: WOUND 09:42 | PROVIDERS: ATTEND Surgery | DX: T81.89XD Other complications of procedures, not elsewhere classified, subsequent encounter (principal); I70.244 Atherosclerosis of native arteries of left leg with ulceration of heel and midfoot; L97.421 Non-pressure chronic ulcer of left heel and midfoot limited to breakdown of skin; I70.242 Atherosclerosis of native arteries of left leg with ulceration of calf; L97.221 Non-pressure chronic ulcer of left calf limited to breakdown of skin; M27.8 Other specified diseases of jaws; I10 Essential (primary) hypertension; J44.9 Chronic obstructive pulmonary disease, unspecified; F17.200 Nicotine dependence, unspecified, uncomplicated; Z86.718 Personal history of other venous thrombosis and embolism; Y83.8 Other surgical procedures as the cause of abnormal reaction of the patient, or of later complication, without mention of misadventure at the time of the procedure | CPT/HCPCS: G0277 ×2; 99183 ==

== ENCOUNTER 2018-06-12 10:13 | Outpatient (CLI) | payer OTHER | END 2018-06-12 10:14 | disposition home or self-care (01) | LOC: WOUND 10:13 | PROVIDERS: ATTEND Surgery | DX: T81.89XD Other complications of procedures, not elsewhere classified, subsequent encounter (principal); I70.244 Atherosclerosis of native arteries of left leg with ulceration of heel and midfoot; L97.421 Non-pressure chronic ulcer of left heel and midfoot limited to breakdown of skin; I70.242 Atherosclerosis of native arteries of left leg with ulceration of calf; L97.221 Non-pressure chronic ulcer of left calf limited to breakdown of skin; M27.8 Other specified diseases of jaws; I10 Essential (primary) hypertension; J44.9 Chronic obstructive pulmonary disease, unspecified; F17.200 Nicotine dependence, unspecified, uncomplicated; Z86.718 Personal history of other venous thrombosis and embolism; Y83.8 Other surgical procedures as the cause of abnormal reaction of the patient, or of later complication, without mention of misadventure at the time of the procedure | CPT/HCPCS: G0277 ×2; 99183 ==

== ENCOUNTER 2018-06-13 09:43 | Outpatient (CLI) | payer OTHER | END 2018-06-13 09:44 | disposition home or self-care (01) | LOC: WOUND 09:43 | PROVIDERS: ATTEND Surgery | DX: T81.89XD Other complications of procedures, not elsewhere classified, subsequent encounter (principal); I70.244 Atherosclerosis of native arteries of left leg with ulceration of heel and midfoot; L97.421 Non-pressure chronic ulcer of left heel and midfoot limited to breakdown of skin; I70.242 Atherosclerosis of native arteries of left leg with ulceration of calf; L97.221 Non-pressure chronic ulcer of left calf limited to breakdown of skin; M27.8 Other specified diseases of jaws; I10 Essential (primary) hypertension; J44.9 Chronic obstructive pulmonary disease, unspecified; F17.200 Nicotine dependence, unspecified, uncomplicated; Z86.718 Personal history of other venous thrombosis and embolism; Y83.8 Other surgical procedures as the cause of abnormal reaction of the patient, or of later complication, without mention of misadventure at the time of the procedure | CPT/HCPCS: G0277 ×2; 99183 ==

== ENCOUNTER 2018-08-09 13:02 | Outpatient (CLI) | payer OTHER ==
--- NOTE | 2018-06-18 18:33 | Operative Report ---
PROCEDURE: Upper endoscopy. PREOPERATIVE DIAGNOSIS: Anemia. POSTOPERATIVE DIAGNOSIS: Normal upper endoscopy. SEDATION: MAC by Anesthesia. HISTORY: The patient is a 57-year-old woman with severe peripheral vascular disease who was admitted with compartment syndrome and ischemia. She dropped her hemoglobin from 12-7.6 overnight. Hospitalist and nursing staff reported melena. The patient does have a history of prior peptic ulcer disease. The patient is also thrombocytopenic. DESCRIPTION OF PROCEDURE: Procedure, indications, risks, and benefits were explained and consent was obtained from the patient. The patient was placed in left lateral decubitus position and sedated. [employer] video upper scope was passed through the mouth and oropharynx into the descending duodenum. Scope was then gradually withdrawn with close inspection of mucosa. FINDINGS: 1. Normal appearing esophagus. 2. Normal appearing gastric antrum, fundus, body, and cardia with small amount of bile noted in stomach lumen. 3. Normal appearing duodenal bulb and duodenum. The patient tolerated the procedure well without immediate complications. IMPRESSION: 1. Normal upper endoscopy with no evidence of bleeding source. RECOMMENDATIONS: 1. Prophylactic PPI. 2. Monitor H and H and correct platelet counts and coag. 3. Blood loss, likely due to soft tissue losses. We will sign off. Please call as needed. JOB# [id number] HRC/NTS
[2018-08-09] MEDS ORDERED: XYLOCAINE TOPICAL 4% TP ONE ×2 (13:34→16:29)
[2018-08-09] MEDS ORDERED: SILVER NITRATE TP ONE ×2 (14:06→16:29)
== END 2018-08-09 13:03 | disposition home or self-care (01) ==
LOC: WOUND 13:02
PROVIDERS: ATTEND Surgery
DX: T81.89XD Other complications of procedures, not elsewhere classified, subsequent encounter (principal); I70.244 Atherosclerosis of native arteries of left leg with ulceration of heel and midfoot; L97.421 Non-pressure chronic ulcer of left heel and midfoot limited to breakdown of skin; I70.242 Atherosclerosis of native arteries of left leg with ulceration of calf; L97.221 Non-pressure chronic ulcer of left calf limited to breakdown of skin; M27.8 Other specified diseases of jaws; I10 Essential (primary) hypertension; J44.9 Chronic obstructive pulmonary disease, unspecified; F17.200 Nicotine dependence, unspecified, uncomplicated; Z86.718 Personal history of other venous thrombosis and embolism; Y83.8 Other surgical procedures as the cause of abnormal reaction of the patient, or of later complication, without mention of misadventure at the time of the procedure
CPT/HCPCS: 17250

== ENCOUNTER 2018-08-19 10:38 | Outpatient (CLI) | payer MEDICARE ==
[2018-08-19] MEDS ORDERED: XYLOCAINE TOPICAL 4% TP ONE ×2 (11:37→11:52)
== END 2018-08-19 10:39 | disposition home or self-care (01) ==
LOC: WOUND 10:38
PROVIDERS: ATTEND Surgery
DX: T81.89XD Other complications of procedures, not elsewhere classified, subsequent encounter (principal); I70.244 Atherosclerosis of native arteries of left leg with ulceration of heel and midfoot; L97.421 Non-pressure chronic ulcer of left heel and midfoot limited to breakdown of skin; I70.242 Atherosclerosis of native arteries of left leg with ulceration of calf; L97.221 Non-pressure chronic ulcer of left calf limited to breakdown of skin; M27.8 Other specified diseases of jaws; I10 Essential (primary) hypertension; J44.9 Chronic obstructive pulmonary disease, unspecified; F17.200 Nicotine dependence, unspecified, uncomplicated; Z86.718 Personal history of other venous thrombosis and embolism; Y83.8 Other surgical procedures as the cause of abnormal reaction of the patient, or of later complication, without mention of misadventure at the time of the procedure

== ENCOUNTER 2018-08-26 10:50 | Outpatient (CLI) | payer MEDICARE ==
[2018-08-26] MEDS ORDERED: XYLOCAINE TOPICAL 4% TP ONE ×2 (11:06→13:45)
== END 2018-08-26 10:51 | disposition home or self-care (01) ==
LOC: WOUND 10:50
PROVIDERS: ATTEND Surgery
DX: T81.31XD Disruption of external operation (surgical) wound, not elsewhere classified, subsequent encounter (principal); I70.244 Atherosclerosis of native arteries of left leg with ulceration of heel and midfoot; L97.421 Non-pressure chronic ulcer of left heel and midfoot limited to breakdown of skin; I70.242 Atherosclerosis of native arteries of left leg with ulceration of calf; L97.221 Non-pressure chronic ulcer of left calf limited to breakdown of skin; M27.8 Other specified diseases of jaws; I10 Essential (primary) hypertension; J44.9 Chronic obstructive pulmonary disease, unspecified; F17.200 Nicotine dependence, unspecified, uncomplicated; Z86.718 Personal history of other venous thrombosis and embolism; Y83.8 Other surgical procedures as the cause of abnormal reaction of the patient, or of later complication, without mention of misadventure at the time of the procedure